=== PATIENT | male | born 1940 | race American Indian/Alaskan Native ===

== ENCOUNTER 2020-01-17 16:38 | Inpatient (IN) | payer OTHER ==
[2020-01-17] MEDS ORDERED: ACETAMINOPHEN 650 MG RECT SUPP PR ONE (17:15)
[2020-01-17] MEDS ORDERED: SODIUM CHLORIDE 0.9% 1000 ML 1,000 ML IV ONE (17:15)
[2020-01-17] MEDS ORDERED: PIPERACILLIN/TAZOBACTAM 3.375 3.375 GM/50 ML BAG IV ONE (17:20)
--- NOTE | 2020-01-17 17:20 | Emergency Department Report ---
ED General Adult HPI - General Chief complaint: Altered Mental Status Stated complaint: SEPSIS Time Seen by Provider: 01/17/20 17:08 Source: EMS Mode of arrival: Stretcher Limitations: Altered Mental Status, Physical Limitation - History of Present Illness Initial comments: Patient is 79 years old male, care home patient. [facility] for evaluation of altered mental status. [facility] staff reported that patient has not been acting well since last night and today patient is not communicating with them. Upon arrival to the ER patient found to be tachycardic with a temperature of 102.2. Sepsis protocol immediately initiated and patient started on normal saline and Zosyn. -: This morning - Related Data Allergies Allergy/AdvReac Type Severity Reaction Status Date / Time No Known Allergies Allergy Unverified 01/17/20 16:44 ED Review of Systems ROS: Stated complaint: SEPSIS Other details as noted in HPI Comment: Unobtainable due to pts medical conditions ED Physical Exam - General Limitations: Altered Mental Status, Physical Limitation General appearance: obtunded - Head Head exam: Present: atraumatic, normocephalic, normal inspection - Eye Eye exam: Present: normal appearance - ENT ENT exam: Present: mucous membranes dry - Neck Neck exam: Present: normal inspection, full ROM. Absent: tenderness, meningismus - Respiratory Respiratory exam: Present: rales - Cardiovascular Cardiovascular Exam: Present: tachycardia - GI/Abdominal GI/Abdominal exam: Present: soft. Absent: distended, tenderness, guarding, rebound, rigid - Extremities Exam Extremities exam: Present: normal inspection, normal capillary refill - Neurological Exam Neurological exam: Present: altered - Skin Skin exam: Present: warm, dry ED Course Vital Signs 01/17/20 01/17/20 01/17/20 16:44 16:59 17:00 Temperature Pulse Rate 106 H 105 H 106 H Respiratory 17 26 H Rate Blood Pressure 145/97 Blood Pressure 140/92 [Left] O2 Sat by Pulse 95 96 Oximetry 01/17/20 01/17/20 01/17/20 17:55 18:01 19:01 Temperature Pulse Rate 90 Respiratory 21 Rate Blood Pressure 150/82 159/89 Blood Pressure [Left] O2 Sat by Pulse 3 L 85 Oximetry 01/17/20 01/17/20 01/17/20 19:02 19:15 19:31 Temperature Pulse Rate 85 87 89 Respiratory 22 24 24 Rate Blood Pressure 159/94 159/94 Blood Pressure 151/86 [Left] O2 Sat by Pulse 95 90 93 Oximetry 01/17/20 01/17/20 01/17/20 19:45 20:07 20:15 Temperature Pulse Rate 89 85 80 Respiratory 25 H 20 17 Rate Blood Pressure 140/111 140/111 140/111 Blood Pressure [Left] O2 Sat by Pulse 93 92 96 Oximetry 01/17/20 01/17/20 01/17/20 20:30 20:45 21:00 Temperature Pulse Rate 80 83 80 Respiratory 20 17 24 Rate Blood Pressure 116/87 116/87 116/95 Blood Pressure [Left] O2 Sat by Pulse 96 93 Oximetry 01/17/20 21:14 Temperature 98.2 F Pulse Rate 81 Respiratory Rate Blood Pressure Blood Pressure [Left] O2 Sat by Pulse Oximetry ED Medical Decision Making - Lab Data Result diagrams: 01/17/20 17:34 01/17/20 17:34 - EKG Data -: EKG Interpreted by Nm EKG shows normal: sinus rhythm Rate: normal - EKG Data Interpretation: no acute changes - Radiology Data Radiology results: report reviewed - Medical Decision Making Patient is 79 years old male, care home patient. Patient brought to the emergency room via EMS for evaluation of altered mental status. [facility] staff reported that patient has not been acting well since last night and today patient is not communicating with them. Upon arrival to the ER patient found to be tachycardic with a temperature of 102.2. Sepsis protocol immediately initiated and patient started on normal saline and Zosyn. Patient found to have a sodium of 166 and a creatinine of 2.2. Patient started on normal saline. Chest x-ray is unremarkable. CT brain is negative for acute finding. UA is unremarkable. I discussed the patient with Dr. Kennedy, he agreed to admit the patient to medical service for further management. Critical Care Time: Yes Critical care time in (mins) excluding proc time.: 30 Critical care attestation.: If time is entered above; I have spent that time in minutes in the direct care of this critically ill patient, excluding procedure time. ED Disposition Clinical Impression: Altered mental status, Sepsis, Acute hypernatremia, Suspected COVID-19 virus infection Disposition: OP ADMIT IP TO THIS HOSP Is pt being admited?: Yes Condition: Stable
[2020-01-17] MEDS: SODIUM CHLORIDE 0.9% 1000 ML 1,000 ML IV ONE ×2 (17:30→17:31)
--- NOTE | 2020-01-17 17:48 | XRay Report ---
CHEST 1 VIEW INDICATION: Altered Mental Status COMPARISON: None FINDINGS: SUPPORT DEVICES: None. HEART / MEDIASTINUM: No significant abnormality. LUNGS / PLEURA: Bronchovascular markings are prominent. No pneumothorax. ADDITIONAL FINDINGS: IMPRESSION: 1. Mild pulmonary edema is a concern Signer Name: Dhiraj Flores MD Signed: 01/17/2020 5:43 PM Workstation Name: [id number]
[2020-01-17 17:57] LABS: Basophils % (Auto) 0.4 % (0.0-1.8); Hematocrit 52.1 % (35.5-45.6); Hemoglobin 16.8 gm/dl (11.8-15.2); Lymphocytes # (Auto) 1.1 K/mm3 (1.2-5.4); Lymphocytes % (Auto) 12.6 % (13.4-35.0); Mean Corpuscular HGB Conc 32 % (32-34); Mean Corpuscular Volume 79 fl (84-94); Monocytes # (Auto) 0.6 K/mm3 (0.0-0.8); Monocytes % (Auto) 6.8 % (0.0-7.3); Platelet Count 189 K/mm3 (140-440); Red Blood Count 6.56 M/mm3 (3.65-5.03); Red Cell Distribution Width 15.2 % (13.2-15.2)
[2020-01-17 18:13] LABS: INR 1.13 (0.87-1.13)
[2020-01-17 18:15] LABS: Alanine Aminotransferase 54 units/L (7-56); Albumin 3.3 g/dL (3.9-5)
[2020-01-17 18:16] LABS: Bilirubin,Direct < 0.2 mg/dL (0-0.2)
[2020-01-17 20:04] LABS: Bacteria,Urine 1+ /HPF (Negative); Bilirubin,Urine NEG (Negative); Blood,Urine SM (Negative); Color,Urine Yellow (Yellow); Mucus,Urine FEW /HPF; Urobilinogen,Urine < 2.0 mg/dL (<2.0)
--- NOTE | 2020-01-17 20:22 | Cat Scan Report ---
CT head/brain wo con INDICATION / CLINICAL INFORMATION: 79 years Male; Altered Mental Status. TECHNIQUE: Routine CT head without contrast. All CT scans at this location are performed using CT dos e reduction for ALARA by means of automated exposure control. COMPARISON: None. FINDINGS: BRAIN / INTRACRANIAL CONTENTS: Small lacunar infarcts are seen in the gangliocapsular regions. Otherwise, no acute hemorrhage, mass effect, midline shift, hydrocephalus, or acute, large territori al infarct. Moderate cerebral and cerebellar atrophy. Moderate degree of hippocampal atrophy suggested bilaterall y. Prominent cavum septum pellucidum et vergae noted. There are extensive, confluent areas of decreased attenuation in the white matter of the cerebral hem ispheres, as well as the gangliocapsular regions. These are nonspecific findings and may be related t o microangiopathy (hypertension, diabetes, atherosclerosis), given the patient's age. It might be dif ficult to evaluate for small areas of ischemia without diffusion imaging by MRI. CRANIOCERVICAL JUNCTION: No significant abnormality. ORBITS: No significant abnormality of visualized orbits. SINUSES / MASTOIDS: Mild to moderate mucosal thickening seen in the ethmoids. Mild mucosal thickening also seen in the mastoids. Mucous tension cyst seen in the right maxillary antrum. ADDITIONAL FINDINGS: Atherosclerotic disease is seen in the anterior circulation. IMPRESSION: 1. No focal mass, hemorrhage, hydrocephalus, or acute, large territorial infarct. Follow-up with diff usion imaging by MRI, as clinically warranted. Signer Name: Charles Edge MD, III Signed: 01/17/2020 8:17 PM Workstation Name: [id number]
[2020-01-17] MEDS ORDERED: MAGNESIUM HYDROXIDE (MOM) ORAL LIQD UDC PO PRN (22:03)
[2020-01-17] MEDS ORDERED: ONDANSETRON 4 MG/2 ML INJ IV PRN (22:03)
--- NOTE | 2020-01-17 22:11 | History and Physical Report ---
History of Present Illness Date of examination: 01/17/20 Date of admission: 01/17/20 21:39 Chief complaint: Altered Mental Status History of present illness: 79-year-old male resident of a [facility]dc brought into the emergency room via EMS today for evaluation of changes in mental status. [facility] staff reported that patient was not communicating well and was having decreased oral intake. He has been no history of nausea vomiting, no diarrhea, no shortness of breath, no fever or chills, no hematuria or dysuria. Patient unable to give any history most of the history was obtained from the emergency room staff. Upon arrival in the emergency room patient was found to be tachycardic and had a fever of 102.2 F. Work-up was significant for hypernatremia, elevated BUN and creatinine. Chest x-ray and CT scan of the head were unremarkable. Patient is being admitted for dehydration, fever and changes in mental status. He is also to be ruled out for COVID-19. Past History Past Medical History: other (Unobtainable) Past Surgical History: Other (Unobtainable) Social history: other (Unobtainable) Family history: other (Unobtainable) Medications and Allergies Allergies Allergy/AdvReac Type Severity Reaction Status Date / Time No Known Allergies Allergy Verified 01/17/20 22:09 Review of Systems ROS unobtainable: due to mental status Exam - Constitutional Vitals: Temp Pulse Resp BP Pulse Ox 98.2 F 81 24 116/95 93 01/17/20 21:14 01/17/20 21:14 01/17/20 21:00 01/17/20 21:00 01/17/20 20:45 General appearance: Present: no acute distress, well-nourished, other (Dry oral mucosa) - EENT Eyes: Present: PERRL, EOM intact. Absent: scleral icterus ENT: hearing intact, clear oral mucosa, dentition normal - Neck Neck: Present: supple, normal ROM - Respiratory Respiratory effort: normal Respiratory: bilateral: CTA - Cardiovascular Rhythm: regular Heart Sounds: Present: S1 & S2. Absent: gallop, systolic murmur, diastolic murmur, rub - Extremities Extremities: no ischemia, pulses intact, pulses symmetrical, No edema, Full ROM Peripheral Pulses: within normal limits - Abdominal General gastrointestinal: Present: soft, non-tender, non-distended, normal bowel sounds. Absent: mass - Integumentary Integumentary: Present: clear, warm, dry. Absent: rash - Musculoskeletal Musculoskeletal: strength equal bilaterally - Psychiatric Psychiatric: appropriate mood/affect, intact judgment & insight, memory intact, cooperative - Neurologic Neurologic: CNII-XII intact, no focal deficits, moves all extremities HEART Score - HEART Score Troponin: Troponin T < 0.010 ng/mL (0.00-0.029) 01/17/20 17:34 Results - Labs CBC & Chem 7: 01/17/20 17:34 01/17/20 21:39 Labs: Abnormal lab results 01/17/20 01/17/20 01/17/20 Range/Units 17:34 17:34 17:34 RBC 6.56 H (3.65-5.03) M/mm3 Hgb 16.8 H (11.8-15.2) gm/dl Hct 52.1 H (35.5-45.6) % MCV 79 L (84-94) fl MCH 26 L (28-32) pg Lymph % (Auto) 12.6 L (13.4-35.0) % Lymph # (Auto) 1.1 L (1.2-5.4) K/mm3 Seg Neutrophils % 80.2 H (40.0-70.0) % Sodium 161 H* (137-145) mmol/L Chloride 123.6 H (98-107) mmol/L BUN 55 H (9-20) mg/dL Creatinine 2.2 H (0.8-1.3) mg/dL Glucose 128 H (75-100) mg/dL AST 63 H (5-40) units/L Albumin 3.3 L (3.9-5) g/dL Assessment and Plan - Patient Problems (1) Altered mental status Current Visit: Yes Status: Acute Plan to address problem: Etiology is unclear but possibly secondary to the hypernatremia with the accompanying dehydration and possible underlying sepsis. Will monitor mental status. (2) Acute hypernatremia Current Visit: Yes Status: Acute Plan to address problem: Patient placed on IV fluid. Will monitor chemistry. (3) Suspected COVID-19 virus infection Current Visit: Yes Status: Acute Plan to address problem: Patient placed on isolation precautions. We await COVID-19 testing. Consult placed to infectious disease for evaluation. (4) DVT prophylaxis Current Visit: Yes Status: Acute Plan to address problem: Patient placed on subcutaneous heparin. (5) Full code status Current Visit: Yes Status: Acute
[2020-01-17 22:15] LABS: C-Reactive Protein 9.4 mg/dL (0.00-1.30)
[2020-01-17] MEDS ORDERED: SODIUM CHLORIDE 0.9% 1000 ML 1,000 ML IV SCH (22:15)
[2020-01-18] MEDS ORDERED: PIPERACILLIN/TAZOBACTAM 3.375 3.375 GM/50 ML BAG IV SCH (06:00)
[2020-01-18 08:46] LABS: Basophils % (Auto) 0.1 % (0.0-1.8); Hematocrit 46.9 % (35.5-45.6); Lymphocytes # (Auto) 1.1 K/mm3 (1.2-5.4); Lymphocytes % (Auto) 12.7 % (13.4-35.0); Mean Corpuscular HGB Conc 32 % (32-34); Mean Corpuscular Volume 79 fl (84-94); Monocytes # (Auto) 0.4 K/mm3 (0.0-0.8); Monocytes % (Auto) 4.6 % (0.0-7.3); Platelet Count 155 K/mm3 (140-440); Red Blood Count 5.91 M/mm3 (3.65-5.03)
[2020-01-18 08:52] LABS: INR 1.16 (0.87-1.13)
[2020-01-18 08:56] LABS: Calcium 7.9 mg/dL (8.4-10.2)
--- NOTE | 2020-01-18 10:22 | Consultation ---
History of Present Illness - Reason for Consult Consult date: 01/18/20 r/o COVID Requesting physician: MARTHA GREEN - History of Present Illness 79 years old male with unknown history of admitted on 01/17/2020 due to 24-hour history of altered mental status, decreased communication. Patient is not the best historian. On arrival, temperature 102 per ED provider report (not recorded), HR 106, BP 140/92, R26, O2 sat drops to 91%, patient currently on room air. WBC normal. Sodium 161. Creatinine 2.2. AST 63. Ferritin 8522. D-dimer 10,000, CRP 9.9. Blood cultures 01/17/2020 pending. Chest x-ray with possible bilateral pulmonary edema. Review of Systems: reviewed ED and H&P notes. Limited due to PPE conservation strategy Past History Past Medical History: other (Unobtainable) Past Surgical History: Other (Unobtainable) Social history: other (Unobtainable) Family history: other (Unobtainable) Medications and Allergies Allergies Allergy/AdvReac Type Severity Reaction Status Date / Time No Known Allergies Allergy Verified 01/17/20 22:09 Active Meds: Active Medications Acetaminophen (Tylenol) 650 mg PO Q4H PRN PRN Reason: Pain MILD(1-3)/Fever >100.5/FORD Piperacillin Sod/Tazobactam Sod (Zosyn/Ns 3.375gm/50ml) 3.375 gm in 50 mls @ 100 mls/hr IV Q8HR LIBORIO; Protocol Last Admin: 01/18/20 05:58 Dose: 100 mls/hr Documented by: Dextrose (D5w) 1,000 mls @ 75 mls/hr IV DIRECT LIBORIO Magnesium Hydroxide (Milk Of Magnesia) 30 ml PO Q4H PRN PRN Reason: Constipation Ondansetron HCl (Zofran) 4 mg IV Q8H PRN PRN Reason: Nausea And Vomiting Sodium Chloride (Sodium Chloride Flush Syringe 10 Ml) 10 ml IV BID LIBORIO Sodium Chloride (Sodium Chloride Flush Syringe 10 Ml) 10 ml IV PRN PRN PRN Reason: LINE FLUSH Physical Examination - Physical Exam Narrative exam: Physical Exam: reviewed provider and hospitalist notes, limited due to co nservation of PPE and decrease risk of transmission. General appearance: limited due to conservation of PPE Eyes: limited due to conservation of PPE HENT: Atraumatic; limited due to conservation of PPE Lungs: limited due to conservation of PPE CV: limited due to conservation of PPE Abdomen: limited due to conservation of PPE Extremities: limited due to conservation of PPE Skin: limited due to conservation of PPE Psych: limited due to conservation of PPE Neuro: limited due to conservation of PPE - Constitutional Vitals: Vital Signs Temp Pulse Resp BP Pulse Ox 98.4 F 82 20 139/96 93 01/18/20 04:40 01/18/20 04:40 01/18/20 04:40 01/18/20 04:40 01/18/20 04:40 Temperature -Last 24 Hours Temperature 98.4 F Temperature 98.5 F Temperature 98.2 F Results - Labs CBC & Chem 7: 01/18/20 07:45 01/18/20 07:45 Labs: Abnormal lab results 01/17/20 01/17/20 01/17/20 Range/Units 17:34 17:34 17:34 RBC 6.56 H (3.65-5.03) M/mm3 Hgb 16.8 H (11.8-15.2) gm/dl Hct 52.1 H (35.5-45.6) % MCV 79 L (84-94) fl MCH 26 L (28-32) pg Lymph % (Auto) 12.6 L (13.4-35.0) % Lymph # (Auto) 1.1 L (1.2-5.4) K/mm3 Seg Neutrophils % 80.2 H (40.0-70.0) % PT (12.2-14.9) Sec. INR (0.87-1.13) D-Dimer (0-234) ng/mlDDU Sodium 161 H* (137-145) mmol/L Chloride 123.6 H (98-107) mmol/L BUN 55 H (9-20) mg/dL Creatinine 2.2 H (0.8-1.3) mg/dL Glucose 128 H (75-100) mg/dL Calcium (8.4-10.2) mg/dL Ferritin (30.0-300.0) ng/mL AST 63 H (5-40) units/L Lactate Dehydrogenase (91-180) units/L C-Reactive Protein (0.00-1.30) mg/dL Albumin 3.3 L (3.9-5) g/dL 01/17/20 01/17/20 01/17/20 Range/Units 21:39 21:39 21:39 RBC (3.65-5.03) M/mm3 Hgb (11.8-15.2) gm/dl Hct (35.5-45.6) % MCV (84-94) fl MCH (28-32) pg Lymph % (Auto) (13.4-35.0) % Lymph # (Auto) (1.2-5.4) K/mm3 Seg Neutrophils % (40.0-70.0) % PT (12.2-14.9) Sec. INR (0.87-1.13) D-Dimer > 07183 H (0-234) ng/mlDDU Sodium (137-145) mmol/L Chloride (98-107) mmol/L BUN (9-20) mg/dL Creatinine (0.8-1.3) mg/dL Glucose 108 H (75-100) mg/dL Calcium (8.4-10.2) mg/dL Ferritin 3522.0 H (30.0-300.0) ng/mL AST (5-40) units/L Lactate Dehydrogenase 407 H (91-180) units/L C-Reactive Protein 9.40 H (0.00-1.30) mg/dL Albumin (3.9-5) g/dL 01/18/20 01/18/20 01/18/20 Range/Units 07:45 07:45 07:45 RBC 5.91 H (3.65-5.03) M/mm3 Hgb (11.8-15.2) gm/dl Hct 46.9 H (35.5-45.6) % MCV 79 L (84-94) fl MCH 25 L (28-32) pg Lymph % (Auto) 12.7 L (13.4-35.0) % Lymph # (Auto) 1.1 L (1.2-5.4) K/mm3 Seg Neutrophils % 82.6 H (40.0-70.0) % PT 15.0 H (12.2-14.9) Sec. INR 1.16 H (0.87-1.13) D-Dimer (0-234) ng/mlDDU Sodium 164 H* (137-145) mmol/L Chloride 131.1 H (98-107) mmol/L BUN 39 H (9-20) mg/dL Creatinine 1.4 H (0.8-1.3) mg/dL Glucose 119 H (75-100) mg/dL Calcium 7.9 L (8.4-10.2) mg/dL Ferritin (30.0-300.0) ng/mL AST (5-40) units/L Lactate Dehydrogenase (91-180) units/L C-Reactive Protein (0.00-1.30) mg/dL Albumin (3.9-5) g/dL Assessment and Plan Physical Exam: reviewed provider and hospitalist notes, limited due to conservation of PPE and decrease risk of transmission. General appearance: limited due to conservation of PPE Eyes: limited due to conservation of PPE HENT: Atraumatic; limited due to conservation of PPE Lungs: limited due to conservation of PPE CV: limited due to conservation of PPE Abdomen: limited due to conservation of PPE Extremities: limited due to conservation of PPE Skin: limited due to conservation of PPE Psych: limited due to conservation of PPE Neuro: limited due to conservation of PPE Cultures: Blood culture 01/17/2020 no growth today SARS CoV2 PCR pending Assessment: 79 years old male with unknown medical history of admitted on 01/17/2020 due to 24-hour history of altered mental status, decreased communication, resident of a snf: #SIRS / Severe sepsis present on admission with high fever, tachycardia, YIMI, hypoxia and altered mental status; etiology unclear ? Bilateral pneumonia? suspicion for COVID-19 infection. Urinalysis not consistent with UTI. Procalcitonin normal. #Bilateral pneumonia versus pulmonary edema: ? Suspect COVID-19 infection. D- dimer markedly elevated. Ferritin markedly elevated. #Acute hypoxia: ? Secondary to pulmonary edema versus pneumonia versus COVID-19 infection versus PE #Elevated LFTs: from sepsis #YIMI: from sepsis #Acute encephalopathy: Likely multifactorial with hypernatremia, uremia, sepsis #Hypernatremia: Per primary team Recommendations: -Follow-up SARS-CoV-2 PCR -Evaluation for PE and DVT -Continue anticoagulation per System Protocol -Stop Zosyn -Start cefepime IV renally dose -Check MRSA PCR -Obtain transthoracic echo All laboratory, cultures and imaging were reviewed. Will follow Pinky Loving MD Infectious Diseases Building Manager [facility] ([facility] M [phone] O [phone]
--- NOTE | 2020-01-18 10:52 | Nuclear Medicine Report ---
NUCLEAR MEDICINE PERFUSION LUNG SCAN INDICATION / CLINICAL INFORMATION: eval for pulmonary embolism. TECHNIQUE: 5.5 mCi of Tc-99m MAA were given by IV. COMPARISON: Chest radiograph dated 01/17/2020. FINDINGS: PERFUSION: No significant perfusion defects. ADDITIONAL FINDINGS: None. IMPRESSION: 1. Low probability for pulmonary embolism. Signer Name: Dhiraj Flores MD Signed: 01/18/2020 10:48 AM Workstation Name: [id number]
--- NOTE | 2020-01-18 12:22 | Vascular Lab Report ---
DUPLEX DOPPLER LOWER EXTREMITY VEINS, BILATERAL INDICATION / CLINICAL INFORMATION: Bilateral lower extremity pain/swelling, possible DVT. TECHNIQUE: Duplex doppler imaging was performed through the veins of both lower extremities using venous julián ami and other maneuvers. COMPARISON: None available. FINDINGS: RIGHT COMMON FEMORAL VEIN: Negative. RIGHT FEMORAL VEIN: Negative. RIGHT POPLITEAL VEIN: Negative. RIGHT CALF VEINS: Negative. LEFT COMMON FEMORAL VEIN: Negative. LEFT FEMORAL VEIN: Negative. LEFT POPLITEAL VEIN: Negative. LEFT CALF VEINS: Negative. ADDITIONAL FINDINGS: None. IMPRESSION: 1. No sonographic evidence for DVT in either lower extremity. Signer Name: Dada Sherman MD Signed: 01/18/2020 12:17 PM Workstation Name: [id number]
--- NOTE | 2020-01-18 12:22 | Vascular Lab Report ---
DUPLEX DOPPLER UPPER EXTREMITY VENOUS, BILATERAL INDICATION / CLINICAL INFORMATION: Altered mental status. TECHNIQUE: Duplex doppler imaging was performed through the veins of the right and left upper extremity using ve nous compression and other maneuvers. COMPARISON: None available. FINDINGS: RIGHT INTERNAL JUGULAR VEIN: Negative. RIGHT SUBCLAVIAN VEIN: Negative. RIGHT AXILLARY VEIN: Negative. RIGHT BRACHIAL VEIN: Negative. RIGHT FOREARM VEINS: Negative. RIGHT BASILIC VEIN (SUPERFICIAL): Negative. LEFT INTERNAL JUGULAR VEIN: Negative. LEFT SUBCLAVIAN VEIN: Negative. LEFT AXILLARY VEIN: Negative. LEFT BRACHIAL VEIN: Negative. LEFT FOREARM VEINS: Negative. LEFT BASILIC VEIN (SUPERFICIAL): Negative. ADDITIONAL FINDINGS: None. IMPRESSION: 1. No sonographic evidence for DVT in the right or left upper extremity. Signer Name: Ramesh Silva MD Signed: 01/18/2020 12:17 PM Workstation Name: [id number]
[2020-01-18] MEDS: CEFEPIME/NS 2 GM/100 ML 2 GM/100 ML BAG IV SCH ×2 (12:30→23:09)
[2020-01-18] MEDS: DEXTROSE 5% IN WATER 1,000 ML IV SCH (12:30)
[2020-01-18] MEDS ORDERED: HEPARIN 5,000 UNIT/1 ML VIAL SUB-Q SCH (14:00)
--- NOTE | 2020-01-18 15:07 | Progress Note ---
<ALEXIADAVIS AbbyDung - Last Filed: 01/18/20 15:48> Assessment and Plan - Patient Problems (1) Sepsis Current Visit: Yes Status: Acute Plan to address problem: Presented with tachycardia, hypoxia, altered mental status, YIMI, CXR shows possible pulmonary edema and COVID-19 PUI Source unknown Infectious disease consulted IV antibiotics 01/16 blood culture x2 no growth to date 01/16 COVID-19 PCR pending 01/16 UA negative for nitrates and leukocyte esterase 01/17 TTE ordered 01/17 MRSA PCR pending (2) Suspected COVID-19 virus infection Current Visit: Yes Status: Acute Plan to address problem: 01/16 COVID-19 PCR pending Contact/droplet isolation Infectious disease consulted Supplemental oxygen as needed OOB 3 times daily Prone to sleep as needed Patient was on Zosyn and infectious disease changed his antibiotic to cefepime on 01/17 Pulmonary hygiene Trend inflammatory markers Anticoagulation per COVID-19 protocol (3) Acute hypernatremia Current Visit: Yes Status: Acute Plan to address problem: Presented with a sodium of 161 01/17 sodium 164, 165 01/17 IVF changed to D5W Trend BMP, BMP every 12 Avoid rapid correction due to risk of pontine demyelination Consider nephrology consult if continues to trend up (4) Hypochloremia Current Visit: Yes Status: Acute (5) Acute kidney injury Current Visit: Yes Status: Acute Plan to address problem: Presented with a BUN/creatinine of 2.2/55 MIVF 01/17 BUN/creatinine 39/1.4 Secondary to vasomotor nephropathy Consider nephrology consult and further renal studies if creatinine does not improve (6) Elevated d-dimer Current Visit: Yes Status: Acute Plan to address problem: 01/16 D-dimer greater than 10,000 01/17 VQ scan shows low probability of pulmonary medicine 01/17 bilateral upper and lower extremity venous Dopplers shows no acute DVT Anticoagulation per COVID-19 protocol (7) Acute respiratory failure Current Visit: Yes Status: Acute Plan to address problem: Patient was hypoxic on room air Supplemental oxygen as needed Continuous pulse ox pulmonary hygiene (8) Transaminitis Current Visit: Yes Status: Acute Plan to address problem: Presented with AST of 63 Secondary to COVID-19 infection Trend LFTs (9) Diabetes mellitus Current Visit: Yes Status: Chronic Plan to address problem: 01/17 hemoglobin A1c pending SSI Accu-Cheks every 6 hours while n.p.o. (10) Hypertension Current Visit: Yes Status: Chronic Plan to address problem: Patient has a history of hypertension Patient is normotensive at this time We will continue to monitor Restart home antihypertensive regimen when applicable and available Blood pressure monitor per protocol (11) DVT prophylaxis Current Visit: Yes Status: Acute Plan to address problem: Anticoagulation per COVID-19 protocol, Lovenox 40 twice daily SCDs to bilateral Bed History Interval history: 79-year-old male with HTN and DM who is a resident of a detention presented to the ED on 01/17 via EMS for evaluation of a change mental status. Per detention staff patient was not communicating well and having decreased oral intake. Upon arrival to the emergency department patient was found to be tachyc ardic, febrile to 102.2 and hypoxic with SPO2 of 91 on room air. Work-up was significant for hypernatremia, acute kidney injury (CR/BUN 2.2/55), hypochloremia, transaminitis and a chest x-ray showed mild bilateral pulmonary edema and CTh was unremarkable. Patient was admitted to hospitalist service as a Covid PUI, Sepsis, YIMI and infectious disease was consulted. This morning patient had elevated D-dimer therefore bilateral upper and lower extremity ultrasounds Dopplers were obtained to rule out DVT and a VQ scan was performed to rule out PE both of which were negative. Patient remained severely hypernatremic and his IV fluids were changed to D5 water. We will trend his BMP. He also has elevated Covid markers ferritin and CRP. Hospitalist Physical - Constitutional Vitals: Temp Pulse Resp BP Pulse Ox 98.4 F 82 20 139/96 93 01/18/20 04:40 01/18/20 04:40 01/18/20 04:40 01/18/20 04:40 01/18/20 04:40 General appearance: Present: no acute distress, well-nourished, other (Dry oral mucosa) - EENT Eyes: Present: PERRL, EOM intact ENT: hearing decreased, poor dentition - Neck Neck: Present: supple - Respiratory Respiratory effort: normal Respiratory: bilateral: diminished - Cardiovascular Rhythm: regular Heart Sounds: Present: S1 & S2. Absent: systolic murmur, diastolic murmur - Extremities Extremities: no ischemia, pulses intact, pulses symmetrical, No edema, normal temperature, normal color Peripheral Pulses: within normal limits - Abdominal General gastrointestinal: soft, non-tender, non-distended, normal bowel sounds - Integumentary Integumentary: Present: warm, dry - Psychiatric Psychiatric: cooperative - Neurologic Neurologic: focal deficits, no moves all extremities HEART Score - HEART Score Troponin: Troponin T < 0.010 ng/mL (0.00-0.029) 01/17/20 17:34 Results - Labs CBC & Chem 7: 01/18/20 07:45 01/18/20 13:48 Labs: Laboratory Last Values WBC 8.6 K/mm3 (4.5-11.0) 01/18/20 07:45 RBC 5.91 M/mm3 (3.65-5.03) H 01/18/20 07:45 Hgb 15.0 gm/dl (11.8-15.2) 01/18/20 07:45 Hct 46.9 % (35.5-45.6) H 01/18/20 07:45 MCV 79 fl (84-94) L 01/18/20 07:45 MCH 25 pg (28-32) L 01/18/20 07:45 MCHC 32 % (32-34) 01/18/20 07:45 RDW 15.0 % (13.2-15.2) 01/18/20 07:45 Plt Count 155 K/mm3 (140-440) 01/18/20 07:45 Lymph % (Auto) 12.7 % (13.4-35.0) L 01/18/20 07:45 Nicholas % (Auto) 4.6 % (0.0-7.3) 01/18/20 07:45 Eos % (Auto) 0.0 % (0.0-4.3) 01/18/20 07:45 Baso % (Auto) 0.1 % (0.0-1.8) 01/18/20 07:45 Lymph # (Auto) 1.1 K/mm3 (1.2-5.4) L 01/18/20 07:45 Nicholas # (Auto) 0.4 K/mm3 (0.0-0.8) 01/18/20 07:45 Eos # (Auto) 0.0 K/mm3 (0.0-0.4) 01/18/20 07:45 Baso # (Auto) 0.0 K/mm3 (0.0-0.1) 01/18/20 07:45 Seg Neutrophils % 82.6 % (40.0-70.0) H 01/18/20 07:45 Seg Neutrophils # 7.1 K/mm3 (1.8-7.7) 01/18/20 07:45 PT 15.0 Sec. (12.2-14.9) H 01/18/20 07:45 INR 1.16 (0.87-1.13) H 01/18/20 07:45 APTT 31.0 Sec. (24.2-36.6) 01/17/20 17:34 D-Dimer > 02731 ng/mlDDU (0-234) H 01/17/20 21:39 Sodium 165 mmol/L (137-145) H* 01/18/20 13:48 Potassium 4.0 mmol/L (3.6-5.0) 01/18/20 07:45 Chloride 131.1 mmol/L (98-107) H 01/18/20 07:45 Carbon Dioxide 23 mmol/L (22-30) 01/18/20 07:45 Anion Gap 14 mmol/L 01/18/20 07:45 BUN 39 mg/dL (9-20) H 01/18/20 07:45 Creatinine 1.4 mg/dL (0.8-1.3) H 01/18/20 07:45 Estimated GFR 59 ml/min 01/18/20 07:45 BUN/Creatinine Ratio 28 % 01/18/20 07:45 Glucose 119 mg/dL (75-100) H 01/18/20 07:45 Lactic Acid 1.80 mmol/L (0.7-2.0) 01/17/20 19:40 Calcium 7.9 mg/dL (8.4-10.2) L 01/18/20 07:45 Ferritin 3522.0 ng/mL (30.0-300.0) H 01/17/20 21:39 Total Bilirubin 0.30 mg/dL (0.1-1.2) 01/17/20 17:34 Direct Bilirubin < 0.2 mg/dL (0-0.2) 01/17/20 17:34 Indirect Bilirubin 0.1 mg/dL 01/17/20 17:34 AST 63 units/L (5-40) H 01/17/20 17:34 ALT 54 units/L (7-56) 01/17/20 17:34 Alkaline Phosphatase 66 units/L (35-129) 01/17/20 17:34 Ammonia 38.0 umol/L (25-60) 01/17/20 17:34 Lactate Dehydrogenase 407 units/L (91-180) H 01/17/20 21:39 Total Creatine Kinase 164 units/L (55-170) 01/17/20 17:34 Troponin T < 0.010 ng/mL (0.00-0.029) 01/17/20 17:34 C-Reactive Protein 7.40 mg/dL (0.00-1.30) H 01/18/20 07:45 Total Protein 7.2 g/dL (6.3-8.2) 01/17/20 17:34 Albumin 3.3 g/dL (3.9-5) L 01/17/20 17:34 Albumin/Globulin Ratio 0.8 % 01/17/20 17:34 Procalcitonin 0.15 ng/mL (<0.15) 01/17/20 21:39 Urine Color Yellow (Yellow) 01/17/20 19:30 Urine Turbidity Clear (Clear) 01/17/20 19:30 Urine pH 5.0 (5.0-7.0) 01/17/20 19:30 Ur Specific Mathias 1.016 (1.003-1.030) 01/17/20 19:30 Urine Protein 100 mg/dl mg/dL (Negative) 01/17/20 19:30 Urine Glucose (UA) Neg mg/dL (Negative) 01/17/20 19:30 Urine Ketones Neg mg/dL (Negative) 01/17/20 19:30 Urine Blood Sm (Negative) 01/17/20 19:30 Urine Nitrite Neg (Negative) 01/17/20 19:30 Urine Bilirubin Neg (Negative) 01/17/20 19:30 Urine Urobilinogen < 2.0 mg/dL (<2.0) 01/17/20 19:30 Ur Leukocyte Esterase Neg (Negative) 01/17/20 19:30 Urine WBC (Auto) 2.0 /HPF (0.0-6.0) 01/17/20 19:30 Urine RBC (Auto) 6.0 /HPF (0.0-6.0) 01/17/20 19:30 U Epithel Cells (Auto) < 1.0 /HPF (0-13.0) 01/17/20 19:30 Urine Bacteria (Auto) 1+ /HPF (Negative) 01/17/20 19:30 Urine Mucus Few /HPF 01/17/20 19:30 Microbiology: Microbiology 01/17/20 17:37 Peripheral/Venous Blood Culture - Preliminary Culture in Progress 01/17/20 17:34 Peripheral/Venous Blood Culture - Preliminary Culture in Progress Moses/IV: Voiding Method Incontinent IV Catheter Type [Left Forearm INT / Saline Lock ] IV Catheter Type [Right INT / Saline Lock Antecubital] Active Medications - Current Medications Current Medications: Generic Name Dose Route Start Last Admin Trade Name Freq PRN Reason Stop Dose Admin Acetaminophen 650 mg 01/17/20 22:03 Tylenol PO Q4H PRN Pain MILD(1-3)/Fever >100.5/FORD Enoxaparin Sodium 40 mg 01/18/20 22:00 Enoxaparin SUB-Q BID LIBORIO Protocol Dextrose 1,000 mls @ 75 mls/hr 01/18/20 10:00 01/18/20 12:30 D5w IV 75 mls/hr DIRECT LIBORIO Administration Cefepime HCl 2 gm in 100 mls @ 200 mls/hr 01/18/20 12:00 01/18/20 12:30 Cefepime/Ns 2 Gm/100 Ml IV 200 mls/hr Q12HR LIBORIO Administration Protocol Magnesium Hydroxide 30 ml 01/17/20 22:03 Milk Of Magnesia PO Q4H PRN Constipation Ondansetron HCl 4 mg 01/17/20 22:03 Zofran IV Q8H PRN Nausea And Vomiting Sodium Chloride 10 ml 01/18/20 10:00 01/18/20 12:30 Sodium Chloride Flush Syringe 10 Ml IV 10 ml BID LIBORIO Administration Sodium Chloride 10 ml 01/17/20 22:03 Sodium Chloride Flush Syringe 10 Ml IV PRN PRN LINE FLUSH <VIC LYNCH - Last Filed: 01/18/20 16:28> Assessment and Plan Assessment and plan: I saw and evaluated the patient. I agree with the findings and the plan of care as documented in the Nurse Practitioner's~note, with the following corrections and additions. Hospitalist Physical - Constitutional Vitals: Temp Pulse Resp BP Pulse Ox 98.4 F 82 20 139/96 93 01/18/20 04:40 01/18/20 04:40 01/18/20 04:40 01/18/20 04:40 01/18/20 04:40 HEART Score - HEART Score Troponin: Troponin T < 0.010 ng/mL (0.00-0.029) 01/17/20 17:34 Results - Labs CBC & Chem 7: 01/18/20 07:45 01/18/20 13:48 Labs: Laboratory Last Values WBC 8.6 K/mm3 (4.5-11.0) 01/18/20 07:45 RBC 5.91 M/mm3 (3.65-5.03) H 01/18/20 07:45 Hgb 15.0 gm/dl (11.8-15.2) 01/18/20 07:45 Hct 46.9 % (35.5-45.6) H 01/18/20 07:45 MCV 79 fl (84-94) L 01/18/20 07:45 MCH 25 pg (28-32) L 01/18/20 07:45 MCHC 32 % (32-34) 01/18/20 07:45 RDW 15.0 % (13.2-15.2) 01/18/20 07:45 Plt Count 155 K/mm3 (140-440) 01/18/20 07:45 Lymph % (Auto) 12.7 % (13.4-35.0) L 01/18/20 07:45 Nicholas % (Auto) 4.6 % (0.0-7.3) 01/18/20 07:45 Eos % (Auto) 0.0 % (0.0-4.3) 01/18/20 07:45 Baso % (Auto) 0.1 % (0.0-1.8) 01/18/20 07:45 Lymph # (Auto) 1.1 K/mm3 (1.2-5.4) L 01/18/20 07:45 Nicholas # (Auto) 0.4 K/mm3 (0.0-0.8) 01/18/20 07:45 Eos # (Auto) 0.0 K/mm3 (0.0-0.4) 01/18/20 07:45 Baso # (Auto) 0.0 K/mm3 (0.0-0.1) 01/18/20 07:45 Seg Neutrophils % 82.6 % (40.0-70.0) H 01/18/20 07:45 Seg Neutrophils # 7.1 K/mm3 (1.8-7.7) 01/18/20 07:45 PT 15.0 Sec. (12.2-14.9) H 01/18/20 07:45 INR 1.16 (0.87-1.13) H 01/18/20 07:45 APTT 31.0 Sec. (24.2-36.6) 01/17/20 17:34 D-Dimer > 02357 ng/mlDDU (0-234) H 01/17/20 21:39 Sodium 165 mmol/L (137-145) H* 01/18/20 13:48 Potassium 4.0 mmol/L (3.6-5.0) 01/18/20 07:45 Chloride 131.1 mmol/L (98-107) H 01/18/20 07:45 Carbon Dioxide 23 mmol/L (22-30) 01/18/20 07:45 Anion Gap 14 mmol/L 01/18/20 07:45 BUN 39 mg/dL (9-20) H 01/18/20 07:45 Creatinine 1.4 mg/dL (0.8-1.3) H 01/18/20 07:45 Estimated GFR 59 ml/min 01/18/20 07:45 BUN/Creatinine Ratio 28 % 01/18/20 07:45 Glucose 119 mg/dL (75-100) H 01/18/20 07:45 Lactic Acid 1.80 mmol/L (0.7-2.0) 01/17/20 19:40 Calcium 7.9 mg/dL (8.4-10.2) L 01/18/20 07:45 Ferritin 3522.0 ng/mL (30.0-300.0) H 01/17/20 21:39 Total Bilirubin 0.30 mg/dL (0.1-1.2) 01/17/20 17:34 Direct Bilirubin < 0.2 mg/dL (0-0.2) 01/17/20 17:34 Indirect Bilirubin 0.1 mg/dL 01/17/20 17:34 AST 63 units/L (5-40) H 01/17/20 17:34 ALT 54 units/L (7-56) 01/17/20 17:34 Alkaline Phosphatase 66 units/L (35-129) 01/17/20 17:34 Ammonia 38.0 umol/L (25-60) 01/17/20 17:34 Lactate Dehydrogenase 407 units/L (91-180) H 01/17/20 21:39 Total Creatine Kinase 164 units/L (55-170) 01/17/20 17:34 Troponin T < 0.010 ng/mL (0.00-0.029) 01/17/20 17:34 C-Reactive Protein 7.40 mg/dL (0.00-1.30) H 01/18/20 07:45 Total Protein 7.2 g/dL (6.3-8.2) 01/17/20 17:34 Albumin 3.3 g/dL (3.9-5) L 01/17/20 17:34 Albumin/Globulin Ratio 0.8 % 01/17/20 17:34 Procalcitonin 0.15 ng/mL (<0.15) 01/17/20 21:39 Urine Color Yellow (Yellow) 01/17/20 19:30 Urine Turbidity Clear (Clear) 01/17/20 19:30 Urine pH 5.0 (5.0-7.0) 01/17/20 19:30 Ur Specific Mathias 1.016 (1.003-1.030) 01/17/20 19:30 Urine Protein 100 mg/dl mg/dL (Negative) 01/17/20 19:30 Urine Glucose (UA) Neg mg/dL (Negative) 01/17/20 19:30 Urine Ketones Neg mg/dL (Negative) 01/17/20 19:30 Urine Blood Sm (Negative) 01/17/20 19:30 Urine Nitrite Neg (Negative) 01/17/20 19:30 Urine Bilirubin Neg (Negative) 01/17/20 19:30 Urine Urobilinogen < 2.0 mg/dL (<2.0) 01/17/20 19:30 Ur Leukocyte Esterase Neg (Negative) 01/17/20 19:30 Urine WBC (Auto) 2.0 /HPF (0.0-6.0) 01/17/20 19:30 Urine RBC (Auto) 6.0 /HPF (0.0-6.0) 01/17/20 19:30 U Epithel Cells (Auto) < 1.0 /HPF (0-13.0) 01/17/20 19:30 Urine Bacteria (Auto) 1+ /HPF (Negative) 01/17/20 19:30 Urine Mucus Few /HPF 01/17/20 19:30 Microbiology: Microbiology 01/17/20 17:37 Peripheral/Venous Blood Culture - Preliminary Culture in Progress 01/17/20 17:34 Peripheral/Venous Blood Culture - Preliminary Culture in Progress Moses/IV: Voiding Method Incontinent IV Catheter Type [Left Forearm INT / Saline Lock ] IV Catheter Type [Right INT / Saline Lock Antecubital] Active Medications - Current Medications Current Medications: Generic Name Dose Route Start Last Admin Trade Name Freq PRN Reason Stop Dose Admin Acetaminophen 650 mg 01/17/20 22:03 Tylenol PO Q4H PRN Pain MILD(1-3)/Fever >100.5/FORD Dextrose 50 ml 01/18/20 16:00 D50w (25gm) Syringe IV Q30MIN PRN Hypoglycemia Protocol Enoxaparin Sodium 40 mg 01/18/20 22:00 Enoxaparin SUB-Q BID LIBORIO Protocol Dextrose 1,000 mls @ 75 mls/hr 01/18/20 10:00 01/18/20 12:30 D5w IV 75 mls/hr DIRECT LIBORIO Administration Cefepime HCl 2 gm in 100 mls @ 200 mls/hr 01/18/20 12:00 01/18/20 12:30 Cefepime/Ns 2 Gm/100 Ml IV 200 mls/hr Q12HR LIBORIO Administration Protocol Insulin Human Regular 0 unit 01/18/20 16:00 Humulin R SUB-Q Q6HR LIBORIO Protocol Magnesium Hydroxide 30 ml 01/17/20 22:03 Milk Of Magnesia PO Q4H PRN Constipation Ondansetron HCl 4 mg 01/17/20 22:03 Zofran IV Q8H PRN Nausea And Vomiting Sodium Chloride 10 ml 01/18/20 10:00 01/18/20 12:30 Sodium Chloride Flush Syringe 10 Ml IV 10 ml BID LIBORIO Administration Sodium Chloride 10 ml 01/17/20 22:03 Sodium Chloride Flush Syringe 10 Ml IV PRN PRN LINE FLUSH
[2020-01-18] MEDS ORDERED: DEXTROSE 50% IN WATER (25GM) 50 ML SYRINGE IV PRN (16:00)
[2020-01-18 16:50] LABS: Chol/HDL Ratio 4.86 %
[2020-01-18] MEDS: INSULIN REGULAR, HUMAN 100 UNIT/ML 3ML VIAL SUB-Q SCH ×2 (19:27→20:26)
[2020-01-18 20:09] LABS: BUN/Creatinine Ratio 27; Blood Urea Nitrogen 32 mg/dL (9-20); Calcium 8.4 mg/dL (8.4-10.2); Hemolysis Index 20
[2020-01-18] MEDS: ENOXAPARIN 40 MG/0.4 ML INJ SUB-Q SCH (23:10)
[2020-01-19] MEDS: INSULIN REGULAR, HUMAN 100 UNIT/ML 3ML VIAL SUB-Q SCH ×4 (00:50→18:49)
[2020-01-19] MEDS: DEXTROSE 5% IN WATER 1,000 ML IV SCH (04:42)
[2020-01-19 06:02] LABS: Hematocrit 46.1 % (35.5-45.6); Hemoglobin 15.3 gm/dl (11.8-15.2); Mean Corpuscular HGB Conc 33 % (32-34); Mean Corpuscular Volume 79 fl (84-94); Platelet Count 156 K/mm3 (140-440); Red Blood Count 5.84 M/mm3 (3.65-5.03)
[2020-01-19 06:23] LABS: BUN/Creatinine Ratio 22; Blood Urea Nitrogen 26 mg/dL (9-20); Calcium 8.6 mg/dL (8.4-10.2); Hemolysis Index 34
[2020-01-19] MEDS ORDERED: amLODIPine 5 MG TAB PO NR (07:30)
[2020-01-19] MEDS: amLODIPine 5 MG TAB PO SCH ×3 (08:00→16:40)
--- NOTE | 2020-01-19 08:27 | Consultation ---
History of Present Illness - Reason for Consult hypernatremia - History of Present Illness 79-year-old frail elderly male coming from a residential facility secondary to worsening altered mental status with unknown past medical history in the setting of what seems to be worsening possible pneumonia and sepsis. Initial laboratory studies were concerning for significant hypernatremia for which nephrology was consulted at this time for further evaluation and management. Patient has been placed on D5 water at 100 cc an hour. Inflammatory parameters for suspected Covid however elevated including D-dimer levels. Chest x-ray reviewed. Patient is pending echocardiogram at this time. Patient has been seen by infectious disease. Remains on isolation protocol pending COVID-19 testing. Past History Past Medical History: other (Unobtainable) Past Surgical History: Other (Unobtainable) Social history: other (Unobtainable) Family history: other (Unobtainable) Medications and Allergies Allergies Allergy/AdvReac Type Severity Reaction Status Date / Time No Known Allergies Allergy Verified 01/17/20 22:09 Active Meds: Active Medications Acetaminophen (Tylenol) 650 mg PO Q4H PRN PRN Reason: Pain MILD(1-3)/Fever >100.5/FORD Amlodipine Besylate (Amlodipine) 2.5 mg PO QDAY LIBORIO Stop: 01/19/20 11:00 Dextrose (D50w (25gm) Syringe) 50 ml IV Q30MIN PRN; Protocol PRN Reason: Hypoglycemia Enoxaparin Sodium (Enoxaparin) 40 mg SUB-Q BID LIBORIO; Protocol Last Admin: 01/18/20 23:10 Dose: 40 mg Documented by: Dextrose (D5w) 1,000 mls @ 100 mls/hr IV DIRECT LIBORIO Last Admin: 01/19/20 04:42 Dose: 75 mls/hr Documented by: Cefepime HCl (Cefepime/Ns 2 Gm/100 Ml) 2 gm in 100 mls @ 200 mls/hr IV Q12HR LIBORIO; Protocol Last Admin: 01/18/20 23:09 Dose: 200 mls/hr Documented by: Insulin Human Regular (Humulin R) 0 unit SUB-Q Q6HR LIBORIO; Protocol Last Admin: 01/19/20 05:54 Dose: Not Given Documented by: Magnesium Hydroxide (Milk Of Magnesia) 30 ml PO Q4H PRN PRN Reason: Constipation Ondansetron HCl (Zofran) 4 mg IV Q8H PRN PRN Reason: Nausea And Vomiting Sodium Chloride (Sodium Chloride Flush Syringe 10 Ml) 10 ml IV BID LIBORIO Last Admin: 01/18/20 23:11 Dose: 10 ml Documented by: Sodium Chloride (Sodium Chloride Flush Syringe 10 Ml) 10 ml IV PRN PRN PRN Reason: LINE FLUSH Review of Systems ROS unobtainable: due to mental status Exam - Vital Signs Vital signs: Vital Signs Pulse BP 106 H 140/92 01/17/20 16:44 01/17/20 16:44 - Physical Exam Narrative exam: Deferred physical examination in order to preserve PPE. Results - Lab Results 01/19/20 05:13 01/19/20 05:13 Most recent lab results Calcium 8.6 mg/dL (8.4-10.2) 01/19/20 05:13 Assessment and Plan - Patient Problems (1) Acute hypernatremia Current Visit: Yes Status: Acute Plan to address problem: Continue with current free water repletion. D5 water is running at 100 cc an hour. We will continue to monitor and titrate as appropriate. (2) Altered mental status Current Visit: Yes Status: Acute Plan to address problem: Possibly in the setting of hypernatremia and underlying pneumonia. We will continue to closely monitor. (3) Suspected COVID-19 virus infection Current Visit: Yes Status: Acute Plan to address problem: Pending COVID-19 PCR testing at this time (4) Diabetes mellitus Current Visit: Yes Status: Chronic Plan to address problem: Diabetes management per primary attending (5) Hypertension Current Visit: Yes Status: Chronic Plan to address problem: Monitor blood pressures under current antihypertensive regimen.
[2020-01-19] MEDS: CEFEPIME/NS 2 GM/100 ML 2 GM/100 ML BAG IV SCH (09:32)
[2020-01-19] MEDS: ENOXAPARIN 40 MG/0.4 ML INJ SUB-Q SCH ×2 (09:32→22:19)
[2020-01-19] MEDS ORDERED: LIPASE 10,500/PROTEASE 25,000/AMYLASE 43,750 (UNITS) DR CAP FEEDTUBE PRN (10:31)
[2020-01-19] MEDS ORDERED: SODIUM BICARBONATE 325 MG TAB FEEDTUBE PRN (10:31)
[2020-01-19] MEDS ORDERED: SIMPLE SYRUP 15 ML FEEDTUBE PRN ×2 (10:31)
--- NOTE | 2020-01-19 12:31 | Event Note ---
Date: 01/19/20 Patient being followed by [facility] Spoke to daughter at [phone] she is highly dissatisfied about care and communication. She states she has not seen her father for about a week because of (inaudible) I have advised her that her father was admitted on the 01/17/20 in the afternoon. I took overcare 01/18/20 and normally my practice is to give family update within 24 hrs of seeing patient so we have updates. She then was upset about the COVID 19 not being done and us having a stop time for COVID testing, she is also upset about visitation policy and will like to transfer her father out to [place], I have explained the process and our willingness to help while explaining that we capable of providing care needed but patient hung up the phone before I could complete speaking
--- NOTE | 2020-01-19 12:54 | XRay Report ---
ABDOMEN 1 VIEW(S) INDICATION: For NG Tube feeding COMPARISON: None available. FINDINGS: Dobbhoff feeding tube is in the fundus of stomach Bowel gas pattern: Within normal limits. No dilated loops of large or small bowel. Free air: None. Calcified gallstones: None seen. Calcified urinary tract calculi: None seen. Additional Findings: None. Skeletal structures: No acute abnormality. IMPRESSION: 1. No acute findings. Signer Name: Dhiraj Flores MD Signed: 01/19/2020 12:50 PM Workstation Name: [id number]
[2020-01-19] MEDS: DEXAMETHASONE 4 MG TAB PO SCH (13:00)
--- NOTE | 2020-01-19 14:44 | Progress Note ---
<DAVIS HALE - Last Filed: 01/19/20 15:43> Assessment and Plan - Patient Problems (1) Sepsis Current Visit: Yes Status: Acute Plan to address problem: Presented with tachycardia, hypoxia, altered mental status, YIMI, CXR shows possible pulmonary edema and COVID-19 PCR positive COVID-19 PCR positive Infectious disease consulted S/p Zosyn IV cefepime 01/16 blood culture x2 no growth to date 01/16 COVID-19 PCR positive 01/16 UA negative for nitrates and leukocyte esterase 01/17 TTE ordered 01/17 MRSA PCR pending (2) CVA (cerebral vascular accident) Current Visit: Yes Status: Acute Plan to address problem: Presented with altered mental status, baseline at group home is alert and oriented x2 01/16 CT head shows small lacunar infarcts in the ganglial capsular region 01/18 MRI brain pending 01/18 MRA head pending 01/18 EEG pending 01/18 lipid panel pending 01/[address]/OT/PT consulted Neurology consult Aspirin and statin therapy Fall, aspiration, seizure precautions Permissive hypertension for 24 hours, patient is already outside the window now target normotension Target euthymia and euglycemia (3) COVID-19 virus infection Current Visit: Yes Status: Acute Plan to address problem: 01/16 COVID-19 PCR positive Contact/droplet isolation Infectious disease consulted Supplemental oxygen as needed OOB 3 times daily Prone to sleep as needed Patient was on Zosyn and infectious disease changed his antibiotic to cefepime on 01/17 Pulmonary hygiene Trend inflammatory markers Anticoagulation per COVID-19 protocol 01/18 remdesivir initiated through 01/23 01/18 dexamethasone 6 mg p.o. daily for 10 days till 01/28 (4) Acute hypernatremia Current Visit: Yes Status: Acute Plan to address problem: Presented with a sodium of 161 01/17 sodium 164, 165 01/17 IVF changed to D5W at 75 mL/h which was increased on 01/18 100 mL/hr 01/18 sodium 167, 168 Trend BMP, BMP every 12 Avoid rapid correction due to risk of pontine demyelination 01/18 nephrology consulted Patient initiated on tube feedings with free water flushes on 01/18 S/p 20 normal saline bolus in the ED for sepsis (5) Acute kidney injury Current Visit: Yes Status: Resolved Plan to address problem: Presented with a BUN/creatinine of 2.2/55 S/p 2 L normal saline bolus in the ED 01/17 BUN/creatinine 39/1.2 Secondary to vasomotor nephropathy Consider nephrology consult and further renal studies if creatinine does not improve (6) Elevated d-dimer Current Visit: Yes Status: Acute Plan to address problem: 01/16 D-dimer greater than 10,000 01/17 VQ scan shows low probability of pulmonary medicine 01/17 bilateral upper and lower extremity venous Dopplers shows no acute DVT Anticoagulation per COVID-19 protocol (7) Acute respiratory failure Current Visit: Yes Status: Acute Plan to address problem: Patient was hypoxic on room air Supplemental oxygen as needed Continuous pulse ox pulmonary hygiene Dexamethasone 6 mg p.o. daily 01/18 through 01/28 (8) Transaminitis Current Visit: Yes Status: Acute Plan to address problem: Presented with AST of 63 Secondary to COVID-19 infection Trend LFTs (9) Hyperchloremia Current Visit: Yes Status: Acute Plan to address problem: Presented with chloride of 123.6 01/17: 131, 133 01/18 chloride 133, 134 Patient is on D5W Trend BMP S/p 2 L normal saline bolus in the ED (10) Diabetes mellitus Current Visit: Yes Status: Chronic Plan to address problem: 01/17 hemoglobin A1c 6.7 SSI Accu-Cheks every 6 hours while n.p.o. 01/18 patient initiated on tube feedings (11) Hypertension Current Visit: Yes Status: Chronic Plan to address problem: Patient has a history of hypertension Patient is normotensive at this time We will continue to monitor Restart home antihypertensive regimen when applicable and available Blood pressure monitor per protocol 01/18 patient initiated on amlodipine (12) DVT prophylaxis Current Visit: Yes Status: Acute Plan to address problem: Anticoagulation per COVID-19 protocol, Lovenox 40 twice daily SCDs to bilateral Bed History Interval history: 79-year-old male with HTN and DM who is a resident of a group home presented to the ED on 01/17 via EMS for evaluation of a change mental status. Per group home staff patient was not communicating well and having decreased oral intake. Upon arrival to the emergency department patient was found to be tachycardic, febrile to 102.2 and hypoxic with SPO2 of 91 on room air. Work-up was significant for hypernatremia, acute kidney injury (CR/BUN 2.2/55), hypochloremia, transaminitis and a chest x-ray showed mild bilateral pulmonary edema and CTh was unremarkable. Patient was admitted to hospitalist service as a Covid PUI, Sepsis, YIMI and infectious disease was consulted. Today his COVID- 19 PCR resulted as positive. Patient remains hyponatremic therefore nephrology was consulted and he was started on blood pressures and his D5W was increased. 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 Dr. Petersen updated his daughter this morning (Ms. Burleson) and this afternoon after his COVID-19 PCR resulted I updated her. The phone got disconnected after 2 minutes of conversation and informing her of COVID-19 status and I tried calling back twice. Both times it was sent to [employer] and her mailbox is full therefore was not able to leave a message. 01/07 11: This morning patient had elevated D-dimer therefore bilateral upper and lower extremity ultrasounds Dopplers were obtained to rule out DVT and a VQ scan was performed to rule out PE both of which were negative. Patient remained severely hypernatremic and his IV fluids were changed to D5 water. We will trend his BMP. He also has elevated Covid markers ferritin and CRP. Hospitalist Physical - Constitutional Vitals: Temp Pulse Resp BP Pulse Ox 98.1 F 91 H 24 140/86 94 01/19/20 11:56 01/19/20 11:56 01/19/20 11:56 01/19/20 11:56 01/19/20 11:56 General appearance: Present: no acute distress, well-nourished - EENT Eyes: Present: PERRL, EOM intact ENT: poor dentition - Neck Neck: Present: normal ROM - Respiratory Respiratory effort: normal Respiratory: bilateral: diminished - Cardiovascular Rhythm: regular Heart Sounds: Present: S1 & S2. Absent: systolic murmur, diastolic murmur - Extremities Extremities: no ischemia, pulses intact, pulses symmetrical, No edema, normal temperature, normal color Peripheral Pulses: within normal limits - Abdominal General gastrointestinal: soft, non-tender, normal bowel sounds - Integumentary Integumentary: Present: warm, dry - Psychiatric Psychiatric: other (Patient is noninteractive, nonverbal, withdraws to pain in in 4 extremities) - Neurologic Neurologic: moves all extremities HEART Score - HEART Score Troponin: Troponin T < 0.010 ng/mL (0.00-0.029) 01/17/20 17:34 Results - Labs CBC & Chem 7: 01/19/20 05:13 01/19/20 13:39 Labs: Laboratory Last Values WBC 10.0 K/mm3 (4.5-11.0) 01/19/20 05:13 RBC 5.84 M/mm3 (3.65-5.03) H 01/19/20 05:13 Hgb 15.3 gm/dl (11.8-15.2) H 01/19/20 05:13 Hct 46.1 % (35.5-45.6) H 01/19/20 05:13 MCV 79 fl (84-94) L 01/19/20 05:13 MCH 26 pg (28-32) L 01/19/20 05:13 MCHC 33 % (32-34) 01/19/20 05:13 RDW 15.0 % (13.2-15.2) 01/19/20 05:13 Plt Count 156 K/mm3 (140-440) 01/19/20 05:13 Lymph % (Auto) 12.7 % (13.4-35.0) L 01/18/20 07:45 [place] % (Auto) 4.6 % (0.0-7.3) 01/18/20 07:45 Eos % (Auto) 0.0 % (0.0-4.3) 01/18/20 07:45 Baso % (Auto) 0.1 % (0.0-1.8) 01/18/20 07:45 Lymph # (Auto) 1.1 K/mm3 (1.2-5.4) L 01/18/20 07:45 [place] # (Auto) 0.4 K/mm3 (0.0-0.8) 01/18/20 07:45 Eos # (Auto) 0.0 K/mm3 (0.0-0.4) 01/18/20 07:45 Baso # (Auto) 0.0 K/mm3 (0.0-0.1) 01/18/20 07:45 Seg Neutrophils % 82.6 % (40.0-70.0) H 01/18/20 07:45 Seg Neutrophils # 7.1 K/mm3 (1.8-7.7) 01/18/20 07:45 PT 15.0 Sec. (12.2-14.9) H 01/18/20 07:45 INR 1.16 (0.87-1.13) H 01/18/20 07:45 APTT 31.0 Sec. (24.2-36.6) 01/17/20 17:34 D-Dimer > 41346 ng/mlDDU (0-234) H 01/17/20 21:39 Sodium 167 mmol/L (137-145) H* 01/19/20 05:13 Potassium 3.9 mmol/L (3.6-5.0) 01/19/20 05:13 Chloride 133.8 mmol/L (98-107) H 01/19/20 05:13 Carbon Dioxide 24 mmol/L (22-30) 01/19/20 05:13 Anion Gap 13 mmol/L 01/19/20 05:13 BUN 26 mg/dL (9-20) H 01/19/20 05:13 Creatinine 1.2 mg/dL (0.8-1.3) 01/19/20 05:13 Estimated GFR > 60 ml/min 01/19/20 05:13 BUN/Creatinine Ratio 22 % 01/19/20 05:13 Glucose 130 mg/dL (75-100) H 01/19/20 05:13 POC Glucose 141 mg/dL (70-105) H 01/19/20 12:51 Hemoglobin A1c 6.7 % (4-6) H 01/18/20 16:04 Lactic Acid 1.80 mmol/L (0.7-2.0) 01/17/20 19:40 Calcium 8.6 mg/dL (8.4-10.2) 01/19/20 05:13 Ferritin 3522.0 ng/mL (30.0-300.0) H 01/17/20 21:39 Total Bilirubin 0.30 mg/dL (0.1-1.2) 01/17/20 17:34 Direct Bilirubin < 0.2 mg/dL (0-0.2) 01/17/20 17:34 Indirect Bilirubin 0.1 mg/dL 01/17/20 17:34 AST 63 units/L (5-40) H 01/17/20 17:34 ALT 54 units/L (7-56) 01/17/20 17:34 Alkaline Phosphatase 66 units/L (35-129) 01/17/20 17:34 Ammonia 38.0 umol/L (25-60) 01/17/20 17:34 Lactate Dehydrogenase 407 units/L (91-180) H 01/17/20 21:39 Total Creatine Kinase 164 units/L (55-170) 01/17/20 17:34 Troponin T < 0.010 ng/mL (0.00-0.029) 01/17/20 17:34 C-Reactive Protein 7.40 mg/dL (0.00-1.30) H 01/18/20 07:45 Total Protein 7.2 g/dL (6.3-8.2) 01/17/20 17:34 Albumin 3.3 g/dL (3.9-5) L 01/17/20 17:34 Albumin/Globulin Ratio 0.8 % 01/17/20 17:34 Triglycerides 219 mg/dL (2-149) H 01/18/20 16:04 Cholesterol 180 mg/dL (50-199) 01/18/20 16:04 LDL Cholesterol Direct 91 mg/dL (50-130) 01/18/20 16:04 HDL Cholesterol 37 mg/dL (40-59) L 01/18/20 16:04 Cholesterol/HDL Ratio 4.86 % 01/18/20 16:04 Procalcitonin 0.15 ng/mL (<0.15) 01/17/20 21:39 Urine Color Yellow (Yellow) 01/17/20 19:30 Urine Turbidity Clear (Clear) 01/17/20 19:30 Urine pH 5.0 (5.0-7.0) 01/17/20 19:30 Ur Specific [place] 1.016 (1.003-1.030) 01/17/20 19:30 Urine Protein 100 mg/dl mg/dL (Negative) 01/17/20 19:30 Urine Glucose (UA) Neg mg/dL (Negative) 01/17/20 19:30 Urine Ketones Neg mg/dL (Negative) 01/17/20 19:30 Urine Blood Sm (Negative) 01/17/20 19:30 Urine Nitrite Neg (Negative) 01/17/20 19:30 Urine Bilirubin Neg (Negative) 01/17/20 19:30 Urine Urobilinogen < 2.0 mg/dL (<2.0) 01/17/20 19:30 Ur Leukocyte Esterase Neg (Negative) 01/17/20 19:30 Urine WBC (Auto) 2.0 /HPF (0.0-6.0) 01/17/20 19:30 Urine RBC (Auto) 6.0 /HPF (0.0-6.0) 01/17/20 19:30 U Epithel Cells (Auto) < 1.0 /HPF (0-13.0) 01/17/20 19:30 Urine Bacteria (Auto) 1+ /HPF (Negative) 01/17/20 19:30 Urine Mucus Few /HPF 01/17/20 19:30 Coronavirus (PCR) Positive (Negative) A 01/19/20 Unknown Microbiology: Microbiology 01/17/20 17:34 Peripheral/Venous Blood Culture - Preliminary NO GROWTH AFTER 24 HOURS 01/17/20 17:37 Peripheral/Venous Blood Culture - Preliminary NO GROWTH AFTER 24 HOURS Moses/IV: Voiding Method Indwelling Catheter IV Catheter Type [Left Forearm INT / Saline Lock ] IV Catheter Type [Right INT / Saline Lock Antecubital] Active Medications - Current Medications Current Medications: Generic Name Dose Route Start Last Admin Trade Name Freq PRN Reason Stop Dose Admin Acetaminophen 650 mg 01/17/20 22:03 Tylenol PO Q4H PRN Pain MILD(1-3)/Fever >100.5/FORD Amlodipine Besylate 2.5 mg 01/19/20 08:00 01/19/20 09:34 Amlodipine PO Not Given QDAY [facility] Lipase/Protease/Amylase 1 each 01/19/20 10:[address] 10,500 Unit FEEDTUBE PRN PRN For Clogged Feeding Tube Dexamethasone 6 mg 01/19/20 13:00 01/19/20 13:00 Decadron PO 6 mg DAILY [facility] Administration Dextrose 50 ml 01/18/20 16:00 D50w (25gm) Syringe IV Q30MIN PRN Hypoglycemia Protocol Enoxaparin Sodium 40 mg 01/18/20 22:00 01/19/20 09:32 Enoxaparin SUB-Q 40 mg BID [facility] Administration Protocol Dextrose 1,000 mls @ 100 mls/hr 01/18/20 10:00 01/19/20 04:42 D5w IV 75 mls/hr DIRECT [facility] Administration Cefepime HCl 2 gm in 100 mls @ 200 mls/hr 01/18/20 12:00 01/19/20 09:32 Cefepime/Ns 2 Gm/100 Ml IV 200 mls/hr Q12HR [facility] Administration Protocol Insulin Human Regular 0 unit 01/18/20 16:00 01/19/20 12:00 Humulin R SUB-Q Not Given Q6HR [facility] Protocol Magnesium Hydroxide 30 ml 01/17/20 22:03 Milk Of Magnesia PO Q4H PRN Constipation Ondansetron HCl 4 mg 01/17/20 22:03 Zofran IV Q8H PRN Nausea And Vomiting Simple Syrup 15 ml 01/19/20 10:31 Simple Syrup FEEDTUBE PRN PRN Hypoglycemia Simple Syrup 30 ml 01/19/20 10:31 Simple Syrup FEEDTUBE PRN PRN Hypoglycemia Sodium Bicarbonate 325 mg 01/19/20 10:31 Sodium Bicarbonate FEEDTUBE PRN PRN For Clogged Feeding Tube Sodium Chloride 10 ml 01/18/20 10:00 01/19/20 09:33 Sodium Chloride Flush Syringe 10 Ml IV 10 ml BID [facility] Administration Sodium Chloride 10 ml 01/17/20 22:03 Sodium Chloride Flush Syringe 10 Ml IV PRN PRN LINE FLUSH Nutrition/Malnutrition Assess - Dietary Evaluation Nutrition/Malnutrition Findings: Nutrition Notes Start: 01/19/20 10:13 Freq: Status: Active Protocol: Document 01/19/20 10:13 EN (Rec: 01/19/20 10:31 EN [email or web address]) Co-Sign 01/19/20 10:13 LM Nutrition Notes Need for Assessment generated from: MD Order Initial or Follow up Assessment Current Diagnosis Acute Kidney Injury,Diabetes, Sepsis,Hypertension, Respiratory Failure Other Pertinent Diagnosis Suspected COVID-19, hypochloremia, acute hypernatremia Current Diet NPO Labs/Tests Na 167, BUN 26, Glu 130, POC Glu 117 Pertinent Medications D5w at 75ml/hr Height 5 ft 11 in Weight 88 kg [place] Body Weight (kg) 78.18 BMI 27.0 Weight Status Overweight Subjective/Other Information RD consulted for TF d/t swallowing difficulty. Dobhoff ordered. Lokesh score 14, no wounds noted Burn Absent Trauma Absent GI Symptoms None Difficulty In Swallowing Food Allergy No Current % PO Negligible Minimum of two criteria No physical signs of malnutrition #1 Nutrition Diagnosis Inadequate oral intake Etiology difficulty swallowing As Evidenced by Signs and Symptoms Dobhoff placement and need for TF Is patient on ventilator? No Is Patient Ambulatory and/or Out of Bed No REE-([facility]-confined to bed) 1957.892 Calculation Used for Recommendations [facility] Additional Notes Protein: 0.8-1.2 g/kg (70-105) Fluid: 1 ml/kcal Nutrition Intervention Change Diet Order: TF Nutrition Support: Glucerna 1.2 at 65 ml/hr Flush 200 ml q4h for hypernatremia Flush 100 ml q4h once hypernatremia is resolved Kcal 1,872 Protein (gm) 94 Fluid (mL) 1,256 Goal #1 Meet 75% of energy and protein needs with TF Goal #2 TF tolerance Anticipated Discharge Needs: Unable to determine at this time Follow-Up By: 01/23/20 Additional Comments F/u for TF start and tolerance , f/u for Na lab values <VIC PETERSEN - Last Filed: 01/19/20 17:14> Assessment and Plan Assessment and plan: I saw and evaluated the patient. I agree with the findings and the plan of care as documented in the Nurse Practitioner's~note, with the following corrections and additions. Hospitalist Physical - Constitutional Vitals: Temp Pulse Resp BP Pulse Ox 98.7 F 81 22 148/87 92 01/19/20 16:58 01/19/20 16:58 01/19/20 16:58 01/19/20 16:58 01/19/20 16:58 HEART Score - HEART Score Troponin: Troponin T < 0.010 ng/mL (0.00-0.029) 01/17/20 17:34 Results - Labs CBC & Chem 7: 01/19/20 05:13 01/19/20 13:39 Labs: Laboratory Last Values WBC 10.0 K/mm3 (4.5-11.0) 01/19/20 05:13 RBC 5.84 M/mm3 (3.65-5.03) H 01/19/20 05:13 Hgb 15.3 gm/dl (11.8-15.2) H 01/19/20 05:13 Hct 46.1 % (35.5-45.6) H 01/19/20 05:13 MCV 79 fl (84-94) L 01/19/20 05:13 MCH 26 pg (28-32) L 01/19/20 05:13 MCHC 33 % (32-34) 01/19/20 05:13 RDW 15.0 % (13.2-15.2) 01/19/20 05:13 Plt Count 156 K/mm3 (140-440) 01/19/20 05:13 Lymph % (Auto) 12.7 % (13.4-35.0) L 01/18/20 07:45 [place] % (Auto) 4.6 % (0.0-7.3) 01/18/20 07:45 Eos % (Auto) 0.0 % (0.0-4.3) 01/18/20 07:45 Baso % (Auto) 0.1 % (0.0-1.8) 01/18/20 07:45 Lymph # (Auto) 1.1 K/mm3 (1.2-5.4) L 01/18/20 07:45 [place] # (Auto) 0.4 K/mm3 (0.0-0.8) 01/18/20 07:45 Eos # (Auto) 0.0 K/mm3 (0.0-0.4) 01/18/20 07:45 Baso # (Auto) 0.0 K/mm3 (0.0-0.1) 01/18/20 07:45 Seg Neutrophils % 82.6 % (40.0-70.0) H 01/18/20 07:45 Seg Neutrophils # 7.1 K/mm3 (1.8-7.7) 01/18/20 07:45 PT 15.0 Sec. (12.2-14.9) H 01/18/20 07:45 INR 1.16 (0.87-1.13) H 01/18/20 07:45 APTT 31.0 Sec. (24.2-36.6) 01/17/20 17:34 D-Dimer > 26354 ng/mlDDU (0-234) H 01/17/20 21:39 Sodium 168 mmol/L (137-145) H* 01/19/20 13:39 Potassium 3.8 mmol/L (3.6-5.0) 01/19/20 13:39 Chloride 134.2 mmol/L (98-107) H 01/19/20 13:39 Carbon Dioxide 25 mmol/L (22-30) 01/19/20 13:39 Anion Gap 13 mmol/L 01/19/20 13:39 BUN 24 mg/dL (9-20) H 01/19/20 13:39 Creatinine 1.2 mg/dL (0.8-1.3) 01/19/20 13:39 Estimated GFR > 60 ml/min 01/19/20 13:39 BUN/Creatinine Ratio 20 % 01/19/20 13:39 Glucose 148 mg/dL (75-100) H 01/19/20 13:39 POC Glucose 141 mg/dL (70-105) H 01/19/20 12:51 Hemoglobin A1c 6.7 % (4-6) H 01/18/20 16:04 Lactic Acid 1.80 mmol/L (0.7-2.0) 01/17/20 19:40 Calcium 8.5 mg/dL (8.4-10.2) 01/19/20 13:39 Ferritin 3522.0 ng/mL (30.0-300.0) H 01/17/20 21:39 Total Bilirubin 0.30 mg/dL (0.1-1.2) 01/17/20 17:34 Direct Bilirubin < 0.2 mg/dL (0-0.2) 01/17/20 17:34 Indirect Bilirubin 0.1 mg/dL 01/17/20 17:34 AST 63 units/L (5-40) H 01/17/20 17:34 ALT 54 units/L (7-56) 01/17/20 17:34 Alkaline Phosphatase 66 units/L (35-129) 01/17/20 17:34 Ammonia 38.0 umol/L (25-60) 01/17/20 17:34 Lactate Dehydrogenase 407 units/L (91-180) H 01/17/20 21:39 Total Creatine Kinase 164 units/L (55-170) 01/17/20 17:34 Troponin T < 0.010 ng/mL (0.00-0.029) 01/17/20 17:34 C-Reactive Protein 7.40 mg/dL (0.00-1.30) H 01/18/20 07:45 Total Protein 7.2 g/dL (6.3-8.2) 01/17/20 17:34 Albumin 3.3 g/dL (3.9-5) L 01/17/20 17:34 Albumin/Globulin Ratio 0.8 % 01/17/20 17:34 Triglycerides 219 mg/dL (2-149) H 01/18/20 16:04 Cholesterol 180 mg/dL (50-199) 01/18/20 16:04 LDL Cholesterol Direct 91 mg/dL (50-130) 01/18/20 16:04 HDL Cholesterol 37 mg/dL (40-59) L 01/18/20 16:04 Cholesterol/HDL Ratio 4.86 % 01/18/20 16:04 Procalcitonin 0.15 ng/mL (<0.15) 01/17/20 21:39 Urine Color Yellow (Yellow) 01/17/20 19:30 Urine Turbidity Clear (Clear) 01/17/20 19:30 Urine pH 5.0 (5.0-7.0) 01/17/20 19:30 Ur Specific [place] 1.016 (1.003-1.030) 01/17/20 19:30 Urine Protein 100 mg/dl mg/dL (Negative) 01/17/20 19:30 Urine Glucose (UA) Neg mg/dL (Negative) 01/17/20 19:30 Urine Ketones Neg mg/dL (Negative) 01/17/20 19:30 Urine Blood Sm (Negative) 01/17/20 19:30 Urine Nitrite Neg (Negative) 01/17/20 19:30 Urine Bilirubin Neg (Negative) 01/17/20 19:30 Urine Urobilinogen < 2.0 mg/dL (<2.0) 01/17/20 19:30 Ur Leukocyte Esterase Neg (Negative) 01/17/20 19:30 Urine WBC (Auto) 2.0 /HPF (0.0-6.0) 01/17/20 19:30 Urine RBC (Auto) 6.0 /HPF (0.0-6.0) 01/17/20 19:30 U Epithel Cells (Auto) < 1.0 /HPF (0-13.0) 01/17/20 19:30 Urine Bacteria (Auto) 1+ /HPF (Negative) 01/17/20 19:30 Urine Mucus Few /HPF 01/17/20 19:30 Coronavirus (PCR) Positive (Negative) A 01/19/20 Unknown Microbiology: Microbiology 01/17/20 17:34 Peripheral/Venous Blood Culture - Preliminary NO GROWTH AFTER 24 HOURS 01/17/20 17:37 Peripheral/Venous Blood Culture - Preliminary NO GROWTH AFTER 24 HOURS Moses/IV: Voiding Method Indwelling Catheter IV Catheter Type [Left Forearm INT / Saline Lock ] IV Catheter Type [Right INT / Saline Lock Antecubital] Active Medications - Current Medications Current Medications: Generic Name Dose Route Start Last Admin Trade Name Freq PRN Reason Stop Dose Admin Acetaminophen 650 mg 01/17/20 22:03 Tylenol PO Q4H PRN Pain MILD(1-3)/Fever >100.5/FORD Amlodipine Besylate 2.5 mg 01/19/20 16:40 Amlodipine PO QDAY [facility] Lipase/Protease/Amylase 1 each 01/19/20 10:[address] 10,500 Unit FEEDTUBE PRN PRN For Clogged Feeding Tube Aspirin 81 mg 01/19/20 18:00 Baby Aspirin PO QDAY [facility] Atorvastatin Calcium 40 mg 01/19/20 22:00 Lipitor PO QHS [facility] Dexamethasone 6 mg 01/19/20 13:00 01/19/20 13:00 Decadron PO 6 mg DAILY [facility] Administration Dextrose 50 ml 01/18/20 16:00 D50w (25gm) Syringe IV Q30MIN PRN Hypoglycemia Protocol Enoxaparin Sodium 40 mg 01/18/20 22:00 01/19/20 09:32 Enoxaparin SUB-Q 40 mg BID [facility] Administration Protocol Dextrose 1,000 mls @ 100 mls/hr 01/18/20 10:00 01/19/20 04:42 D5w IV 75 mls/hr DIRECT [facility] Administration REMDESIVIR 200 mg/ Sodium 250 mls @ 500 mls/hr 01/19/20 18:00 Chloride IV 01/19/20 18:29 ONCE ONE REMDESIVIR 100 mg/ Sodium 250 mls @ 500 mls/hr 01/20/20 21:00 Chloride IV 01/23/20 21:29 Q24HR@2100 [facility] Insulin Human Regular 0 unit 01/18/20 16:00 01/19/20 12:00 Humulin R SUB-Q Not Given Q6HR [facility] Protocol Magnesium Hydroxide 30 ml 01/17/20 22:03 Milk Of Magnesia PO Q4H PRN Constipation Ondansetron HCl 4 mg 01/17/20 22:03 Zofran IV Q8H PRN Nausea And Vomiting Simple Syrup 15 ml 01/19/20 10:31 Simple Syrup FEEDTUBE PRN PRN Hypoglycemia Simple Syrup 30 ml 01/19/20 10:31 Simple Syrup FEEDTUBE PRN PRN Hypoglycemia Sodium Bicarbonate 325 mg 01/19/20 10:31 Sodium Bicarbonate FEEDTUBE PRN PRN For Clogged Feeding Tube Sodium Chloride 10 ml 01/18/20 10:00 01/19/20 09:33 Sodium Chloride Flush Syringe 10 Ml IV 10 ml BID [facility] Administration Sodium Chloride 10 ml 01/17/20 22:03 Sodium Chloride Flush Syringe 10 Ml IV PRN PRN LINE FLUSH Sodium Chloride 50 ml 01/19/20 18:30 Nacl 0.9% IV 01/23/20 21:31 2130 [facility] Nutrition/Malnutrition Assess - Dietary Evaluation Nutrition/Malnutrition Findings: Nutrition Notes Start: 01/19/20 10:13 Freq: Status: Active Protocol: Document 01/19/20 10:13 EN (Rec: 01/19/20 10:31 EN [email or web address]) Co-Sign 01/19/20 10:13 LM Nutrition Notes Need for Assessment generated from: MD Order Initial or Follow up Assessment Current Diagnosis Acute Kidney Injury,Diabetes, Sepsis,Hypertension, Respiratory Failure Other Pertinent Diagnosis Suspected COVID-19, hypochloremia, acute hypernatremia Current Diet NPO Labs/Tests Na 167, BUN 26, Glu 130, POC Glu 117 Pertinent Medications D5w at 75ml/hr Height 5 ft 11 in Weight 88 kg [place] Body Weight (kg) 78.18 BMI 27.0 Weight Status Overweight Subjective/Other Information RD consulted for TF d/t swallowing difficulty. Dobhoff ordered. Lokesh score 14, no wounds noted Burn Absent Trauma Absent GI Symptoms None Difficulty In Swallowing Food Allergy No Current % PO Negligible Minimum of two criteria No physical signs of malnutrition #1 Nutrition Diagnosis Inadequate oral intake Etiology difficulty swallowing As Evidenced by Signs and Symptoms Dobhoff placement and need for TF Is patient on ventilator? No Is Patient Ambulatory and/or Out of Bed No REE-([facility]-confined to bed) 1957.89 Calculation Used for Recommendations [facility] Additional Notes Protein: 0.8-1.2 g/kg (70-105) Fluid: 1 ml/kcal Nutrition Intervention Change Diet Order: TF Nutrition Support: Glucerna 1.2 at 65 ml/hr Flush 200 ml q4h for hypernatremia Flush 100 ml q4h once hypernatremia is resolved Kcal 1,872 Protein (gm) 94 Fluid (mL) 1,256 Goal #1 Meet 75% of energy and protein needs with TF Goal #2 TF tolerance Anticipated Discharge Needs: Unable to determine at this time Follow-Up By: 01/23/20 Additional Comments F/u for TF start and tolerance , f/u for Na lab values
[2020-01-19 15:13] LABS: BUN/Creatinine Ratio 20; Blood Urea Nitrogen 24 mg/dL (9-20); Calcium 8.5 mg/dL (8.4-10.2); Hemolysis Index 2
[2020-01-19] MEDS ORDERED: AZITHROMYCIN 250 MG/6.25 ML ORAL LIQD PO SCH (16:00)
--- NOTE | 2020-01-19 16:23 | Progress Note ---
Assessment and Plan Cultures: Blood culture 01/17/2020 no growth today SARS CoV2 PCR positive Assessment: 79 years old male with unknown medical history of admitted on 01/17/2020 due to 24-hour history of altered mental status, decreased communication, resident of a skilled nursing: #Severe sepsis present on admission with high fever, tachycardia, YIMI, hypoxia and altered mental status; etiology COVID-19 infection pneumonia. Urinalysis not consistent with UTI. Procalcitonin normal. #COVID-19 pneumonia: ? Suspect COVID-19 infection. D-dimer markedly elevated. Ferritin markedly elevated. VQ scan low probability for PE, venous ultrasound no DVT. #Acute hypoxia: ? Secondary to pulmonary edema versus pneumonia versus COVID-19 infection versus PE remains on 2 L #Elevated LFTs: from sepsis #YIMI: from sepsis #Acute encephalopathy: Likely multifactorial with hypernatremia, uremia, sepsis #Hypernatremia: Per primary team Recommendations: -Continue dexamethasone total 10 days -Continue remdesivir total 5 days -Obtain SARS-CoV-2 IgG -Continue anticoagulation per System Protocol -Stop cefepime, procalcitonin normal -Follow-up MRSA PCR All laboratory, cultures and imaging were reviewed. Will follow Pinky Loving MD Infectious Diseases [employer] [facility] M [phone] O [phone] Subjective Date of service: 01/19/20 Principal diagnosis: COVID-19 pneumonia Interval history: Remains on 2 L nasal cannula, no fever Objective - Constitutional Vitals: Vital Signs Temp Pulse Resp BP Pulse Ox 98.1 F 91 H 24 140/86 94 01/19/20 11:56 01/19/20 11:56 01/19/20 11:56 01/19/20 11:56 01/19/20 11:56 Temperature -Last 24 Hours Temperature 98.1 F Temperature 99.4 F Temperature 99.4 F Temperature 97.7 F Temperature 97.9 F - Labs CBC & Chem 7: 01/19/20 05:13 01/19/20 13:39 Labs: Abnormal lab results 01/18/20 01/18/20 01/18/20 Range/Units 16:04 16:04 18:15 RBC (3.65-5.03) M/mm3 Hgb (11.8-15.2) gm/dl Hct (35.5-45.6) % MCV (84-94) fl MCH (28-32) pg Sodium (137-145) mmol/L Chloride (98-107) mmol/L Carbon Dioxide (22-30) mmol/L BUN (9-20) mg/dL Glucose (75-100) mg/dL POC Glucose 120 H (70-105) mg/dL Hemoglobin A1c 6.7 H (4-6) % Triglycerides 219 H (2-149) mg/dL HDL Cholesterol 37 L (40-59) mg/dL Coronavirus (PCR) (Negative) 01/18/20 01/18/20 01/19/20 Range/Units 19:41 20:11 05:13 RBC 5.84 H (3.65-5.03) M/mm3 Hgb 15.3 H (11.8-15.2) gm/dl Hct 46.1 H (35.5-45.6) % MCV 79 L (84-94) fl MCH 26 L (28-32) pg Sodium 162 H* (137-145) mmol/L Chloride 133.1 H (98-107) mmol/L Carbon Dioxide 18 L (22-30) mmol/L BUN 32 H (9-20) mg/dL Glucose 139 H (75-100) mg/dL POC Glucose 197 H (70-105) mg/dL Hemoglobin A1c (4-6) % Triglycerides (2-149) mg/dL HDL Cholesterol (40-59) mg/dL Coronavirus (PCR) (Negative) 01/19/20 01/19/20 01/19/20 Range/Units 05:13 05:55 12:51 RBC (3.65-5.03) M/mm3 Hgb (11.8-15.2) gm/dl Hct (35.5-45.6) % MCV (84-94) fl MCH (28-32) pg Sodium 167 H* (137-145) mmol/L Chloride 133.8 H (98-107) mmol/L Carbon Dioxide (22-30) mmol/L BUN 26 H (9-20) mg/dL Glucose 130 H (75-100) mg/dL POC Glucose 117 H 141 H (70-105) mg/dL Hemoglobin A1c (4-6) % Triglycerides (2-149) mg/dL HDL Cholesterol (40-59) mg/dL Coronavirus (PCR) (Negative) 01/19/20 01/19/20 Range/Units 13:39 Unknown RBC (3.65-5.03) M/mm3 Hgb (11.8-15.2) gm/dl Hct (35.5-45.6) % MCV (84-94) fl MCH (28-32) pg Sodium 168 H* (137-145) mmol/L Chloride 134.2 H (98-107) mmol/L Carbon Dioxide (22-30) mmol/L BUN 24 H (9-20) mg/dL Glucose 148 H (75-100) mg/dL POC Glucose (70-105) mg/dL Hemoglobin A1c (4-6) % Triglycerides (2-149) mg/dL HDL Cholesterol (40-59) mg/dL Coronavirus (PCR) Positive A (Negative)
--- NOTE | 2020-01-19 17:42 | Consultation ---
History of Present Illness Consult date: 01/19/20 Reason for Consult: change in mental status History of present illness: This is a comprehensive neurological evaluation on Mr. Gerard Burleson who is a very pleasant 79-year-old gentleman brought in by the EMS with the symptoms of change in mental status. Patient does not talk and therefore this information has been obtained from his current chart. He does not even follow simple commands. It was reported that he had fever and tachycardia when he was evaluated by emergency physician. His CT scan of the brain was unremarkable. His serum sodi um was 167, now 162. He is also positive for covid19 test at this time. Past History Past Medical History: other (Unobtainable) Past Surgical History: Other (Unobtainable) Social history: other (Unobtainable) Family history: other (Unobtainable) Medications and Allergies Allergies Allergy/AdvReac Type Severity Reaction Status Date / Time No Known Allergies Allergy Verified 01/17/20 22:09 Active Meds: Active Medications Acetaminophen (Tylenol) 650 mg PO Q4H PRN PRN Reason: Pain MILD(1-3)/Fever >100.5/FORD Amlodipine Besylate (Amlodipine) 2.5 mg PO QDAY [facility]OR[facility] Lipase/Protease/Amylase (Pancreaze Dr 10,500 Unit) 1 each FEEDTUBE PRN PRN PRN Reason: For Clogged Feeding Tube Aspirin (Baby Aspirin) 81 mg PO QDAY [facility] Atorvastatin Calcium (Lipitor) 40 mg PO QHS [facility] Dexamethasone (Decadron) 6 mg PO DAILY [facility] Last Admin: 01/19/20 13:00 Dose: 6 mg Documented by: Dextrose (D50w (25gm) Syringe) 50 ml IV Q30MIN PRN; Protocol PRN Reason: Hypoglycemia Enoxaparin Sodium (Enoxaparin) 40 mg SUB-Q BID LIBORIO; Protocol Last Admin: 01/19/20 09:32 Dose: 40 mg Documented by: Dextrose (D5w) 1,000 mls @ 100 mls/hr IV DIRECT [facility] Last Admin: 01/19/20 04:42 Dose: 75 mls/hr Documented by: REMDESIVIR 200 mg/ Sodium (Chloride) 250 mls @ 500 mls/hr IV ONCE ONE Stop: 01/19/20 18:29 REMDESIVIR 100 mg/ Sodium (Chloride) 250 mls @ 500 mls/hr IV Q24HR@2100 [facility] Stop: 01/23/20 21:29 Insulin Human Regular (Humulin R) 0 unit SUB-Q Q6HR [facility]; Protocol Last Admin: 01/19/20 12:00 Dose: Not Given Documented by: Magnesium Hydroxide (Milk Of Magnesia) 30 ml PO Q4H PRN PRN Reason: Constipation Ondansetron HCl (Zofran) 4 mg IV Q8H PRN PRN Reason: Nausea And Vomiting Simple Syrup (Simple Syrup) 15 ml FEEDTUBE PRN PRN PRN Reason: Hypoglycemia Simple Syrup (Simple Syrup) 30 ml FEEDTUBE PRN PRN PRN Reason: Hypoglycemia Sodium Bicarbonate (Sodium Bicarbonate) 325 mg FEEDTUBE PRN PRN PRN Reason: For Clogged Feeding Tube Sodium Chloride (Sodium Chloride Flush Syringe 10 Ml) 10 ml IV BID [facility] Last Admin: 01/19/20 09:33 Dose: 10 ml Documented by: Sodium Chloride (Sodium Chloride Flush Syringe 10 Ml) 10 ml IV PRN PRN PRN Reason: LINE FLUSH Sodium Chloride (Nacl 0.9%) 50 ml IV 2130 [facility] Stop: 01/23/20 21:31 Review of Systems ROS unobtainable: due to mental status (patient does not talk or follow any simple command but awake) Physical Examination - Vital Signs Vital Signs: Vital Signs Pulse BP 106 H 140/92 01/17/20 16:44 01/17/20 16:44 - Physical Exam Narrative exam: Limited examination: Patient is awake, does not follow any simple commands, does not speak Cranial nerve examinations: Pupils are reacting EOMI Face looks symmetrical Other cranial nerves are difficult to examine Motor: Does not follow simple commands so it is difficult to examine The rest of the neuro exam is very difficult to examine at this time. Results - Laboratory Findings CBC and BMP: 01/19/20 05:13 01/19/20 13:39 Abnormal Lab Findings: Abnormal Labs 01/17/20 01/17/20 01/17/20 17:34 17:34 17:34 RBC 6.56 H Hgb 16.8 H Hct 52.1 H MCV 79 L MCH 26 L Lymph % (Auto) 12.6 L Lymph # (Auto) 1.1 L Seg Neutrophils % 80.2 H PT INR D-Dimer Sodium 161 H* Chloride 123.6 H Carbon Dioxide BUN 55 H Creatinine 2.2 H Glucose 128 H POC Glucose Hemoglobin A1c Calcium Ferritin AST 63 H Lactate Dehydrogenase C-Reactive Protein Albumin 3.3 L Triglycerides HDL Cholesterol Coronavirus (PCR) 01/17/20 01/17/20 01/17/20 21:39 21:39 21:39 RBC Hgb Hct MCV MCH Lymph % (Auto) Lymph # (Auto) Seg Neutrophils % PT INR D-Dimer > 08902 H Sodium Chloride Carbon Dioxide BUN Creatinine Glucose 108 H POC Glucose Hemoglobin A1c Calcium Ferritin 3522.0 H AST Lactate Dehydrogenase 407 H C-Reactive Protein 9.40 H Albumin Triglycerides HDL Cholesterol Coronavirus (PCR) 01/18/20 01/18/20 01/18/20 07:45 07:45 07:45 RBC 5.91 H Hgb Hct 46.9 H MCV 79 L MCH 25 L Lymph % (Auto) 12.7 L Lymph # (Auto) 1.1 L Seg Neutrophils % 82.6 H PT 15.0 H INR 1.16 H D-Dimer Sodium 164 H* Chloride 131.1 H Carbon Dioxide BUN 39 H Creatinine 1.4 H Glucose 119 H POC Glucose Hemoglobin A1c Calcium 7.9 L Ferritin AST Lactate Dehydrogenase C-Reactive Protein Albumin Triglycerides HDL Cholesterol Coronavirus (PCR) 01/18/20 01/18/20 01/18/20 07:45 13:48 16:04 RBC Hgb Hct MCV MCH Lymph % (Auto) Lymph # (Auto) Seg Neutrophils % PT INR D-Dimer Sodium 165 H* Chloride Carbon Dioxide BUN Creatinine Glucose POC Glucose Hemoglobin A1c 6.7 H Calcium Ferritin AST Lactate Dehydrogenase C-Reactive Protein 7.40 H Albumin Triglycerides HDL Cholesterol Coronavirus (PCR) 01/18/20 01/18/20 01/18/20 16:04 18:15 19:41 RBC Hgb Hct MCV MCH Lymph % (Auto) Lymph # (Auto) Seg Neutrophils % PT INR D-Dimer Sodium 162 H* Chloride 133.1 H Carbon Dioxide 18 L BUN 32 H Creatinine Glucose 139 H POC Glucose 120 H Hemoglobin A1c Calcium Ferritin AST Lactate Dehydrogenase C-Reactive Protein Albumin Triglycerides 219 H HDL Cholesterol 37 L Coronavirus (PCR) 01/18/20 01/19/20 01/19/20 20:11 05:13 05:13 RBC 5.84 H Hgb 15.3 H Hct 46.1 H MCV 79 L MCH 26 L Lymph % (Auto) Lymph # (Auto) Seg Neutrophils % PT INR D-Dimer Sodium 167 H* Chloride 133.8 H Carbon Dioxide BUN 26 H Creatinine Glucose 130 H POC Glucose 197 H Hemoglobin A1c Calcium Ferritin AST Lactate Dehydrogenase C-Reactive Protein Albumin Triglycerides HDL Cholesterol Coronavirus (PCR) 01/19/20 01/19/20 01/19/20 05:55 12:51 13:39 RBC Hgb Hct MCV MCH Lymph % (Auto) Lymph # (Auto) Seg Neutrophils % PT INR D-Dimer Sodium 168 H* Chloride 134.2 H Carbon Dioxide BUN 24 H Creatinine Glucose 148 H POC Glucose 117 H 141 H Hemoglobin A1c Calcium Ferritin AST Lactate Dehydrogenase C-Reactive Protein Albumin Triglycerides HDL Cholesterol Coronavirus (PCR) 01/19/20 Unknown RBC Hgb Hct MCV MCH Lymph % (Auto) Lymph # (Auto) Seg Neutrophils % PT INR D-Dimer Sodium Chloride Carbon Dioxide BUN Creatinine Glucose POC Glucose Hemoglobin A1c Calcium Ferritin AST Lactate Dehydrogenase C-Reactive Protein Albumin Triglycerides HDL Cholesterol Coronavirus (PCR) Positive A covid19 positive by PCR - Diagnostic Findings Additional findings: a CT scan of the brain was unremarkable. Assessment and Plan - Patient Problems (1) Acute hypernatremia Current Visit: Yes Status: Acute Plan to address problem: Plan: 1) treatment as per primary team (2) Altered mental status Current Visit: Yes Status: Acute Plan to address problem: Plan: 1) Possible multifactorial, due to pneumonia, sepsis, covid19 infection 2) Treatment as per primary team 3) May consider an MRI of brain and an EEG when patient becomes noncontagious (3) Suspected COVID-19 virus infection Current Visit: Yes Status: Acute Plan to address problem: Plan: 1)Treatment as per primary team I discussed at length with the patient's nurse at the bedside. Thank you very much for allowing us in the care of your patient. Please call us if you have any questions. Beau Miller MD Tele-neurologist [phone]
[2020-01-19] MEDS ORDERED: REMDESIVIR 100 MG VIAL IV ONE (18:00)
[2020-01-19] MEDS ORDERED: REMDESIVIR 200 MG in SODIUM CHLORIDE 0.9% 250ML 250 ML IV ONE (18:00)
[2020-01-19] MEDS: ASPIRIN 81 MG TAB CHEW PO SCH (18:05)
[2020-01-19] MEDS: SODIUM CHLORIDE 0.9% 50 ML IVPB IV SCH (18:50)
[2020-01-19] MEDS ORDERED: D5W/0.45% NACL 1,000 ML IV SCH (19:00)
[2020-01-19 19:29] LABS: BUN/Creatinine Ratio 19; Blood Urea Nitrogen 23 mg/dL (9-20); Calcium 8.9 mg/dL (8.4-10.2); Hemolysis Index 4
[2020-01-19 23:40] LABS: BUN/Creatinine Ratio 22; Blood Urea Nitrogen 26 mg/dL (9-20); Calcium 8.6 mg/dL (8.4-10.2); Hemolysis Index 3
[2020-01-20] MEDS: INSULIN REGULAR, HUMAN 100 UNIT/ML 3ML VIAL SUB-Q SCH ×4 (00:10→18:29)
[2020-01-20 06:42] LABS: Alanine Aminotransferase 44 units/L (7-56); Albumin 2.8 g/dL (3.9-5)
[2020-01-20 06:47] LABS: Bilirubin,Direct < 0.2 mg/dL (0-0.2)
[2020-01-20] MEDS ORDERED: amLODIPine 5 MG TAB PO SCH (08:00)
[2020-01-20 09:02] LABS: BUN/Creatinine Ratio 22; Blood Urea Nitrogen 28 mg/dL (9-20); Calcium 8.8 mg/dL (8.4-10.2); Hemolysis Index 6
[2020-01-20] MEDS: DOCUSATE SODIUM 100 MG/10 ML ORAL LIQD PO SCH ×2 (09:25→22:27)
[2020-01-20] MEDS: ASPIRIN 81 MG TAB CHEW PO SCH (09:25)
[2020-01-20] MEDS: amLODIPine 5 MG TAB PO SCH (09:26)
[2020-01-20] MEDS: DEXAMETHASONE 4 MG TAB PO SCH (09:27)
[2020-01-20] MEDS: ENOXAPARIN 40 MG/0.4 ML INJ SUB-Q SCH ×2 (09:28→22:27)
--- NOTE | 2020-01-20 11:05 | Progress Note ---
Assessment and Plan Cultures: Blood culture 01/17/2020 no growth today SARS CoV2 PCR positive Assessment: 79 years old male with unknown medical history of admitted on 01/17/2020 due to 24-hour history of altered mental status, decreased communication, resident of a correction: #Severe sepsis present on admission with high fever, tachycardia, YIMI, hypoxia and altered mental status; etiology COVID-19 infection pneumonia. Urinalysis not consistent with UTI. Procalcitonin normal. #COVID-19 pneumonia: D-dimer markedly elevated. Ferritin markedly elevated, worsening. VQ scan low probability for PE, venous ultrasound no DVT. #Acute hypoxia: ? Secondary to pulmonary edema versus pneumonia versus COVID-19 infection versus PE remains on 2 L #Elevated LFTs: from sepsis #YIMI: from sepsis #Acute encephalopathy: Likely multifactorial with hypernatremia, uremia, sepsis -not better, neurology on board #Hypernatremia: Per primary team Recommendations: -Continue dexamethasone total 10 days -Continue remdesivir total 5 days -SARS-CoV-2 IgG positive patient is not a candidate for Covid convalescent plasma -Continue anticoagulation per System Protocol -Agree with brain MRI and EEG -Monitor mentation Overall poor prognosis, consider family discussion for goals of care All laboratory, cultures and imaging were reviewed. Will follow Pinky Loving MD Infectious Diseases [employer] [facility] M [phone] O [phone] Subjective Date of service: 01/20/20 Principal diagnosis: COVID-19 pneumonia Interval history: Remains on 2 L nasal cannula, no fever, no unresponsive Objective - Exam Narrative Exam: Physical Exam: reviewed provider and hospitalist notes, limited due to con servation of PPE and decrease risk of transmission. General appearance: limited due to conservation of PPE Eyes: limited due to conservation of PPE HENT: Atraumatic; limited due to conservation of PPE Lungs: limited due to conservation of PPE CV: limited due to conservation of PPE Abdomen: limited due to conservation of PPE Extremities: limited due to conservation of PPE Skin: limited due to conservation of PPE Psych: limited due to conservation of PPE Neuro: limited due to conservation of PPE - Constitutional Vitals: Vital Signs Temp Pulse Resp BP Pulse Ox 97.9 F 90 18 128/89 93 01/20/20 10:35 01/20/20 10:35 01/20/20 10:35 01/20/20 10:35 01/20/20 10:35 Temperature -Last 24 Hours Temperature 97.9 F Temperature 98.6 F Temperature 97.5 F Temperature 98.7 F Temperature 98.1 F - Labs CBC & Chem 7: 01/19/20 05:13 01/20/20 07:37 Labs: Abnormal lab results 01/19/20 01/19/20 01/19/20 Range/Units 12:51 13:39 17:52 D-Dimer (0-234) ng/mlDDU Sodium 168 H* 164 H* (137-145) mmol/L Chloride 134.2 H 134.0 H (98-107) mmol/L Carbon Dioxide 21 L (22-30) mmol/L BUN 24 H 23 H (9-20) mg/dL Glucose 148 H 153 H (75-100) mg/dL POC Glucose 141 H (70-105) mg/dL Ferritin (30.0-300.0) ng/mL AST (5-40) units/L Lactate Dehydrogenase (91-180) units/L C-Reactive Protein (0.00-1.30) mg/dL Albumin (3.9-5) g/dL Coronavirus (PCR) (Negative) SARS-CoV-2 IgG Ab (NonReactive) 01/19/20 01/19/20 01/19/20 Range/Units 17:52 18:17 22:48 D-Dimer (0-234) ng/mlDDU Sodium 165 H* (137-145) mmol/L Chloride 131.6 H (98-107) mmol/L Carbon Dioxide 19 L (22-30) mmol/L BUN 26 H (9-20) mg/dL Glucose 198 H (75-100) mg/dL POC Glucose 132 H (70-105) mg/dL Ferritin (30.0-300.0) ng/mL AST (5-40) units/L Lactate Dehydrogenase (91-180) units/L C-Reactive Protein (0.00-1.30) mg/dL Albumin (3.9-5) g/dL Coronavirus (PCR) (Negative) SARS-CoV-2 IgG Ab Reactive A (NonReactive) 01/19/20 01/20/20 01/20/20 Range/Units Unknown 05:38 05:39 D-Dimer 5936.59 H (0-234) ng/mlDDU Sodium (137-145) mmol/L Chloride (98-107) mmol/L Carbon Dioxide (22-30) mmol/L BUN (9-20) mg/dL Glucose (75-100) mg/dL POC Glucose 150 H (70-105) mg/dL Ferritin (30.0-300.0) ng/mL AST (5-40) units/L Lactate Dehydrogenase (91-180) units/L C-Reactive Protein (0.00-1.30) mg/dL Albumin (3.9-5) g/dL Coronavirus (PCR) Positive A (Negative) SARS-CoV-2 IgG Ab (NonReactive) 01/20/20 01/20/20 01/20/20 Range/Units 05:39 05:39 07:37 D-Dimer (0-234) ng/mlDDU Sodium 165 H* (137-145) mmol/L Chloride 133.6 H (98-107) mmol/L Carbon Dioxide (22-30) mmol/L BUN 28 H (9-20) mg/dL Glucose 170 H (75-100) mg/dL POC Glucose (70-105) mg/dL Ferritin 4416.0 H (30.0-300.0) ng/mL AST 60 H (5-40) units/L Lactate Dehydrogenase 427 H (91-180) units/L C-Reactive Protein 10.20 H (0.00-1.30) mg/dL Albumin 2.8 L (3.9-5) g/dL Coronavirus (PCR) (Negative) SARS-CoV-2 IgG Ab (NonReactive)
--- NOTE | 2020-01-20 12:07 | Progress Note ---
<DAVIS HALE - Last Filed: 01/20/20 12:13> Assessment and Plan - Patient Problems (1) Sepsis Current Visit: Yes Status: Acute Plan to address problem: Presented with tachycardia, hypoxia, altered mental status, YIMI, CXR shows possible pulmonary edema and COVID-19 PCR positive COVID-19 PCR positive Infectious disease consulted S/p Zosyn IV cefepime 01/16 blood culture x2 no growth to date 01/16 COVID-19 PCR positive 01/16 UA negative for nitrates and leukocyte esterase 01/17 TTE pending 01/17 MRSA PCR pending (2) CVA (cerebral vascular accident) Current Visit: Yes Status: Acute Plan to address problem: Rule out CVA Presented with altered mental status, baseline at senior care is alert and oriented x2 01/16 CT head shows small lacunar infarcts in the ganglial capsular region 01/18 MRI brain pending 01/18 MRA head pending 01/18 EEG pending 01/18 lipid panel: Triglyceride 219, cholesterol 180, LDL 91, HDL 31 01/[address]/OT/PT consulted Neurology consult Aspirin and statin therapy Fall, aspiration, seizure precautions Permissive hypertension for 24 hours, patient is already outside the window now target normotension Target euthymia and euglycemia (3) COVID-19 virus infection Current Visit: Yes Status: Acute Plan to address problem: 01/16 COVID-19 PCR positive Contact/droplet isolation Infectious disease consulted Supplemental oxygen as needed OOB 3 times daily Prone to sleep as needed Patient was on Zosyn and infectious disease changed his antibiotic to cefepime on 01/17 Pulmonary hygiene Trend inflammatory markers Anticoagulation per COVID-19 protocol 01/18 remdesivir initiated through 01/23 01/18 dexamethasone 6 mg p.o. daily for 10 days till 01/28 Patient COVID-19 IgG positive therefore he is not a candidate for convalescent plasma. (4) Acute hypernatremia Current Visit: Yes Status: Acute Plan to address problem: Presented with a sodium of 161 01/17 sodium 164, 165 01/17 IVF changed to D5W at 75 mL/h which was increased on 01/18 100 mL/hr 01/18 sodium 164, 165 Trend BMP, BMP every 12 Avoid rapid correction due to risk of pontine demyelination 01/18 nephrology consulted Patient initiated on tube feedings with free water flushes on 01/18 S/p 2L normal saline bolus in the ED for sepsis 01/19 sodium 165 (5) Acute kidney injury Current Visit: Yes Status: Resolved (6) Elevated d-dimer Current Visit: Yes Status: Acute Plan to address problem: 01/16 D-dimer greater than 10,000 01/17 VQ scan shows low probability of pulmonary medicine 01/17 bilateral upper and lower extremity venous Dopplers shows no acute DVT Anticoagulation per COVID-19 protocol (7) Acute respiratory failure Current Visit: Yes Status: Acute Plan to address problem: Patient was hypoxic on room air Supplemental oxygen as needed Continuous pulse ox pulmonary hygiene Dexamethasone 6 mg p.o. daily 01/18 through 01/28 (8) Transaminitis Current Visit: Yes Status: Acute Plan to address problem: Presented with AST of 63 Secondary to COVID-19 infection Trend LFTs (9) Hyperchloremia Current Visit: Yes Status: Acute Plan to address problem: Presented with chloride of 123.6 01/17: 131, 133 01/18 chloride 133, 134, 131 01/19 chloride 133 Patient is on D5W Trend BMP S/p 2 L normal saline bolus in the ED (10) Diabetes mellitus Current Visit: Yes Status: Chronic Plan to address problem: 01/17 hemoglobin A1c 6.7 SSI Accu-Cheks every 6 hours while n.p.o. 01/18 patient initiated on tube feedings (11) Hypertension Current Visit: Yes Status: Chronic Plan to address problem: Patient has a history of hypertension Patient is normotensive at this time We will continue to monitor Restart home antihypertensive regimen when applicable and available Blood pressure monitor per protocol 01/18 patient initiated on amlodipine (12) DVT prophylaxis Current Visit: Yes Status: Acute Plan to address problem: Anticoagulation per COVID-19 protocol, Lovenox 40 twice daily SCDs to bilateral Bed History Interval history: 79-year-old male with HTN and DM who is a resident of a senior care presented to the ED on 01/17 via EMS for evaluation of a change mental status. Per senior care staff patient was not communicating well and having decreased oral intake. Upon arrival to the emergency department patient was found to be tachycardic, febrile to 102.2 and hypoxic with SPO2 of 91 on room air. Work-up was significant for hypernatremia, acute kidney injury (CR/BUN 2.2/55), hypochloremia, transaminitis and a chest x-ray showed mild bilateral pulmonary edema and CTh was unremarkable. Patient was admitted to hospitalist service as a Covid PUI, Sepsis, YIMI and infectious disease was consulted. MRI brain and MRA head still pending. Patient continues on remdesivir therapy. Patient remains hypernatremic despite his free water flush being increased from 250 mL to 300 mL every 4 hours and his D5 water increase from 75 mL to 100 mL/h. Nephrology and neurology have been consulted. Patient still remains supplemental oxygenation at this time. No acute events reported overnight 01/17: elevated D-dimer therefore bilateral upper and lower extremity u ltrasounds Dopplers were obtained to rule out DVT and a VQ scan was performed to rule out PE both of which were negative. Patient remained severely hypernatremic and his IV fluids were changed to D5 water. We will trend his BMP. He also has elevated Covid markers ferritin and CRP. 01/18: COVID-19 PCR resulted as positive. Patient remains hyponatremic therefore nephrology was consulted and he was started on FWF and his D5W was increased. 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 Dr. ePtersen updated his daughter this morning (Ms. Burleson) and this afternoon after his COVID-19 PCR resulted I updated her. The phone got disconnected after 2 minutes of conversation and informing her of COVID-19 status and I tried calling back twice. Both times it was sent to [facility] and her mailbox is full therefore was not able to leave a message. Patient was also initiated on remdesivir therapy Hospitalist Physical - Physical exam Narrative exam: PE not conducted in an attempt to conserve PPE and decrease exposure to COVID-19 - Constitutional Vitals: Temp Pulse Resp BP Pulse Ox 97.9 F 90 18 128/89 93 01/20/20 10:35 01/20/20 10:35 01/20/20 10:35 01/20/20 10:35 01/20/20 10:35 General appearance: Present: no acute distress, well-nourished HEART Score - HEART Score Troponin: Troponin T < 0.010 ng/mL (0.00-0.029) 01/17/20 17:34 Results - Labs CBC & Chem 7: 01/19/20 05:13 01/20/20 07:37 Labs: Laboratory Last Values WBC 10.0 K/mm3 (4.5-11.0) 01/19/20 05:13 RBC 5.84 M/mm3 (3.65-5.03) H 01/19/20 05:13 Hgb 15.3 gm/dl (11.8-15.2) H 01/19/20 05:13 Hct 46.1 % (35.5-45.6) H 01/19/20 05:13 MCV 79 fl (84-94) L 01/19/20 05:13 MCH 26 pg (28-32) L 01/19/20 05:13 MCHC 33 % (32-34) 01/19/20 05:13 RDW 15.0 % (13.2-15.2) 01/19/20 05:13 Plt Count 156 K/mm3 (140-440) 01/19/20 05:13 Lymph % (Auto) 12.7 % (13.4-35.0) L 01/18/20 07:45 Butts % (Auto) 4.6 % (0.0-7.3) 01/18/20 07:45 Eos % (Auto) 0.0 % (0.0-4.3) 01/18/20 07:45 Baso % (Auto) 0.1 % (0.0-1.8) 01/18/20 07:45 Lymph # (Auto) 1.1 K/mm3 (1.2-5.4) L 01/18/20 07:45 Butts # (Auto) 0.4 K/mm3 (0.0-0.8) 01/18/20 07:45 Eos # (Auto) 0.0 K/mm3 (0.0-0.4) 01/18/20 07:45 Baso # (Auto) 0.0 K/mm3 (0.0-0.1) 01/18/20 07:45 Seg Neutrophils % 82.6 % (40.0-70.0) H 01/18/20 07:45 Seg Neutrophils # 7.1 K/mm3 (1.8-7.7) 01/18/20 07:45 PT 15.0 Sec. (12.2-14.9) H 01/18/20 07:45 INR 1.16 (0.87-1.13) H 01/18/20 07:45 APTT 31.0 Sec. (24.2-36.6) 01/17/20 17:34 D-Dimer 5936.59 ng/mlDDU (0-234) H 01/20/20 05:39 Sodium 165 mmol/L (137-145) H* 01/20/20 07:37 Potassium 3.6 mmol/L (3.6-5.0) 01/20/20 07:37 Chloride 133.6 mmol/L (98-107) H 01/20/20 07:37 Carbon Dioxide 22 mmol/L (22-30) 01/20/20 07:37 Anion Gap 13 mmol/L 01/20/20 07:37 BUN 28 mg/dL (9-20) H 01/20/20 07:37 Creatinine 1.3 mg/dL (0.8-1.3) 01/20/20 07:37 Estimated GFR > 60 ml/min 01/20/20 07:37 BUN/Creatinine Ratio 22 % 01/20/20 07:37 Glucose 170 mg/dL (75-100) H 01/20/20 07:37 POC Glucose 150 mg/dL (70-105) H 01/20/20 05:38 Hemoglobin A1c 6.7 % (4-6) H 01/18/20 16:04 Lactic Acid 1.80 mmol/L (0.7-2.0) 01/17/20 19:40 Calcium 8.8 mg/dL (8.4-10.2) 01/20/20 07:37 Ferritin 4416.0 ng/mL (30.0-300.0) H 01/20/20 05:39 Total Bilirubin 0.40 mg/dL (0.1-1.2) 01/20/20 05:39 Direct Bilirubin < 0.2 mg/dL (0-0.2) 01/20/20 05:39 Indirect Bilirubin 0.2 mg/dL 01/20/20 05:39 AST 60 units/L (5-40) H 01/20/20 05:39 ALT 44 units/L (7-56) 01/20/20 05:39 Alkaline Phosphatase 64 units/L (35-129) 01/20/20 05:39 Ammonia 38.0 umol/L (25-60) 01/17/20 17:34 Lactate Dehydrogenase 427 units/L (91-180) H 01/20/20 05:39 Total Creatine Kinase 164 units/L (55-170) 01/17/20 17:34 Troponin T < 0.010 ng/mL (0.00-0.029) 01/17/20 17:34 C-Reactive Protein 10.20 mg/dL (0.00-1.30) H 01/20/20 05:39 Total Protein 7.0 g/dL (6.3-8.2) 01/20/20 05:39 Albumin 2.8 g/dL (3.9-5) L 01/20/20 05:39 Albumin/Globulin Ratio 0.7 % 01/20/20 05:39 Triglycerides 219 mg/dL (2-149) H 01/18/20 16:04 Cholesterol 180 mg/dL (50-199) 01/18/20 16:04 LDL Cholesterol Direct 91 mg/dL (50-130) 01/18/20 16:04 HDL Cholesterol 37 mg/dL (40-59) L 01/18/20 16:04 Cholesterol/HDL Ratio 4.86 % 01/18/20 16:04 Procalcitonin 0.15 ng/mL (<0.15) 01/17/20 21:39 Urine Color Yellow (Yellow) 01/17/20 19:30 Urine Turbidity Clear (Clear) 01/17/20 19:30 Urine pH 5.0 (5.0-7.0) 01/17/20 19:30 Ur Specific [place] 1.016 (1.003-1.030) 01/17/20 19:30 Urine Protein 100 mg/dl mg/dL (Negative) 01/17/20 19:30 Urine Glucose (UA) Neg mg/dL (Negative) 01/17/20 19:30 Urine Ketones Neg mg/dL (Negative) 01/17/20 19:30 Urine Blood Sm (Negative) 01/17/20 19:30 Urine Nitrite Neg (Negative) 01/17/20 19:30 Urine Bilirubin Neg (Negative) 01/17/20 19:30 Urine Urobilinogen < 2.0 mg/dL (<2.0) 01/17/20 19:30 Ur Leukocyte Esterase Neg (Negative) 01/17/20 19:30 Urine WBC (Auto) 2.0 /HPF (0.0-6.0) 01/17/20 19:30 Urine RBC (Auto) 6.0 /HPF (0.0-6.0) 01/17/20 19:30 U Epithel Cells (Auto) < 1.0 /HPF (0-13.0) 01/17/20 19:30 Urine Bacteria (Auto) 1+ /HPF (Negative) 01/17/20 19:30 Urine Mucus Few /HPF 01/17/20 19:30 Coronavirus (PCR) Positive (Negative) A 01/19/20 Unknown SARS-CoV-2 IgG Ab Reactive (NonReactive) A 01/19/20 17:52 Microbiology: Microbiology 01/17/20 17:34 Peripheral/Venous Blood Culture - Preliminary NO GROWTH AFTER 48 HOURS 01/17/20 17:37 Peripheral/Venous Blood Culture - Preliminary NO GROWTH AFTER 48 HOURS Moses/IV: Voiding Method Condom Catheter IV Catheter Type [Left Forearm INT / Saline Lock ] IV Catheter Type [Right INT / Saline Lock Antecubital] Active Medications - Current Medications Current Medications: Generic Name Dose Route Start Last Admin Trade Name Freq PRN Reason Stop Dose Admin Acetaminophen 650 mg 01/17/20 22:03 Tylenol PO Q4H PRN Pain MILD(1-3)/Fever >100.5/FORD Amlodipine Besylate 2.5 mg 01/19/20 16:40 01/20/20 09:26 Amlodipine PO 2.5 mg QDAY [facility] Administration Lipase/Protease/Amylase 1 each 01/19/20 10:[address] 10,500 Unit FEEDTUBE PRN PRN For Clogged Feeding Tube Aspirin 81 mg 01/19/20 18:00 01/20/20 09:25 Baby Aspirin PO 81 mg QDAY [facility] Administration Atorvastatin Calcium 40 mg 01/19/20 22:00 01/19/20 22:19 Lipitor PO 40 mg QHS [facility]OR[facility] Administration Dexamethasone 6 mg 01/19/20 13:00 01/20/20 09:27 Decadron PO 6 mg DAILY [facility] Administration Dextrose 50 ml 01/18/20 16:00 D50w (25gm) Syringe IV Q30MIN PRN Hypoglycemia Protocol Docusate Sodium 100 mg 01/20/20 10:00 01/20/20 09:25 Colace PO 100 mg BID [facility] Administration Enoxaparin Sodium 40 mg 01/18/20 22:00 01/20/20 09:28 Enoxaparin SUB-Q 40 mg BID [facility] Administration Protocol REMDESIVIR 100 mg/ Sodium 250 mls @ 500 mls/hr 01/20/20 21:00 Chloride IV 01/23/20 21:29 Q24HR@2100 [facility] Dextrose 1,000 mls @ 125 mls/hr 01/20/20 09:00 D5w IV DIRECT [facility] Insulin Human Regular 0 unit 01/18/20 16:00 01/20/20 05:47 Humulin R SUB-Q Not Given Q6HR [facility] Protocol Magnesium Hydroxide 30 ml 01/17/20 22:03 Milk Of Magnesia PO Q4H PRN Constipation Ondansetron HCl 4 mg 01/17/20 22:03 Zofran IV Q8H PRN Nausea And Vomiting Simple Syrup 15 ml 01/19/20 10:31 Simple Syrup FEEDTUBE PRN PRN Hypoglycemia Simple Syrup 30 ml 01/19/20 10:31 Simple Syrup FEEDTUBE PRN PRN Hypoglycemia Sodium Bicarbonate 325 mg 01/19/20 10:31 Sodium Bicarbonate FEEDTUBE PRN PRN For Clogged Feeding Tube Sodium Chloride 10 ml 01/18/20 10:00 01/20/20 09:25 Sodium Chloride Flush Syringe 10 Ml IV 10 ml BID [facility] Administration Sodium Chloride 10 ml 01/17/20 22:03 Sodium Chloride Flush Syringe 10 Ml IV PRN PRN LINE FLUSH Sodium Chloride 50 ml 01/19/20 18:30 01/19/20 18:50 Nacl 0.9% IV 01/23/20 21:31 50 ml 2130 [facility] Administration Nutrition/Malnutrition Assess - Dietary Evaluation Nutrition/Malnutrition Findings: Nutrition Notes Start: 01/19/20 10:13 Freq: Status: Active Protocol: Document 01/19/20 10:13 EN (Rec: 01/19/20 10:31 EN [email or web address]) Co-Sign 01/19/20 10:13 LM Nutrition Notes Need for Assessment generated from: MD Order Initial or Follow up Assessment Current Diagnosis Acute Kidney Injury,Diabetes, Sepsis,Hypertension, Respiratory Failure Other Pertinent Diagnosis Suspected COVID-19, hypochloremia, acute hypernatremia Current Diet NPO Labs/Tests Na 167, BUN 26, Glu 130, POC Glu 117 Pertinent Medications D5w at 75ml/hr Height 5 ft 11 in Weight 88 kg [place] Body Weight (kg) 78.18 BMI 27.0 Weight Status Overweight Subjective/Other Information RD consulted for TF d/t swallowing difficulty. Dobhoff ordered. Lokesh score 14, no wounds noted Burn Absent Trauma Absent GI Symptoms None Difficulty In Swallowing Food Allergy No Current % PO Negligible Minimum of two criteria No physical signs of malnutrition #1 Nutrition Diagnosis Inadequate oral intake Etiology difficulty swallowing As Evidenced by Signs and Symptoms Dobhoff placement and need for TF Is patient on ventilator? No Is Patient Ambulatory and/or Out of Bed No REE-([facility]-confined to bed) 1957.89 Calculation Used for Recommendations [facility] Additional Notes Protein: 0.8-1.2 g/kg (70-105) Fluid: 1 ml/kcal Nutrition Intervention Change Diet Order: TF Nutrition Support: Glucerna 1.2 at 65 ml/hr Flush 200 ml q4h for hypernatremia Flush 100 ml q4h once hypernatremia is resolved Kcal 1,872 Protein (gm) 94 Fluid (mL) 1,256 Goal #1 Meet 75% of energy and protein needs with TF Goal #2 TF tolerance Anticipated Discharge Needs: Unable to determine at this time Follow-Up By: 01/23/20 Additional Comments F/u for TF start and tolerance , f/u for Na lab values <VIC PETERSEN - Last Filed: 01/20/20 18:38> Assessment and Plan Assessment and plan: I saw and evaluated the patient. I agree with the findings and the plan of care as documented in the Nurse Practitioner's~note, with the following corrections and additions. Patient remains very lethargic, and none responsive. Continues current management, Tolerating Tube feeds. ASPIRATION PRECUATIONS. CALLED AND UPDATED FAMILY. PROGNOSIS IS GUARDED. Hospitalist Physical - Constitutional Vitals: Temp Pulse Resp BP Pulse Ox 97.9 F 90 18 128/89 93 01/20/20 10:35 01/20/20 10:35 01/20/20 10:35 01/20/20 10:35 01/20/20 10:35 HEART Score - HEART Score Troponin: Troponin T < 0.010 ng/mL (0.00-0.029) 01/17/20 17:34 Results - Labs CBC & Chem 7: 01/19/20 05:13 01/20/20 13:33 Labs: Laboratory Last Values WBC 10.0 K/mm3 (4.5-11.0) 01/19/20 05:13 RBC 5.84 M/mm3 (3.65-5.03) H 01/19/20 05:13 Hgb 15.3 gm/dl (11.8-15.2) H 01/19/20 05:13 Hct 46.1 % (35.5-45.6) H 01/19/20 05:13 MCV 79 fl (84-94) L 01/19/20 05:13 MCH 26 pg (28-32) L 01/19/20 05:13 MCHC 33 % (32-34) 01/19/20 05:13 RDW 15.0 % (13.2-15.2) 01/19/20 05:13 Plt Count 156 K/mm3 (140-440) 01/19/20 05:13 Lymph % (Auto) 12.7 % (13.4-35.0) L 01/18/20 07:45 Butts % (Auto) 4.6 % (0.0-7.3) 01/18/20 07:45 Eos % (Auto) 0.0 % (0.0-4.3) 01/18/20 07:45 Baso % (Auto) 0.1 % (0.0-1.8) 01/18/20 07:45 Lymph # (Auto) 1.1 K/mm3 (1.2-5.4) L 01/18/20 07:45 Butts # (Auto) 0.4 K/mm3 (0.0-0.8) 01/18/20 07:45 Eos # (Auto) 0.0 K/mm3 (0.0-0.4) 01/18/20 07:45 Baso # (Auto) 0.0 K/mm3 (0.0-0.1) 01/18/20 07:45 Seg Neutrophils % 82.6 % (40.0-70.0) H 01/18/20 07:45 Seg Neutrophils # 7.1 K/mm3 (1.8-7.7) 01/18/20 07:45 PT 15.0 Sec. (12.2-14.9) H 01/18/20 07:45 INR 1.16 (0.87-1.13) H 01/18/20 07:45 APTT 31.0 Sec. (24.2-36.6) 01/17/20 17:34 D-Dimer 5936.59 ng/mlDDU (0-234) H 01/20/20 05:39 Sodium 166 mmol/L (137-145) H* 01/20/20 13:33 Potassium 4.0 mmol/L (3.6-5.0) 01/20/20 13:33 Chloride 135.3 mmol/L (98-107) H 01/20/20 13:33 Carbon Dioxide 22 mmol/L (22-30) 01/20/20 13:33 Anion Gap 13 mmol/L 01/20/20 13:33 BUN 28 mg/dL (9-20) H 01/20/20 13:33 Creatinine 1.3 mg/dL (0.8-1.3) 01/20/20 13:33 Estimated GFR > 60 ml/min 01/20/20 13:33 BUN/Creatinine Ratio 22 % 01/20/20 13:33 Glucose 181 mg/dL (75-100) H 01/20/20 13:33 POC Glucose 150 mg/dL (70-105) H 01/20/20 13:06 Hemoglobin A1c 6.7 % (4-6) H 01/18/20 16:04 Lactic Acid 1.80 mmol/L (0.7-2.0) 01/17/20 19:40 Calcium 8.9 mg/dL (8.4-10.2) 01/20/20 13:33 Ferritin 4416.0 ng/mL (30.0-300.0) H 01/20/20 05:39 Total Bilirubin 0.40 mg/dL (0.1-1.2) 01/20/20 05:39 Direct Bilirubin < 0.2 mg/dL (0-0.2) 01/20/20 05:39 Indirect Bilirubin 0.2 mg/dL 01/20/20 05:39 AST 60 units/L (5-40) H 01/20/20 05:39 ALT 44 units/L (7-56) 01/20/20 05:39 Alkaline Phosphatase 64 units/L (35-129) 01/20/20 05:39 Ammonia 38.0 umol/L (25-60) 01/17/20 17:34 Lactate Dehydrogenase 427 units/L (91-180) H 01/20/20 05:39 Total Creatine Kinase 164 units/L (55-170) 01/17/20 17:34 Troponin T < 0.010 ng/mL (0.00-0.029) 01/17/20 17:34 C-Reactive Protein 10.20 mg/dL (0.00-1.30) H 01/20/20 05:39 Total Protein 7.0 g/dL (6.3-8.2) 01/20/20 05:39 Albumin 2.8 g/dL (3.9-5) L 01/20/20 05:39 Albumin/Globulin Ratio 0.7 % 01/20/20 05:39 Triglycerides 219 mg/dL (2-149) H 01/18/20 16:04 Cholesterol 180 mg/dL (50-199) 01/18/20 16:04 LDL Cholesterol Direct 91 mg/dL (50-130) 01/18/20 16:04 HDL Cholesterol 37 mg/dL (40-59) L 01/18/20 16:04 Cholesterol/HDL Ratio 4.86 % 01/18/20 16:04 Procalcitonin 0.15 ng/mL (<0.15) 01/17/20 21:39 Urine Color Yellow (Yellow) 01/17/20 19:30 Urine Turbidity Clear (Clear) 01/17/20 19:30 Urine pH 5.0 (5.0-7.0) 01/17/20 19:30 Ur Specific [place] 1.016 (1.003-1.030) 01/17/20 19:30 Urine Protein 100 mg/dl mg/dL (Negative) 01/17/20 19:30 Urine Glucose (UA) Neg mg/dL (Negative) 01/17/20 19:30 Urine Ketones Neg mg/dL (Negative) 01/17/20 19:30 Urine Blood Sm (Negative) 01/17/20 19:30 Urine Nitrite Neg (Negative) 01/17/20 19: Urine Bilirubin Neg (Negative) 01/17/20 19:30 Urine Urobilinogen < 2.0 mg/dL (<2.0) 01/17/20 19:30 Ur Leukocyte Esterase Neg (Negative) 01/17/20 19:30 Urine WBC (Auto) 2.0 /HPF (0.0-6.0) 01/17/20 19:30 Urine RBC (Auto) 6.0 /HPF (0.0-6.0) 01/17/20 19:30 U Epithel Cells (Auto) < 1.0 /HPF (0-13.0) 01/17/20 19:30 Urine Bacteria (Auto) 1+ /HPF (Negative) 01/17/20 19:30 Urine Mucus Few /HPF 01/17/20 19:30 Coronavirus (PCR) Positive (Negative) A 01/19/20 Unknown SARS-CoV-2 IgG Ab Reactive (NonReactive) A 01/19/20 17:52 Microbiology: Microbiology 01/17/20 17:34 Peripheral/Venous Blood Culture - Preliminary NO GROWTH AFTER 72 HOURS 01/17/20 17:37 Peripheral/Venous Blood Culture - Preliminary NO GROWTH AFTER 72 HOURS Moses/IV: Voiding Method Condom Catheter IV Catheter Type [Left Forearm INT / Saline Lock ] IV Catheter Type [Right INT / Saline Lock Antecubital] Active Medications - Current Medications Current Medications: Generic Name Dose Route Start Last Admin Trade Name Freq PRN Reason Stop Dose Admin Acetaminophen 650 mg 01/17/20 22:03 Tylenol PO Q4H PRN Pain MILD(1-3)/Fever >100.5/FORD Amlodipine Besylate 2.5 mg 01/19/20 16:40 01/20/20 09:26 Amlodipine PO 2.5 mg QDAY [facility]ORIO Administration Lipase/Protease/Amylase 1 each 01/19/20 10:[address] 10,500 Unit FEEDTUBE PRN PRN For Clogged Feeding Tube Aspirin 81 mg 01/19/20 18:00 01/20/20 09:25 Baby Aspirin PO 81 mg QDAY [facility] Administration Atorvastatin Calcium 40 mg 01/19/20 22:00 01/19/20 22:19 Lipitor PO 40 mg QHS [facility] Administration Dexamethasone 6 mg 01/19/20 13:00 01/20/20 09:27 Decadron PO 01/28/20 10:01 6 mg DAILY [facility] Administration Dextrose 50 ml 01/18/20 16:00 D50w (25gm) Syringe IV Q30MIN PRN Hypoglycemia Protocol Docusate Sodium 100 mg 01/20/20 10:00 01/20/20 09:25 Colace PO 100 mg BID [facility] Administration Enoxaparin Sodium 40 mg 01/18/20 22:00 01/20/20 09:28 Enoxaparin SUB-Q 40 mg BID [facility] Administration Protocol REMDESIVIR 100 mg/ Sodium 250 mls @ 500 mls/hr 01/20/20 21:00 Chloride IV 01/23/20 21:29 Q24HR@2100 [facility] Dextrose 1,000 mls @ 125 mls/hr 01/20/20 09:00 D5w IV DIRECT [facility] Insulin Human Regular 0 unit 01/18/20 16:00 01/20/20 18:29 Humulin R SUB-Q Not Given Q6HR [facility] Protocol Magnesium Hydroxide 30 ml 01/17/20 22:03 Milk Of Magnesia PO Q4H PRN Constipation Ondansetron HCl 4 mg 01/17/20 22:03 Zofran IV Q8H PRN Nausea And Vomiting Simple Syrup 15 ml 01/19/20 10:31 Simple Syrup FEEDTUBE PRN PRN Hypoglycemia Simple Syrup 30 ml 01/19/20 10:31 Simple Syrup FEEDTUBE PRN PRN Hypoglycemia Sodium Bicarbonate 325 mg 01/19/20 10:31 Sodium Bicarbonate FEEDTUBE PRN PRN For Clogged Feeding Tube Sodium Chloride 10 ml 01/18/20 10:00 01/20/20 09:25 Sodium Chloride Flush Syringe 10 Ml IV 10 ml BID [facility] Administration Sodium Chloride 10 ml 01/17/20 22:03 Sodium Chloride Flush Syringe 10 Ml IV PRN PRN LINE FLUSH Sodium Chloride 50 ml 01/19/20 18:30 01/19/20 18:50 Nacl 0.9% IV 01/23/20 21:31 50 ml 2130 [facility] Administration Nutrition/Malnutrition Assess - Dietary Evaluation Nutrition/Malnutrition Findings: Nutrition Notes Start: 01/19/20 10:13 Freq: Status: Active Protocol: Document 01/19/20 10:13 EN (Rec: 01/19/20 10:31 EN [email or web address]) Co-Sign 01/19/20 10:13 LM Nutrition Notes Need for Assessment generated from: MD Order Initial or Follow up Assessment Current Diagnosis Acute Kidney Injury,Diabetes, Sepsis,Hypertension, Respiratory Failure Other Pertinent Diagnosis Suspected COVID-19, hypochloremia, acute hypernatremia Current Diet NPO Labs/Tests Na 167, BUN 26, Glu 130, POC Glu 117 Pertinent Medications D5w at 75ml/hr Height 5 ft 11 in Weight 88 kg [place] Body Weight (kg) 78.18 BMI 27.0 Weight Status Overweight Subjective/Other Information RD consulted for TF d/t swallowing difficulty. Dobhoff ordered. Lokesh score 14, no wounds noted Burn Absent Trauma Absent GI Symptoms None Difficulty In Swallowing Food Allergy No Current % PO Negligible Minimum of two criteria No physical signs of malnutrition #1 Nutrition Diagnosis Inadequate oral intake Etiology difficulty swallowing As Evidenced by Signs and Symptoms Dobhoff placement and need for TF Is patient on ventilator? No Is Patient Ambulatory and/or Out of Bed No REE-([facility]-confined to bed) 1957.892 Calculation Used for Recommendations [facility] Additional Notes Protein: 0.8-1.2 g/kg (70-105) Fluid: 1 ml/kcal Nutrition Intervention Change Diet Order: TF Nutrition Support: Glucerna 1.2 at 65 ml/hr Flush 200 ml q4h for hypernatremia Flush 100 ml q4h once hypernatremia is resolved Kcal 1,872 Protein (gm) 94 Fluid (mL) 1,256 Goal #1 Meet 75% of energy and protein needs with TF Goal #2 TF tolerance Anticipated Discharge Needs: Unable to determine at this time Follow-Up By: 01/23/20 Additional Comments F/u for TF start and tolerance , f/u for Na lab values
--- NOTE | 2020-01-20 12:34 | Progress Note ---
Assessment and Plan - Patient Problems (1) Acute hypernatremia Current Visit: Yes Status: Acute Plan to address problem: Continue with current free water repletion. Receiving FWF at 250 q 4hrs.Have also changed his IVF to D5W at 125 cc/hr. Will closely monitor. . (2) Altered mental status Current Visit: Yes Status: Acute Plan to address problem: Possibly in the setting of hypernatremia and underlying pneumonia. We will continue to closely monitor. (3) Suspected COVID-19 virus infection Current Visit: Yes Status: Acute Plan to address problem: COVID-19 (+). Management per ID recommendations. Currently on remdesivir and dexamathasone (4) Diabetes mellitus Current Visit: Yes Status: Chronic Plan to address problem: Diabetes management per primary attending (5) Hypertension Current Visit: Yes Status: Chronic Plan to address problem: Monitor blood pressures under current antihypertensive regimen. Subjective Date of service: 01/20/20 Principal diagnosis: COVID-19 pneumonia Interval history: No acute issues or changes. Notes reviewed. Objective - Exam Narrative Exam: Deferred physical examination in order to preserve PPE. - Vital Signs Vital signs: Vital Signs - 12hr 01/20/20 01/20/20 04:48 10:35 Temperature 98.6 F 97.9 F Pulse Rate 91 H 90 Respiratory 20 18 Rate Blood Pressure 141/88 128/89 O2 Sat by Pulse 90 93 Oximetry - Lab 01/19/20 05:13 01/20/20 07:37 Most recent lab results Calcium 8.8 mg/dL (8.4-10.2) 01/20/20 07:37 Medications & Allergies - Medications Allergies/Adverse Reactions: Allergies No Known Allergies Allergy (Verified 01/17/20 22:09) Home Medications: Home Medications Medication Instructions Recorded Confirmed Last Taken Type No Known Home Medications [No 01/20/20 01/20/20 Unknown History Reported Home Medications] Active Medications: Generic Name Dose Route Start Last Admin Trade Name Freq PRN Reason Stop Dose Admin Acetaminophen 650 mg 01/17/20 22:03 Tylenol PO Q4H PRN Pain MILD(1-3)/Fever >100.5/FORD Amlodipine Besylate 2.5 mg 01/19/20 16:40 01/20/20 09:26 Amlodipine PO 2.5 mg QDAY [facility] Administration Lipase/Protease/Amylase 1 each 01/19/20 10:[address] 10,500 Unit FEEDTUBE PRN PRN For Clogged Feeding Tube Aspirin 81 mg 01/19/20 18:00 01/20/20 09:25 Baby Aspirin PO 81 mg QDAY [facility] Administration Atorvastatin Calcium 40 mg 01/19/20 22:00 01/19/20 22:19 Lipitor PO 40 mg QHS [facility] Administration Dexamethasone 6 mg 01/19/20 13:00 01/20/20 09:27 Decadron PO 01/28/20 10:01 6 mg DAILY [facility] Administration Dextrose 50 ml 01/18/20 16:00 D50w (25gm) Syringe IV Q30MIN PRN Hypoglycemia Protocol Docusate Sodium 100 mg 01/20/20 10:00 01/20/20 09:25 Colace PO 100 mg BID [facility] Administration Enoxaparin Sodium 40 mg 01/18/20 22:00 01/20/20 09:28 Enoxaparin SUB-Q 40 mg BID [facility] Administration Protocol REMDESIVIR 100 mg/ Sodium 250 mls @ 500 mls/hr 01/20/20 21:00 Chloride IV 01/23/20 21:29 Q24HR@2100 [facility] Dextrose 1,000 mls @ 125 mls/hr 01/20/20 09:00 D5w IV DIRECT [facility] Insulin Human Regular 0 unit 01/18/20 16:00 01/20/20 05:47 Humulin R SUB-Q Not Given Q6HR [facility] Protocol Magnesium Hydroxide 30 ml 01/17/20 22:03 Milk Of Magnesia PO Q4H PRN Constipation Ondansetron HCl 4 mg 01/17/20 22:03 Zofran IV Q8H PRN Nausea And Vomiting Simple Syrup 15 ml 01/19/20 10:31 Simple Syrup FEEDTUBE PRN PRN Hypoglycemia Simple Syrup 30 ml 01/19/20 10:31 Simple Syrup FEEDTUBE PRN PRN Hypoglycemia Sodium Bicarbonate 325 mg 01/19/20 10:31 Sodium Bicarbonate FEEDTUBE PRN PRN For Clogged Feeding Tube Sodium Chloride 10 ml 01/18/20 10:00 01/20/20 09:25 Sodium Chloride Flush Syringe 10 Ml IV 10 ml BID [facility] Administration Sodium Chloride 10 ml 01/17/20 22:03 Sodium Chloride Flush Syringe 10 Ml IV PRN PRN LINE FLUSH Sodium Chloride 50 ml 01/19/20 18:30 01/19/20 18:50 Nacl 0.9% IV 01/23/20 21:31 50 ml 2130 [facility] Administration
--- NOTE | 2020-01-20 14:00 | Event Note ---
I spoke to the bone density technician today Jenny and she stated that the patient will get his MRI brain and MRA/MRV head today.
[2020-01-20 14:30] LABS: BUN/Creatinine Ratio 22; Blood Urea Nitrogen 28 mg/dL (9-20); Calcium 8.9 mg/dL (8.4-10.2); Hemolysis Index 16
--- NOTE | 2020-01-20 18:41 | Magnetic Resonance Report ---
MRA HEAD WITHOUT CONTRAST HISTORY: Right-sided weakness COMPARISON: None. TECHNIQUE: Routine MRA of the head is performed. 3-D/MIP reformats postprocessed. CONTRAST: None. FINDINGS: Limited MRI scan; motion related artifacts; best possible images were obtained; Covid19 pos itive Intracranial vertebral arteries: No significant abnormality. Basilar artery: No significant abnormality. Posterior cerebral arteries: P1 and P2 segments of the posterior cerebral arteries are normal; unable to comment on P3 and P4 segments Intracranial internal carotid arteries: No significant abnormality. Anterior cerebral arteries: No significant abnormality. Middle cerebral arteries: M1 segments appear normal; branches in the sylvian fissure are not seen wel l Artifact Variants and anomalies:None Additional findings: None. IMPRESSION: Limited MRI scan Basilar artery, internal carotid arteries normal Anterior and middle cerebral arteries are not well seen; both A1 and M1 segments appear normal Signer Name: Cyndi Tinsley MD Signed: 01/20/2020 6:36 PM Workstation Name: [id number]
--- NOTE | 2020-01-20 19:11 | Magnetic Resonance Report ---
MR brain wo con INDICATION / CLINICAL INFORMATION: 79 years Male; MAIN. Possible stroke TECHNIQUE: Multiplanar, multisequence MR images of the brain were obtained. Motion artifact COMPARISON: CT-01/17/2020 FINDINGS: BRAIN / INTRACRANIAL CONTENTS: Small focus of ischemia seen in the periventricular/deep white matter along the posterior body of the left lateral ventricle. This finding is subcentimeter in size and is positive on the ADC map, suggesting it is acute in age. No other ischemic foci appreciated. Mild to moderate cerebral atrophy. Moderate to marked degree of hippocampal atrophy suggested bilater ally. There are marked, confluent areas of increased signal intensity on FLAIR imaging in the white matter of the cerebral hemispheres, as well as the gangliocapsular regions. These are nonspecific findings a nd may be related to microangiopathy (hypertension, diabetes, atherosclerosis), given the patient's a ge. A few scattered, small foci of decreased gradient echo T2 signal abnormality appreciated. Small riky nous malformations or perhaps early amyloid angiopathy might be considered. Otherwise, no acute ischemia, acute hemorrhage, or hydrocephalus. CRANIOCERVICAL JUNCTION: No significant abnormality. VASCULAR FLOW-VOIDS: No significant abnormality. ORBITS: No significant abnormality of visualized orbits. SINUSES / MASTOIDS: Small mucous retention cyst/polyp is seen in the right maxillary antrum. Mild to moderate mucosal thickening seen in the ethmoids. ADDITIONAL FINDINGS: None. IMPRESSION: 1. Punctate focus of ischemia in the white matter of the left cerebral hemisphere as described above. 2. Otherwise, no focal mass, hemorrhage, hydrocephalus, or acute, large infarct seen. Signer Name: Charles Edge MD, III Signed: 01/20/2020 7:07 PM Workstation Name: [id number]
[2020-01-20 20:36] LABS: BUN/Creatinine Ratio 26; Blood Urea Nitrogen 31 mg/dL (9-20); Calcium 8.9 mg/dL (8.4-10.2); Hemolysis Index 5
[2020-01-20] MEDS: REMDESIVIR 100 MG in SODIUM CHLORIDE 0.9% 250ML 250 ML IV SCH (22:26)
[2020-01-20] MEDS: SODIUM CHLORIDE 0.9% 50 ML IVPB IV SCH (22:26)
[2020-01-21] MEDS: INSULIN REGULAR, HUMAN 100 UNIT/ML 3ML VIAL SUB-Q SCH ×4 (00:27→17:35)
[2020-01-21 03:11] LABS: BUN/Creatinine Ratio 25; Blood Urea Nitrogen 30 mg/dL (9-20); Calcium 8.9 mg/dL (8.4-10.2); Hemolysis Index 2
[2020-01-21] MEDS ORDERED: SIMPLE SYRUP 15 ML FEEDTUBE PRN ×4 (08:00→11:34)
[2020-01-21] MEDS ORDERED: SODIUM BICARBONATE 325 MG TAB FEEDTUBE PRN ×2 (08:00→11:34)
[2020-01-21] MEDS ORDERED: LIPASE 10,500/PROTEASE 25,000/AMYLASE 43,750 (UNITS) DR CAP FEEDTUBE PRN ×2 (08:00→11:34)
--- NOTE | 2020-01-21 09:28 | Progress Note ---
<ROBERT GRAVES - Last Filed: 01/21/20 14:27> Assessment and Plan - Patient Problems (1) COVID-19 virus infection Current Visit: Yes Status: Acute Plan to address problem: Continue airborne and contact isolation Monitor inflammatory makers Continue systemic steroids ID consult-f/u with recommendation Ascorbic acid and zinc sulphate supplement Continue remdesivir-started 01/20/20-will complete on 01/23/20 (2) Altered mental status ? cause- likely 2/2 sepsis/covid infection/hypernatremia Current Visit: Yes Status: Acute Plan to address problem: Continue abx therapy and IV hydration Blood culture-no growth ID following -f/u with recommendation Will monitor mental status. CVA Dysphagia Continue Tube feeding with Glucerna Continue free water flushes HOB>30 degrees at all time Aspiration precaution (3) Acute hypernatremia persistent Current Visit: Yes Status: Acute Plan to address problem: Monitor sodium level Continue hypotonic solution Increase free water flushes vis NG tube (4) DVT prophylaxis Current Visit: Yes Status: Acute Plan to address problem: Patient placed on subcutaneous heparin. (5) Full code status Current Visit: Yes Status: Acute Subjective Date of service: 01/21/20 Principal diagnosis: COVID-19 pneumonia Interval history: Patient seen at bedside- on tubed feeding-oxygen supplement and has glez - draing yellow urine Patient appears lethargic-easy to arouse. Persistent hypernatremia-on hypotonic solution and free water flushes increased Device Sales Consultant followin-Cr normal-will continue to monitor sodium level Reviewed lab, mar, and v/s Objective - Constitutional Vitals: Vital Signs - 12hr 01/20/20 01/21/20 22:44 04:21 Temperature 98.6 F 98.7 F Pulse Rate 92 H 95 H Respiratory 22 20 Rate Blood Pressure 149/94 136/88 O2 Sat by Pulse 92 90 Oximetry - Labs CBC & Chem 7: 01/19/20 05:13 01/21/20 08:59 Labs: Abnormal lab results 01/20/20 01/20/20 01/20/20 Range/Units 13:06 13:33 18:44 Sodium 166 H* (137-145) mmol/L Chloride 135.3 H (98-107) mmol/L Carbon Dioxide (22-30) mmol/L BUN 28 H (9-20) mg/dL Glucose 181 H (75-100) mg/dL POC Glucose 150 H 171 H (70-105) mg/dL 01/20/20 01/21/20 01/21/20 Range/Units 20:08 00:35 01:36 Sodium 165 H* 168 H* (137-145) mmol/L Chloride 133.8 H 135.1 H (98-107) mmol/L Carbon Dioxide 20 L (22-30) mmol/L BUN 31 H 30 H (9-20) mg/dL Glucose 195 H 202 H (75-100) mg/dL POC Glucose 185 H (70-105) mg/dL 01/21/20 Range/Units 05:40 Sodium (137-145) mmol/L Chloride (98-107) mmol/L Carbon Dioxide (22-30) mmol/L BUN (9-20) mg/dL Glucose (75-100) mg/dL POC Glucose 149 H (70-105) mg/dL HEART Score - HEART Score Troponin: Troponin T < 0.010 ng/mL (0.00-0.029) 01/17/20 17:34 <VIC LYNCH - Last Filed: 01/21/20 14:55> Assessment and Plan I saw and evaluated the patient. I agree with the findings and the plan of care as documented in the Nurse Practitioner's~note, with the following corrections and additions. Objective - Constitutional Vitals: Vital Signs - 12hr 01/21/20 01/21/20 01/21/20 04:21 09:52 10:00 Temperature 98.7 F Pulse Rate 95 H 91 H Pulse Rate [ 87 Left Dorsalis Pedis] Respiratory 20 19 Rate Blood Pressure 136/88 134/88 O2 Sat by Pulse 90 Oximetry 01/21/20 11:49 Temperature 99.2 F Pulse Rate 91 H Pulse Rate [ Left Dorsalis Pedis] Respiratory 17 Rate Blood Pressure 152/92 O2 Sat by Pulse 94 Oximetry - Labs CBC & Chem 7: 01/19/20 05:13 01/21/20 13:47 Labs: Abnormal lab results 01/20/20 01/20/20 01/21/20 Range/Units 18:44 20:08 00:35 Sodium 165 H* (137-145) mmol/L Chloride 133.8 H (98-107) mmol/L Carbon Dioxide (22-30) mmol/L BUN 31 H (9-20) mg/dL Glucose 195 H (75-100) mg/dL POC Glucose 171 H 185 H (70-105) mg/dL 01/21/20 01/21/20 01/21/20 Range/Units 01:36 05:40 08:59 Sodium 168 H* 165 H* (137-145) mmol/L Chloride 135.1 H 132.8 H (98-107) mmol/L Carbon Dioxide 20 L (22-30) mmol/L BUN 30 H 30 H (9-20) mg/dL Glucose 202 H 141 H (75-100) mg/dL POC Glucose 149 H (70-105) mg/dL 01/21/20 01/21/20 Range/Units 12:04 13:47 Sodium 162 H* (137-145) mmol/L Chloride 134.3 H (98-107) mmol/L Carbon Dioxide 17 L D (22-30) mmol/L BUN 30 H (9-20) mg/dL Glucose 186 H (75-100) mg/dL POC Glucose 141 H (70-105) mg/dL HEART Score - HEART Score Troponin: Troponin T < 0.010 ng/mL (0.00-0.029) 01/17/20 17:34
[2020-01-21] MEDS: amLODIPine 5 MG TAB PO SCH (09:52)
[2020-01-21] MEDS: DEXAMETHASONE 4 MG TAB PO SCH (09:53)
[2020-01-21] MEDS: ASPIRIN 81 MG TAB CHEW PO SCH (09:53)
[2020-01-21] MEDS: DOCUSATE SODIUM 100 MG/10 ML ORAL LIQD PO SCH ×2 (09:53→21:40)
[2020-01-21] MEDS: ENOXAPARIN 40 MG/0.4 ML INJ SUB-Q SCH ×2 (09:54→21:40)
[2020-01-21 09:58] LABS: BUN/Creatinine Ratio 25; Blood Urea Nitrogen 30 mg/dL (9-20); Calcium 9.1 mg/dL (8.4-10.2); Hemolysis Index 16
--- NOTE | 2020-01-21 11:24 | Progress Note ---
Assessment and Plan - Patient Problems (1) Encephalopathy Current Visit: Yes Status: Acute Plan to address problem: Monitor mental status (2) Pneumonia due to COVID-19 virus Current Visit: Yes Status: Acute Plan to address problem: Continue IV steroids, remdesivir and monitor inflammatory markers (3) Acute hypernatremia Current Visit: Yes Status: Acute Plan to address problem: Increase free water intake and follow-up level (4) Diabetes mellitus Current Visit: Yes Status: Chronic (5) Hypertension Current Visit: Yes Status: Chronic (6) Acute kidney injury Current Visit: Yes Status: Resolved Subjective Date of service: 01/21/20 Principal diagnosis: COVID-19 pneumonia Interval history: Patient was not examined due to the COVID-19 pandemic and the need for PPE conservation Chart reviewed Objective - Exam Narrative Exam: Patient was not examined today due to the COVID-19 pandemic and need to conserve PPE - Vital Signs Vital signs: Vital Signs - 12hr 01/21/20 01/21/20 04:21 09:52 Temperature 98.7 F Pulse Rate 95 H 91 H Respiratory 20 Rate Blood Pressure 136/88 134/88 O2 Sat by Pulse 90 Oximetry - Lab 01/19/20 05:13 01/21/20 08:59 Most recent lab results Calcium 9.1 mg/dL (8.4-10.2) 01/21/20 08:59 Medications & Allergies - Medications Allergies/Adverse Reactions: Allergies No Known Allergies Allergy (Verified 01/17/20 22:09) Home Medications: Home Medications Medication Instructions Recorded Confirmed Last Taken Type No Known Home Medications [No 01/20/20 01/20/20 Unknown History Reported Home Medications] Active Medications: Generic Name Dose Route Start Last Admin Trade Name Freq PRN Reason Stop Dose Admin Acetaminophen 650 mg 01/17/20 22:03 Tylenol PO Q4H PRN Pain MILD(1-3)/Fever >100.5/[facility] Amlodipine Besylate 2.5 mg 01/19/20 16:40 01/21/20 09:52 Amlodipine PO 2.5 mg QDAY [facility] Administration Lipase/Protease/Amylase 1 each 01/21/20 08:00 Pancrenick Urrutia 10,500 Unit FEEDTUBE PRN PRN For Clogged Feeding Tube Ascorbic Acid 500 mg 01/21/20 10:00 Vitamin C PO QDAY [facility] Aspirin 81 mg 01/19/20 18:00 01/21/20 09:53 Baby Aspirin PO 81 mg QDAY [facility] Administration Atorvastatin Calcium 40 mg 01/19/20 22:00 01/20/20 22:28 Lipitor PO 40 mg QHS [facility] Administration Dexamethasone 6 mg 01/19/20 13:00 01/21/20 09:53 Decadron PO 01/28/20 10:01 6 mg DAILY [facility] Administration Dextrose 50 ml 01/18/20 16:00 D50w (25gm) Syringe IV Q30MIN PRN Hypoglycemia Protocol Docusate Sodium 100 mg 01/20/20 10:00 01/21/20 09:53 Colace PO 100 mg BID [facility] Administration Enoxaparin Sodium 40 mg 01/18/20 22:00 01/21/20 09:54 Enoxaparin SUB-Q 40 mg BID [facility] Administration Protocol REMDESIVIR 100 mg/ Sodium 250 mls @ 500 mls/hr 01/20/20 21:00 01/20/20 22:26 Chloride IV 01/23/20 21:29 500 mls/hr Q24HR@2100 [facility] Administration Dextrose 1,000 mls @ 125 mls/hr 01/20/20 09:00 D5w IV DIRECT [facility] Insulin Human Regular 0 unit 01/18/20 16:00 01/21/20 06:41 Humulin R SUB-Q Not Given Q6HR [facility] Protocol Magnesium Hydroxide 30 ml 01/17/20 22:03 Milk Of Magnesia PO Q4H PRN Constipation Ondansetron HCl 4 mg 01/17/20 22:03 Zofran IV Q8H PRN Nausea And Vomiting Simple Syrup 15 ml 01/21/20 08:00 Simple Syrup FEEDTUBE PRN PRN Hypoglycemia Simple Syrup 30 ml 01/21/20 08:00 Simple Syrup FEEDTUBE PRN PRN Hypoglycemia Sodium Bicarbonate 325 mg 01/21/20 08:00 Sodium Bicarbonate FEEDTUBE PRN PRN For Clogged Feeding Tube Sodium Chloride 10 ml 01/18/20 10:00 01/21/20 09:55 Sodium Chloride Flush Syringe 10 Ml IV 10 ml BID [facility] Administration Sodium Chloride 10 ml 01/17/20 22:03 Sodium Chloride Flush Syringe 10 Ml IV PRN PRN LINE FLUSH Sodium Chloride 50 ml 01/19/20 18:30 01/20/20 22:26 Nacl 0.9% IV 01/23/20 21:31 50 ml 2130 [facility] Administration Zinc Sulfate 220 mg 01/21/20 10:00 Zinc Sulfate PO QDAY [facility]
[2020-01-21] MEDS: ZINC SULFATE 220 MG CAP PO SCH (12:00)
[2020-01-21] MEDS: ASCORBIC ACID 500 MG TAB PO SCH (12:00)
[2020-01-21] MEDS: DEXTROSE 5% IN WATER 1,000 ML IV SCH (12:03)
[2020-01-21 14:49] LABS: BUN/Creatinine Ratio 25; Blood Urea Nitrogen 30 mg/dL (9-20); Calcium 9.1 mg/dL (8.4-10.2); Hemolysis Index 23
[2020-01-21 21:32] LABS: BUN/Creatinine Ratio 29; Blood Urea Nitrogen 29 mg/dL (9-20); Hemolysis Index 82
[2020-01-21] MEDS: REMDESIVIR 100 MG in SODIUM CHLORIDE 0.9% 250ML 250 ML IV SCH (21:40)
[2020-01-21] MEDS: SODIUM CHLORIDE 0.9% 50 ML IVPB IV SCH (21:40)
[2020-01-22] MEDS: INSULIN REGULAR, HUMAN 100 UNIT/ML 3ML VIAL SUB-Q SCH ×3 (00:45→18:15)
[2020-01-22] MEDS: DEXTROSE 5% IN WATER 1,000 ML IV SCH ×2 (03:00→19:35)
[2020-01-22 08:27] LABS: BUN/Creatinine Ratio 30; Blood Urea Nitrogen 27 mg/dL (9-20); Calcium 9.4 mg/dL (8.4-10.2); Hemolysis Index 16
[2020-01-22 08:28] LABS: C-Reactive Protein 2.9 mg/dL (0.00-1.30)
--- NOTE | 2020-01-22 09:19 | Progress Note ---
<ROBERT GRAVES - Last Filed: 01/22/20 14:38> Assessment and Plan - Patient Problems (1) COVID-19 virus infection Current Visit: Yes Status: Acute Plan to address problem: Continue airborne and contact isolation Monitor inflammatory makers Continue systemic steroids ID consult-f/u with recommendation Ascorbic acid and zinc sulphate supplement Continue remdesivir-started 01/20/20-will complete on 01/23/20 (2) Altered mental status ? cause- likely 2/2 sepsis/covid infection/hypernatremia Current Visit: Yes Status: Acute Plan to address problem: Continue abx therapy and IV hydration Blood culture-no growth ID following -f/u with recommendation Will monitor mental status. CVA Dysphagia Continue Tube feeding with Glucerna Continue free water flushes HOB>30 degrees at all time Aspiration precaution PT/XT-vjlmkzalj-z/u with reces Safety and fall precaution Pt not following or responding to commands-opens eyes Continue with Mitt restraints and condom cath (3) hypernatremia persistent Current Visit: Yes Status: Acute Plan to address problem: Monitor sodium level Continue hypotonic solution Increase free water flushes vis NG tube (4) DVT prophylaxis Current Visit: Yes Status: Acute Plan to address problem: Patient placed on subcutaneous heparin. (5) Full code status Current Visit: Yes Status: Acute Subjective Date of service: 01/22/20 Principal diagnosis: COVID-19 pneumonia Interval history: Patient seen at bedside- awake -more verbal today. Answers question appropriately Tube feeding-oxygen supplement and has condom cath draing yellow urine Patient appears lethargic-easy to arouse. Persistent hypernatremia-on hypotonic solution and free water flushes increased Notch Grinder followin-Cr normal-will continue to monitor sodium level Reviewed lab, mar, and v/s-patient has chronic hypernatremia-continue D5w and monitor sodium level Objective - Constitutional Vitals: Vital Signs - 12hr 01/21/20 01/22/20 01/22/20 22:00 00:09 05:37 Temperature 98.0 F 97.4 F L Pulse Rate 77 75 Respiratory 18 15 14 Rate Blood Pressure 117/77 123/92 O2 Sat by Pulse 96 93 94 Oximetry General appearance: Present: obese - EENT Eyes: PERRL, EOM intact ENT: hearing intact, clear oral mucosa Ears: bilateral: normal - Neck Neck: supple, normal ROM - Respiratory Respiratory effort: other (oxygen per N/C 2 liters) Respiratory: bilateral: CTA - Breasts Breasts: normal - Cardiovascular Heart rate: 75 Rhythm: regular Heart Sounds: Present: S1 & S2. Absent: gallop, rub Extremities: pulses intact, No edema, normal color, Full ROM - Gastrointestinal General gastrointestinal: Present: other (continue tube feeding) - Genitourinary Male genitourinary: normal (condom cath-yellow urine) - Integumentary Integumentary: clear, warm, dry - Musculoskeletal Musculoskeletal: generalized weakness - Neurologic Neurologic: moves all extremities - Psychiatric Psychiatric: cooperative - Allied health notes Allied health notes reviewed: nursing - Labs CBC & Chem 7: 01/19/20 05:13 01/22/20 07:46 Labs: Abnormal lab results 01/21/20 01/21/20 01/21/20 Range/Units 08:59 12:04 13:47 D-Dimer (0-234) ng/mlDDU Sodium 165 H* 162 H* (137-145) mmol/L Chloride 132.8 H 134.3 H (98-107) mmol/L Carbon Dioxide 17 L D (22-30) mmol/L BUN 30 H 30 H (9-20) mg/dL Glucose 141 H 186 H (75-100) mg/dL POC Glucose 141 H (70-105) mg/dL Lactate Dehydrogenase (91-180) units/L C-Reactive Protein (0.00-1.30) mg/dL 01/21/20 01/21/20 01/22/20 Range/Units 16:08 20:12 00:22 D-Dimer (0-234) ng/mlDDU Sodium 157 H (137-145) mmol/L Chloride 128.2 H (98-107) mmol/L Carbon Dioxide 18 L (22-30) mmol/L BUN 29 H (9-20) mg/dL Glucose 194 H (75-100) mg/dL POC Glucose 189 H 165 H (70-105) mg/dL Lactate Dehydrogenase (91-180) units/L C-Reactive Protein (0.00-1.30) mg/dL 01/22/20 01/22/20 01/22/20 Range/Units 05:58 07:46 07:46 D-Dimer 3001.60 H (0-234) ng/mlDDU Sodium (137-145) mmol/L Chloride (98-107) mmol/L Carbon Dioxide (22-30) mmol/L BUN (9-20) mg/dL Glucose (75-100) mg/dL POC Glucose 146 H (70-105) mg/dL Lactate Dehydrogenase 368 H (91-180) units/L C-Reactive Protein 2.90 H (0.00-1.30) mg/dL 01/22/20 Range/Units 07:46 D-Dimer (0-234) ng/mlDDU Sodium 163 H* (137-145) mmol/L Chloride 131.3 H (98-107) mmol/L Carbon Dioxide (22-30) mmol/L BUN 27 H (9-20) mg/dL Glucose 150 H (75-100) mg/dL POC Glucose (70-105) mg/dL Lactate Dehydrogenase (91-180) units/L C-Reactive Protein (0.00-1.30) mg/dL HEART Score - HEART Score Troponin: Troponin T < 0.010 ng/mL (0.00-0.029) 01/17/20 17:34 <VIC LYNCH - Last Filed: 01/23/20 09:23> Assessment and Plan I saw and evaluated the patient. I agree with the findings and the plan of care as documented in the Nurse Practitioner's~note, with the following corrections and additions. Objective - Constitutional Vitals: Vital Signs - 12hr 01/23/20 01/23/20 00:05 05:54 Temperature 97.7 F 98.7 F Pulse Rate 80 89 Respiratory 18 19 Rate Blood Pressure 132/76 131/88 O2 Sat by Pulse 92 93 Oximetry - Labs CBC & Chem 7: 01/23/20 08:07 01/23/20 08:07 Labs: Abnormal lab results 01/22/20 01/22/20 01/22/20 Range/Units 07:46 08:24 16:08 WBC (4.5-11.0) K/mm3 RBC (3.65-5.03) M/mm3 MCV (84-94) fl MCH (28-32) pg Sodium (137-145) mmol/L Potassium (3.6-5.0) mmol/L Chloride (98-107) mmol/L BUN (9-20) mg/dL Glucose (75-100) mg/dL POC Glucose 137 H 183 H (70-105) mg/dL Ferritin 3748.0 H (30.0-300.0) ng/mL 01/23/20 01/23/20 01/23/20 Range/Units 00:19 06:09 08:07 WBC 16.0 H (4.5-11.0) K/mm3 RBC 5.63 H (3.65-5.03) M/mm3 MCV 79 L (84-94) fl MCH 25 L (28-32) pg Sodium (137-145) mmol/L Potassium (3.6-5.0) mmol/L Chloride (98-107) mmol/L BUN (9-20) mg/dL Glucose (75-100) mg/dL POC Glucose 187 H 178 H (70-105) mg/dL Ferritin (30.0-300.0) ng/mL 01/23/20 Range/Units 08:07 WBC (4.5-11.0) K/mm3 RBC (3.65-5.03) M/mm3 MCV (84-94) fl MCH (28-32) pg Sodium 154 H D (137-145) mmol/L Potassium 3.3 L (3.6-5.0) mmol/L Chloride 118.5 H (98-107) mmol/L BUN 21 H (9-20) mg/dL Glucose 200 H (75-100) mg/dL POC Glucose (70-105) mg/dL Ferritin (30.0-300.0) ng/mL HEART Score - HEART Score Troponin: Troponin T < 0.010 ng/mL (0.00-0.029) 01/17/20 17:34
[2020-01-22] MEDS: ENOXAPARIN 40 MG/0.4 ML INJ SUB-Q SCH ×2 (13:09→22:21)
[2020-01-22] MEDS: DEXAMETHASONE 4 MG TAB PO SCH (13:10)
[2020-01-22] MEDS: DOCUSATE SODIUM 100 MG/10 ML ORAL LIQD PO SCH ×2 (13:10→22:21)
[2020-01-22] MEDS: ASPIRIN 81 MG TAB CHEW PO SCH (13:10)
[2020-01-22] MEDS: ZINC SULFATE 220 MG CAP PO SCH (13:11)
[2020-01-22] MEDS: ASCORBIC ACID 500 MG TAB PO SCH (13:11)
[2020-01-22] MEDS: amLODIPine 5 MG TAB PO SCH (13:13)
--- NOTE | 2020-01-22 15:12 | Progress Note ---
Assessment and Plan - Patient Problems (1) Acute hypernatremia Current Visit: Yes Status: Acute Plan to address problem: Sodium is a bit worse. Concern patient not getting intravenous fluids regularly. Will discuss with RN. Increase free water intake and follow-up level (2) Encephalopathy Current Visit: Yes Status: Acute Plan to address problem: Monitor mental status (3) Pneumonia due to COVID-19 virus Current Visit: Yes Status: Acute Plan to address problem: Continue IV steroids, remdesivir and monitor inflammatory markers (4) Diabetes mellitus Current Visit: Yes Status: Chronic (5) Hypertension Current Visit: Yes Status: Chronic Plan to address problem: Follow-up blood pressure on current medications (6) Acute kidney injury Current Visit: Yes Status: Resolved Plan to address problem: Kidney function has improved to normal. Follow-up kidney function Subjective Date of service: 01/22/20 Principal diagnosis: COVID-19 pneumonia Interval history: Patient was not examined due to the COVID-19 pandemic and the need for PPE conservation Chart reviewed Objective - Exam Narrative Exam: Patient was not examined today due to the COVID-19 pandemic and need to conserve PPE - Vital Signs Vital signs: Vital Signs - 12hr 01/22/20 01/22/20 01/22/20 05:37 13:13 13:22 Temperature 97.4 F L 97.7 F Pulse Rate 75 91 H 91 H Respiratory 14 16 Rate Blood Pressure 123/92 135/66 Blood Pressure 135/66 [Left] O2 Sat by Pulse 94 96 Oximetry - Lab 01/19/20 05:13 01/22/20 07:46 Most recent lab results Calcium 9.4 mg/dL (8.4-10.2) 01/22/20 07:46 Medications & Allergies - Medications Allergies/Adverse Reactions: Allergies No Known Allergies Allergy (Verified 01/17/20 22:09) Home Medications: Home Medications Medication Instructions Recorded Confirmed Last Taken Type No Known Home Medications [No 01/20/20 01/20/20 Unknown History Reported Home Medications] Active Medications: Generic Name Dose Route Start Last Admin Trade Name Freq PRN Reason Stop Dose Admin Acetaminophen 650 mg 01/17/20 22:03 Tylenol PO Q4H PRN Pain MILD(1-3)/Fever >100.5/FORD Amlodipine Besylate 2.5 mg 01/19/20 16:40 01/22/20 13:13 Amlodipine PO 2.5 mg QDAY LIBORIO Administration Lipase/Protease/Amylase 1 each 01/21/20 11:34 Pancreaze 10,500 Unit FEEDTUBE PRN PRN For Clogged Feeding Tube Ascorbic Acid 500 mg 01/21/20 10:00 01/22/20 13:11 Vitamin C PO 500 mg QDAY LIBORIO Administration Aspirin 81 mg 01/19/20 18:00 01/22/20 13:10 Baby Aspirin PO 81 mg QDAY LIBORIO Administration Atorvastatin Calcium 40 mg 01/19/20 22:00 01/21/20 21:41 Lipitor PO 40 mg QHS LIBORIO Administration Dexamethasone 6 mg 01/19/20 13:00 01/22/20 13:10 Decadron PO 01/28/20 10:01 6 mg DAILY LIBORIO Administration Dextrose 50 ml 01/18/20 16:00 D50w (25gm) Syringe IV Q30MIN PRN Hypoglycemia Protocol Docusate Sodium 100 mg 01/20/20 10:00 01/22/20 13:10 Colace PO 100 mg BID LIBORIO Administration Enoxaparin Sodium 40 mg 01/18/20 22:00 01/22/20 13:09 Enoxaparin SUB-Q 40 mg BID LIBORIO Administration Protocol REMDESIVIR 100 mg/ Sodium 250 mls @ 500 mls/hr 01/20/20 21:00 01/21/20 21:40 Chloride IV 01/23/20 21:29 500 mls/hr Q24HR@2100 LIBORIO Administration Dextrose 1,000 mls @ 125 mls/hr 01/20/20 09:00 01/22/20 03:00 D5w IV 125 mls/hr DIRECT LIBORIO Administration Insulin Human Regular 0 unit 01/18/20 16:00 01/22/20 06:39 Humulin R SUB-Q Not Given Q6HR LIBORIO Protocol Magnesium Hydroxide 30 ml 01/17/20 22:03 Milk Of Magnesia PO Q4H PRN Constipation Ondansetron HCl 4 mg 01/17/20 22:03 Zofran IV Q8H PRN Nausea And Vomiting Simple Syrup 15 ml 01/21/20 11:34 Simple Syrup FEEDTUBE PRN PRN Hypoglycemia Simple Syrup 30 ml 01/21/20 11:34 Simple Syrup FEEDTUBE PRN PRN Hypoglycemia Sodium Bicarbonate 325 mg 01/21/20 11:34 Sodium Bicarbonate FEEDTUBE PRN PRN For Clogged Feeding Tube Sodium Chloride 10 ml 01/18/20 10:00 01/22/20 13:11 Sodium Chloride Flush Syringe 10 Ml IV 10 ml BID LIBORIO Administration Sodium Chloride 10 ml 01/17/20 22:03 Sodium Chloride Flush Syringe 10 Ml IV PRN PRN LINE FLUSH Sodium Chloride 50 ml 01/19/20 18:30 01/21/20 21:40 Nacl 0.9% IV 01/23/20 21:31 50 ml 2130 LIBORIO Administration Zinc Sulfate 220 mg 01/21/20 10:00 01/22/20 13:11 Zinc Sulfate PO 220 mg QDAY LIBORIO Administration
[2020-01-22] MEDS: SODIUM CHLORIDE 0.9% 50 ML IVPB IV SCH (22:21)
[2020-01-22] MEDS: REMDESIVIR 100 MG in SODIUM CHLORIDE 0.9% 250ML 250 ML IV SCH (22:21)
[2020-01-23] MEDS: INSULIN REGULAR, HUMAN 100 UNIT/ML 3ML VIAL SUB-Q SCH ×4 (00:49→19:00)
[2020-01-23] MEDS: DEXTROSE 5% IN WATER 1,000 ML IV SCH ×2 (04:00→20:21)
[2020-01-23 08:27] LABS: Hematocrit 44.3 % (35.5-45.6); Hemoglobin 14.3 gm/dl (11.8-15.2); Mean Corpuscular HGB Conc 32 % (32-34); Mean Corpuscular Volume 79 fl (84-94); Platelet Count 162 K/mm3 (140-440); Red Blood Count 5.63 M/mm3 (3.65-5.03)
[2020-01-23 08:47] LABS: BUN/Creatinine Ratio 26; Blood Urea Nitrogen 21 mg/dL (9-20); Calcium 9.1 mg/dL (8.4-10.2); Hemolysis Index 8
[2020-01-23] MEDS: ASPIRIN 81 MG TAB CHEW PO SCH (09:39)
[2020-01-23] MEDS: ASCORBIC ACID 500 MG TAB PO SCH (09:39)
[2020-01-23] MEDS: ZINC SULFATE 220 MG CAP PO SCH (09:40)
[2020-01-23] MEDS: DEXAMETHASONE 4 MG TAB PO SCH (09:40)
[2020-01-23] MEDS: ENOXAPARIN 40 MG/0.4 ML INJ SUB-Q SCH ×2 (09:40→22:35)
[2020-01-23] MEDS: DOCUSATE SODIUM 100 MG/10 ML ORAL LIQD PO SCH ×2 (09:40→22:36)
[2020-01-23] MEDS: amLODIPine 5 MG TAB PO SCH (09:47)
--- NOTE | 2020-01-23 10:57 | Progress Note ---
Assessment and Plan - Patient Problems (1) Acute hypernatremia Current Visit: Yes Status: Acute Plan to address problem: Sodium was a bit worse. Concerned patient not getting intravenous fluids regularly. Sodium is now improving. Continue free water replacement and follow-up level (2) Encephalopathy Current Visit: Yes Status: Acute Plan to address problem: Monitor mental status (3) Pneumonia due to COVID-19 virus Current Visit: Yes Status: Acute Plan to address problem: Continue IV steroids, remdesivir and monitor inflammatory markers (4) Diabetes mellitus Current Visit: Yes Status: Chronic Plan to address problem: Blood sugar management by primary attending (5) Hypertension Current Visit: Yes Status: Chronic Plan to address problem: Follow-up blood pressure on current medications (6) Acute kidney injury Current Visit: Yes Status: Resolved Plan to address problem: Kidney function has improved to normal. Follow-up kidney function Subjective Date of service: 01/23/20 Principal diagnosis: COVID-19 pneumonia Interval history: Patient was not examined due to the COVID-19 pandemic and the need for PPE conservation Chart reviewed Objective - Exam Narrative Exam: Patient was not examined today due to the COVID-19 pandemic and need to conserve PPE - Vital Signs Vital signs: Vital Signs - 12hr 01/23/20 01/23/20 01/23/20 00:05 05:54 09:47 Temperature 97.7 F 98.7 F Pulse Rate 80 89 102 H Respiratory 18 19 Rate Blood Pressure 132/76 131/88 148/97 O2 Sat by Pulse 92 93 Oximetry - Lab 01/23/20 08:07 01/23/20 08:07 Most recent lab results Calcium 9.1 mg/dL (8.4-10.2) 01/23/20 08:07 Medications & Allergies - Medications Allergies/Adverse Reactions: Allergies No Known Allergies Allergy (Verified 01/17/20 22:09) Home Medications: Home Medications Medication Instructions Recorded Confirmed Last Taken Type No Known Home Medications [No 01/20/20 01/20/20 Unknown History Reported Home Medications] Active Medications: Generic Name Dose Route Start Last Admin Trade Name Freq PRN Reason Stop Dose Admin Acetaminophen 650 mg 01/17/20 22:03 Tylenol PO Q4H PRN Pain MILD(1-3)/Fever >100.5/FORD Amlodipine Besylate 2.5 mg 01/19/20 16:40 01/23/20 09:47 Amlodipine PO 2.5 mg QDAY LIBORIO Administration Lipase/Protease/Amylase 1 each 01/21/20 11:34 Pancrenick Urrutia 10,500 Unit FEEDTUBE PRN PRN For Clogged Feeding Tube Ascorbic Acid 500 mg 01/21/20 10:00 01/23/20 09:39 Vitamin C PO 500 mg QDAY LIBORIO Administration Aspirin 81 mg 01/19/20 18:00 01/23/20 09:39 Baby Aspirin PO 81 mg QDAY LIBORIO Administration Atorvastatin Calcium 40 mg 01/19/20 22:00 01/22/20 22:21 Lipitor PO 40 mg QHS LIBORIO Administration Dexamethasone 6 mg 01/19/20 13:00 01/23/20 09:40 Decadron PO 01/28/20 10:01 6 mg DAILY LIBORIO Administration Dextrose 50 ml 01/18/20 16:00 D50w (25gm) Syringe IV Q30MIN PRN Hypoglycemia Protocol Docusate Sodium 100 mg 01/20/20 10:00 01/23/20 09:40 Colace PO 100 mg BID LIBORIO Administration Enoxaparin Sodium 40 mg 01/18/20 22:00 01/23/20 09:40 Enoxaparin SUB-Q 40 mg BID LIBORIO Administration Protocol REMDESIVIR 100 mg/ Sodium 250 mls @ 500 mls/hr 01/20/20 21:00 01/22/20 22:21 Chloride IV 01/23/20 21:29 500 mls/hr Q24HR@2100 LIBORIO Administration Dextrose 1,000 mls @ 125 mls/hr 01/20/20 09:00 01/23/20 04:00 D5w IV 125 mls/hr DIRECT LIBORIO Administration Insulin Human Regular 0 unit 01/18/20 16:00 01/23/20 09:41 Humulin R SUB-Q 1 unit Q6HR LIBORIO Administration Protocol Magnesium Hydroxide 30 ml 01/17/20 22:03 Milk Of Magnesia PO Q4H PRN Constipation Ondansetron HCl 4 mg 01/17/20 22:03 Zofran IV Q8H PRN Nausea And Vomiting Simple Syrup 15 ml 01/21/20 11:34 Simple Syrup FEEDTUBE PRN PRN Hypoglycemia Simple Syrup 30 ml 01/21/20 11:34 Simple Syrup FEEDTUBE PRN PRN Hypoglycemia Sodium Bicarbonate 325 mg 01/21/20 11:34 Sodium Bicarbonate FEEDTUBE PRN PRN For Clogged Feeding Tube Sodium Chloride 10 ml 01/18/20 10:00 01/23/20 09:41 Sodium Chloride Flush Syringe 10 Ml IV 10 ml BID LIBORIO Administration Sodium Chloride 10 ml 01/17/20 22:03 Sodium Chloride Flush Syringe 10 Ml IV PRN PRN LINE FLUSH Sodium Chloride 50 ml 01/19/20 18:30 01/22/20 22:21 Nacl 0.9% IV 01/23/20 21:31 50 ml 2130 LIBORIO Administration Zinc Sulfate 220 mg 01/21/20 10:00 01/23/20 09:40 Zinc Sulfate PO 220 mg QDAY LIBORIO Administration
[2020-01-23] MEDS: POTASSIUM CHLORIDE 20 MEQ PACKET FEEDTUBE SCH ×2 (13:35→22:36)
--- NOTE | 2020-01-23 14:45 | Progress Note ---
Assessment and Plan Cultures: Blood culture 01/17/2020 no growth today SARS CoV2 PCR positive Assessment: 79 years old male with unknown medical history of admitted on 01/17/2020 due to 24-hour history of altered mental status, decreased communication, resident of a custodial: #Severe sepsis present on admission with high fever, tachycardia, YIMI, hypoxia and altered mental status; etiology COVID-19 infection pneumonia. Urinalysis not consistent with UTI. Procalcitonin normal. #COVID-19 pneumonia: D-dimer markedly elevated. Ferritin markedly elevated, worsening. VQ scan low probability for PE, venous ultrasound no DVT. SARS-CoV-2 IgG positive patient is not a candidate for Covid convalescent plasma #Acute hypoxia: ? Secondary to pulmonary edema versus pneumonia versus COVID-19 infection #Elevated LFTs: from sepsis #YIMI: from sepsis #Acute encephalopathy: Likely multifactorial with hypernatremia, uremia, sepsis -not better, neurology on board. MRI with ?punctate ischemia. #Hypernatremia: Per primary team Recommendations: -Continue dexamethasone total 10 days, D5 -Continue remdesivir total 5 days, D4 -Continue anticoagulation per System Protocol Jen Parsons MD, FACP [facility] O: [phone] F: [phone] Subjective Date of service: 01/23/20 Principal diagnosis: COVID-19 pneumonia Interval history: No fever. On oxygen by nasal cannula at 2 L/min. Objective - Exam Narrative Exam: Physical Exam (reviewed in chart due to PPE conservation and minimize risk of transmission) Constitutional: limited due to PPE conservation strategy Head, Ears, Nose: limited due to PPE conservation strategy Eyes: limited due to PPE conservation strategy Neck: limited due to PPE conservation strategy Oral: limited due to PPE conservation strategy Cardiovascular: limited due to PPE conservation strategy Respiratory: limited due to PPE conservation strategy GI: limited due to PPE conservation strategy Musculoskeletal: limited due to PPE conservation strategy Skin: limited due to PPE conservation strategy Hem/Lymphatic: limited due to PPE conservation strategy Psych: limited due to PPE conservation strategy Neurological: limited due to PPE conservation strategy - Constitutional Vitals: Vital Signs Temp Pulse Resp BP Pulse Ox 98.2 F 104 H 20 134/78 100 01/23/20 11:57 01/23/20 11:57 01/23/20 11:57 01/23/20 11:57 01/23/20 11:57 Temperature -Last 24 Hours Temperature 98.2 F Temperature 98.7 F Temperature 97.7 F - Labs CBC & Chem 7: 01/23/20 08:07 01/23/20 08:07 Labs: Abnormal lab results 01/22/20 01/23/20 01/23/20 Range/Units 16:08 00:19 06:09 WBC (4.5-11.0) K/mm3 RBC (3.65-5.03) M/mm3 MCV (84-94) fl MCH (28-32) pg Sodium (137-145) mmol/L Potassium (3.6-5.0) mmol/L Chloride (98-107) mmol/L BUN (9-20) mg/dL Glucose (75-100) mg/dL POC Glucose 183 H 187 H 178 H (70-105) mg/dL 01/23/20 01/23/20 01/23/20 Range/Units 08:07 08:07 12:10 WBC 16.0 H (4.5-11.0) K/mm3 RBC 5.63 H (3.65-5.03) M/mm3 MCV 79 L (84-94) fl MCH 25 L (28-32) pg Sodium 154 H D (137-145) mmol/L Potassium 3.3 L (3.6-5.0) mmol/L Chloride 118.5 H (98-107) mmol/L BUN 21 H (9-20) mg/dL Glucose 200 H (75-100) mg/dL POC Glucose 146 H (70-105) mg/dL
--- NOTE | 2020-01-23 15:36 | Progress Note ---
Assessment and Plan - Patient Problems (1) Sepsis Current Visit: Yes Status: Acute Plan to address problem: Presented with tachycardia, hypoxia, altered mental status, YIMI, CXR shows possible pulmonary edema and COVID-19 PCR positive COVID-19 PCR positive Infectious disease consulted S/p Zosyn s/p cefepime 01/16 blood culture x2 no growth to date 01/16 COVID-19 PCR positive 01/16 UA negative for nitrates and leukocyte esterase 01/17 TTE pending 01/17 MRSA PCR pending (2) Metabolic encephalopathy Current Visit: Yes Status: Acute Plan to address problem: May be multifactorial: Hypernatremia, COVID-19 infection, Sepsis Blood culture x2 no growth to date Infectious disease consulted for COVID-19 infection Nephrology consulted for electrolyte imbalance Neurochecks Fall/aspiration precautions (3) COVID-19 virus infection Current Visit: Yes Status: Acute Plan to address problem: 01/16 COVID-19 PCR positive Contact/droplet isolation Infectious disease consulted Supplemental oxygen as needed OOB 3 times daily Prone to sleep as needed Patient was on Zosyn and infectious disease changed his antibiotic to cefepime on 01/17 Pulmonary hygiene Trend inflammatory markers Anticoagulation per COVID-19 protocol 01/18 remdesivir initiated through 01/23 01/18 dexamethasone 6 mg p.o. daily for 10 days till 01/28 Patient COVID-19 IgG positive therefore he is not a candidate for convalescent plasma. (4) Acute hypernatremia Current Visit: Yes Status: Acute Plan to address problem: Presented with a sodium of 161 01/17 sodium 164, 165 01/17 IVF changed to D5W at 75 mL/h which was increased on 01/18 100 mL/hr 01/18 sodium 164, 165 Trend BMP, BMP every 12 Avoid rapid correction due to risk of pontine demyelination 01/18 nephrology consulted Patient initiated on tube feedings with free water flushes on 01/18 S/p 2L normal saline bolus in the ED for sepsis 01/19 sodium 165 01/22 sodium 156 (5) Hypokalemia Current Visit: Yes Status: Acute Plan to address problem: 01/22 potassium 3.3 Repleted Trend BMP Replete as needed (6) Elevated d-dimer Current Visit: Yes Status: Acute Plan to address problem: 01/16 D-dimer greater than 10,000 01/17 VQ scan shows low probability of pulmonary medicine 01/17 bilateral upper and lower extremity venous Dopplers shows no acute DVT Anticoagulation per COVID-19 protocol (7) Acute respiratory failure Current Visit: Yes Status: Acute Plan to address problem: Patient was hypoxic on room air Supplemental oxygen as needed Continuous pulse ox pulmonary hygiene Dexamethasone 6 mg p.o. daily 01/18 through 01/28 (8) Transaminitis Current Visit: Yes Status: Acute Plan to address problem: Presented with AST of 63 Secondary to COVID-19 infection Trend LFTs (9) Hyperchloremia Current Visit: Yes Status: Acute Plan to address problem: Presented with chloride of 123.6 01/17: 131, 133 01/18 chloride 133, 134, 131 01/19 chloride 133 Patient is on D5W Trend BMP S/p 2 L normal saline bolus in the ED 01/22 chloride 118.8 (10) CVA (cerebral vascular accident) Current Visit: Yes Status: Ruled-out Plan to address problem: Rule out CVA Presented with altered mental status, baseline at residential is alert and oriented x2 01/16 CT head shows small lacunar infarcts in the ganglial capsular region 01/19 MRI brain shows punctuate focus of ischemia which may be related to microangiopathy in the white matter of the left cerebral hemisphere otherwise no focal mass, hemorrhage, hydrocephalus or acute large infarct seen 01/19 MRA head shows normal basilar artery and internal carotid arteries with normal A1 and M1 segments of the anterior middle cerebral artery. 01/18 EEG pending 01/18 lipid panel: Triglyceride 219, cholesterol 180, LDL 91, HDL 31 01/[address]/OT/PT consulted Neurology consult Aspirin and statin therapy Fall, aspiration, seizure precautions Permissive hypertension for 24 hours, patient is already outside the window now target normotension Target euthymia and euglycemia (11) Diabetes mellitus Current Visit: Yes Status: Chronic Plan to address problem: 01/17 hemoglobin A1c 6.7 SSI Accu-Cheks every 6 hours while n.p.o. 01/18 patient initiated on tube feedings (12) Hypertension Current Visit: Yes Status: Chronic Plan to address problem: Patient has a history of hypertension Patient is normotensive at this time We will continue to monitor Restart home antihypertensive regimen when applicable and available Blood pressure monitor per protocol 01/18 patient initiated on amlodipine (13) DVT prophylaxis Current Visit: Yes Status: Acute Plan to address problem: Anticoagulation per COVID-19 protocol, Lovenox 40 twice daily SCDs to bilateral Bed History Interval history: 79-year-old male with HTN and DM who is a resident of a residential presented to the ED on 01/17 via EMS for evaluation of a change mental status. Per residential staff patient was not communicating well and having decreased oral intake. Upon arrival to the emergency department patient was found to be tachycardic, febrile to 102.2 and hypoxic with SPO2 of 91 on room air. Work-up was significant for hypernatremia, acute kidney injury (CR/BUN 2.2/55), hypochloremia, transaminitis and a chest x-ray showed mild bilateral pulmonary edema and CTh was unremarkable. Patient was admitted to hospitalist service as a Covid PUI, Sepsis, YIMI and infectious disease and nephrology were consulted. Patient remains hypernatremic though it is improving. Patient still remains with altered mental status and he has bilateral wrist restraints in place. Dr. Petersen updated patient's daughter over the phone today. No acute events reported overnight 01/17: elevated D-dimer therefore bilateral upper and lower extremity ultr asounds Dopplers were obtained to rule out DVT and a VQ scan was performed to rule out PE both of which were negative. Patient remained severely hypernatremic and his IV fluids were changed to D5 water. We will trend his BMP. He also has elevated Covid markers ferritin and CRP. 01/18: COVID-19 PCR resulted as positive. Patient remains hyponatremic therefore nephrology was consulted and he was started on FWF and his D5W was increased. Patient is apparently alert and oriented x2 at residential and his CT head showed small lacunar infarcts in the gangliocapsular regions therefore an MRI brain, MRA head and neurology has been consulted. Dr. Petersen updated his daughter this morning (Ms. Burleson) and this afternoon after his COVID-19 PCR resulted I updated her. The phone got disconnected after 2 minutes of conversation and informing her of COVID-19 status and I tried calling back twice. Both times it was sent to [employer] and her mailbox is full therefore was not able to leave a message. Patient was also initiated on remdesivir therapy 01/19: MRI head and MRI brain still pending, continue remdesivir therapy, increased free water flush 300 mL every 4 hours and increase the D5W TO 100 mL/h 01/20: Zinc and vitamin C initiated, patient still remains hypernatremic 01/21: Patient remains hypernatremic, no acute events reported overnight Hospitalist Physical - Constitutional Vitals: Temp Pulse Resp BP Pulse Ox 98.2 F 104 H 20 134/78 100 01/23/20 11:57 01/23/20 11:57 01/23/20 11:57 01/23/20 11:57 01/23/20 11:57 General appearance: Present: no acute distress, obese - EENT Eyes: Present: PERRL, EOM intact ENT: poor dentition - Neck Neck: Present: normal ROM - Respiratory Respiratory effort: normal Respiratory: bilateral: diminished - Cardiovascular Rhythm: regular Heart Sounds: Present: S1 & S2. Absent: systolic murmur, diastolic murmur - Extremities Extremities: no ischemia, pulses intact, pulses symmetrical, No edema, normal temperature, normal color, Full ROM Peripheral Pulses: within normal limits - Abdominal General gastrointestinal: soft, non-tender, non-distended, normal bowel sounds - Integumentary Integumentary: Present: warm, dry - Psychiatric Psychiatric: other (Speech is incomprehensible) - Neurologic Neurologic: CNII-XII intact, no focal deficits, moves all extremities (Withdraws all extremities x4 to pain and moves them spontaneously) - Allied Health Allied health notes reviewed: nursing HEART Score - HEART Score Troponin: Troponin T < 0.010 ng/mL (0.00-0.029) 01/17/20 17:34 Results - Labs CBC & Chem 7: 01/23/20 08:07 01/23/20 08:07 Labs: Laboratory Last Values WBC 16.0 K/mm3 (4.5-11.0) H 01/23/20 08:07 RBC 5.63 M/mm3 (3.65-5.03) H 01/23/20 08:07 Hgb 14.3 gm/dl (11.8-15.2) 01/23/20 08:07 Hct 44.3 % (35.5-45.6) 01/23/20 08:07 MCV 79 fl (84-94) L 01/23/20 08:07 MCH 25 pg (28-32) L 01/23/20 08:07 MCHC 32 % (32-34) 01/23/20 08:07 RDW 15.0 % (13.2-15.2) 01/23/20 08:07 Plt Count 162 K/mm3 (140-440) 01/23/20 08:07 Lymph % (Auto) 12.7 % (13.4-35.0) L 01/18/20 07:45 [place] % (Auto) 4.6 % (0.0-7.3) 01/18/20 07:45 Eos % (Auto) 0.0 % (0.0-4.3) 01/18/20 07:45 Baso % (Auto) 0.1 % (0.0-1.8) 01/18/20 07:45 Lymph # (Auto) 1.1 K/mm3 (1.2-5.4) L 01/18/20 07:45 [place] # (Auto) 0.4 K/mm3 (0.0-0.8) 01/18/20 07:45 Eos # (Auto) 0.0 K/mm3 (0.0-0.4) 01/18/20 07:45 Baso # (Auto) 0.0 K/mm3 (0.0-0.1) 01/18/20 07:45 Seg Neutrophils % 82.6 % (40.0-70.0) H 01/18/20 07:45 Seg Neutrophils # 7.1 K/mm3 (1.8-7.7) 01/18/20 07:45 PT 15.0 Sec. (12.2-14.9) H 01/18/20 07:45 INR 1.16 (0.87-1.13) H 01/18/20 07:45 APTT 31.0 Sec. (24.2-36.6) 01/17/20 17:34 D-Dimer 3001.60 ng/mlDDU (0-234) H 01/22/20 07:46 Sodium 154 mmol/L (137-145) H D 01/23/20 08:07 Potassium 3.3 mmol/L (3.6-5.0) L 01/23/20 08:07 Chloride 118.5 mmol/L (98-107) H 01/23/20 08:07 Carbon Dioxide 25 mmol/L (22-30) 01/23/20 08:07 Anion Gap 14 mmol/L 01/23/20 08:07 BUN 21 mg/dL (9-20) H 01/23/20 08:07 Creatinine 0.8 mg/dL (0.8-1.3) 01/23/20 08:07 Estimated GFR > 60 ml/min 01/23/20 08:07 BUN/Creatinine Ratio 26 % 01/23/20 08:07 Glucose 200 mg/dL (75-100) H 01/23/20 08:07 POC Glucose 146 mg/dL (70-105) H 01/23/20 12:10 Hemoglobin A1c 6.7 % (4-6) H 01/18/20 16:04 Lactic Acid 1.80 mmol/L (0.7-2.0) 01/17/20 19:40 Calcium 9.1 mg/dL (8.4-10.2) 01/23/20 08:07 Ferritin 3748.0 ng/mL (30.0-300.0) H 01/22/20 07:46 Total Bilirubin 0.40 mg/dL (0.1-1.2) 01/20/20 05:39 Direct Bilirubin < 0.2 mg/dL (0-0.2) 01/20/20 05:39 Indirect Bilirubin 0.2 mg/dL 01/20/20 05:39 AST 60 units/L (5-40) H 01/20/20 05:39 ALT 44 units/L (7-56) 01/20/20 05:39 Alkaline Phosphatase 64 units/L (35-129) 01/20/20 05:39 Ammonia 38.0 umol/L (25-60) 01/17/20 17:34 Lactate Dehydrogenase 368 units/L (91-180) H 01/22/20 07:46 Total Creatine Kinase 164 units/L (55-170) 01/17/20 17:34 Troponin T < 0.010 ng/mL (0.00-0.029) 01/17/20 17:34 C-Reactive Protein 2.90 mg/dL (0.00-1.30) H 01/22/20 07:46 Total Protein 7.0 g/dL (6.3-8.2) 01/20/20 05:39 Albumin 2.8 g/dL (3.9-5) L 01/20/20 05:39 Albumin/Globulin Ratio 0.7 % 01/20/20 05:39 Triglycerides 219 mg/dL (2-149) H 01/18/20 16:04 Cholesterol 180 mg/dL (50-199) 01/18/20 16:04 LDL Cholesterol Direct 91 mg/dL (50-130) 01/18/20 16:04 HDL Cholesterol 37 mg/dL (40-59) L 01/18/20 16:04 Cholesterol/HDL Ratio 4.86 % 01/18/20 16:04 Procalcitonin 0.15 ng/mL (<0.15) 01/17/20 21:39 Urine Color Yellow (Yellow) 01/17/20 19:30 Urine Turbidity Clear (Clear) 01/17/20 19:30 Urine pH 5.0 (5.0-7.0) 01/17/20 19:30 Ur Specific [place] 1.016 (1.003-1.030) 01/17/20 19:30 Urine Protein 100 mg/dl mg/dL (Negative) 01/17/20 19:30 Urine Glucose (UA) Neg mg/dL (Negative) 01/17/20 19:30 Urine Ketones Neg mg/dL (Negative) 01/17/20 19:30 Urine Blood Sm (Negative) 01/17/20 19:30 Urine Nitrite Neg (Negative) 01/17/20 19:30 Urine Bilirubin Neg (Negative) 01/17/20 19:30 Urine Urobilinogen < 2.0 mg/dL (<2.0) 01/17/20 19:30 Ur Leukocyte Esterase Neg (Negative) 01/17/20 19:30 Urine WBC (Auto) 2.0 /HPF (0.0-6.0) 01/17/20 19:30 Urine RBC (Auto) 6.0 /HPF (0.0-6.0) 01/17/20 19:30 U Epithel Cells (Auto) < 1.0 /HPF (0-13.0) 01/17/20 19:30 Urine Bacteria (Auto) 1+ /HPF (Negative) 01/17/20 19:30 Urine Mucus Few /HPF 01/17/20 19:30 Coronavirus (PCR) Positive (Negative) A 01/19/20 Unknown SARS-CoV-2 IgG Ab Reactive (NonReactive) A 01/19/20 17:52 Microbiology: Microbiology 01/17/20 17:34 Peripheral/Venous Blood Culture - Final NO GROWTH AFTER 5 DAYS 01/17/20 17:37 Peripheral/Venous Blood Culture - Final NO GROWTH AFTER 5 DAYS Moses/IV: Voiding Method Condom Catheter IV Catheter Type [Left Forearm INT / Saline Lock ] IV Catheter Type [Right INT / Saline Lock Antecubital] Active Medications - Current Medications Current Medications: Generic Name Dose Route Start Last Admin Trade Name Freq PRN Reason Stop Dose Admin Acetaminophen 650 mg 01/17/20 22:03 Tylenol PO Q4H PRN Pain MILD(1-3)/Fever >100.5/FORD Amlodipine Besylate 2.5 mg 01/19/20 16:40 01/23/20 09:47 Amlodipine PO 2.5 mg QDAY LIBORIO Administration Lipase/Protease/Amylase 1 each 01/21/20 11:[address] 10,500 Unit FEEDTUBE PRN PRN For Clogged Feeding Tube Ascorbic Acid 500 mg 01/21/20 10:00 01/23/20 09:39 Vitamin C PO 500 mg QDAY LIBORIO Administration Aspirin 81 mg 01/19/20 18:00 01/23/20 09:39 Baby Aspirin PO 81 mg QDAY LIBORIO Administration Atorvastatin Calcium 40 mg 01/19/20 22:00 01/22/20 22:21 Lipitor PO 40 mg QHS LIBORIO Administration Dexamethasone 6 mg 01/19/20 13:00 01/23/20 09:40 Decadron PO 01/28/20 10:01 6 mg DAILY LIBORIO Administration Dextrose 50 ml 01/18/20 16:00 D50w (25gm) Syringe IV Q30MIN PRN Hypoglycemia Protocol Docusate Sodium 100 mg 01/20/20 10:00 01/23/20 09:40 Colace PO 100 mg BID LIBORIO Administration Enoxaparin Sodium 40 mg 01/18/20 22:00 01/23/20 09:40 Enoxaparin SUB-Q 40 mg BID LIBORIO Administration Protocol REMDESIVIR 100 mg/ Sodium 250 mls @ 500 mls/hr 01/20/20 21:00 01/22/20 22:21 Chloride IV 01/23/20 21:29 500 mls/hr Q24HR@2100 LIBORIO Administration Dextrose 1,000 mls @ 125 mls/hr 01/20/20 09:00 01/23/20 04:00 D5w IV 125 mls/hr DIRECT LIBORIO Administration Insulin Human Regular 0 unit 01/18/20 16:00 01/23/20 13:16 Humulin R SUB-Q Not Given Q6HR LIBORIO Protocol Magnesium Hydroxide 30 ml 01/17/20 22:03 Milk Of Magnesia PO Q4H PRN Constipation Ondansetron HCl 4 mg 01/17/20 22:03 Zofran IV Q8H PRN Nausea And Vomiting Potassium Chloride 40 meq 01/23/20 12:00 01/23/20 13:35 Potassium Chloride FEEDTUBE 01/23/20 22:01 40 meq BID LIBORIO Administration Simple Syrup 15 ml 01/21/20 11:34 Simple Syrup FEEDTUBE PRN PRN Hypoglycemia Simple Syrup 30 ml 01/21/20 11:34 Simple Syrup FEEDTUBE PRN PRN Hypoglycemia Sodium Bicarbonate 325 mg 01/21/20 11:34 Sodium Bicarbonate FEEDTUBE PRN PRN For Clogged Feeding Tube Sodium Chloride 10 ml 01/18/20 10:00 01/23/20 09:41 Sodium Chloride Flush Syringe 10 Ml IV 10 ml BID LIBORIO Administration Sodium Chloride 10 ml 01/17/20 22:03 Sodium Chloride Flush Syringe 10 Ml IV PRN PRN LINE FLUSH Sodium Chloride 50 ml 01/19/20 18:30 01/22/20 22:21 Nacl 0.9% IV 01/23/20 21:31 50 ml 2130 LIBORIO Administration Zinc Sulfate 220 mg 01/21/20 10:00 01/23/20 09:40 Zinc Sulfate PO 220 mg QDAY LIBORIO Administration Nutrition/Malnutrition Assess - Dietary Evaluation Nutrition/Malnutrition Findings: Nutrition Notes Start: 01/19/20 10:13 Freq: Status: Active Protocol: Document 01/23/20 11:31 EVANGELISTA (Rec: 01/23/20 11:37 [facility] [id number]) Nutrition Notes Initial or Follow up Reassessment Current Diagnosis Diabetes,Hypertension,Stroke Other Pertinent Diagnosis COVID-19 (+), AMS, CVA, Dysphagia Current Diet TF - Glucerna 1.2 at 65ml/hr Labs/Tests Na 154 K 3.3 BUN 21 BG 200 Pertinent Medications reviewed Height 5 ft 11 in Weight 88.4 kg [place] Body Weight (kg) 78.18 BMI 27.1 Subjective/Other Information Pt tolerating TF at goal rate. Na lab improved since yesterday. Pt continues to receive 300ml water flush q4h. Percent of energy/protein needs met: 95% energy 100% pro Burn Absent Trauma Absent #1 Nutrition Diagnosis Inadequate oral intake Diagnosis Progress(for reassessment Continues documentation) Is patient on ventilator? No Is Patient Ambulatory and/or Out of Bed No REE-([facility]-confined to bed) 1963.680 Calculation Used for Recommendations [facility] Additional Notes Pro needs 1-1.2g/k-106g/ day Fluid needs per MD Nutrition Intervention Nutrition Support: Continue Glucerna 1.2 at 65 ml /hr with 300ml water flush q4h . Kcal 1,872 Protein (gm) 94 Fluid (mL) 1,256 Goal #1 TF tolerance Goal #2 TF to meet at least 75% energy and pro needs Follow-Up By: 01/27/20 Additional Comments F/U: Na lab/water flushes
[2020-01-23] MEDS: REMDESIVIR 100 MG in SODIUM CHLORIDE 0.9% 250ML 250 ML IV SCH (22:36)
[2020-01-23] MEDS: SODIUM CHLORIDE 0.9% 50 ML IVPB IV SCH (22:37)
[2020-01-24] MEDS: DEXTROSE 5% IN WATER 1,000 ML IV SCH (05:47)
[2020-01-24] MEDS: INSULIN REGULAR, HUMAN 100 UNIT/ML 3ML VIAL SUB-Q SCH ×5 (05:48→17:42)
[2020-01-24 06:45] LABS: Hematocrit 42.8 % (35.5-45.6); Hemoglobin 13.8 gm/dl (11.8-15.2); Mean Corpuscular HGB Conc 32 % (32-34); Mean Corpuscular Volume 79 fl (84-94); Platelet Count 158 K/mm3 (140-440); Red Blood Count 5.46 M/mm3 (3.65-5.03); Red Cell Distribution Width 14.9 % (13.2-15.2)
[2020-01-24 06:47] LABS: BUN/Creatinine Ratio 26; Blood Urea Nitrogen 21 mg/dL (9-20); Calcium 9.4 mg/dL (8.4-10.2); Hemolysis Index 6
[2020-01-24] MEDS: DOCUSATE SODIUM 100 MG/10 ML ORAL LIQD PO SCH ×2 (09:46→22:00)
[2020-01-24] MEDS: ACETAMINOPHEN 325 MG TAB PO PRN ×2 (09:46→22:16)
[2020-01-24] MEDS: ENOXAPARIN 40 MG/0.4 ML INJ SUB-Q SCH ×2 (09:47→22:15)
[2020-01-24] MEDS: ZINC SULFATE 220 MG CAP PO SCH (09:47)
[2020-01-24] MEDS: ASPIRIN 81 MG TAB CHEW PO SCH (09:47)
[2020-01-24] MEDS: ASCORBIC ACID 500 MG TAB PO SCH (09:47)
[2020-01-24] MEDS: amLODIPine 5 MG TAB PO SCH (09:47)
[2020-01-24] MEDS: DEXAMETHASONE 4 MG TAB PO SCH (09:47)
--- NOTE | 2020-01-24 11:29 | Progress Note ---
Assessment and Plan - Patient Problems (1) Acute hypernatremia Current Visit: Yes Status: Acute Plan to address problem: Sodium improved yesterday but is unchanged today. Continue free water replacement and follow-up level (2) Encephalopathy Current Visit: Yes Status: Acute Plan to address problem: Monitor mental status (3) Pneumonia due to COVID-19 virus Current Visit: Yes Status: Acute Plan to address problem: Continue IV steroids, remdesivir and monitor inflammatory markers (4) Diabetes mellitus Current Visit: Yes Status: Chronic Plan to address problem: Blood sugar management by primary attending (5) Hypertension Current Visit: Yes Status: Chronic Plan to address problem: Follow-up blood pressure on current medications (6) Acute kidney injury Current Visit: Yes Status: Resolved Plan to address problem: Kidney function has improved to normal. Follow-up kidney function Subjective Date of service: 01/24/20 Principal diagnosis: COVID-19 pneumonia Interval history: Patient was not examined due to the COVID-19 pandemic and the need for PPE conservation Chart reviewed Objective - Exam Narrative Exam: Patient was not examined today due to the COVID-19 pandemic and need to conserve PPE - Vital Signs Vital signs: Vital Signs - 12hr 01/24/20 04:30 Temperature 98.3 F Pulse Rate 53 L Respiratory 20 Rate Blood Pressure 141/66 O2 Sat by Pulse 94 Oximetry - Lab 01/24/20 05:29 01/24/20 05:29 Most recent lab results Calcium 9.4 mg/dL (8.4-10.2) 01/24/20 05:29 Medications & Allergies - Medications Allergies/Adverse Reactions: Allergies No Known Allergies Allergy (Verified 01/17/20 22:09) Home Medications: Home Medications Medication Instructions Recorded Confirmed Last Taken Type No Known Home Medications [No 01/20/20 01/20/20 Unknown History Reported Home Medications] Active Medications: Generic Name Dose Route Start Last Admin Trade Name Freq PRN Reason Stop Dose Admin Acetaminophen 650 mg 01/17/20 22:03 01/24/20 09:46 Tylenol PO 650 mg Q4H PRN Administration Pain MILD(1-3)/Fever >100.5/FORD Amlodipine Besylate 5 mg 01/24/20 10:00 01/24/20 09:47 Amlodipine PO 5 mg QDAY LIBORIO Administration Lipase/Protease/Amylase 1 each 01/21/20 11:34 Pancrenick Urrutia 10,500 Unit FEEDTUBE PRN PRN For Clogged Feeding Tube Ascorbic Acid 500 mg 01/21/20 10:00 01/24/20 09:47 Vitamin C PO 500 mg QDAY LIBORIO Administration Aspirin 81 mg 01/19/20 18:00 01/24/20 09:47 Baby Aspirin PO 81 mg QDAY LIBORIO Administration Atorvastatin Calcium 40 mg 01/19/20 22:00 01/23/20 22:36 Lipitor PO 40 mg QHS LIBORIO Administration Dexamethasone 6 mg 01/19/20 13:00 01/24/20 09:47 Decadron PO 01/28/20 10:01 6 mg DAILY LIBORIO Administration Dextrose 50 ml 01/18/20 16:00 D50w (25gm) Syringe IV Q30MIN PRN Hypoglycemia Protocol Docusate Sodium 100 mg 01/20/20 10:00 01/24/20 09:46 Colace PO 100 mg BID LIBORIO Administration Enoxaparin Sodium 40 mg 01/18/20 22:00 01/24/20 09:47 Enoxaparin SUB-Q 40 mg BID LIBORIO Administration Protocol Dextrose 1,000 mls @ 125 mls/hr 01/20/20 09:00 01/24/20 05:47 D5w IV 125 mls/hr DIRECT LIBORIO Administration Insulin Human Regular 0 unit 01/18/20 16:00 01/24/20 05:50 Humulin R SUB-Q 1 unit Q6HR LIBORIO Administration Protocol Magnesium Hydroxide 30 ml 01/17/20 22:03 Milk Of Magnesia PO Q4H PRN Constipation Ondansetron HCl 4 mg 01/17/20 22:03 Zofran IV Q8H PRN Nausea And Vomiting Simple Syrup 15 ml 01/21/20 11:34 Simple Syrup FEEDTUBE PRN PRN Hypoglycemia Simple Syrup 30 ml 01/21/20 11:34 Simple Syrup FEEDTUBE PRN PRN Hypoglycemia Sodium Bicarbonate 325 mg 01/21/20 11:34 Sodium Bicarbonate FEEDTUBE PRN PRN For Clogged Feeding Tube Sodium Chloride 10 ml 01/18/20 10:00 01/24/20 09:48 Sodium Chloride Flush Syringe 10 Ml IV 10 ml BID LIBORIO Administration Sodium Chloride 10 ml 01/17/20 22:03 Sodium Chloride Flush Syringe 10 Ml IV PRN PRN LINE FLUSH Zinc Sulfate 220 mg 01/21/20 10:00 11/17/20 09:47 Zinc Sulfate PO 220 mg QDAY LIBORIO Administration
--- NOTE | 2020-01-24 15:05 | Progress Note ---
Assessment and Plan Cultures: Blood culture 01/17/2020 no growth today SARS CoV2 PCR positive Assessment: 79 years old male with unknown medical history of admitted on 01/17/2020 due to 24-hour history of altered mental status, decreased communication, resident of a long term: #Severe sepsis present on admission with high fever, tachycardia, YIMI, hypoxia and altered mental status; etiology COVID-19 infection pneumonia. Urinalysis not consistent with UTI. Procalcitonin normal. #COVID-19 pneumonia: D-dimer markedly elevated. Ferritin markedly elevated, worsening. VQ scan low probability for PE, venous ultrasound no DVT. SARS-CoV-2 IgG positive patient is not a candidate for Covid convalescent plasma #Acute hypoxia: ? Secondary to pulmonary edema versus pneumonia versus COVID-19 infection #Elevated LFTs: improved. #YIMI: resolved. #Acute encephalopathy: neurology on board. MRI with ?punctate ischemia. #Hypernatremia: Per primary team Recommendations: -Continue dexamethasone total 10 days, D6 -Completed Remdesivir -Continue anticoagulation per System Protocol -hopefully can discharge soon Jen Parsons MD, FACP [facility] O: [phone] F: [phone] Subjective Date of service: 01/24/20 Principal diagnosis: COVID-19 pneumonia Interval history: No fever. Remains on oxygen by nasal cannula at 2 L/min. Objective - Exam Narrative Exam: Physical Exam (reviewed in chart due to PPE conservation and minimize risk of t ransmission) Constitutional: limited due to PPE conservation strategy Head, Ears, Nose: limited due to PPE conservation strategy Eyes: limited due to PPE conservation strategy Neck: limited due to PPE conservation strategy Oral: limited due to PPE conservation strategy Cardiovascular: limited due to PPE conservation strategy Respiratory: limited due to PPE conservation strategy GI: limited due to PPE conservation strategy Musculoskeletal: limited due to PPE conservation strategy Skin: limited due to PPE conservation strategy Hem/Lymphatic: limited due to PPE conservation strategy Psych: limited due to PPE conservation strategy Neurological: limited due to PPE conservation strategy - Constitutional Vitals: Vital Signs Temp Pulse Resp BP Pulse Ox 98.3 F 53 L 20 141/66 94 01/24/20 04:30 01/24/20 04:30 01/24/20 04:30 01/24/20 04:30 11/17/20 04:30 Temperature -Last 24 Hours Temperature 98.3 F Temperature 97.4 F Temperature 98.3 F - Labs CBC & Chem 7: 01/24/20 05:29 01/24/20 05:29 Labs: Abnormal lab results 01/23/20 01/24/20 01/24/20 Range/Units 17:42 04:50 05:29 WBC 16.3 H (4.5-11.0) K/mm3 RBC 5.46 H (3.65-5.03) M/mm3 MCV 79 L (84-94) fl MCH 25 L (28-32) pg Sodium (137-145) mmol/L Chloride (98-107) mmol/L BUN (9-20) mg/dL Glucose (75-100) mg/dL POC Glucose 225 H 170 H (70-105) mg/dL 01/24/20 01/24/20 Range/Units 05:29 13:01 WBC (4.5-11.0) K/mm3 RBC (3.65-5.03) M/mm3 MCV (84-94) fl MCH (28-32) pg Sodium 155 H (137-145) mmol/L Chloride 119.5 H (98-107) mmol/L BUN 21 H (9-20) mg/dL Glucose 178 H (75-100) mg/dL POC Glucose 173 H (70-105) mg/dL
--- NOTE | 2020-01-24 15:28 | Progress Note ---
Assessment and Plan - Patient Problems (1) Sepsis Current Visit: Yes Status: Acute Plan to address problem: Presented with tachycardia, hypoxia, altered mental status, YIMI, CXR shows possible pulmonary edema and COVID-19 PCR positive COVID-19 PCR positive Infectious disease consulted S/p Zosyn s/p cefepime 01/16 blood culture x2 no growth to date 01/16 COVID-19 PCR positive 01/16 UA negative for nitrates and leukocyte esterase 01/17 TTE pending 01/17 MRSA PCR pending (2) Metabolic encephalopathy Current Visit: Yes Status: Acute Plan to address problem: May be multifactorial: Hypernatremia, COVID-19 infection, Sepsis Blood culture x2 no growth to date Infectious disease consulted for COVID-19 infection Nephrology consulted for electrolyte imbalance Neurochecks Fall/aspiration precautions 01/23 patient is following commands and is more verbal today however he remains bilateral mittens (3) COVID-19 virus infection Current Visit: Yes Status: Acute Plan to address problem: 01/16 COVID-19 PCR positive Contact/droplet isolation Infectious disease consulted Supplemental oxygen as needed OOB 3 times daily Prone to sleep as needed Patient was on Zosyn and infectious disease changed his antibiotic to cefepime on 01/17 Pulmonary hygiene Trend inflammatory markers Anticoagulation per COVID-19 protocol 01/18 remdesivir initiated through 01/23 01/18 dexamethasone 6 mg p.o. daily for 10 days till 01/28 Patient COVID-19 IgG positive therefore he is not a candidate for convalescent plasma. (4) Acute hypernatremia Current Visit: Yes Status: Acute Plan to address problem: Presented with a sodium of 161 01/17 sodium 164, 165 01/17 IVF changed to D5W at 75 mL/h which was increased on 01/18 100 mL/hr 01/18 sodium 164, 165 Trend BMP, BMP every 12 Avoid rapid correction due to risk of pontine demyelination 01/18 nephrology consulted Patient initiated on tube feedings with free water flushes on 01/18 S/p 2L normal saline bolus in the ED for sepsis 01/19 sodium 163 01/22 sodium 154, 01/23 155 (5) Hypokalemia Current Visit: Yes Status: Resolved Plan to address problem: 01/22 potassium 3.3, 01/23 3.6 Repleted Trend BMP Replete as needed (6) Elevated d-dimer Current Visit: Yes Status: Acute Plan to address problem: 01/16 D-dimer greater than 10,000 01/17 VQ scan shows low probability of pulmonary medicine 01/17 bilateral upper and lower extremity venous Dopplers shows no acute DVT Anticoagulation per COVID-19 protocol (7) Acute respiratory failure Current Visit: Yes Status: Acute Plan to address problem: Patient was hypoxic on room air Supplemental oxygen as needed Continuous pulse ox pulmonary hygiene Dexamethasone 6 mg p.o. daily 01/18 through 01/28 (8) Transaminitis Current Visit: Yes Status: Acute Plan to address problem: Presented with AST of 63 Secondary to COVID-19 infection Trend LFTs (9) Hyperchloremia Current Visit: Yes Status: Acute Plan to address problem: Presented with chloride of 123.6 01/17: 131, 133 01/18 chloride 133, 134, 131 01/19 chloride 133 Patient is on D5W Trend BMP S/p 2 L normal saline bolus in the ED 01/22 chloride 118.5, 01/23 119.5 (10) CVA (cerebral vascular accident) Current Visit: Yes Status: Ruled-out Plan to address problem: Rule out CVA Presented with altered mental status, baseline at [facility] is alert and oriented x2 01/16 CT head shows small lacunar infarcts in the ganglial capsular region 01/19 MRI brain shows punctuate focus of ischemia which may be related to microangiopathy in the white matter of the left cerebral hemisphere otherwise no focal mass, hemorrhage, hydrocephalus or acute large infarct seen 01/19 MRA head shows normal basilar artery and internal carotid arteries with normal A1 and M1 segments of the anterior middle cerebral artery. 01/18 EEG pending 01/18 lipid panel: Triglyceride 219, cholesterol 180, LDL 91, HDL 31 01/[address]/OT/PT consulted Neurology consult Aspirin and statin therapy Fall, aspiration, seizure precautions Permissive hypertension for 24 hours, patient is already outside the window now target normotension Target euthymia and euglycemia (11) Diabetes mellitus Current Visit: Yes Status: Chronic Plan to address problem: 01/17 hemoglobin A1c 6.7 SSI Accu-Cheks every 6 hours while n.p.o. 01/18 patient initiated on tube feedings (12) Hypertension Current Visit: Yes Status: Chronic Plan to address problem: Patient has a history of hypertension Patient is normotensive at this time We will continue to monitor Restart home antihypertensive regimen when applicable and available Blood pressure monitor per protocol 01/18 patient initiated on amlodipine (13) DVT prophylaxis Current Visit: Yes Status: Acute Plan to address problem: Anticoagulation per COVID-19 protocol, Lovenox 40 twice daily SCDs to bilateral Bed History Interval history: 79-year-old male with HTN and DM who is a resident of a [facility] presented to the ED on 01/17 via EMS for evaluation of a change mental status. Per [facility] staff patient was not communicating well and having decreased oral intake. Upon arrival to the emergency department patient was found to be tachycardic, febrile to 102.2 and hypoxic with SPO2 of 91 on room air. Work-up was significant for hypernatremia, acute kidney injury (CR/BUN 2.2/55), hypochloremia, transaminitis and a chest x-ray showed mild bilateral pulmonary edema and CTh was unremarkable. Patient was admitted to hospitalist service as a Covid PUI, Sepsis, YIMI and infectious disease and nephrology were consulted. Patient's hypernatremia and hyperchloremia slightly worse today than it was yesterday. His hyperkalemia has resolved. No acute events reported overnight. Updated family over the phone. Patient intermittently follows commands and is more verbal. Today he has bilateral mittens in place. 01/17: elevated D-dimer therefore bilateral upper and lower extremity ultrasounds Dopplers were obtained to rule out DVT and a VQ scan was performed to rule out PE both of which were negative. Patient remained severely hypernatremic and his IV fluids were changed to D5 water. We will trend his BMP. He also has elevated Covid markers ferritin and CRP. 01/18: COVID-19 PCR resulted as positive. Patient remains hyponatremic therefore nephrology was consulted and he was started on FWF and his D5W was increased. 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 Dr. Petersen updated his daughter this morning (Ms. Burleson) and this afternoon after his COVID-19 PCR resulted I updated her. The phone got disconnected after 2 minutes of conversation and informing her of COVID-19 status and I tried calling back twice. Both times it was sent to [employer] and her mailbox is full therefore was not able to leave a message. Patient was also initiated on remdesivir therapy 01/19: MRI head and MRI brain still pending, continue remdesivir therapy, increased free water flush 300 mL every 4 hours and increase the D5W TO 100 mL/h 01/20: Zinc and vitamin C initiated, patient still remains hypernatremic 01/21: Patient remains hypernatremic, no acute events reported overnight 01/22: Patient remains hypernatremic, hyperchloremic though it is improving. Patient still remains with altered mental status and he has bilateral wrist restraints in place. Dr. Petersen updated patient's daughter over the phone today. No acute events reported overnight. Patient was hypokalemic which was repleted. Hospitalist Physical - Constitutional Vitals: Temp Pulse Resp BP Pulse Ox 98.3 F 53 L 20 141/66 94 01/24/20 04:30 01/24/20 04:30 01/24/20 04:30 01/24/20 04:30 01/24/20 04:30 General appearance: Present: no acute distress, obese - EENT Eyes: Present: PERRL, EOM intact ENT: poor dentition - Neck Neck: Present: supple - Respiratory Respiratory effort: normal Respiratory: bilateral: diminished - Cardiovascular Rhythm: regular Heart Sounds: Present: S1 & S2. Absent: systolic murmur, diastolic murmur - Extremities Extremities: no ischemia, pulses intact, pulses symmetrical, No edema, normal temperature, normal color, Full ROM Peripheral Pulses: within normal limits - Abdominal General gastrointestinal: soft, non-tender, non-distended, normal bowel sounds - Integumentary Integumentary: Present: clear, warm, dry - Psychiatric Psychiatric: cooperative - Neurologic Neurologic: CNII-XII intact, no focal deficits, moves all extremities HEART Score - HEART Score Troponin: Troponin T < 0.010 ng/mL (0.00-0.029) 01/17/20 17:34 Results - Labs CBC & Chem 7: 01/24/20 05:29 01/24/20 05:29 Labs: Laboratory Last Values WBC 16.3 K/mm3 (4.5-11.0) H 01/24/20 05:29 RBC 5.46 M/mm3 (3.65-5.03) H 01/24/20 05:29 Hgb 13.8 gm/dl (11.8-15.2) 01/24/20 05:29 Hct 42.8 % (35.5-45.6) 01/24/20 05:29 MCV 79 fl (84-94) L 01/24/20 05:29 MCH 25 pg (28-32) L 01/24/20 05:29 MCHC 32 % (32-34) 01/24/20 05:29 RDW 14.9 % (13.2-15.2) 01/24/20 05:29 Plt Count 158 K/mm3 (140-440) 01/24/20 05:29 Lymph % (Auto) 12.7 % (13.4-35.0) L 01/18/20 07:45 [place] % (Auto) 4.6 % (0.0-7.3) 01/18/20 07:45 Eos % (Auto) 0.0 % (0.0-4.3) 01/18/20 07:45 Baso % (Auto) 0.1 % (0.0-1.8) 01/18/20 07:45 Lymph # (Auto) 1.1 K/mm3 (1.2-5.4) L 01/18/20 07:45 [place]key # (Auto) 0.4 K/mm3 (0.0-0.8) 01/18/20 07:45 Eos # (Auto) 0.0 K/mm3 (0.0-0.4) 01/18/20 07:45 Baso # (Auto) 0.0 K/mm3 (0.0-0.1) 01/18/20 07:45 Seg Neutrophils % 82.6 % (40.0-70.0) H 01/18/20 07:45 Seg Neutrophils # 7.1 K/mm3 (1.8-7.7) 01/18/20 07:45 PT 15.0 Sec. (12.2-14.9) H 01/18/20 07:45 INR 1.16 (0.87-1.13) H 01/18/20 07:45 APTT 31.0 Sec. (24.2-36.6) 01/17/20 17:34 D-Dimer 3001.60 ng/mlDDU (0-234) H 01/22/20 07:46 Sodium 155 mmol/L (137-145) H 01/24/20 05:29 Potassium 3.6 mmol/L (3.6-5.0) 01/24/20 05:29 Chloride 119.5 mmol/L (98-107) H 01/24/20 05:29 Carbon Dioxide 23 mmol/L (22-30) 01/24/20 05:29 Anion Gap 16 mmol/L 01/24/20 05:29 BUN 21 mg/dL (9-20) H 01/24/20 05:29 Creatinine 0.8 mg/dL (0.8-1.3) 01/24/20 05:29 Estimated GFR > 60 ml/min 01/24/20 05:29 BUN/Creatinine Ratio 26 % 01/24/20 05:29 Glucose 178 mg/dL (75-100) H 01/24/20 05:29 POC Glucose 173 mg/dL (70-105) H 01/24/20 13:01 Hemoglobin A1c 6.7 % (4-6) H 01/18/20 16:04 Lactic Acid 1.80 mmol/L (0.7-2.0) 01/17/20 19:40 Calcium 9.4 mg/dL (8.4-10.2) 01/24/20 05:29 Ferritin 3748.0 ng/mL (30.0-300.0) H 01/22/20 07:46 Total Bilirubin 0.40 mg/dL (0.1-1.2) 01/20/20 05:39 Direct Bilirubin < 0.2 mg/dL (0-0.2) 01/20/20 05:39 Indirect Bilirubin 0.2 mg/dL 01/20/20 05:39 AST 60 units/L (5-40) H 01/20/20 05:39 ALT 44 units/L (7-56) 01/20/20 05:39 Alkaline Phosphatase 64 units/L (35-129) 01/20/20 05:39 Ammonia 38.0 umol/L (25-60) 01/17/20 17:34 Lactate Dehydrogenase 368 units/L (91-180) H 01/22/20 07:46 Total Creatine Kinase 164 units/L (55-170) 01/17/20 17:34 Troponin T < 0.010 ng/mL (0.00-0.029) 01/17/20 17:34 C-Reactive Protein 2.90 mg/dL (0.00-1.30) H 01/22/20 07:46 Total Protein 7.0 g/dL (6.3-8.2) 01/20/20 05:39 Albumin 2.8 g/dL (3.9-5) L 01/20/20 05:39 Albumin/Globulin Ratio 0.7 % 01/20/20 05:39 Triglycerides 219 mg/dL (2-149) H 01/18/20 16:04 Cholesterol 180 mg/dL (50-199) 01/18/20 16:04 LDL Cholesterol Direct 91 mg/dL (50-130) 01/18/20 16:04 HDL Cholesterol 37 mg/dL (40-59) L 01/18/20 16:04 Cholesterol/HDL Ratio 4.86 % 01/18/20 16:04 Procalcitonin 0.15 ng/mL (<0.15) 01/17/20 21:39 Urine Color Yellow (Yellow) 01/17/20 19:30 Urine Turbidity Clear (Clear) 01/17/20 19:30 Urine pH 5.0 (5.0-7.0) 01/17/20 19:30 Ur Specific [place] 1.016 (1.003-1.030) 01/17/20 19:30 Urine Protein 100 mg/dl mg/dL (Negative) 01/17/20 19:30 Urine Glucose (UA) Neg mg/dL (Negative) 01/17/20 19:30 Urine Ketones Neg mg/dL (Negative) 01/17/20 19:30 Urine Blood Sm (Negative) 01/17/20 19:30 Urine Nitrite Neg (Negative) 01/17/20 19:30 Urine Bilirubin Neg (Negative) 01/17/20 19:30 Urine Urobilinogen < 2.0 mg/dL (<2.0) 01/17/20 19:30 Ur Leukocyte Esterase Neg (Negative) 01/17/20 19:30 Urine WBC (Auto) 2.0 /HPF (0.0-6.0) 01/17/20 19:30 Urine RBC (Auto) 6.0 /HPF (0.0-6.0) 01/17/20 19:30 U Epithel Cells (Auto) < 1.0 /HPF (0-13.0) 01/17/20 19:30 Urine Bacteria (Auto) 1+ /HPF (Negative) 01/17/20 19:30 Urine Mucus Few /HPF 01/17/20 19:30 Coronavirus (PCR) Positive (Negative) A 01/19/20 Unknown SARS-CoV-2 IgG Ab Reactive (NonReactive) A 01/19/20 17:52 Moses/IV: Voiding Method Condom Catheter IV Catheter Type [Left Forearm INT / Saline Lock ] IV Catheter Type [Right INT / Saline Lock Antecubital] Active Medications - Current Medications Current Medications: Generic Name Dose Route Start Last Admin Trade Name Freq PRN Reason Stop Dose Admin Acetaminophen 650 mg 01/17/20 22:03 01/24/20 09:46 Tylenol PO 650 mg Q4H PRN Administration Pain MILD(1-3)/Fever >100.5/FORD Amlodipine Besylate 5 mg 01/24/20 10:00 01/24/20 09:47 Amlodipine PO 5 mg QDAY LIBORIO Administration Lipase/Protease/Amylase 1 each 01/21/20 11:[address] 10,500 Unit FEEDTUBE PRN PRN For Clogged Feeding Tube Ascorbic Acid 500 mg 01/21/20 10:00 01/24/20 09:47 Vitamin C PO 500 mg QDAY LIBORIO Administration Aspirin 81 mg 01/19/20 18:00 01/24/20 09:47 Baby Aspirin PO 81 mg QDAY LIBORIO Administration Atorvastatin Calcium 40 mg 01/19/20 22:00 01/23/20 22:36 Lipitor PO 40 mg QHS LIBORIO Administration Dexamethasone 6 mg 01/19/20 13:00 01/24/20 09:47 Decadron PO 01/28/20 10:01 6 mg DAILY LIBORIO Administration Dextrose 50 ml 01/18/20 16:00 D50w (25gm) Syringe IV Q30MIN PRN Hypoglycemia Protocol Docusate Sodium 100 mg 01/20/20 10:00 01/24/20 09:46 Colace PO 100 mg BID LIBORIO Administration Enoxaparin Sodium 40 mg 01/18/20 22:00 01/24/20 09:47 Enoxaparin SUB-Q 40 mg BID LIBORIO Administration Protocol Dextrose 1,000 mls @ 125 mls/hr 01/20/20 09:00 01/24/20 05:47 D5w IV 125 mls/hr DIRECT LIBORIO Administration Insulin Human Regular 0 unit 01/18/20 16:00 01/24/20 13:10 Humulin R SUB-Q 1 unit Q6HR LIBORIO Administration Protocol Magnesium Hydroxide 30 ml 01/17/20 22:03 Milk Of Magnesia PO Q4H PRN Constipation Ondansetron HCl 4 mg 01/17/20 22:03 Zofran IV Q8H PRN Nausea And Vomiting Simple Syrup 15 ml 01/21/20 11:34 Simple Syrup FEEDTUBE PRN PRN Hypoglycemia Simple Syrup 30 ml 01/21/20 11:34 Simple Syrup FEEDTUBE PRN PRN Hypoglycemia Sodium Bicarbonate 325 mg 01/21/20 11:34 Sodium Bicarbonate FEEDTUBE PRN PRN For Clogged Feeding Tube Sodium Chloride 10 ml 01/18/20 10:00 01/24/20 09:48 Sodium Chloride Flush Syringe 10 Ml IV 10 ml BID LIBORIO Administration Sodium Chloride 10 ml 01/17/20 22:03 Sodium Chloride Flush Syringe 10 Ml IV PRN PRN LINE FLUSH Zinc Sulfate 220 mg 01/21/20 10:00 01/24/20 09:47 Zinc Sulfate PO 220 mg QDAY LIBORIO Administration Nutrition/Malnutrition Assess - Dietary Evaluation Nutrition/Malnutrition Findings: Nutrition Notes Start: 01/19/20 10:13 Freq: Status: Active Protocol: Document 01/23/20 11:31 EVANGELISTA (Rec: 01/23/20 11:37 EVANGELISTA [id number]) Nutrition Notes Initial or Follow up Reassessment Current Diagnosis Diabetes,Hypertension,Stroke Other Pertinent Diagnosis COVID-19 (+), AMS, CVA, Dysphagia Current Diet TF - Glucerna 1.2 at 65ml/hr Labs/Tests Na 154 K 3.3 BUN 21 BG 200 Pertinent Medications reviewed Height 5 ft 11 in Weight 88.4 kg [place] Body Weight (kg) 78.18 BMI 27.1 Subjective/Other Information Pt tolerating TF at goal rate. Na lab improved since yesterday. Pt continues to receive 300ml water flush q4h. Percent of energy/protein needs met: 95% energy 100% pro Burn Absent Trauma Absent #1 Nutrition Diagnosis Inadequate oral intake Diagnosis Progress(for reassessment Continues documentation) Is patient on ventilator? No Is Patient Ambulatory and/or Out of Bed No REE-([place] Jeor-confined to bed) 1963.680 Calculation Used for Recommendations [facility] Additional Notes Pro needs 1-1.2g/k-106g/ day Fluid needs per MD Nutrition Intervention Nutrition Support: Continue Glucerna 1.2 at 65 ml /hr with 300ml water flush q4h . Kcal 1,872 Protein (gm) 94 Fluid (mL) 1,256 Goal #1 TF tolerance Goal #2 TF to meet at least 75% energy and pro needs Follow-Up By: 01/27/20 Additional Comments F/U: Na lab/water flushes
[2020-01-24] MEDS: INSULIN NPH/REGULAR 70/30 INJ SUB-Q SCH (17:42)
[2020-01-25] MEDS: INSULIN REGULAR, HUMAN 100 UNIT/ML 3ML VIAL SUB-Q SCH ×4 (06:02→19:15)
[2020-01-25 06:06] LABS: Basophils # (Auto) 0.1 K/mm3 (0.0-0.1); Basophils % (Auto) 0.4 % (0.0-1.8); Eosinophils # (Auto) 0.3 K/mm3 (0.0-0.4); Eosinophils % (Auto) 1.5 % (0.0-4.3); Hematocrit 42.9 % (35.5-45.6); Hemoglobin 13.8 gm/dl (11.8-15.2); Lymphocytes # (Auto) 1.5 K/mm3 (1.2-5.4); Lymphocytes % (Auto) 8.8 % (13.4-35.0); Mean Corpuscular HGB Conc 32 % (32-34); Mean Corpuscular Volume 78 fl (84-94); Monocytes # (Auto) 0.5 K/mm3 (0.0-0.8); Platelet Count 175 K/mm3 (140-440); Red Cell Distribution Width 14.5 % (13.2-15.2)
[2020-01-25] MEDS: DEXTROSE 5% IN WATER 1,000 ML IV SCH (06:09)
[2020-01-25 06:35] LABS: BUN/Creatinine Ratio 24; Blood Urea Nitrogen 22 mg/dL (9-20); Calcium 9.3 mg/dL (8.4-10.2); Hemolysis Index 6
[2020-01-25] MEDS ORDERED: POTASSIUM CHLORIDE 20 MEQ PACKET FEEDTUBE NR (08:00)
[2020-01-25] MEDS: ENOXAPARIN 40 MG/0.4 ML INJ SUB-Q SCH ×2 (10:52→22:49)
[2020-01-25] MEDS: INSULIN NPH/REGULAR 70/30 INJ SUB-Q SCH (10:52)
[2020-01-25] MEDS: DEXAMETHASONE 4 MG TAB PO SCH (10:53)
[2020-01-25] MEDS: DOCUSATE SODIUM 100 MG/10 ML ORAL LIQD PO SCH ×2 (10:53→22:49)
[2020-01-25] MEDS: ASPIRIN 81 MG TAB CHEW PO SCH (10:53)
[2020-01-25] MEDS: ACETAMINOPHEN 325 MG TAB PO PRN (10:53)
[2020-01-25] MEDS: ZINC SULFATE 220 MG CAP PO SCH (10:53)
[2020-01-25] MEDS: ASCORBIC ACID 500 MG TAB PO SCH (10:53)
[2020-01-25] MEDS: amLODIPine 5 MG TAB PO SCH (10:54)
--- NOTE | 2020-01-25 11:48 | Progress Note ---
Assessment and Plan - Patient Problems (1) Acute hypernatremia Current Visit: Yes Status: Acute Plan to address problem: Sodium improving. Continue free water replacement and follow-up level (2) Encephalopathy Current Visit: Yes Status: Acute Plan to address problem: Monitor mental status (3) Pneumonia due to COVID-19 virus Current Visit: Yes Status: Acute Plan to address problem: Continue IV steroids, remdesivir and monitor inflammatory markers (4) Diabetes mellitus Current Visit: Yes Status: Chronic Plan to address problem: Blood sugar management by primary attending (5) Hypertension Current Visit: Yes Status: Chronic Plan to address problem: Follow-up blood pressure on current medications (6) Acute kidney injury Current Visit: Yes Status: Resolved Plan to address problem: Kidney function has improved to normal. Follow-up kidney function (7) Hypokalemia Current Visit: Yes Status: Resolved Plan to address problem: Supplement potassium and follow-up level Subjective Date of service: 01/25/20 Principal diagnosis: COVID-19 pneumonia Interval history: Patient was not examined due to the COVID-19 pandemic and the need for PPE conservation Chart reviewed Objective - Exam Narrative Exam: Patient was not examined today due to the COVID-19 pandemic and need to conserve PPE - Vital Signs Vital signs: Vital Signs - 12hr 01/25/20 04:38 Temperature 98.1 F Pulse Rate 101 H Respiratory 16 Rate Blood Pressure 134/74 O2 Sat by Pulse 91 Oximetry - Lab 01/25/20 05:48 01/25/20 05:48 Most recent lab results Calcium 9.3 mg/dL (8.4-10.2) 01/25/20 05:48 Medications & Allergies - Medications Allergies/Adverse Reactions: Allergies No Known Allergies Allergy (Verified 01/17/20 22:09) Home Medications: Home Medications Medication Instructions Recorded Confirmed Last Taken Type No Known Home Medications [No 01/20/20 01/20/20 Unknown History Reported Home Medications] Active Medications: Generic Name Dose Route Start Last Admin Trade Name Freq PRN Reason Stop Dose Admin Acetaminophen 650 mg 01/17/20 22:03 01/25/20 10:53 Tylenol PO 650 mg Q4H PRN Administration Pain MILD(1-3)/Fever >100.5/FORD Amlodipine Besylate 5 mg 01/24/20 10:00 01/25/20 10:54 Amlodipine PO 5 mg QDAY LIBORIO Administration Lipase/Protease/Amylase 1 each 01/21/20 11:34 Pancreaze 10,500 Unit FEEDTUBE PRN PRN For Clogged Feeding Tube Ascorbic Acid 500 mg 01/21/20 10:00 01/25/20 10:53 Vitamin C PO 500 mg QDAY LIBORIO Administration Aspirin 81 mg 01/19/20 18:00 01/25/20 10:53 Baby Aspirin PO 81 mg QDAY LIBORIO Administration Atorvastatin Calcium 40 mg 01/19/20 22:00 01/24/20 22:16 Lipitor PO 40 mg QHS LIBORIO Administration Dexamethasone 6 mg 01/19/20 13:00 01/25/20 10:53 Decadron PO 01/28/20 10:01 6 mg DAILY LIBORIO Administration Dextrose 50 ml 01/18/20 16:00 D50w (25gm) Syringe IV Q30MIN PRN Hypoglycemia Protocol Docusate Sodium 100 mg 01/20/20 10:00 01/25/20 10:53 Colace PO 100 mg BID LIBORIO Administration Enoxaparin Sodium 40 mg 01/18/20 22:00 01/25/20 10:52 Enoxaparin SUB-Q 40 mg BID LIBORIO Administration Protocol Dextrose 1,000 mls @ 125 mls/hr 01/20/20 09:00 01/25/20 06:09 D5w IV 125 mls/hr DIRECT LIBORIO Administration Insulin Human Isoph/Insulin Regular 4 unit 01/24/20 16:00 01/25/20 10:52 Humulin 70/30 SUB-Q 4 unit QDDIAB LIBORIO Administration Insulin Human Regular 0 unit 01/18/20 16:00 01/25/20 06:02 Humulin R SUB-Q 300 unit Q6HR LIBORIO Administration Protocol Magnesium Hydroxide 30 ml 01/17/20 22:03 Milk Of Magnesia PO Q4H PRN Constipation Ondansetron HCl 4 mg 01/17/20 22:03 Zofran IV Q8H PRN Nausea And Vomiting Potassium Chloride 40 meq 01/25/20 08:00 01/25/20 10:52 Potassium Chloride FEEDTUBE 01/25/20 12:00 40 meq ONCE@0800 NR Administration Simple Syrup 15 ml 01/21/20 11:34 Simple Syrup FEEDTUBE PRN PRN Hypoglycemia Simple Syrup 30 ml 01/21/20 11:34 Simple Syrup FEEDTUBE PRN PRN Hypoglycemia Sodium Bicarbonate 325 mg 01/21/20 11:34 Sodium Bicarbonate FEEDTUBE PRN PRN For Clogged Feeding Tube Sodium Chloride 10 ml 01/18/20 10:00 01/25/20 10:53 Sodium Chloride Flush Syringe 10 Ml IV 10 ml BID LIBORIO Administration Sodium Chloride 10 ml 01/17/20 22:03 Sodium Chloride Flush Syringe 10 Ml IV PRN PRN LINE FLUSH Zinc Sulfate 220 mg 01/21/20 10:00 01/25/20 10:53 Zinc Sulfate PO 220 mg QDAY LIBORIO Administration
--- NOTE | 2020-01-25 13:27 | Progress Note ---
Assessment and Plan Cultures: Blood culture 01/17/2020 no growth SARS CoV2 PCR positive Assessment: 79 years old male with unknown medical history of admitted on 01/17/2020 due to 24-hour history of altered mental status, decreased communication, resident of a group home: #Severe sepsis present on admission with high fever, tachycardia, YIMI, hypoxia and altered mental status; etiology COVID-19 infection pneumonia. Urinalysis not consistent with UTI. Procalcitonin normal. #COVID-19 pneumonia: D-dimer markedly elevated. Ferritin markedly elevated, worsening. VQ scan low probability for PE, venous ultrasound no DVT. SARS-CoV-2 IgG positive patient is not a candidate for Covid convalescent plasma #Acute hypoxia: ? Secondary to pulmonary edema versus pneumonia versus COVID-19 infection #Elevated LFTs: improved. #YIMI: resolved. #Acute encephalopathy: neurology on board. MRI with ?punctate ischemia. #Hypernatremia: Per primary team Recommendations: -Continue dexamethasone total 10 days, D7 -Completed Remdesivir -Continue anticoagulation per System Protocol ID will sign off. Please call with questions. Jen Parsons MD, FACP [facility], [place], [facility] O: [phone] F: [phone] Subjective Date of service: 01/25/20 Principal diagnosis: COVID-19 pneumonia Interval history: No fever. Remains on oxygen. Objective - Exam Narrative Exam: Physical Exam (reviewed in chart due to PPE conservation and minimize risk of transmission) Constitutional: limited due to PPE conservation strategy Head, Ears, Nose: limited due to PPE conservation strategy Eyes: limited due to PPE conservation strategy Neck: limited due to PPE conservation strategy Oral: limited due to PPE conservation strategy Cardiovascular: limited due to PPE conservation strategy Respiratory: limited due to PPE conservation strategy GI: limited due to PPE conservation strategy Musculoskeletal: limited due to PPE conservation strategy Skin: limited due to PPE conservation strategy Hem/Lymphatic: limited due to PPE conservation strategy Psych: limited due to PPE conservation strategy Neurological: limited due to PPE conservation strategy - Constitutional Vitals: Vital Signs Temp Pulse Resp BP Pulse Ox 98.1 F 101 H 16 134/74 91 01/25/20 04:38 01/25/20 04:38 01/25/20 04:38 01/25/20 04:38 01/25/20 04:38 Temperature -Last 24 Hours Temperature 98.1 F Temperature 98.8 F - Labs CBC & Chem 7: 01/25/20 05:48 01/25/20 05:48 Labs: Abnormal lab results 01/24/20 01/25/20 01/25/20 Range/Units 17:32 00:18 05:39 WBC (4.5-11.0) K/mm3 RBC (3.65-5.03) M/mm3 MCV (84-94) fl MCH (28-32) pg Lymph % (Auto) (13.4-35.0) % Seg Neutrophils % (40.0-70.0) % Seg Neutrophils # (1.8-7.7) K/mm3 Sodium (137-145) mmol/L Potassium (3.6-5.0) mmol/L Chloride (98-107) mmol/L BUN (9-20) mg/dL Glucose (75-100) mg/dL POC Glucose 164 H 172 H 179 H (70-105) mg/dL 01/25/20 01/25/20 01/25/20 Range/Units 05:48 05:48 13:06 WBC 17.6 H (4.5-11.0) K/mm3 RBC 5.50 H (3.65-5.03) M/mm3 MCV 78 L (84-94) fl MCH 25 L (28-32) pg Lymph % (Auto) 8.8 L (13.4-35.0) % Seg Neutrophils % 86.3 H (40.0-70.0) % Seg Neutrophils # 15.2 H (1.8-7.7) K/mm3 Sodium 151 H (137-145) mmol/L Potassium 3.5 L (3.6-5.0) mmol/L Chloride 114.2 H (98-107) mmol/L BUN 22 H (9-20) mg/dL Glucose 170 H (75-100) mg/dL POC Glucose 178 H (70-105) mg/dL
--- NOTE | 2020-01-25 14:55 | Progress Note ---
Assessment and Plan - Patient Problems (1) Sepsis Current Visit: Yes Status: Acute Plan to address problem: Presented with tachycardia, hypoxia, altered mental status, YIMI, CXR shows possible pulmonary edema and COVID-19 PCR positive COVID-19 PCR positive Infectious disease consulted S/p Zosyn s/p cefepime 01/16 blood culture x2 no growth to date 01/16 COVID-19 PCR positive 01/16 UA negative for nitrates and leukocyte esterase 01/17 TTE pending 01/17 MRSA PCR pending (2) Metabolic encephalopathy Current Visit: Yes Status: Acute Plan to address problem: May be multifactorial: Hypernatremia, COVID-19 infection, Sepsis Blood culture x2 no growth to date Infectious disease consulted for COVID-19 infection Nephrology consulted for electrolyte imbalance Neurochecks Fall/aspiration precautions 01/23 patient is following commands intermittently and is more verbal today however he remains bilateral mittens 01/24 patient is oriented to self and follows commands. (3) COVID-19 virus infection Current Visit: Yes Status: Acute Plan to address problem: 01/16 COVID-19 PCR positive Contact/droplet isolation Infectious disease consulted Supplemental oxygen as needed OOB 3 times daily Prone to sleep as needed Patient was on Zosyn and infectious disease changed his antibiotic to cefepime on 01/17 Pulmonary hygiene Trend inflammatory markers Anticoagulation per COVID-19 protocol 01/18 remdesivir initiated through 01/23 01/18 dexamethasone 6 mg p.o. daily for 10 days till 01/28 Patient COVID-19 IgG positive therefore he is not a candidate for convalescent plasma. (4) Acute hypernatremia Current Visit: Yes Status: Acute Plan to address problem: Presented with a sodium of 161 01/17 sodium 164, 165 01/17 IVF changed to D5W at 75 mL/h which was increased on 01/18 100 mL/hr 01/18 sodium 164, 165 Trend BMP, BMP every 12 Avoid rapid correction due to risk of pontine demyelination 01/18 nephrology consulted Patient initiated on tube feedings with free water flushes on 01/18 S/p 2L normal saline bolus in the ED for sepsis 01/19 sodium 163 01/22 sodium 154, 01/23 155, 01/24 sodium 151 (5) Hypokalemia Current Visit: Yes Status: Resolved Plan to address problem: 01/22 potassium 3.3, 01/23 3.6, 01/24 3.5 Repleted Trend BMP Replete as needed (6) Elevated d-dimer Current Visit: Yes Status: Acute Plan to address problem: 01/16 D-dimer greater than 10,000 01/17 VQ scan shows low probability of pulmonary medicine 01/17 bilateral upper and lower extremity venous Dopplers shows no acute DVT Anticoagulation per COVID-19 protocol (7) Acute respiratory failure Current Visit: Yes Status: Acute Plan to address problem: Patient was hypoxic on room air Supplemental oxygen as needed Continuous pulse ox pulmonary hygiene Dexamethasone 6 mg p.o. daily 01/18 through 01/28 (8) Transaminitis Current Visit: Yes Status: Resolved Plan to address problem: Presented with AST of 63 Secondary to COVID-19 infection Trend LFTs 01/19: AST 60, ALT 44, alk phos 64 (9) Hyperchloremia Current Visit: Yes Status: Acute Plan to address problem: Presented with chloride of 123.6 01/17: 131, 133 01/18 chloride 133, 134, 131 01/19 chloride 133 Patient is on D5W Trend BMP S/p 2 L normal saline bolus in the ED 01/22 chloride 118.5, 01/23 119.5, 01/24 114.2 (10) CVA (cerebral vascular accident) Current Visit: Yes Status: Ruled-out Plan to address problem: Rule out CVA Presented with altered mental status, baseline at shelter is alert and oriented x2 01/16 CT head shows small lacunar infarcts in the ganglial capsular region 01/19 MRI brain shows punctuate focus of ischemia which may be related to microangiopathy in the white matter of the left cerebral hemisphere otherwise no focal mass, hemorrhage, hydrocephalus or acute large infarct seen 01/19 MRA head shows normal basilar artery and internal carotid arteries with normal A1 and M1 segments of the anterior middle cerebral artery. 01/18 EEG pending 01/18 lipid panel: Triglyceride 219, cholesterol 180, LDL 91, HDL 31 01/[address]/OT/PT consulted Neurology consult Aspirin and statin therapy Fall, aspiration, seizure precautions Permissive hypertension for 24 hours, patient is already outside the window now target normotension Target euthymia and euglycemia (11) Diabetes mellitus Current Visit: Yes Status: Chronic Plan to address problem: 01/17 hemoglobin A1c 6.7 SSI Accu-Cheks every 6 hours while n.p.o. 01/18 patient initiated on tube feedings 01/23 Novolin 70/30 4 units twice daily, increased 01/24 to 6 units twice daily (12) Hypertension Current Visit: Yes Status: Chronic Plan to address problem: Patient has a history of hypertension Patient is normotensive at this time We will continue to monitor Restart home antihypertensive regimen when applicable and available Blood pressure monitor per protocol 01/18 patient initiated on amlodipine (13) DVT prophylaxis Current Visit: Yes Status: Acute Plan to address problem: Anticoagulation per COVID-19 protocol, Lovenox 40 twice daily SCDs to bilateral Bed History Interval history: 79-year-old male with HTN and DM who is a resident of a shelter presented to the ED on 01/17 via EMS for evaluation of a change mental status. Per shelter staff patient was not communicating well and having decreased oral intake. Upon arrival to the emergency department patient was found to be tachycardic, febrile to 102.2 and hypoxic with SPO2 of 91 on room air. Work-up was significant for hypernatremia, acute kidney injury (CR/BUN 2.2/55), hypochloremia, transaminitis and a chest x-ray showed mild bilateral pulmonary edema and CTh was unremarkable. Patient was admitted to hospitalist service as a Covid PUI, Sepsis, YIMI and infectious disease and nephrology were consulted. Patient's hypernatremia and hyperchloremia slightly worse today than it was yesterday. Patient has marked improvement in mentation today he is oriented to self and follows commands. Patient is hypokalemic today at 3.5 which was repleted and his hypernatremia and hyperchloremia are improving. Patient failed his swallow eval by speech therapy this morning. 01/17: elevated D-dimer therefore bilateral upper and lower extremity ultrasounds Dopplers were obtained to rule out DVT and a VQ scan was performed to rule out PE both of which were negative. Patient remained severely hypernatremic and his IV fluids were changed to D5 water. We will trend his BMP. He also has elevated Covid markers ferritin and CRP. 01/18: COVID-19 PCR resulted as positive. Patient remains hyponatremic therefore nephrology was consulted and he was started on FWF and his D5W was increased. Patient is apparently alert and oriented x2 at shelter and his CT head showed small lacunar infarcts in the gangliocapsular regions therefore an MRI brain, MRA head and neurology has been consulted. Dr. Petersen updated his daughter this morning (Ms. Burleson) and this afternoon after his COVID-19 PCR resulted I updated her. The phone got disconnected after 2 minutes of conversation and informing her of COVID-19 status and I tried calling back twice. Both times it was sent to [facility] and her mailbox is full therefore was not able to leave a message. Patient was also initiated on remdesivir therapy 01/19: MRI head and MRI brain still pending, continue remdesivir therapy, increased free water flush 300 mL every 4 hours and increase the D5W TO 100 mL/h 01/20: Zinc and vitamin C initiated, patient still remains hypernatremic 01/21: Patient remains hypernatremic, no acute events reported overnight 01/22: Patient remains hypernatremic, hyperchloremic though it is improving. Patient still remains with altered mental status and he has bilateral wrist restraints in place. Dr. Peteresn updated patient's daughter over the phone today. No acute events reported overnight. Patient was hypokalemic which was repleted. 01/23: His hyperkalemia has resolved. No acute events reported overnight. Patient intermittently follows commands and is more verbal. Today he has bilateral mittens in place. Hospitalist Physical - Constitutional Vitals: Temp Pulse Resp BP Pulse Ox 98.1 F 101 H 16 134/74 91 01/25/20 04:38 01/25/20 04:38 01/25/20 04:38 01/25/20 04:38 01/25/20 04:38 General appearance: Present: no acute distress, obese - EENT Eyes: Present: PERRL, EOM intact ENT: poor dentition - Neck Neck: Present: normal ROM - Respiratory Respiratory effort: normal Respiratory: bilateral: diminished - Cardiovascular Rhythm: regular Heart Sounds: Present: S1 & S2. Absent: systolic murmur, diastolic murmur - Extremities Extremities: no ischemia, pulses intact, pulses symmetrical, normal temperature, normal color Extremity abnormal: edema Peripheral Pulses: within normal limits - Abdominal General gastrointestinal: soft, non-tender, non-distended, normal bowel sounds - Integumentary Integumentary: Present: clear, warm, dry - Psychiatric Psychiatric: cooperative - Neurologic Neurologic: CNII-XII intact, no focal deficits, moves all extremities - Allied Health Allied health notes reviewed: nursing HEART Score - HEART Score Troponin: Troponin T < 0.010 ng/mL (0.00-0.029) 01/17/20 17:34 Results - Labs CBC & Chem 7: 01/25/20 05:48 01/25/20 05:48 Labs: Laboratory Last Values WBC 17.6 K/mm3 (4.5-11.0) H 01/25/20 05:48 RBC 5.50 M/mm3 (3.65-5.03) H 01/25/20 05:48 Hgb 13.8 gm/dl (11.8-15.2) 01/25/20 05:48 Hct 42.9 % (35.5-45.6) 01/25/20 05:48 MCV 78 fl (84-94) L 01/25/20 05:48 MCH 25 pg (28-32) L 01/25/20 05:48 MCHC 32 % (32-34) 01/25/20 05:48 RDW 14.5 % (13.2-15.2) 01/25/20 05:48 Plt Count 175 K/mm3 (140-440) 01/25/20 05:48 Lymph % (Auto) 8.8 % (13.4-35.0) L 01/25/20 05:48 [place] % (Auto) 3.0 % (0.0-7.3) 01/25/20 05:48 Eos % (Auto) 1.5 % (0.0-4.3) 01/25/20 05:48 Baso % (Auto) 0.4 % (0.0-1.8) 01/25/20 05:48 Lymph # (Auto) 1.5 K/mm3 (1.2-5.4) 01/25/20 05:48 [place] # (Auto) 0.5 K/mm3 (0.0-0.8) 01/25/20 05:48 Eos # (Auto) 0.3 K/mm3 (0.0-0.4) 01/25/20 05:48 Baso # (Auto) 0.1 K/mm3 (0.0-0.1) 01/25/20 05:48 Seg Neutrophils % 86.3 % (40.0-70.0) H 01/25/20 05:48 Seg Neutrophils # 15.2 K/mm3 (1.8-7.7) H 01/25/20 05:48 PT 15.0 Sec. (12.2-14.9) H 01/18/20 07:45 INR 1.16 (0.87-1.13) H 01/18/20 07:45 APTT 31.0 Sec. (24.2-36.6) 01/17/20 17:34 D-Dimer 3001.60 ng/mlDDU (0-234) H 01/22/20 07:46 Sodium 151 mmol/L (137-145) H 01/25/20 05:48 Potassium 3.5 mmol/L (3.6-5.0) L 01/25/20 05:48 Chloride 114.2 mmol/L (98-107) H 01/25/20 05:48 Carbon Dioxide 27 mmol/L (22-30) 01/25/20 05:48 Anion Gap 13 mmol/L 01/25/20 05:48 BUN 22 mg/dL (9-20) H 01/25/20 05:48 Creatinine 0.9 mg/dL (0.8-1.3) 01/25/20 05:48 Estimated GFR > 60 ml/min 01/25/20 05:48 BUN/Creatinine Ratio 24 % 01/25/20 05:48 Glucose 170 mg/dL (75-100) H 01/25/20 05:48 POC Glucose 178 mg/dL (70-105) H 01/25/20 13:06 Hemoglobin A1c 6.7 % (4-6) H 01/18/20 16:04 Lactic Acid 1.80 mmol/L (0.7-2.0) 01/17/20 19:40 Calcium 9.3 mg/dL (8.4-10.2) 01/25/20 05:48 Ferritin 3748.0 ng/mL (30.0-300.0) H 01/22/20 07:46 Total Bilirubin 0.40 mg/dL (0.1-1.2) 01/20/20 05:39 Direct Bilirubin < 0.2 mg/dL (0-0.2) 01/20/20 05:39 Indirect Bilirubin 0.2 mg/dL 01/20/20 05:39 AST 60 units/L (5-40) H 01/20/20 05:39 ALT 44 units/L (7-56) 01/20/20 05:39 Alkaline Phosphatase 64 units/L (35-129) 01/20/20 05:39 Ammonia 38.0 umol/L (25-60) 01/17/20 17:34 Lactate Dehydrogenase 368 units/L (91-180) H 01/22/20 07:46 Total Creatine Kinase 164 units/L (55-170) 01/17/20 17:34 Troponin T < 0.010 ng/mL (0.00-0.029) 01/17/20 17:34 C-Reactive Protein 2.90 mg/dL (0.00-1.30) H 01/22/20 07:46 Total Protein 7.0 g/dL (6.3-8.2) 01/20/20 05:39 Albumin 2.8 g/dL (3.9-5) L 01/20/20 05:39 Albumin/Globulin Ratio 0.7 % 01/20/20 05:39 Triglycerides 219 mg/dL (2-149) H 01/18/20 16:04 Cholesterol 180 mg/dL (50-199) 01/18/20 16:04 LDL Cholesterol Direct 91 mg/dL (50-130) 01/18/20 16:04 HDL Cholesterol 37 mg/dL (40-59) L 01/18/20 16:04 Cholesterol/HDL Ratio 4.86 % 01/18/20 16:04 Procalcitonin 0.15 ng/mL (<0.15) 01/17/20 21:39 Urine Color Yellow (Yellow) 01/17/20 19:30 Urine Turbidity Clear (Clear) 01/17/20 19:30 Urine pH 5.0 (5.0-7.0) 01/17/20 19:30 Ur Specific [place] 1.016 (1.003-1.030) 01/17/20 19:30 Urine Protein 100 mg/dl mg/dL (Negative) 01/17/20 19:30 Urine Glucose (UA) Neg mg/dL (Negative) 01/17/20 19:30 Urine Ketones Neg mg/dL (Negative) 01/17/20 19:30 Urine Blood Sm (Negative) 01/17/20 19:30 Urine Nitrite Neg (Negative) 01/17/20 19:30 Urine Bilirubin Neg (Negative) 01/17/20 19:30 Urine Urobilinogen < 2.0 mg/dL (<2.0) 01/17/20 19:30 Ur Leukocyte Esterase Neg (Negative) 01/17/20 19:30 Urine WBC (Auto) 2.0 /HPF (0.0-6.0) 01/17/20 19:30 Urine RBC (Auto) 6.0 /HPF (0.0-6.0) 01/17/20 19:30 U Epithel Cells (Auto) < 1.0 /HPF (0-13.0) 01/17/20 19:30 Urine Bacteria (Auto) 1+ /HPF (Negative) 01/17/20 19: Urine Mucus Few /HPF 01/17/20 19:30 Coronavirus (PCR) Positive (Negative) A 01/19/20 Unknown SARS-CoV-2 IgG Ab Reactive (NonReactive) A 01/19/20 17:52 Moses/IV: Voiding Method Condom Catheter IV Catheter Type [Left Forearm INT / Saline Lock ] IV Catheter Type [Right INT / Saline Lock Antecubital] Active Medications - Current Medications Current Medications: Generic Name Dose Route Start Last Admin Trade Name Freq PRN Reason Stop Dose Admin Acetaminophen 650 mg 01/17/20 22:03 01/25/20 10:53 Tylenol PO 650 mg Q4H PRN Administration Pain MILD(1-3)/Fever >100.5/FORD Amlodipine Besylate 5 mg 01/24/20 10:00 01/25/20 10:54 Amlodipine PO 5 mg QDAY LIBORIO Administration Lipase/Protease/Amylase 1 each 01/21/20 11:[address] 10,500 Unit FEEDTUBE PRN PRN For Clogged Feeding Tube Ascorbic Acid 500 mg 01/21/20 10:00 01/25/20 10:53 Vitamin C PO 500 mg QDAY LIBORIO Administration Aspirin 81 mg 01/19/20 18:00 01/25/20 10:53 Baby Aspirin PO 81 mg QDAY LIBORIO Administration Atorvastatin Calcium 40 mg 01/19/20 22:00 01/24/20 22:16 Lipitor PO 40 mg QHS LIBORIO Administration Dexamethasone 6 mg 01/19/20 13:00 01/25/20 10:53 Decadron PO 01/28/20 10:01 6 mg DAILY LIBORIO Administration Dextrose 50 ml 01/18/20 16:00 D50w (25gm) Syringe IV Q30MIN PRN Hypoglycemia Protocol Docusate Sodium 100 mg 01/20/20 10:00 01/25/20 10:53 Colace PO 100 mg BID LIBORIO Administration Enoxaparin Sodium 40 mg 01/18/20 22:00 01/25/20 10:52 Enoxaparin SUB-Q 40 mg BID LIBORIO Administration Protocol Dextrose 1,000 mls @ 125 mls/hr 01/20/20 09:00 01/25/20 06:09 D5w IV 125 mls/hr DIRECT LIBORIO Administration Insulin Human Isoph/Insulin Regular 4 unit 01/24/20 16:00 01/25/20 10:52 Humulin 70/30 SUB-Q 4 unit QDDIAB LIBORIO Administration Insulin Human Regular 0 unit 01/18/20 16:00 01/25/20 13:12 Humulin R SUB-Q 3 unit Q6HR LIBORIO Administration Protocol Magnesium Hydroxide 30 ml 01/17/20 22:03 Milk Of Magnesia PO Q4H PRN Constipation Ondansetron HCl 4 mg 01/17/20 22:03 Zofran IV Q8H PRN Nausea And Vomiting Simple Syrup 15 ml 01/21/20 11:34 Simple Syrup FEEDTUBE PRN PRN Hypoglycemia Simple Syrup 30 ml 01/21/20 11:34 Simple Syrup FEEDTUBE PRN PRN Hypoglycemia Sodium Bicarbonate 325 mg 01/21/20 11:34 Sodium Bicarbonate FEEDTUBE PRN PRN For Clogged Feeding Tube Sodium Chloride 10 ml 01/18/20 10:00 01/25/20 10:53 Sodium Chloride Flush Syringe 10 Ml IV 10 ml BID LIBORIO Administration Sodium Chloride 10 ml 01/17/20 22:03 Sodium Chloride Flush Syringe 10 Ml IV PRN PRN LINE FLUSH Zinc Sulfate 220 mg 01/21/20 10:00 01/25/20 10:53 Zinc Sulfate PO 220 mg QDAY LIBORIO Administration Nutrition/Malnutrition Assess - Dietary Evaluation Nutrition/Malnutrition Findings: Nutrition Notes Start: 01/19/20 10:13 Freq: Status: Active Protocol: Document 01/23/20 11:31 EVANGELISTA (Rec: 01/23/20 11:37 EVANGELISTA [id number]) Nutrition Notes Initial or Follow up Reassessment Current Diagnosis Diabetes,Hypertension,Stroke Other Pertinent Diagnosis COVID-19 (+), AMS, CVA, Dysphagia Current Diet TF - Glucerna 1.2 at 65ml/hr Labs/Tests Na 154 K 3.3 BUN 21 BG 200 Pertinent Medications reviewed Height 5 ft 11 in Weight 88.4 kg Moss Body Weight (kg) 78.18 BMI 27.1 Subjective/Other Information Pt tolerating TF at goal rate. Na lab improved since yesterday. Pt continues to receive 300ml water flush q4h. Percent of energy/protein needs met: 95% energy 100% pro Burn Absent Trauma Absent #1 Nutrition Diagnosis Inadequate oral intake Diagnosis Progress(for reassessment Continues documentation) Is patient on ventilator? No Is Patient Ambulatory and/or Out of Bed No REE-([facility]-confined to bed) 1963.680 Calculation Used for Recommendations [facility] Additional Notes Pro needs 1-1.2g/k-106g/ day Fluid needs per MD Nutrition Intervention Nutrition Support: Continue Glucerna 1.2 at 65 ml /hr with 300ml water flush q4h . Kcal 1,872 Protein (gm) 94 Fluid (mL) 1,256 Goal #1 TF tolerance Goal #2 TF to meet at least 75% energy and pro needs Follow-Up By: 01/27/20 Additional Comments F/U: Na lab/water flushes
[2020-01-26] MEDS: DEXTROSE 5% IN WATER 1,000 ML IV SCH ×2 (06:10→16:14)
[2020-01-26] MEDS: INSULIN REGULAR, HUMAN 100 UNIT/ML 3ML VIAL SUB-Q SCH ×4 (06:11→17:10)
[2020-01-26] MEDS: amLODIPine 5 MG TAB PO SCH ×2 (06:44→12:33)
[2020-01-26 07:09] LABS: Blood Urea Nitrogen 21 mg/dL (9-20); Calcium 9.4 mg/dL (8.4-10.2); Hemolysis Index 6
[2020-01-26 07:22] LABS: BUN/Creatinine Ratio 30
--- NOTE | 2020-01-26 08:52 | Progress Note ---
Assessment and Plan - Patient Problems (1) Acute hypernatremia Current Visit: Yes Status: Acute (2) Encephalopathy Current Visit: Yes Status: Acute (3) Pneumonia due to COVID-19 virus Current Visit: Yes Status: Acute (4) Diabetes mellitus Current Visit: Yes Status: Chronic (5) Hypertension Current Visit: Yes Status: Chronic (6) Acute kidney injury Current Visit: Yes Status: Resolved (7) Hypokalemia Current Visit: Yes Status: Resolved Subjective Principal diagnosis: COVID-19 pneumonia Objective - Vital Signs Vital signs: Vital Signs - 12hr 01/25/20 01/26/20 01/26/20 21:33 04:59 06:44 Temperature 98.0 F 98.2 F Pulse Rate 89 91 H 72 Respiratory 20 20 Rate Blood Pressure 137/82 151/103 151/103 O2 Sat by Pulse 90 94 Oximetry - Lab 01/25/20 05:48 01/26/20 05:14 Most recent lab results Calcium 9.4 mg/dL (8.4-10.2) 01/26/20 05:14 Magnesium 2.00 mg/dL (1.7-2.3) 01/26/20 05:14 Medications & Allergies - Medications Allergies/Adverse Reactions: Allergies No Known Allergies Allergy (Verified 01/17/20 22:09) Home Medications: Home Medications Medication Instructions Recorded Confirmed Last Taken Type No Known Home Medications [No 01/20/20 01/20/20 Unknown History Reported Home Medications] Active Medications: Generic Name Dose Route Start Last Admin Trade Name Freq PRN Reason Stop Dose Admin Acetaminophen 650 mg 01/17/20 22:03 01/25/20 10:53 Tylenol PO 650 mg Q4H PRN Administration Pain MILD(1-3)/Fever >100.5/FORD Amlodipine Besylate 5 mg 01/24/20 10:00 01/26/20 06:44 Amlodipine PO 5 mg QDAY LIBORIO Administration Lipase/Protease/Amylase 1 each 01/21/20 11:[address] 10,500 Unit FEEDTUBE PRN PRN For Clogged Feeding Tube Ascorbic Acid 500 mg 01/21/20 10:00 01/25/20 10:53 Vitamin C PO 500 mg QDAY LIBORIO Administration Aspirin 81 mg 01/19/20 18:00 01/25/20 10:53 Baby Aspirin PO 81 mg QDAY LIBORIO Administration Atorvastatin Calcium 40 mg 01/19/20 22:00 01/25/20 22:50 Lipitor PO 40 mg QHS LIBORIO Administration Dexamethasone 6 mg 01/19/20 13:00 01/25/20 10:53 Decadron PO 01/28/20 10:01 6 mg DAILY LIBORIO Administration Dextrose 50 ml 01/18/20 16:00 D50w (25gm) Syringe IV Q30MIN PRN Hypoglycemia Protocol Docusate Sodium 100 mg 01/20/20 10:00 01/25/20 22:49 Colace PO 100 mg BID LIBORIO Administration Enoxaparin Sodium 40 mg 01/18/20 22:00 01/25/20 22:49 Enoxaparin SUB-Q 40 mg BID LIBORIO Administration Protocol Hydralazine HCl 25 mg 01/26/20 08:00 Apresoline PO Q8HR [facility] Dextrose 1,000 mls @ 125 mls/hr 01/20/20 09:00 01/26/20 06:10 D5w IV 125 mls/hr DIRECT LIBORIO Administration Insulin Human Isoph/Insulin Regular 6 unit 01/26/20 08:00 Humulin 70/30 SUB-Q QDDIAB LIBORIO Insulin Human Regular 0 unit 01/18/20 16:00 01/26/20 06:11 Humulin R SUB-Q 3 unit Q6HR LIBORIO Administration Protocol Magnesium Hydroxide 30 ml 01/17/20 22:03 Milk Of Magnesia PO Q4H PRN Constipation Ondansetron HCl 4 mg 01/17/20 22:03 Zofran IV Q8H PRN Nausea And Vomiting Simple Syrup 15 ml 01/21/20 11:34 Simple Syrup FEEDTUBE PRN PRN Hypoglycemia Simple Syrup 30 ml 01/21/20 11:34 Simple Syrup FEEDTUBE PRN PRN Hypoglycemia Sodium Bicarbonate 325 mg 01/21/20 11:34 Sodium Bicarbonate FEEDTUBE PRN PRN For Clogged Feeding Tube Sodium Chloride 10 ml 01/18/20 10:00 01/25/20 22:51 Sodium Chloride Flush Syringe 10 Ml IV 10 ml BID LIBORIO Administration Sodium Chloride 10 ml 01/17/20 22:03 Sodium Chloride Flush Syringe 10 Ml IV PRN PRN LINE FLUSH Zinc Sulfate 220 mg 01/21/20 10:00 01/25/20 10:53 Zinc Sulfate PO 220 mg QDAY LIBORIO Administration
[2020-01-26] MEDS ORDERED: amLODIPine 5 MG TAB PO SCH (10:00)
[2020-01-26] MEDS: hydrALAZINE 25 MG TAB PO SCH ×3 (12:32→23:40)
[2020-01-26] MEDS: INSULIN NPH/REGULAR 70/30 INJ SUB-Q SCH (12:33)
[2020-01-26] MEDS: DOCUSATE SODIUM 100 MG/10 ML ORAL LIQD PO SCH ×2 (12:34→23:26)
[2020-01-26] MEDS: DEXAMETHASONE 4 MG TAB PO SCH (12:34)
[2020-01-26] MEDS: ENOXAPARIN 40 MG/0.4 ML INJ SUB-Q SCH ×2 (12:34→23:25)
[2020-01-26] MEDS: ASPIRIN 81 MG TAB CHEW PO SCH (12:34)
[2020-01-26] MEDS: ASCORBIC ACID 500 MG TAB PO SCH (12:36)
[2020-01-26] MEDS: ZINC SULFATE 220 MG CAP PO SCH (12:37)
--- NOTE | 2020-01-26 15:09 | Progress Note ---
Assessment and Plan - Patient Problems (1) Sepsis Current Visit: Yes Status: Acute Plan to address problem: Presented with tachycardia, hypoxia, altered mental status, YIMI, CXR shows possible pulmonary edema and COVID-19 PCR positive COVID-19 PCR positive Infectious disease consulted S/p Zosyn s/p cefepime 01/16 blood culture x2 no growth to date 01/16 COVID-19 PCR positive 01/16 UA negative for nitrates and leukocyte esterase 01/17 TTE pending 01/17 MRSA PCR pending (2) Metabolic encephalopathy Current Visit: Yes Status: Acute Plan to address problem: May be multifactorial: Hypernatremia, COVID-19 infection, Sepsis Blood culture x2 no growth to date Infectious disease consulted for COVID-19 infection Nephrology consulted for electrolyte imbalance Neurochecks Fall/aspiration precautions 01/23 patient is following commands intermittently and is more verbal today however he remains bilateral mittens 01/24 patient is oriented to self and follows commands. 01/25 patient is oriented to self and alert, Exchanging pleasantries with RN (3) COVID-19 virus infection Current Visit: Yes Status: Acute Plan to address problem: 01/16 COVID-19 PCR positive Contact/droplet isolation Infectious disease consulted Supplemental oxygen as needed OOB 3 times daily Prone to sleep as needed Patient was on Zosyn and infectious disease changed his antibiotic to cefepime on 01/17 Pulmonary hygiene Trend inflammatory markers Anticoagulation per COVID-19 protocol 01/18 remdesivir initiated through 01/23 01/18 dexamethasone 6 mg p.o. daily for 10 days till 01/28 Patient COVID-19 IgG positive therefore he is not a candidate for convalescent plasma. (4) Acute hypernatremia Current Visit: Yes Status: Acute Plan to address problem: Presented with a sodium of 161 01/17 sodium 164, 165 01/17 IVF changed to D5W at 75 mL/h which was increased on 01/18 100 mL/hr 01/18 sodium 164, 165 Trend BMP, BMP every 12 Avoid rapid correction due to risk of pontine demyelination 01/18 nephrology consulted Patient initiated on tube feedings with free water flushes on 01/18 S/p 2L normal saline bolus in the ED for sepsis 01/19 sodium 163 01/22 sodium 154, 01/23 155, 01/24 sodium 151, 01/25 sodium 148 (5) Hypokalemia Current Visit: Yes Status: Resolved Plan to address problem: 01/22 potassium 3.3, 01/23 3.6, 01/24 3.5, 01/25 potassium 3.6 Repleted Trend BMP Replete as needed (6) Elevated d-dimer Current Visit: Yes Status: Acute Plan to address problem: 01/16 D-dimer greater than 10,000 01/17 VQ scan shows low probability of pulmonary medicine 01/17 bilateral upper and lower extremity venous Dopplers shows no acute DVT Anticoagulation per COVID-19 protocol (7) Acute respiratory failure Current Visit: Yes Status: Acute Plan to address problem: Patient was hypoxic on room air Supplemental oxygen as needed Continuous pulse ox pulmonary hygiene Dexamethasone 6 mg p.o. daily 01/18 through 01/28 (8) Hyperchloremia Current Visit: Yes Status: Acute Plan to address problem: Presented with chloride of 123.6 01/17: 131, 133 01/18 chloride 133, 134, 131 01/19 chloride 133 Patient is on D5W Trend BMP S/p 2 L normal saline bolus in the ED 01/22 chloride 118.5, 01/23 119.5, 01/24 114.2 (9) CVA (cerebral vascular accident) Current Visit: Yes Status: Ruled-out Plan to address problem: Rule out CVA Presented with altered mental status, baseline at custodial is alert and oriented x2 01/16 CT head shows small lacunar infarcts in the ganglial capsular region 01/19 MRI brain shows punctuate focus of ischemia which may be related to microangiopathy in the white matter of the left cerebral hemisphere otherwise no focal mass, hemorrhage, hydrocephalus or acute large infarct seen 01/19 MRA head shows normal basilar artery and internal carotid arteries with normal A1 and M1 segments of the anterior middle cerebral artery. 01/18 EEG pending 01/18 lipid panel: Triglyceride 219, cholesterol 180, LDL 91, HDL 31 01/[address]/OT/PT consulted Neurology consult Aspirin and statin therapy Fall, aspiration, seizure precautions Permissive hypertension for 24 hours, patient is already outside the window now target normotension Target euthermia and euglycemia (10) Diabetes mellitus Current Visit: Yes Status: Chronic Plan to address problem: 01/17 hemoglobin A1c 6.7 SSI Accu-Cheks every 6 hours while n.p.o. 01/18 patient initiated on tube feedings 01/23 Novolin 70/30 4 units twice daily, increased 01/24 to 6 units twice daily (11) Hypertension Current Visit: Yes Status: Chronic Plan to address problem: Patient has a history of hypertension Patient is normotensive at this time We will continue to monitor Restart home antihypertensive regimen when applicable and available Blood pressure monitor per protocol 01/18 patient initiated on amlodipine (12) DVT prophylaxis Current Visit: Yes Status: Acute Plan to address problem: Anticoagulation per COVID-19 protocol, Lovenox 40 twice daily SCDs to bilateral Bed History Interval history: 79-year-old male with HTN and DM who is a resident of a custodial presented to the ED on 01/17 via EMS for evaluation of a change mental status. Per custodial staff patient was not communicating well and having decreased oral intake. Upon arrival to the emergency department patient was found to be tachycardic, febrile to 102.2 and hypoxic with SPO2 of 91 on room air. Work-up was significant for hypernatremia, acute kidney injury (CR/BUN 2.2/55), hypochloremia, transaminitis and a chest x-ray showed mild bilateral pulmonary edema and CTh was unremarkable. Patient was admitted to hospitalist service as a Covid PUI, Sepsis, YIMI and infectious disease and nephrology were consulted. This morning patient is more alert with RN. Repeated speech evaluation was conducted and he failed. I updated the patient's daughter who would like to hold off a decision about PEG till Thursday and would like to see patient improves with speech therapy. This morning patient's urinary treatment and hyperchloremia has improved and his sodium is 148, chloride 111.4. 01/17: elevated D-dimer therefore bilateral upper and lower extremity ultrasounds Dopplers were obtained to rule out DVT and a VQ scan was performed to rule out PE both of which were negative. Patient remained severely hypernatremic and his IV fluids were changed to D5 water. We will trend his BMP. He also has elevated Covid markers ferritin and CRP. 01/18: COVID-19 PCR resulted as positive. Patient remains hyponatremic therefore nephrology was consulted and he was started on FWF and his D5W was increased. 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 Dr. Petersen updated his daughter this morning (Ms. Burleson) and this afternoon after his COVID-19 PCR resulted I updated her. The phone got disconnected after 2 minutes of conversation and informing her of COVID-19 status and I tried calling back twice. Both times it was sent to [employer] and her mailbox is full therefore was not able to leave a message. Patient was also initiated on remdesivir therapy 01/19: MRI head and MRI brain still pending, continue remdesivir therapy, increased free water flush 300 mL every 4 hours and increase the D5W TO 100 mL/h 01/20: Zinc and vitamin C initiated, patient still remains hypernatremic 01/21: Patient remains hypernatremic, no acute events reported overnight 01/22: Patient remains hypernatremic, hyperchloremic though it is improving. Patient still remains with altered mental status and he has bilateral wrist restraints in place. Dr. Petersen updated patient's daughter over the phone today. No acute events reported overnight. Patient was hypokalemic which was repleted. 01/23: His hyperkalemia has resolved. No acute events reported overnight. Patient intermittently follows commands and is more verbal. Today he has bilateral mittens in place. 01/24: Patient has marked improvement in mentation today he is oriented to self and follows commands. Patient is hypokalemic today at 3.5 which was repleted and his hypernatremia and hyperchloremia are improving. Patient failed his swallow eval by speech therapy this morning. I updated daughter over the phone, Olya Pritchard, regarding ST evaluation and labs. I spoke to her about the possibility of a PEG being recommended by ST to which she agreed to as a last resort. Hospitalist Physical - Physical exam Narrative exam: PE not conducted in an attempt to conserve PPE and decrease exposure to COVID-19 - Constitutional Vitals: Temp Pulse Resp BP Pulse Ox 96.9 F L 96 H 17 131/89 91 01/26/20 13:17 01/26/20 13:17 01/26/20 13:17 01/26/20 13:17 01/26/20 13:17 General appearance: Present: no acute distress, obese HEART Score - HEART Score Troponin: Troponin T < 0.010 ng/mL (0.00-0.029) 01/17/20 17:34 Results - Labs CBC & Chem 7: 01/25/20 05:48 01/26/20 05:14 Labs: Laboratory Last Values WBC 17.6 K/mm3 (4.5-11.0) H 01/25/20 05:48 RBC 5.50 M/mm3 (3.65-5.03) H 01/25/20 05:48 Hgb 13.8 gm/dl (11.8-15.2) 01/25/20 05:48 Hct 42.9 % (35.5-45.6) 01/25/20 05:48 MCV 78 fl (84-94) L 01/25/20 05:48 MCH 25 pg (28-32) L 01/25/20 05:48 MCHC 32 % (32-34) 01/25/20 05:48 RDW 14.5 % (13.2-15.2) 01/25/20 05:48 Plt Count 175 K/mm3 (140-440) 01/25/20 05:48 Lymph % (Auto) 8.8 % (13.4-35.0) L 01/25/20 05:48 [place] % (Auto) 3.0 % (0.0-7.3) 01/25/20 05:48 Eos % (Auto) 1.5 % (0.0-4.3) 01/25/20 05:48 Baso % (Auto) 0.4 % (0.0-1.8) 01/25/20 05:48 Lymph # (Auto) 1.5 K/mm3 (1.2-5.4) 01/25/20 05:48 [place] # (Auto) 0.5 K/mm3 (0.0-0.8) 01/25/20 05:48 Eos # (Auto) 0.3 K/mm3 (0.0-0.4) 01/25/20 05:48 Baso # (Auto) 0.1 K/mm3 (0.0-0.1) 01/25/20 05:48 Seg Neutrophils % 86.3 % (40.0-70.0) H 01/25/20 05:48 Seg Neutrophils # 15.2 K/mm3 (1.8-7.7) H 01/25/20 05:48 PT 15.0 Sec. (12.2-14.9) H 01/18/20 07:45 INR 1.16 (0.87-1.13) H 01/18/20 07:45 APTT 31.0 Sec. (24.2-36.6) 01/17/20 17:34 D-Dimer 3001.60 ng/mlDDU (0-234) H 01/22/20 07:46 Sodium 148 mmol/L (137-145) H 01/26/20 05:14 Potassium 3.6 mmol/L (3.6-5.0) 01/26/20 05:14 Chloride 111.4 mmol/L (98-107) H 01/26/20 05:14 Carbon Dioxide 29 mmol/L (22-30) 01/26/20 05:14 Anion Gap 11 mmol/L 01/26/20 05:14 BUN 21 mg/dL (9-20) H 01/26/20 05:14 Creatinine 0.7 mg/dL (0.8-1.3) L 01/26/20 05:14 Estimated GFR > 60 ml/min 01/26/20 05:14 BUN/Creatinine Ratio 30 % 01/26/20 05:14 Glucose 153 mg/dL (75-100) H 01/26/20 05:14 POC Glucose 160 mg/dL (70-105) H 01/26/20 12:54 Hemoglobin A1c 6.7 % (4-6) H 01/18/20 16:04 Lactic Acid 1.80 mmol/L (0.7-2.0) 01/17/20 19:40 Calcium 9.4 mg/dL (8.4-10.2) 01/26/20 05:14 Magnesium 2.00 mg/dL (1.7-2.3) 01/26/20 05:14 Ferritin 3748.0 ng/mL (30.0-300.0) H 01/22/20 07:46 Total Bilirubin 0.40 mg/dL (0.1-1.2) 01/20/20 05:39 Direct Bilirubin < 0.2 mg/dL (0-0.2) 01/20/20 05:39 Indirect Bilirubin 0.2 mg/dL 01/20/20 05:39 AST 60 units/L (5-40) H 01/20/20 05:39 ALT 44 units/L (7-56) 01/20/20 05:39 Alkaline Phosphatase 64 units/L (35-129) 01/20/20 05:39 Ammonia 38.0 umol/L (25-60) 01/17/20 17:34 Lactate Dehydrogenase 368 units/L (91-180) H 01/22/20 07:46 Total Creatine Kinase 164 units/L (55-170) 01/17/20 17:34 Troponin T < 0.010 ng/mL (0.00-0.029) 01/17/20 17:34 C-Reactive Protein 2.90 mg/dL (0.00-1.30) H 01/22/20 07:46 Total Protein 7.0 g/dL (6.3-8.2) 01/20/20 05:39 Albumin 2.8 g/dL (3.9-5) L 01/20/20 05:39 Albumin/Globulin Ratio 0.7 % 01/20/20 05:39 Triglycerides 219 mg/dL (2-149) H 01/18/20 16:04 Cholesterol 180 mg/dL (50-199) 01/18/20 16:04 LDL Cholesterol Direct 91 mg/dL (50-130) 01/18/20 16:04 HDL Cholesterol 37 mg/dL (40-59) L 01/18/20 16:04 Cholesterol/HDL Ratio 4.86 % 01/18/20 16:04 Procalcitonin 0.15 ng/mL (<0.15) 01/17/20 21:39 Urine Color Yellow (Yellow) 01/17/20 19:30 Urine Turbidity Clear (Clear) 01/17/20 19:30 Urine pH 5.0 (5.0-7.0) 01/17/20 19:30 Ur Specific [place] 1.016 (1.003-1.030) 01/17/20 19:30 Urine Protein 100 mg/dl mg/dL (Negative) 01/17/20 19:30 Urine Glucose (UA) Neg mg/dL (Negative) 01/17/20 19:30 Urine Ketones Neg mg/dL (Negative) 01/17/20 19:30 Urine Blood Sm (Negative) 01/17/20 19:30 Urine Nitrite Neg (Negative) 01/17/20 19:30 Urine Bilirubin Neg (Negative) 01/17/20 19:30 Urine Urobilinogen < 2.0 mg/dL (<2.0) 01/17/20 19:30 Ur Leukocyte Esterase Neg (Negative) 01/17/20 19:30 Urine WBC (Auto) 2.0 /HPF (0.0-6.0) 01/17/20 19:30 Urine RBC (Auto) 6.0 /HPF (0.0-6.0) 01/17/20 19:30 U Epithel Cells (Auto) < 1.0 /HPF (0-13.0) 01/17/20 19:30 Urine Bacteria (Auto) 1+ /HPF (Negative) 01/17/20 19:30 Urine Mucus Few /HPF 01/17/20 19:30 Coronavirus (PCR) Positive (Negative) A 01/19/20 Unknown SARS-CoV-2 IgG Ab Reactive (NonReactive) A 01/19/20 17:52 Moses/IV: Voiding Method Condom Catheter IV Catheter Type [Left Forearm INT / Saline Lock ] IV Catheter Type [Right INT / Saline Lock Antecubital] Active Medications - Current Medications Current Medications: Generic Name Dose Route Start Last Admin Trade Name Freq PRN Reason Stop Dose Admin Acetaminophen 650 mg 01/17/20 22:03 01/25/20 10:53 Tylenol PO 650 mg Q4H PRN Administration Pain MILD(1-3)/Fever >100.5/FORD Amlodipine Besylate 5 mg 01/24/20 10:00 01/26/20 12:33 Amlodipine PO 5 mg QDAY LIBORIO Administration Lipase/Protease/Amylase 1 each 01/21/20 11:[address] 10,500 Unit FEEDTUBE PRN PRN For Clogged Feeding Tube Ascorbic Acid 500 mg 01/21/20 10:00 01/26/20 12:36 Vitamin C PO 500 mg QDAY LIBORIO Administration Aspirin 81 mg 01/19/20 18:00 01/26/20 12:34 Baby Aspirin PO 81 mg QDAY LIBORIO Administration Atorvastatin Calcium 40 mg 01/19/20 22:00 01/25/20 22:50 Lipitor PO 40 mg QHS LIBORIO Administration Dexamethasone 6 mg 01/19/20 13:00 01/26/20 12:34 Decadron PO 01/28/20 10:01 6 mg DAILY LIBORIO Administration Dextrose 50 ml 01/18/20 16:00 D50w (25gm) Syringe IV Q30MIN PRN Hypoglycemia Protocol Docusate Sodium 100 mg 01/20/20 10:00 01/26/20 12:34 Colace PO Not Given BID LIBORIO Enoxaparin Sodium 40 mg 01/18/20 22:00 01/26/20 12:34 Enoxaparin SUB-Q 40 mg BID LIBORIO Administration Protocol Hydralazine HCl 25 mg 01/26/20 08:00 01/26/20 12:32 Apresoline PO 25 mg Q8HR LIBORIO Administration Dextrose 1,000 mls @ 125 mls/hr 01/20/20 09:00 01/26/20 06:10 D5w IV 125 mls/hr DIRECT LIBORIO Administration Insulin Human Isoph/Insulin Regular 6 unit 01/26/20 08:00 01/26/20 12:33 Humulin 70/30 SUB-Q 6 unit QDDIAB LIBORIO Administration Insulin Human Regular 0 unit 01/18/20 16:00 01/26/20 13:42 Humulin R SUB-Q 3 unit Q6HR LIBORIO Administration Protocol Magnesium Hydroxide 30 ml 01/17/20 22:03 Milk Of Magnesia PO Q4H PRN Constipation Ondansetron HCl 4 mg 01/17/20 22:03 Zofran IV Q8H PRN Nausea And Vomiting Simple Syrup 15 ml 01/21/20 11:34 Simple Syrup FEEDTUBE PRN PRN Hypoglycemia Simple Syrup 30 ml 01/21/20 11:34 Simple Syrup FEEDTUBE PRN PRN Hypoglycemia Sodium Bicarbonate 325 mg 01/21/20 11:34 Sodium Bicarbonate FEEDTUBE PRN PRN For Clogged Feeding Tube Sodium Chloride 10 ml 01/18/20 10:00 01/26/20 12:35 Sodium Chloride Flush Syringe 10 Ml IV 10 ml BID LIBORIO Administration Sodium Chloride 10 ml 01/17/20 22:03 Sodium Chloride Flush Syringe 10 Ml IV PRN PRN LINE FLUSH Zinc Sulfate 220 mg 01/21/20 10:00 01/26/20 12:37 Zinc Sulfate PO 220 mg QDAY LIBORIO Administration Nutrition/Malnutrition Assess - Dietary Evaluation Nutrition/Malnutrition Findings: Nutrition Notes Start: 01/19/20 10:13 Freq: Status: Active Protocol: Document 01/23/20 11:31 EVANGELISTA (Rec: 01/23/20 11:37 EVANGELISTA [id number]) Nutrition Notes Initial or Follow up Reassessment Current Diagnosis Diabetes,Hypertension,Stroke Other Pertinent Diagnosis COVID-19 (+), AMS, CVA, Dysphagia Current Diet TF - Glucerna 1.2 at 65ml/hr Labs/Tests Na 154 K 3.3 BUN 21 BG 200 Pertinent Medications reviewed Height 5 ft 11 in Weight 88.4 kg Hana Body Weight (kg) 78.18 BMI 27.1 Subjective/Other Information Pt tolerating TF at goal rate. Na lab improved since yesterday. Pt continues to receive 300ml water flush q4h. Percent of energy/protein needs met: 95% energy 100% pro Burn Absent Trauma Absent #1 Nutrition Diagnosis Inadequate oral intake Diagnosis Progress(for reassessment Continues documentation) Is patient on ventilator? No Is Patient Ambulatory and/or Out of Bed No REE-([place]-confined to bed) 1963.680 Calculation Used for Recommendations [place] Additional Notes Pro needs 1-1.2g/k-106g/ day Fluid needs per MD Nutrition Intervention Nutrition Support: Continue Glucerna 1.2 at 65 ml /hr with 300ml water flush q4h . Kcal 1,872 Protein (gm) 94 Fluid (mL) 1,256 Goal #1 TF tolerance Goal #2 TF to meet at least 75% energy and pro needs Follow-Up By: 01/27/20 Additional Comments F/U: Na lab/water flushes
--- NOTE | 2020-01-26 20:59 | Progress Note ---
Assessment and Plan - Patient Problems (1) Acute hypernatremia Current Visit: Yes Status: Acute Plan to address problem: Sodium improving. Continue free water replacement and follow-up level (2) Encephalopathy Current Visit: Yes Status: Acute Plan to address problem: Monitor mental status (3) Pneumonia due to COVID-19 virus Current Visit: Yes Status: Acute Plan to address problem: Continue IV steroids, remdesivir and monitor inflammatory markers (4) Diabetes mellitus Current Visit: Yes Status: Chronic Plan to address problem: Blood sugar management by primary attending (5) Hypertension Current Visit: Yes Status: Chronic Plan to address problem: Follow-up blood pressure on current medications (6) Acute kidney injury Current Visit: Yes Status: Resolved Plan to address problem: Kidney function has improved to normal. Follow-up kidney function (7) Hypokalemia Current Visit: Yes Status: Resolved Plan to address problem: potassium is now low normal. follow-up level Subjective Date of service: 01/26/20 Principal diagnosis: COVID-19 pneumonia Interval history: Patient was not examined due to the COVID-19 pandemic and the need for PPE conservation Chart reviewed Objective - Exam Narrative Exam: Patient was not examined today due to the COVID-19 pandemic and need to conserve PPE - Vital Signs Vital signs: Vital Signs - 12hr 01/26/20 01/26/20 13:17 16:32 Temperature 96.9 F L 98.1 F Pulse Rate 96 H 100 H Respiratory 17 17 Rate Blood Pressure 131/89 144/90 O2 Sat by Pulse 91 92 Oximetry - Lab 01/25/20 05:48 01/26/20 05:14 Most recent lab results Calcium 9.4 mg/dL (8.4-10.2) 01/26/20 05:14 Magnesium 2.00 mg/dL (1.7-2.3) 01/26/20 05:14 Medications & Allergies - Medications Allergies/Adverse Reactions: Allergies No Known Allergies Allergy (Verified 01/17/20 22:09) Home Medications: Home Medications Medication Instructions Recorded Confirmed Last Taken Type No Known Home Medications [No 01/20/20 01/20/20 Unknown History Reported Home Medications] Active Medications: Generic Name Dose Route Start Last Admin Trade Name Freq PRN Reason Stop Dose Admin Acetaminophen 650 mg 01/17/20 22:03 01/25/20 10:53 Tylenol PO 650 mg Q4H PRN Administration Pain MILD(1-3)/Fever >100.5/FORD Amlodipine Besylate 5 mg 01/24/20 10:00 01/26/20 12:33 Amlodipine PO 5 mg QDAY LIBORIO Administration Lipase/Protease/Amylase 1 each 01/21/20 11:34 Pancrenick Urrutia 10,500 Unit FEEDTUBE PRN PRN For Clogged Feeding Tube Ascorbic Acid 500 mg 01/21/20 10:00 01/26/20 12:36 Vitamin C PO 500 mg QDAY LIBORIO Administration Aspirin 81 mg 01/19/20 18:00 01/26/20 12:34 Baby Aspirin PO 81 mg QDAY LIBORIO Administration Atorvastatin Calcium 40 mg 01/19/20 22:00 01/25/20 22:50 Lipitor PO 40 mg QHS LIBORIO Administration Dexamethasone 6 mg 01/19/20 13:00 01/26/20 12:34 Decadron PO 01/28/20 10:01 6 mg DAILY LIBORIO Administration Dextrose 50 ml 01/18/20 16:00 D50w (25gm) Syringe IV Q30MIN PRN Hypoglycemia Protocol Docusate Sodium 100 mg 01/20/20 10:00 01/26/20 12:34 Colace PO Not Given BID LIBORIO Enoxaparin Sodium 40 mg 01/18/20 22:00 01/26/20 12:34 Enoxaparin SUB-Q 40 mg BID LIBORIO Administration Protocol Hydralazine HCl 25 mg 01/26/20 08:00 01/26/20 16:14 Apresoline PO Not Given Q8HR LIBORIO Dextrose 1,000 mls @ 125 mls/hr 01/20/20 09:00 01/26/20 16:14 D5w IV 125 mls/hr DIRECT LIBORIO Administration Insulin Human Isoph/Insulin Regular 6 unit 01/26/20 08:00 01/26/20 12:33 Humulin 70/30 SUB-Q 6 unit QDDIAB LIBORIO Administration Insulin Human Regular 0 unit 01/18/20 16:00 01/26/20 17:10 Humulin R SUB-Q 4 unit Q6HR LIBORIO Administration Protocol Magnesium Hydroxide 30 ml 01/17/20 22:03 Milk Of Magnesia PO Q4H PRN Constipation Ondansetron HCl 4 mg 01/17/20 22:03 Zofran IV Q8H PRN Nausea And Vomiting Simple Syrup 15 ml 01/21/20 11:34 Simple Syrup FEEDTUBE PRN PRN Hypoglycemia Simple Syrup 30 ml 01/21/20 11:34 Simple Syrup FEEDTUBE PRN PRN Hypoglycemia Sodium Bicarbonate 325 mg 01/21/20 11:34 Sodium Bicarbonate FEEDTUBE PRN PRN For Clogged Feeding Tube Sodium Chloride 10 ml 01/18/20 10:00 01/26/20 12:35 Sodium Chloride Flush Syringe 10 Ml IV 10 ml BID LIBORIO Administration Sodium Chloride 10 ml 01/17/20 22:03 Sodium Chloride Flush Syringe 10 Ml IV PRN PRN LINE FLUSH Zinc Sulfate 220 mg 01/21/20 10:00 01/26/20 12:37 Zinc Sulfate PO 220 mg QDAY LIBORIO Administration
[2020-01-27] MEDS: hydrALAZINE 25 MG TAB PO SCH ×3 (07:00→21:28)
[2020-01-27] MEDS: INSULIN REGULAR, HUMAN 100 UNIT/ML 3ML VIAL SUB-Q SCH ×4 (07:15→17:42)
[2020-01-27 08:46] LABS: Hematocrit 42.7 % (35.5-45.6); Hemoglobin 13.6 gm/dl (11.8-15.2); Mean Corpuscular HGB Conc 32 % (32-34); Mean Corpuscular Volume 78 fl (84-94); Platelet Count 173 K/mm3 (140-440); Red Blood Count 5.48 M/mm3 (3.65-5.03); Red Cell Distribution Width 14.5 % (13.2-15.2)
[2020-01-27 10:04] LABS: Blood Urea Nitrogen 20 mg/dL (9-20); Hemolysis Index 20
[2020-01-27 10:05] LABS: BUN/Creatinine Ratio 33
--- NOTE | 2020-01-27 11:18 | Progress Note ---
Assessment and Plan - Patient Problems (1) Acute hypernatremia Current Visit: Yes Status: Acute Plan to address problem: Sodium improved. DC intravenous fluids and continue free water replacement enterally (2) Encephalopathy Current Visit: Yes Status: Acute Plan to address problem: Monitor mental status (3) Pneumonia due to COVID-19 virus Current Visit: Yes Status: Acute Plan to address problem: Continue IV steroids, remdesivir and monitor inflammatory markers (4) Diabetes mellitus Current Visit: Yes Status: Chronic Plan to address problem: Blood sugar management by primary attending (5) Hypertension Current Visit: Yes Status: Chronic Plan to address problem: Follow-up blood pressure on current medications (6) Acute kidney injury Current Visit: Yes Status: Resolved Plan to address problem: Kidney function has improved to normal. Follow-up kidney function (7) Hypokalemia Current Visit: Yes Status: Resolved Plan to address problem: potassium has improved to normal. follow-up level Subjective Date of service: 01/27/20 Principal diagnosis: COVID-19 pneumonia Interval history: Patient was not examined due to the COVID-19 pandemic and the need for PPE conservation Chart reviewed Objective - Exam Narrative Exam: Patient was not examined today due to the COVID-19 pandemic and need to conserve PPE - Vital Signs Vital signs: Vital Signs - 12hr 01/26/20 01/26/20 01/27/20 23:40 23:51 06:53 Temperature 97.4 F L 98.0 F Pulse Rate 80 79 57 L Respiratory 20 20 Rate Blood Pressure 145/83 149/88 154/87 O2 Sat by Pulse 95 93 Oximetry 01/27/20 07:00 Temperature Pulse Rate 67 Respiratory Rate Blood Pressure 154/87 O2 Sat by Pulse Oximetry - Lab 01/27/20 08:14 01/27/20 08:14 Most recent lab results Calcium 9.0 mg/dL (8.4-10.2) 01/27/20 08:14 Magnesium 2.00 mg/dL (1.7-2.3) 01/26/20 05:14 Medications & Allergies - Medications Allergies/Adverse Reactions: Allergies No Known Allergies Allergy (Verified 01/17/20 22:09) Home Medications: Home Medications Medication Instructions Recorded Confirmed Last Taken Type No Known Home Medications [No 01/20/20 01/20/20 Unknown History Reported Home Medications] Active Medications: Generic Name Dose Route Start Last Admin Trade Name Freq PRN Reason Stop Dose Admin Acetaminophen 650 mg 01/17/20 22:03 01/25/20 10:53 Tylenol PO 650 mg Q4H PRN Administration Pain MILD(1-3)/Fever >100.5/FORD Amlodipine Besylate 5 mg 01/24/20 10:00 01/26/20 12:33 Amlodipine PO 5 mg QDAY LIBORIO Administration Lipase/Protease/Amylase 1 each 01/21/20 11:34 Pancreaze 10,500 Unit FEEDTUBE PRN PRN For Clogged Feeding Tube Ascorbic Acid 500 mg 01/21/20 10:00 01/26/20 12:36 Vitamin C PO 500 mg QDAY LIBORIO Administration Aspirin 81 mg 01/19/20 18:00 01/26/20 12:34 Baby Aspirin PO 81 mg QDAY LIBORIO Administration Atorvastatin Calcium 40 mg 01/19/20 22:00 01/26/20 23:25 Lipitor PO 40 mg QHS LIBORIO Administration Dexamethasone 6 mg 01/19/20 13:00 01/26/20 12:34 Decadron PO 01/28/20 10:01 6 mg DAILY [facility]ORIO Administration Dextrose 50 ml 01/18/20 16:00 D50w (25gm) Syringe IV Q30MIN PRN Hypoglycemia Protocol Docusate Sodium 100 mg 01/20/20 10:00 01/26/20 23:26 Colace PO 100 mg BID LIBORIO Administration Enoxaparin Sodium 40 mg 01/18/20 22:00 01/26/20 23:25 Enoxaparin SUB-Q 40 mg BID [facility]ORIO Administration Protocol Hydralazine HCl 25 mg 01/26/20 08:00 01/27/20 07:00 Apresoline PO 25 mg Q8HR LIBORIO Administration Insulin Human Isoph/Insulin Regular 8 unit 01/27/20 08:45 Humulin 70/30 SUB-Q QDDIAB LIBORIO Insulin Human Regular 0 unit 01/18/20 16:00 01/27/20 07:15 Humulin R SUB-Q 3 unit Q6HR LIBORIO Administration Protocol Magnesium Hydroxide 30 ml 01/17/20 22:03 Milk Of Magnesia PO Q4H PRN Constipation Ondansetron HCl 4 mg 01/17/20 22:03 Zofran IV Q8H PRN Nausea And Vomiting Simple Syrup 15 ml 01/21/20 11:34 Simple Syrup FEEDTUBE PRN PRN Hypoglycemia Simple Syrup 30 ml 01/21/20 11:34 Simple Syrup FEEDTUBE PRN PRN Hypoglycemia Sodium Bicarbonate 325 mg 01/21/20 11:34 Sodium Bicarbonate FEEDTUBE PRN PRN For Clogged Feeding Tube Sodium Chloride 10 ml 01/18/20 10:00 01/26/20 23:27 Sodium Chloride Flush Syringe 10 Ml IV 10 ml BID [facility]ORIO Administration Sodium Chloride 10 ml 01/17/20 22:03 Sodium Chloride Flush Syringe 10 Ml IV PRN PRN LINE FLUSH Zinc Sulfate 220 mg 01/21/20 10:00 01/26/20 12:37 Zinc Sulfate PO 220 mg QDAY LIBORIO Administration
[2020-01-27] MEDS: ENOXAPARIN 40 MG/0.4 ML INJ SUB-Q SCH ×2 (13:53→21:28)
[2020-01-27] MEDS: amLODIPine 5 MG TAB PO SCH (13:53)
[2020-01-27] MEDS: INSULIN NPH/REGULAR 70/30 INJ SUB-Q SCH ×2 (13:53→13:54)
[2020-01-27] MEDS: DEXAMETHASONE 4 MG TAB PO SCH (13:54)
[2020-01-27] MEDS: ASCORBIC ACID 500 MG TAB PO SCH (13:54)
[2020-01-27] MEDS: ASPIRIN 81 MG TAB CHEW PO SCH (13:54)
[2020-01-27] MEDS: ZINC SULFATE 220 MG CAP PO SCH (14:02)
[2020-01-27] MEDS: DOCUSATE SODIUM 100 MG/10 ML ORAL LIQD PO SCH ×2 (14:03→21:28)
--- NOTE | 2020-01-27 14:26 | Progress Note ---
Assessment and Plan - Patient Problems (1) Sepsis Current Visit: Yes Status: Acute Plan to address problem: Presented with tachycardia, hypoxia, altered mental status, YIMI, CXR shows possible pulmonary edema and COVID-19 PCR positive COVID-19 PCR positive Infectious disease consulted S/p Zosyn s/p cefepime 01/16 blood culture x2 no growth to date 01/16 COVID-19 PCR positive 01/16 UA negative for nitrates and leukocyte esterase 01/17 TTE pending 01/17 MRSA PCR pending (2) Metabolic encephalopathy Current Visit: Yes Status: Acute Plan to address problem: May be multifactorial: Hypernatremia, COVID-19 infection, Sepsis Blood culture x2 no growth to date Infectious disease consulted for COVID-19 infection Nephrology consulted for electrolyte imbalance Neurochecks Fall/aspiration precautions 01/23 patient is following commands intermittently and is more verbal today however he remains bilateral mittens 01/24 patient is oriented to self and follows commands. 01/25 patient is oriented to self and alert, Exchanging pleasantries with RN 01/26 patient is awake and oriented to self and following commands and able to hold conversation (3) COVID-19 virus infection Current Visit: Yes Status: Acute Plan to address problem: 01/16 COVID-19 PCR positive Contact/droplet isolation Infectious disease consulted Supplemental oxygen as needed OOB 3 times daily Prone to sleep as needed Patient was on Zosyn and infectious disease changed his antibiotic to cefepime on 01/17 Pulmonary hygiene Trend inflammatory markers Anticoagulation per COVID-19 protocol 01/18 remdesivir initiated through 01/23 01/18 dexamethasone 6 mg p.o. daily for 10 days till 01/28 Patient COVID-19 IgG positive therefore he is not a candidate for convalescent plasma. (4) Acute hypernatremia Current Visit: Yes Status: Resolved Plan to address problem: Presented with a sodium of 161 01/17 sodium 164, 165 01/17 IVF changed to D5W and titrated up given persistent hypernatremia however it was was discontinued today on 01/26 01/18 sodium 164, 165 Trend BMP, BMP every 12 Avoid rapid correction due to risk of pontine demyelination 01/18 nephrology consulted Patient initiated on tube feedings with free water flushes on 01/18 S/p 2L normal saline bolus in the ED for sepsis 01/19 sodium 163 01/22 sodium 154, 01/23 155, 01/24 sodium 151, 01/25 sodium 148, 02/03 sodium 137 (5) Hypokalemia Current Visit: Yes Status: Resolved Plan to address problem: 01/22 potassium 3.3, 01/23 3.6, 01/24 3.5, 01/25 potassium 3.6, 01/26 potassium 4.2 Repleted Trend BMP Replete as needed (6) Elevated d-dimer Current Visit: Yes Status: Acute Plan to address problem: 01/16 D-dimer greater than 10,000 01/17 VQ scan shows low probability of pulmonary medicine 01/17 bilateral upper and lower extremity venous Dopplers shows no acute DVT Anticoagulation per COVID-19 protocol (7) Acute respiratory failure Current Visit: Yes Status: Acute Qualifiers: Respiratory failure complication: hypoxia Qualified Code(s): J96.01 - Acute respiratory failure with hypoxia Plan to address problem: Patient was hypoxic on room air Supplemental oxygen as needed Continuous pulse ox pulmonary hygiene Dexamethasone 6 mg p.o. daily 01/18 through 01/28 (8) Hyperchloremia Current Visit: Yes Status: Resolved Plan to address problem: Presented with chloride of 123.6 01/17: 131, 133 01/18 chloride 133, 134, 131 01/19 chloride 133 Patient is on D5W Trend BMP S/p 2 L normal saline bolus in the ED 01/22 chloride 118.5, 01/23 119.5, 01/24 114.2, 01/25 111.4, 01/26 chloride 102.7 (9) Diabetes mellitus Current Visit: Yes Status: Chronic Plan to address problem: 01/17 hemoglobin A1c 6.7 SSI Accu-Cheks every 6 hours while n.p.o. 01/18 patient initiated on tube feedings 01/23 Novolin 70/30 4 units twice daily, increased 01/24 to 6 units twice daily 01/26 Novolin 70/30 increased to 6 units twice daily given persistent hyperglycemia however anticipate change in dosage due to stopping D5W today (10) Hypertension Current Visit: Yes Status: Chronic Plan to address problem: Patient has a history of hypertension Patient is normotensive at this time We will continue to monitor Restart home antihypertensive regimen when applicable and available Blood pressure monitor per protocol 01/18 patient initiated on amlodipine (11) DVT prophylaxis Current Visit: Yes Status: Acute Plan to address problem: Anticoagulation per COVID-19 protocol, Lovenox 40 twice daily SCDs to bilateral Bed History Interval history: 79-year-old male with HTN and DM who is a resident of a custodial presented to the ED on 01/17 via EMS for evaluation of a change mental status. Per custodial staff patient was not communicating well and having decreased oral intake. Upon arrival to the emergency department patient was found to be tachycardic, febrile to 102.2 and hypoxic with SPO2 of 91 on room air. Work-up was significant for hypernatremia, acute kidney injury (CR/BUN 2.2/55), hypochloremia, transaminitis and a chest x-ray showed mild bilateral pulmonary edema and CTh was unremarkable. Patient was admitted to hospitalist service as a Covid PUI, Sepsis, YIMI and infectious disease and nephrology were consulted. Today his sodium is 137 and his chloride is 102 therefore IV D5W stopped. Patient still has leukocytosis at 19.1 however he is on steroid therapy. Patient is more alert and awake today. Per ST evaluation yesterday patient was pocketing his food and not swallowing. This morning patient agreed to swallow his food and we were participating in his speech therapy evaluations going forward. Patient states that he does not want a PEG tube to be placed. 01/17: elevated D-dimer therefore bilateral upper and lower extremity ultrasounds Dopplers were obtained to rule out DVT and a VQ scan was performed to rule out PE both of which were negative. Patient remained severely hypernatremic and his IV fluids were changed to D5 water. We will trend his BMP. He also has elevated Covid markers ferritin and CRP. 01/18: COVID-19 PCR resulted as positive. Patient remains hyponatremic therefore nephrology was consulted and he was started on FWF and his D5W was increased. 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 Dr. Petersen updated his daughter this morning (Ms. Burleson) and this afternoon after his COVID-19 PCR resulted I updated her. The phone got disconnected after 2 minutes of conversation and informing her of COVID-19 status and I tried calling back twice. Both times it was sent to [facility] and her mailbox is full therefore was not able to leave a message. Patient was also initiated on remdesivir therapy 01/19: MRI head and MRI brain still pending, continue remdesivir therapy, increased free water flush 300 mL every 4 hours and increase the D5W TO 100 mL/h 01/20: Zinc and vitamin C initiated, patient still remains hypernatremic 01/21: Patient remains hypernatremic, no acute events reported overnight 01/22: Patient remains hypernatremic, hyperchloremic though it is improving. Patient still remains with altered mental status and he has bilateral wrist restraints in place. Dr. Petersen updated patient's daughter over the phone today. No acute events reported overnight. Patient was hypokalemic which was repleted. 01/23: His hyperkalemia has resolved. No acute events reported overnight. Patient intermittently follows commands and is more verbal. Today he has bilateral mittens in place. 01/24: Patient has marked improvement in mentation today he is oriented to self and follows commands. Patient is hypokalemic today at 3.5 which was repleted and his hypernatremia and hyperchloremia are improving. Patient failed his swallow eval by speech therapy this morning. I updated daughter over the phone, Olya Pritchard, regarding ST evaluation and labs. I spoke to her about the possibility of a PEG being recommended by ST to which she agreed to as a last resort. 01/25: This morning patient is more alert with RN. Repeated speech evaluation was conducted and he failed. I updated the patient's daughter who would like to hold off a decision about PEG till Thursday and would like to see patient improves with speech therapy. This morning patient's hypernatremia and hyperchloremia has improved and his sodium is 148, chloride 111.4. Hospitalist Physical - Constitutional Vitals: Temp Pulse Resp BP Pulse Ox 98.0 F 67 20 154/87 93 01/27/20 06:53 01/27/20 07:00 01/27/20 06:53 01/27/20 07:00 01/27/20 06:53 General appearance: Present: no acute distress, obese HEART Score - HEART Score Troponin: Troponin T < 0.010 ng/mL (0.00-0.029) 01/17/20 17:34 Results - Labs CBC & Chem 7: 01/27/20 08:14 01/27/20 08:14 Labs: Laboratory Last Values WBC 19.1 K/mm3 (4.5-11.0) H 01/27/20 08:14 RBC 5.48 M/mm3 (3.65-5.03) H 01/27/20 08:14 Hgb 13.6 gm/dl (11.8-15.2) 01/27/20 08:14 Hct 42.7 % (35.5-45.6) 01/27/20 08:14 MCV 78 fl (84-94) L 01/27/20 08:14 MCH 25 pg (28-32) L 01/27/20 08:14 MCHC 32 % (32-34) 01/27/20 08:14 RDW 14.5 % (13.2-15.2) 01/27/20 08:14 Plt Count 173 K/mm3 (140-440) 01/27/20 08:14 Lymph % (Auto) 8.8 % (13.4-35.0) L 01/25/20 05:48 [place] % (Auto) 3.0 % (0.0-7.3) 01/25/20 05:48 Eos % (Auto) 1.5 % (0.0-4.3) 01/25/20 05:48 Baso % (Auto) 0.4 % (0.0-1.8) 01/25/20 05:48 Lymph # (Auto) 1.5 K/mm3 (1.2-5.4) 01/25/20 05:48 [place] # (Auto) 0.5 K/mm3 (0.0-0.8) 01/25/20 05:48 Eos # (Auto) 0.3 K/mm3 (0.0-0.4) 01/25/20 05:48 Baso # (Auto) 0.1 K/mm3 (0.0-0.1) 01/25/20 05:48 Seg Neutrophils % 86.3 % (40.0-70.0) H 01/25/20 05:48 Seg Neutrophils # 15.2 K/mm3 (1.8-7.7) H 01/25/20 05:48 PT 15.0 Sec. (12.2-14.9) H 01/18/20 07:45 INR 1.16 (0.87-1.13) H 01/18/20 07:45 APTT 31.0 Sec. (24.2-36.6) 01/17/20 17:34 D-Dimer 3001.60 ng/mlDDU (0-234) H 01/22/20 07:46 Sodium 137 mmol/L (137-145) D 01/27/20 08:14 Potassium 4.2 mmol/L (3.6-5.0) 01/27/20 08:14 Chloride 102.7 mmol/L (98-107) 01/27/20 08:14 Carbon Dioxide 24 mmol/L (22-30) 01/27/20 08:14 Anion Gap 15 mmol/L 01/27/20 08:14 BUN 20 mg/dL (9-20) 01/27/20 08:14 Creatinine 0.6 mg/dL (0.8-1.3) L 01/27/20 08:14 Estimated GFR > 60 ml/min 01/27/20 08:14 BUN/Creatinine Ratio 33 % 01/27/20 08:14 Glucose 229 mg/dL (75-100) H 01/27/20 08:14 POC Glucose 187 mg/dL (70-105) H 01/27/20 12:39 Hemoglobin A1c 6.7 % (4-6) H 01/18/20 16:04 Lactic Acid 1.80 mmol/L (0.7-2.0) 01/17/20 19:40 Calcium 9.0 mg/dL (8.4-10.2) 01/27/20 08:14 Magnesium 2.00 mg/dL (1.7-2.3) 01/26/20 05:14 Ferritin 3748.0 ng/mL (30.0-300.0) H 01/22/20 07:46 Total Bilirubin 0.40 mg/dL (0.1-1.2) 01/20/20 05:39 Direct Bilirubin < 0.2 mg/dL (0-0.2) 01/20/20 05:39 Indirect Bilirubin 0.2 mg/dL 01/20/20 05:39 AST 60 units/L (5-40) H 01/20/20 05:39 ALT 44 units/L (7-56) 01/20/20 05:39 Alkaline Phosphatase 64 units/L (35-129) 01/20/20 05:39 Ammonia 38.0 umol/L (25-60) 01/17/20 17:34 Lactate Dehydrogenase 368 units/L (91-180) H 01/22/20 07:46 Total Creatine Kinase 164 units/L (55-170) 01/17/20 17:34 Troponin T < 0.010 ng/mL (0.00-0.029) 01/17/20 17:34 C-Reactive Protein 2.90 mg/dL (0.00-1.30) H 01/22/20 07:46 Total Protein 7.0 g/dL (6.3-8.2) 01/20/20 05:39 Albumin 2.8 g/dL (3.9-5) L 01/20/20 05:39 Albumin/Globulin Ratio 0.7 % 01/20/20 05:39 Triglycerides 219 mg/dL (2-149) H 01/18/20 16:04 Cholesterol 180 mg/dL (50-199) 01/18/20 16:04 LDL Cholesterol Direct 91 mg/dL (50-130) 01/18/20 16:04 HDL Cholesterol 37 mg/dL (40-59) L 01/18/20 16:04 Cholesterol/HDL Ratio 4.86 % 01/18/20 16:04 Procalcitonin 0.15 ng/mL (<0.15) 01/17/20 21:39 Urine Color Yellow (Yellow) 01/17/20 19:30 Urine Turbidity Clear (Clear) 01/17/20 19:30 Urine pH 5.0 (5.0-7.0) 01/17/20 19:30 Ur Specific [place] 1.016 (1.003-1.030) 01/17/20 19:30 Urine Protein 100 mg/dl mg/dL (Negative) 01/17/20 19:30 Urine Glucose (UA) Neg mg/dL (Negative) 01/17/20 19:30 Urine Ketones Neg mg/dL (Negative) 01/17/20 19:30 Urine Blood Sm (Negative) 01/17/20 19:30 Urine Nitrite Neg (Negative) 01/17/20 19:30 Urine Bilirubin Neg (Negative) 01/17/20 19:30 Urine Urobilinogen < 2.0 mg/dL (<2.0) 01/17/20 19:30 Ur Leukocyte Esterase Neg (Negative) 01/17/20 19:30 Urine WBC (Auto) 2.0 /HPF (0.0-6.0) 01/17/20 19:30 Urine RBC (Auto) 6.0 /HPF (0.0-6.0) 01/17/20 19:30 U Epithel Cells (Auto) < 1.0 /HPF (0-13.0) 01/17/20 19:30 Urine Bacteria (Auto) 1+ /HPF (Negative) 01/17/20 19:30 Urine Mucus Few /HPF 01/17/20 19:30 Coronavirus (PCR) Positive (Negative) A 01/19/20 Unknown SARS-CoV-2 IgG Ab Reactive (NonReactive) A 01/19/20 17:52 Moses/IV: Voiding Method Condom Catheter IV Catheter Type [Left Forearm INT / Saline Lock ] IV Catheter Type [Right INT / Saline Lock Antecubital] Active Medications - Current Medications Current Medications: Generic Name Dose Route Start Last Admin Trade Name Freq PRN Reason Stop Dose Admin Acetaminophen 650 mg 01/17/20 22:03 01/25/20 10:53 Tylenol PO 650 mg Q4H PRN Administration Pain MILD(1-3)/Fever >100.5/FORD Amlodipine Besylate 5 mg 01/24/20 10:00 01/27/20 13:53 Amlodipine PO 5 mg QDAY LIBORIO Administration Lipase/Protease/Amylase 1 each 01/21/20 11:[address] 10,500 Unit FEEDTUBE PRN PRN For Clogged Feeding Tube Ascorbic Acid 500 mg 01/21/20 10:00 01/27/20 13:54 Vitamin C PO 500 mg QDAY LIBORIO Administration Aspirin 81 mg 01/19/20 18:00 01/27/20 13:54 Baby Aspirin PO 81 mg QDAY LIBORIO Administration Atorvastatin Calcium 40 mg 01/19/20 22:00 01/26/20 23:25 Lipitor PO 40 mg QHS LIBORIO Administration Dexamethasone 6 mg 01/19/20 13:00 01/27/20 13:54 Decadron PO 01/28/20 10:01 6 mg DAILY [facility]ORIO Administration Dextrose 50 ml 01/18/20 16:00 D50w (25gm) Syringe IV Q30MIN PRN Hypoglycemia Protocol Docusate Sodium 100 mg 01/20/20 10:00 01/27/20 14:03 Colace PO Not Given BID [facility] Enoxaparin Sodium 40 mg 01/18/20 22:00 01/27/20 13:53 Enoxaparin SUB-Q 40 mg BID [facility] Administration Protocol Hydralazine HCl 25 mg 01/26/20 08:00 01/27/20 14:02 Apresoline PO 25 mg Q8HR LIBORIO Administration Insulin Human Isoph/Insulin Regular 8 unit 01/27/20 08:45 01/27/20 13:54 Humulin 70/30 SUB-Q Not Given QDDIAB [facility] Insulin Human Regular 0 unit 01/18/20 16:00 01/27/20 14:02 Humulin R SUB-Q 3 unit Q6HR [facility] Administration Protocol Magnesium Hydroxide 30 ml 01/17/20 22:03 Milk Of Magnesia PO Q4H PRN Constipation Ondansetron HCl 4 mg 01/17/20 22:03 Zofran IV Q8H PRN Nausea And Vomiting Simple Syrup 15 ml 01/21/20 11:34 Simple Syrup FEEDTUBE PRN PRN Hypoglycemia Simple Syrup 30 ml 01/21/20 11:34 Simple Syrup FEEDTUBE PRN PRN Hypoglycemia Sodium Bicarbonate 325 mg 01/21/20 11:34 Sodium Bicarbonate FEEDTUBE PRN PRN For Clogged Feeding Tube Sodium Chloride 10 ml 01/18/20 10:00 01/27/20 14:03 Sodium Chloride Flush Syringe 10 Ml IV 10 ml BID [facility]ORIO Administration Sodium Chloride 10 ml 01/17/20 22:03 Sodium Chloride Flush Syringe 10 Ml IV PRN PRN LINE FLUSH Zinc Sulfate 220 mg 01/21/20 10:00 01/27/20 14:02 Zinc Sulfate PO 220 mg QDAY LIBORIO Administration Nutrition/Malnutrition Assess - Dietary Evaluation Nutrition/Malnutrition Findings: Nutrition Notes Start: 01/19/20 10:13 Freq: Status: Active Protocol: Document 01/27/20 12:55 AL (Rec: 01/27/20 13:04 AL [id number]) Co-Sign 01/27/20 12:55 MK Nutrition Notes Initial or Follow up Reassessment Current Diagnosis Diabetes,Hypertension,Stroke Other Pertinent Diagnosis COVID-19 (+), AMS, Dysphagia Current Diet Glucerna 1.2 at 65 mL/hr (goal rate) Labs/Tests BG 229 Cr 0.6 Pertinent Medications Humulin Decadron Height 5 ft 11 in Weight 88.8 kg [place] Body Weight (kg) 78.18 BMI 27.3 Subjective/Other Information F/U for Na, TF tolerance and water flush. Per RN, patient is tolerating TF well at the goal rate. Na labs are WNL currently. Percent of energy/protein needs met: 95%/100% Burn Absent Trauma Absent GI Symptoms None Current % PO Negligible Minimum of two criteria No physical signs of malnutrition #1 Nutrition Diagnosis Inadequate oral intake Diagnosis Progress(for reassessment Continues documentation) Is patient on ventilator? No Is Patient Ambulatory and/or Out of Bed No REE-([facility]-confined to bed) 1968.480 Calculation Used for Recommendations [facility] Additional Notes Pro needs 1-1.2g/k-106g/ day Fluid needs per MD Nutrition Intervention Change Diet Order: Continue TF Nutrition Support: Glucerna 1.2 at 65 mL/hr. Flush with 300 mL q4h. Kcal 1,872 Protein (gm) 94 Fluid (mL) 1,256 Goal #1 Meet at least 75% of estimated energy and protein needs via TF Follow-Up By: 02/01/20 Additional Comments F/U for TF tolerance
[2020-01-28] MEDS: INSULIN REGULAR, HUMAN 100 UNIT/ML 3ML VIAL SUB-Q SCH ×5 (01:51→23:32)
[2020-01-28] MEDS: hydrALAZINE 25 MG TAB PO SCH ×3 (07:46→22:31)
--- NOTE | 2020-01-28 07:51 | Progress Note ---
Assessment and Plan - Patient Problems (1) Acute respiratory failure Current Visit: Yes Status: Acute Qualifiers: Respiratory failure complication: hypoxia Qualified Code(s): J96.01 - Acute respiratory failure with hypoxia Plan to address problem: Acute respiratory failure secondary to COVID-19 pneumonia. Patient remains ill cachectic but able to breathe. With O2/nebulizers (2) Altered mental status Current Visit: Yes Status: Acute Plan to address problem: Multifactorial secondary to COVID-19 pneumonia as well as hypoxemia and malnutrition. This with underlying dementia. (3) COVID-19 virus infection Current Visit: Yes Status: Acute Plan to address problem: Patient not on dexamethasone or decimeter at this time. No fever. (4) Elevated d-dimer Current Visit: Yes Status: Acute Plan to address problem: Secondary to COVID-19. Will treat with empiric anticoagulants. (5) Pneumonia due to COVID-19 virus Current Visit: Yes Status: Acute (6) Hypertension Current Visit: Yes Status: Chronic Plan to address problem: Patient's blood pressure fairly well controlled with amlodipine. (7) Acute hypernatremia Current Visit: Yes Status: Resolved Plan to address problem: Hypernatremia has resolved current sodium 137. Follow-up in next 1 to 2 days. Patient will require feeding tube. This will improve outcome. Subjective Date of service: 01/28/20 Principal diagnosis: COVID-19 pneumonia Interval history: 79-year-old male with HTN and DM who is a resident of a [facility] presented to the ED on 01/17 via EMS for evaluation of a change mental status. Per [facility] staff patient was not communicating well and having decreased oral intake. Upon arrival to the emergency department patient was found to be tachycardic, febrile to 102.2 and hypoxic with SPO2 of 91 on room air. Work-up was significant for hypernatremia, acute kidney injury (CR/BUN 2.2/55), hypochloremia, transaminitis and a chest x-ray showed mild bilateral pulmonary edema and CTh was unremarkable. Patient was admitted to hospitalist service as a Covid PUI, Sepsis, YIMI and infectious disease and nephrology were consulted. Today his sodium is 137 and his chloride is 102 therefore IV D5W stopped. Patient still has leukocytosis at 19.1 however he is on steroid therapy. Patient is more alert and awake today. Per ST evaluation yesterday patient was pocketing his food and not swallowing. This morning patient agreed to swallow his food and we were participating in his speech therapy evaluations going forward. Patient states that he does not want a PEG tube to be placed. 01/17: elevated D-dimer therefore bilateral upper and lower extremity ultrasounds Dopplers were obtained to rule out DVT and a VQ scan was performed to rule out PE both of which were negative. Patient remained severely hypernatremic and his IV fluids were changed to D5 water. We will trend his BMP. He also has elevated Covid markers ferritin and CRP. 01/18: COVID-19 PCR resulted as positive. Patient remains hyponatremic therefore nephrology was consulted and he was started on FWF and his D5W was increased. 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 Dr. Petersen updated his daughter this morning (Ms. Burleson) and this afternoon after his COVID-19 PCR resulted I updated her. The phone got disconnected after 2 minutes of conversation and informing her of COVID-19 status and I tried calling back twice. Both times it was sent to [facility] and her mailbox is full therefore was not able to leave a message. Patient was also initiated on remdesivir therapy 01/19: MRI head and MRI brain still pending, continue remdesivir therapy, increased free water flush 300 mL every 4 hours and increase the D5W TO 100 mL/h 01/20: Zinc and vitamin C initiated, patient still remains hypernatremic 01/21: Patient remains hypernatremic, no acute events reported overnight 01/22: Patient remains hypernatremic, hyperchloremic though it is improving. Patient still remains with altered mental status and he has bilateral wrist restraints in place. Dr. Petersen updated patient's daughter over the phone today. No acute events reported overnight. Patient was hypokalemic which was repleted. 01/23: His hyperkalemia has resolved. No acute events reported overnight. Patient intermittently follows commands and is more verbal. Today he has bilateral mittens in place. 01/24: Patient has marked improvement in mentation today he is oriented to self and follows commands. Patient is hypokalemic today at 3.5 which was repleted and his hypernatremia and hyperchloremia are improving. Patient failed his swallow eval by speech therapy this morning. I updated daughter over the phone, Olya Pritchard, regarding ST evaluation and labs. I spoke to her about the possibility of a PEG being recommended by ST to which she agreed to as a last resort. 01/25: This morning patient is more alert with RN. Repeated speech evaluation was conducted and he failed. I updated the patient's daughter who would like to hold off a decision about PEG till Thursday and would like to see patient improves with speech therapy. This morning patient's hypernatremia and hyperchloremia has improved and his sodium is 148, chloride 111.4. 01/27-patient failed swallowing the valve again. Patient scheduled to determine about PEG tube feedings on Thursday. Seems will need a PEG. Family leaning toward this. Objective - Constitutional Vitals: Vital Signs - 12hr 01/27/20 01/28/20 23:49 06:30 Temperature 98.0 F 98.0 F Pulse Rate 53 L 78 Respiratory 17 20 Rate Blood Pressure 131/81 164/103 O2 Sat by Pulse 92 94 Oximetry General appearance: Present: no acute distress, well-nourished - EENT Eyes: PERRL, EOM intact ENT: hearing intact, clear oral mucosa Ears: bilateral: normal - Neck Neck: supple, normal ROM - Respiratory Respiratory effort: normal Respiratory: bilateral: CTA - Breasts Breasts: normal - Cardiovascular Rhythm: regular Heart Sounds: Present: S1 & S2. Absent: gallop, rub Extremities: pulses intact, No edema, normal color, Full ROM - Gastrointestinal General gastrointestinal: Present: soft, non-tender, non-distended, normal bowel sounds - Genitourinary Male genitourinary: normal - Integumentary Integumentary: clear, warm, dry - Musculoskeletal Musculoskeletal: 1, strength equal bilaterally - Neurologic Neurologic: moves all extremities - Psychiatric Psychiatric: memory intact, appropriate mood/affect, intact judgment & insight - Labs CBC & Chem 7: 01/27/20 08:14 01/27/20 08:14 Labs: Abnormal lab results 01/27/20 01/27/20 01/27/20 Range/Units 08:13 08:14 08:14 WBC 19.1 H (4.5-11.0) K/mm3 RBC 5.48 H (3.65-5.03) M/mm3 MCV 78 L (84-94) fl MCH 25 L (28-32) pg Creatinine 0.6 L (0.8-1.3) mg/dL Glucose 229 H (75-100) mg/dL POC Glucose 210 H (70-105) mg/dL 01/27/20 01/27/20 01/27/20 Range/Units 12:39 17:25 23:47 WBC (4.5-11.0) K/mm3 RBC (3.65-5.03) M/mm3 MCV (84-94) fl MCH (28-32) pg Creatinine (0.8-1.3) mg/dL Glucose (75-100) mg/dL POC Glucose 187 H 138 H 182 H (70-105) mg/dL 01/28/20 Range/Units 06:19 WBC (4.5-11.0) K/mm3 RBC (3.65-5.03) M/mm3 MCV (84-94) fl MCH (28-32) pg Creatinine (0.8-1.3) mg/dL Glucose (75-100) mg/dL POC Glucose 127 H (70-105) mg/dL HEART Score - HEART Score Troponin: Troponin T < 0.010 ng/mL (0.00-0.029) 01/17/20 17:34
[2020-01-28] MEDS: ASCORBIC ACID 500 MG TAB PO SCH (09:50)
[2020-01-28] MEDS: INSULIN NPH/REGULAR 70/30 INJ SUB-Q SCH (09:50)
[2020-01-28] MEDS: ACETAMINOPHEN 325 MG TAB PO PRN ×2 (09:50→22:31)
[2020-01-28] MEDS: amLODIPine 5 MG TAB PO SCH (09:51)
[2020-01-28] MEDS: ASPIRIN 81 MG TAB CHEW PO SCH (09:51)
[2020-01-28] MEDS: ENOXAPARIN 40 MG/0.4 ML INJ SUB-Q SCH ×2 (09:51→22:30)
[2020-01-28] MEDS: DEXAMETHASONE 4 MG TAB PO SCH (09:51)
[2020-01-28] MEDS: ZINC SULFATE 220 MG CAP PO SCH (09:51)
[2020-01-28] MEDS: DOCUSATE SODIUM 100 MG/10 ML ORAL LIQD PO SCH ×2 (09:52→22:31)
[2020-01-29] MEDS: INSULIN REGULAR, HUMAN 100 UNIT/ML 3ML VIAL SUB-Q SCH ×3 (05:44→17:37)
[2020-01-29] MEDS: hydrALAZINE 25 MG TAB PO SCH ×3 (05:45→22:02)
[2020-01-29] MEDS: INSULIN NPH/REGULAR 70/30 INJ SUB-Q SCH (08:39)
[2020-01-29] MEDS: ENOXAPARIN 40 MG/0.4 ML INJ SUB-Q SCH ×2 (10:30→22:01)
[2020-01-29] MEDS: ASPIRIN 81 MG TAB CHEW PO SCH (10:30)
[2020-01-29] MEDS: ZINC SULFATE 220 MG CAP PO SCH (10:30)
[2020-01-29] MEDS: ASCORBIC ACID 500 MG TAB PO SCH (10:30)
[2020-01-29] MEDS: amLODIPine 5 MG TAB PO SCH (10:30)
[2020-01-29] MEDS: DOCUSATE SODIUM 100 MG/10 ML ORAL LIQD PO SCH ×2 (10:32→22:01)
--- NOTE | 2020-01-29 12:34 | Progress Note ---
Assessment and Plan - Patient Problems (1) Acute hypernatremia Current Visit: Yes Status: Resolved Plan to address problem: Improved with appropriate free water repletion. Overall renal function is stable. Nephrology will sign off at this time. Please feel free to reconsult as needed. (2) Altered mental status Current Visit: Yes Status: Acute Plan to address problem: Possibly in the setting of hypernatremia and underlying pneumonia. Improved since admission (3) Suspected COVID-19 virus infection Current Visit: Yes Status: Acute Plan to address problem: COVID-19 (+). Management per ID recommendations. (4) Diabetes mellitus Current Visit: Yes Status: Chronic Plan to address problem: Diabetes management per primary attending (5) Hypertension Current Visit: Yes Status: Chronic Plan to address problem: Monitor blood pressures under current antihypertensive regimen. Subjective Date of service: 01/29/20 Principal diagnosis: COVID-19 pneumonia Interval history: No acute issues or changes. Notes reviewed. Objective - Exam Narrative Exam: Deferred physical examination in order to preserve PPE. - Vital Signs Vital signs: Vital Signs - 12hr 01/29/20 04:28 Temperature 97.7 F Pulse Rate 79 Respiratory 20 Rate Blood Pressure 145/87 O2 Sat by Pulse 99 Oximetry - Lab 01/27/20 08:14 01/27/20 08:14 Most recent lab results Calcium 9.0 mg/dL (8.4-10.2) 01/27/20 08:14 Magnesium 2.00 mg/dL (1.7-2.3) 01/26/20 05:14 Medications & Allergies - Medications Allergies/Adverse Reactions: Allergies No Known Allergies Allergy (Verified 01/17/20 22:09) Home Medications: Home Medications Medication Instructions Recorded Confirmed Last Taken Type No Known Home Medications [No 01/20/20 01/20/20 Unknown History Reported Home Medications] Active Medications: Generic Name Dose Route Start Last Admin Trade Name Freq PRN Reason Stop Dose Admin Acetaminophen 650 mg 01/17/20 22:03 01/28/20 22:31 Tylenol PO 650 mg Q4H PRN Administration Pain MILD(1-3)/Fever >100.5/FORD Amlodipine Besylate 5 mg 01/24/20 10:00 01/29/20 10:30 Amlodipine PO 5 mg QDAY LIBORIO Administration Lipase/Protease/Amylase 1 each 01/21/20 11:34 Pancrenick Urrutia 10,500 Unit FEEDTUBE PRN PRN For Clogged Feeding Tube Ascorbic Acid 500 mg 01/21/20 10:00 01/29/20 10:30 Vitamin C PO 500 mg QDAY LIBORIO Administration Aspirin 81 mg 01/19/20 18:00 01/29/20 10:30 Baby Aspirin PO 81 mg QDAY LIBORIO Administration Atorvastatin Calcium 40 mg 01/19/20 22:00 01/28/20 22:49 Lipitor PO 40 mg QHS LIBORIO Administration Dextrose 50 ml 01/18/20 16:00 D50w (25gm) Syringe IV Q30MIN PRN Hypoglycemia Protocol Docusate Sodium 100 mg 01/20/20 10:00 01/29/20 10:32 Colace PO Not Given BID LIBORIO Enoxaparin Sodium 40 mg 01/18/20 22:00 01/29/20 10:30 Enoxaparin SUB-Q 40 mg BID LIBORIO Administration Protocol Hydralazine HCl 25 mg 01/26/20 08:00 01/29/20 05:45 Apresoline PO 25 mg Q8HR [facility] Administration Insulin Human Isoph/Insulin Regular 8 unit 01/27/20 08:45 01/29/20 08:39 Humulin 70/30 SUB-Q 8 unit QDDIAB LIBORIO Administration Insulin Human Regular 0 unit 01/18/20 16:00 01/29/20 05:44 Humulin R SUB-Q Not Given Q6HR [facility] Protocol Magnesium Hydroxide 30 ml 01/17/20 22:03 Milk Of Magnesia PO Q4H PRN Constipation Ondansetron HCl 4 mg 01/17/20 22:03 Zofran IV Q8H PRN Nausea And Vomiting Simple Syrup 15 ml 01/21/20 11:34 Simple Syrup FEEDTUBE PRN PRN Hypoglycemia Simple Syrup 30 ml 01/21/20 11:34 Simple Syrup FEEDTUBE PRN PRN Hypoglycemia Sodium Bicarbonate 325 mg 01/21/20 11:34 Sodium Bicarbonate FEEDTUBE PRN PRN For Clogged Feeding Tube Sodium Chloride 10 ml 01/18/20 10:00 01/29/20 10:31 Sodium Chloride Flush Syringe 10 Ml IV 10 ml BID [facility]ORIO Administration Sodium Chloride 10 ml 01/17/20 22:03 Sodium Chloride Flush Syringe 10 Ml IV PRN PRN LINE FLUSH Zinc Sulfate 220 mg 01/21/20 10:00 01/29/20 10:30 Zinc Sulfate PO 220 mg QDAY LIBORIO Administration
--- NOTE | 2020-01-29 15:25 | Progress Note ---
Assessment and Plan - Patient Problems (1) Acute respiratory failure Current Visit: Yes Status: Acute Qualifiers: Respiratory failure complication: hypoxia Qualified Code(s): J96.01 - Acute respiratory failure with hypoxia Plan to address problem: Acute respiratory failure secondary to COVID-19 pneumonia. Patient remains ill cachectic but able to breathe. With O2/nebulizers. Oxygenation has actually improved. Problem is debility and decreased p.o. intake. (2) Altered mental status Current Visit: Yes Status: Acute Plan to address problem: Multifactorial secondary to COVID-19 pneumonia as well as hypoxemia and malnutrition. This with underlying dementia. Awaiting family decision about PEG tube placement. (3) COVID-19 virus infection Current Visit: Yes Status: Acute Plan to address problem: Patient not on dexamethasone or decimeter at this time. No fever. (4) Elevated d-dimer Current Visit: Yes Status: Acute Plan to address problem: Secondary to COVID-19. Will treat with empiric anticoagulants. Patient currently on Lovenox now. Specially since patient's a receive PEG tube. Can stop this more rapidly. (5) Pneumonia due to COVID-19 virus Current Visit: Yes Status: Acute Plan to address problem: Continues to improve. Patient's oxygenation is improving cognition has been following slow behind. (6) Hypertension Current Visit: Yes Status: Chronic Plan to address problem: Patient's blood pressure fairly well controlled with amlodipine. (7) Acute hypernatremia Current Visit: Yes Status: Resolved Plan to address problem: Hypernatremia has resolved current sodium 137. Follow-up in next 1 to 2 days. Patient will require feeding tube. This will improve outcome. Subjective Date of service: 01/29/20 Principal diagnosis: COVID-19 pneumonia Interval history: 79-year-old male with HTN and DM who [facility] presented to the ED on 01/17 via EMS for evaluation of a change mental status. [facility] staff patient was not communicating well and having decreased oral intake. Upon arrival to the emergency department patient was found to be tachycardic, febrile to 102.2 and hypoxic with SPO2 of 91 on room air. Work-up was significant for hypernatremia, acute kidney injury (CR/BUN 2.2/55), hypochloremia, transaminitis and a chest x-ray showed mild bilateral pulmonary edema and CTh was unremarkable. Patient was admitted to hospitalist service as a Covid PUI, Sepsis, YIMI and infectious disease and nephrology were consulted. Today his sodium is 137 and his chloride is 102 therefore IV D5W stopped. Patient still has leukocytosis at 19.1 however he is on steroid therapy. Patient is more alert and awake today. Per ST evaluation yesterday patient was pocketing his food and not swallowing. This morning patient agreed to swallow his food and we were participating in his speech therapy evaluations going forward. Patient states that he does not want a PEG tube to be placed. 01/28/2000. 01/17: elevated D-dimer therefore bilateral upper and lower extremity ul trasounds Dopplers were obtained to rule out DVT and a VQ scan was performed to rule out PE both of which were negative. Patient remained severely hypernatremic and his IV fluids were changed to D5 water. We will trend his BMP. He also has elevated Covid markers ferritin and CRP. 01/18: COVID-19 PCR resulted as positive. Patient remains hyponatremic therefore nephrology was consulted and he was started on FWF and his D5W was increased. Patient is apparently alert and [facility]2 [facility] and his CT head showed small lacunar infarcts in the gangliocapsular regions therefore an MRI brain, MRA head and neurology has been consulted. Dr. Petersen updated his daughter this morning (Ms. Burleson) and this afternoon after his COVID-19 PCR resulted I updated her. The phone got disconnected after 2 minutes of conversation and informing her of COVID-19 status and I tried calling back twice. Both times it was sent to [facility] and her mailbox is full therefore was not able to leave a message. Patient was also initiated on remdesivir therapy 01/19: MRI head and MRI brain still pending, continue remdesivir therapy, increased free water flush 300 mL every 4 hours and increase the D5W TO 100 mL/h 01/20: Zinc and vitamin C initiated, patient still remains hypernatremic 01/21: Patient remains hypernatremic, no acute events reported overnight 01/22: Patient remains hypernatremic, hyperchloremic though it is improving. Patient still remains with altered mental status and he has bilateral wrist restraints in place. Dr. Petersen updated patient's daughter over the phone today. No acute events reported overnight. Patient was hypokalemic which was repleted. 01/23: His hyperkalemia has resolved. No acute events reported overnight. Patient intermittently follows commands and is more verbal. Today he has bilateral mittens in place. 01/24: Patient has marked improvement in mentation today he is oriented to self and follows commands. Patient is hypokalemic today at 3.5 which was repleted and his hypernatremia and hyperchloremia are improving. Patient failed his swallow eval by speech therapy this morning. I updated daughter over the phone, Olya Pritchard, regarding ST evaluation and labs. I spoke to her about the possibility of a PEG being recommended by ST to which she agreed to as a last resort. 01/25: This morning patient is more alert with RN. Repeated speech evaluation was conducted and he failed. I updated the patient's daughter who would like to hold off a decision about PEG till Thursday and would like to see patient improves with speech therapy. This morning patient's hypernatremia and hyperchloremia has improved and his sodium is 148, chloride 111.4. 01/27-patient failed swallowing the valve again. Patient scheduled to determine about PEG tube feedings on Thursday. Seems will need a PEG. Family leaning toward this. 01/29/2000. Patient remains comfortable. Still has some cognitive impairment. Recent introduction to patient mental status appears about the same. Family to decide about PEG tube on Thursday. Objective - Constitutional Vitals: Vital Signs - 12hr 01/29/20 01/29/20 04:28 10:21 Temperature 97.7 F 97.6 F Pulse Rate 79 80 Respiratory 20 18 Rate Blood Pressure 145/87 146/91 O2 Sat by Pulse 99 93 Oximetry General appearance: Present: no acute distress, cachectic, disheveled - EENT Eyes: PERRL, EOM intact ENT: hearing intact, clear oral mucosa Ears: bilateral: normal - Neck Neck: supple, normal ROM - Respiratory Respiratory effort: normal Respiratory: bilateral: CTA - Breasts Breasts: normal - Cardiovascular Rhythm: regular Heart Sounds: Present: S1 & S2. Absent: gallop, rub Extremities: pulses intact, No edema, normal color, Full ROM Extremity abnormal: other (Generalized weakness.) - Gastrointestinal General gastrointestinal: Present: soft, non-tender, non-distended, normal bowel sounds - Genitourinary Male genitourinary: normal - Integumentary Integumentary: clear, warm, dry - Musculoskeletal Musculoskeletal: 1, strength equal bilaterally - Neurologic Neurologic: moves all extremities - Psychiatric Psychiatric: other (Poor cognition) - Labs CBC & Chem 7: 01/27/20 08:14 01/27/20 08:14 Labs: Abnormal lab results 01/28/20 01/28/20 01/29/20 Range/Units 17:43 23:27 05:42 POC Glucose 163 H 139 H 140 H (70-105) mg/dL HEART Score - HEART Score Troponin: Troponin T < 0.010 ng/mL (0.00-0.029) 01/17/20 17:34
[2020-01-29] MEDS: ACETAMINOPHEN 325 MG TAB PO PRN (22:01)
[2020-01-30] MEDS: INSULIN REGULAR, HUMAN 100 UNIT/ML 3ML VIAL SUB-Q SCH ×5 (00:52→23:17)
[2020-01-30] MEDS: hydrALAZINE 25 MG TAB PO SCH ×3 (05:42→22:56)
[2020-01-30 09:11] LABS: Hematocrit 42.8 % (35.5-45.6); Hemoglobin 13.8 gm/dl (11.8-15.2); Mean Corpuscular HGB Conc 32 % (32-34); Mean Corpuscular Volume 77 fl (84-94); Platelet Count 193 K/mm3 (140-440); Red Blood Count 5.55 M/mm3 (3.65-5.03); Red Cell Distribution Width 14.5 % (13.2-15.2)
[2020-01-30 09:44] LABS: Blood Urea Nitrogen 19 mg/dL (9-20); Calcium 8.9 mg/dL (8.4-10.2); Hemolysis Index 21
[2020-01-30 10:21] LABS: BUN/Creatinine Ratio 32
[2020-01-30] MEDS: ENOXAPARIN 40 MG/0.4 ML INJ SUB-Q SCH (10:42)
[2020-01-30] MEDS: ZINC SULFATE 220 MG CAP PO SCH (10:42)
[2020-01-30] MEDS: ASCORBIC ACID 500 MG TAB PO SCH (10:42)
[2020-01-30] MEDS: ASPIRIN 81 MG TAB CHEW PO SCH (10:42)
[2020-01-30] MEDS: DOCUSATE SODIUM 100 MG/10 ML ORAL LIQD PO SCH ×2 (10:42→22:58)
[2020-01-30] MEDS: amLODIPine 5 MG TAB PO SCH (10:43)
[2020-01-30 11:34] LABS: Total Cells Counted 100
[2020-01-30 11:35] LABS: Basophils % (Manual) 0 % (0.0-1.8); Eosinophils % (Manual) 0 % (0.0-4.3); Hypochromasia 1+
[2020-01-30 11:37] LABS: Burr Cells Rare; Platelet Estimate Consistent w Auto; Target Cells Rare
--- NOTE | 2020-01-30 11:37 | Progress Note ---
Assessment and Plan Assessment and plan: --Dysphagia; Current Visit: Yes Status: Acute . Plan to address problem: Failed swallow evaluation Speech therapist recommend PEG placement GI consulted, discussed with daughter Ms. Elina Burleson Agreed for the PEG, n.p.o. from midnight Will hold aspirin and Lovenox. Pending procedure -- Acute respiratory failure Current Visit: Yes Status: Acute . Plan to address problem: Acute respiratory failure secondary to COVID-19 pneumonia. Patient remains ill cachectic but able to breathe. With O2/nebulizers. Oxygenation has actually improved. Problem is debility and decreased p.o. intake. --Acute metabolic encephalopathy ; multifactorial Current Visit: Yes Status: Acute Plan to address problem: Multifactorial secondary to COVID-19 pneumonia as well as hypoxemia and malnutrition. This with underlying dementia. Awaiting family decision about PEG tube placement. -- COVID-19 virus infection Current Visit: Yes Status: Acute Plan to address problem: Patient not on dexamethasone or remdesivir at this time. No fever. --Elevated d-dimer Current Visit: Yes Status: Acute Plan to address problem: Secondary to COVID-19. Will treat with empiric anticoagulants. Patient currently on Lovenox now. Specially since patient's a receive PEG tube. Can stop this more rapidly. --Pneumonia due to COVID-19 virus Current Visit: Yes Status: Acute Plan to address problem: Continues to improve. Patient's oxygenation is improving cognition has been following slow behind. --Hypertension Current Visit: Yes Status: Chronic Plan to address problem: Patient's blood pressure fairly well controlled with amlodipine. --Acute hypernatremia Current Visit: Yes Status: Resolved Plan to address problem: Hypernatremia has resolved current sodium 137. Patient will require feeding tube. This will improve outcome. Subjective Date of service: 01/29/20 Principal diagnosis: COVID-19 pneumonia Interval history: 79-year-old male with HTN and DM who is a resident [facility] a [facility] presented to the ED on 01/17 via EMS for evaluation of a change mental status. Per [facility] staff patient was not communicating well and having decreased oral intake. Upon arrival to the emergency department patient was found to be tachycardic, febrile to 102.2 and hypoxic with SPO2 of 91 on room air. Work-up was significant for hypernatremia, acute kidney injury (CR/BUN 2.2/55), hyp ochloremia, transaminitis and a chest x-ray showed mild bilateral pulmonary edema and CTh was unremarkable. Patient was admitted to hospitalist service as a Covid PUI, Sepsis, YIMI and infectious disease and nephrology were consulted. Today his sodium is 137 and his chloride is 102 therefore IV D5W stopped. Patient still has leukocytosis at 19.1 however he is on steroid therapy. Patient is more alert and awake today. Per ST evaluation yesterday patient was pocketing his food and not swallowing. This morning patient agreed to swallow his food and we were participating in his speech therapy evaluations going forward. Possible PEG placement on 01/31/2020, place the patient n.p.o. from midnight 01/17: elevated D-dimer therefore bilateral upper and lower extremity ultrasounds Dopplers were obtained to rule out DVT and a VQ scan was performed to rule out PE both of which were negative. Patient remained severely hypernatremic and his IV fluids were changed to D5 water. We will trend his BMP. He also has elevated Covid markers ferritin and CRP. 01/18: COVID-19 PCR resulted as positive. Patient remains hyponatremic therefore nephrology was consulted and he was started on FWF and his D5W was increased. Patient is apparently alert and oriented x2 at [facility] and his CT head showed small lacunar infarcts in the gangliocapsular regions therefore an MRI brain, MRA head and neurology has been consulted. Dr. Petersen updated his daughter this morning (Ms. Burleson) and this afternoon after his COVID-19 PCR resulted I updated her. The phone got disconnected after 2 minutes of conversation and informing her of COVID-19 status and I tried calling back twice. Both times it was sent to [facility] and her mailbox is full therefore was not able to leave a message. Patient was also initiated on remdesivir therapy 01/19: MRI head and MRI brain still pending, continue remdesivir therapy, increased free water flush 300 mL every 4 hours and increase the D5W TO 100 mL/h 01/20: Zinc and vitamin C initiated, patient still remains hypernatremic 01/21: Patient remains hypernatremic, no acute events reported overnight 01/22: Patient remains hypernatremic, hyperchloremic though it is improving. Patient still remains with altered mental status and he has bilateral wrist restraints in place. Dr. Petersen updated patient's daughter over the phone today. No acute events reported overnight. Patient was hypokalemic which was repleted. 01/23: His hyperkalemia has resolved. No acute events reported overnight. Patient intermittently follows commands and is more verbal. Today he has bilateral mittens in place. 01/24: Patient has marked improvement in mentation today he is oriented to self and follows commands. Patient is hypokalemic today at 3.5 which was repleted and his hypernatremia and hyperchloremia are improving. Patient failed his s wallow eval by speech therapy this morning. I updated daughter over the phone, Olya Pritchard, regarding ST evaluation and labs. I spoke to her about the possibility of a PEG being recommended by ST to which she agreed to as a last resort. 01/25: This morning patient is more alert with RN. Repeated speech evaluation was conducted and he failed. I updated the patient's daughter who would like to hold off a decision about PEG till Thursday and would like to see patient improves with speech therapy. This morning patient's hypernatremia and hyperchloremia has improved and his sodium is 148, chloride 111.4. 01/27-patient failed swallowing the valve again. Patient scheduled to determine about PEG tube feedings on Thursday. Seems will need a PEG. Family leaning toward this. 01/28;. Patient remains comfortable. Still has some cognitive impairment. Recent introduction to patient mental status appears about the same. Family to decide about PEG tube on Thursday. 01/29; I discussed with patient's daughter Elina Burleson and discussed the details of PEG placement, GI consult, possible procedure tomorrow She verbalized understanding and willing for PEG placement, GI consulted History Interval history: I have seen and examined the patient at the bedside Isolation precautions, PPE protocols fully followed Patient's chart and medications reviewed And is lethargic noncommunicative Receiving tube feeding Hospitalist Physical - Constitutional Vitals: Temp Pulse Resp BP Pulse Ox 97.5 F L 86 20 151/98 92 01/30/20 04:15 01/29/20 15:22 01/30/20 04:15 01/30/20 04:15 01/29/20 15:22 General appearance: Present: no acute distress, cachectic, disheveled - EENT Eyes: Present: PERRL, EOM intact - Neck Neck: Present: supple, normal ROM - Respiratory Respiratory effort: normal Respiratory: bilateral: diminished, rhonchi, negative: rales, wheezing - Cardiovascular Rhythm: regular Heart Sounds: Present: S1 & S2 - Extremities Extremities: no ischemia, No edema - Abdominal General gastrointestinal: soft, non-tender, non-distended, normal bowel sounds - Integumentary Integumentary: Present: clear, warm - Psychiatric Psychiatric: other (Minimally communicative lethargic) - Neurologic Neurologic: moves all extremities HEART Score - HEART Score Troponin: Troponin T < 0.010 ng/mL (0.00-0.029) 01/17/20 17:34 Results - Labs CBC & Chem 7: 01/30/20 08:24 01/30/20 08:24 Labs: Laboratory Last Values WBC 15.5 K/mm3 (4.5-11.0) H 01/30/20 08:24 RBC 5.55 M/mm3 (3.65-5.03) H 01/30/20 08:24 Hgb 13.8 gm/dl (11.8-15.2) 01/30/20 08:24 Hct 42.8 % (35.5-45.6) 01/30/20 08:24 MCV 77 fl (84-94) L 01/30/20 08:24 MCH 25 pg (28-32) L 01/30/20 08:24 MCHC 32 % (32-34) 01/30/20 08:24 RDW 14.5 % (13.2-15.2) 01/30/20 08:24 Plt Count 193 K/mm3 (140-440) 01/30/20 08:24 Lymph % (Auto) 8.8 % (13.4-35.0) L 01/25/20 05:48 Villalba % (Auto) 3.0 % (0.0-7.3) 01/25/20 05:48 Eos % (Auto) 1.5 % (0.0-4.3) 01/25/20 05:48 Baso % (Auto) 0.4 % (0.0-1.8) 01/25/20 05:48 Lymph # (Auto) 1.5 K/mm3 (1.2-5.4) 01/25/20 05:48 Villalba # (Auto) 0.5 K/mm3 (0.0-0.8) 01/25/20 05:48 Eos # (Auto) 0.3 K/mm3 (0.0-0.4) 01/25/20 05:48 Baso # (Auto) 0.1 K/mm3 (0.0-0.1) 01/25/20 05:48 Seg Neutrophils % 86.3 % (40.0-70.0) H 01/25/20 05:48 Seg Neutrophils # 15.2 K/mm3 (1.8-7.7) H 01/25/20 05:48 PT 15.0 Sec. (12.2-14.9) H 01/18/20 07:45 INR 1.16 (0.87-1.13) H 01/18/20 07:45 APTT 31.0 Sec. (24.2-36.6) 01/17/20 17:34 D-Dimer 3001.60 ng/mlDDU (0-234) H 01/22/20 07:46 Sodium 141 mmol/L (137-145) 01/30/20 08:24 Potassium 3.7 mmol/L (3.6-5.0) 01/30/20 08:24 Chloride 105.3 mmol/L (98-107) 01/30/20 08:24 Carbon Dioxide 25 mmol/L (22-30) 01/30/20 08:24 Anion Gap 14 mmol/L 01/30/20 08:24 BUN 19 mg/dL (9-20) 01/30/20 08:24 Creatinine 0.6 mg/dL (0.8-1.3) L 01/30/20 08:24 Estimated GFR > 60 ml/min 01/30/20 08:24 BUN/Creatinine Ratio 32 % 01/30/20 08:24 Glucose 126 mg/dL (75-100) H 01/30/20 08:24 POC Glucose 109 mg/dL (70-105) H 01/30/20 06:55 Hemoglobin A1c 6.7 % (4-6) H 01/18/20 16:04 Lactic Acid 1.80 mmol/L (0.7-2.0) 01/17/20 19:40 Calcium 8.9 mg/dL (8.4-10.2) 01/30/20 08:24 Magnesium 2.00 mg/dL (1.7-2.3) 01/26/20 05:14 Ferritin 3748.0 ng/mL (30.0-300.0) H 01/22/20 07:46 Total Bilirubin 0.40 mg/dL (0.1-1.2) 01/20/20 05:39 Direct Bilirubin < 0.2 mg/dL (0-0.2) 01/20/20 05:39 Indirect Bilirubin 0.2 mg/dL 01/20/20 05:39 AST 60 units/L (5-40) H 01/20/20 05:39 ALT 44 units/L (7-56) 01/20/20 05:39 Alkaline Phosphatase 64 units/L (35-129) 01/20/20 05:39 Ammonia 38.0 umol/L (25-60) 01/17/20 17:34 Lactate Dehydrogenase 368 units/L (91-180) H 01/22/20 07:46 Total Creatine Kinase 164 units/L (55-170) 01/17/20 17:34 Troponin T < 0.010 ng/mL (0.00-0.029) 01/17/20 17:34 C-Reactive Protein 2.90 mg/dL (0.00-1.30) H 01/22/20 07:46 Total Protein 7.0 g/dL (6.3-8.2) 01/20/20 05:39 Albumin 2.8 g/dL (3.9-5) L 01/20/20 05:39 Albumin/Globulin Ratio 0.7 % 01/20/20 05:39 Triglycerides 219 mg/dL (2-149) H 01/18/20 16:04 Cholesterol 180 mg/dL (50-199) 01/18/20 16:04 LDL Cholesterol Direct 91 mg/dL (50-130) 01/18/20 16:04 HDL Cholesterol 37 mg/dL (40-59) L 01/18/20 16:04 Cholesterol/HDL Ratio 4.86 % 01/18/20 16:04 Procalcitonin 0.15 ng/mL (<0.15) 01/17/20 21:39 Urine Color Yellow (Yellow) 01/17/20 19:30 Urine Turbidity Clear (Clear) 01/17/20 19:30 Urine pH 5.0 (5.0-7.0) 01/17/20 19:30 Ur Specific [place] 1.016 (1.003-1.030) 01/17/20 19:30 Urine Protein 100 mg/dl mg/dL (Negative) 01/17/20 19:30 Urine Glucose (UA) Neg mg/dL (Negative) 01/17/20 19:30 Urine Ketones Neg mg/dL (Negative) 01/17/20 19:30 Urine Blood Sm (Negative) 01/17/20 19:30 Urine Nitrite Neg (Negative) 01/17/20 19:30 Urine Bilirubin Neg (Negative) 01/17/20 19:30 Urine Urobilinogen < 2.0 mg/dL (<2.0) 01/17/20 19:30 Ur Leukocyte Esterase Neg (Negative) 01/17/20 19:30 Urine WBC (Auto) 2.0 /HPF (0.0-6.0) 01/17/20 19:30 Urine RBC (Auto) 6.0 /HPF (0.0-6.0) 01/17/20 19:30 U Epithel Cells (Auto) < 1.0 /HPF (0-13.0) 01/17/20 19:30 Urine Bacteria (Auto) 1+ /HPF (Negative) 01/17/20 19: Urine Mucus Few /HPF 01/17/20 19:30 Coronavirus (PCR) Positive (Negative) A 01/19/20 Unknown SARS-CoV-2 IgG Ab Reactive (NonReactive) A 01/19/20 17:52 Moses/IV: Voiding Method Condom Catheter IV Catheter Type [Left Forearm INT / Saline Lock ] IV Catheter Type [Right INT / Saline Lock Antecubital] Active Medications - Current Medications Current Medications: Generic Name Dose Route Start Last Admin Trade Name Freq PRN Reason Stop Dose Admin Acetaminophen 650 mg 01/17/20 22:03 01/29/20 22:01 Tylenol PO 650 mg Q4H PRN Administration Pain MILD(1-3)/Fever >100.5/FORD Amlodipine Besylate 5 mg 01/24/20 10:00 01/30/20 10:43 Amlodipine PO 5 mg QDAY LIBORIO Administration Lipase/Protease/Amylase 1 each 01/21/20 11:[address] 10,500 Unit FEEDTUBE PRN PRN For Clogged Feeding Tube Ascorbic Acid 500 mg 01/21/20 10:00 01/30/20 10:42 Vitamin C PO 500 mg QDAY LIBORIO Administration Aspirin 81 mg 01/19/20 18:00 01/30/20 10:42 Baby Aspirin PO 81 mg QDAY LIBORIO Administration Atorvastatin Calcium 40 mg 01/19/20 22:00 01/29/20 22:02 Lipitor PO 40 mg QHS LIBORIO Administration Dextrose 50 ml 01/18/20 16:00 D50w (25gm) Syringe IV Q30MIN PRN Hypoglycemia Protocol Docusate Sodium 100 mg 01/20/20 10:00 01/30/20 10:42 Colace PO 100 mg BID LIBORIO Administration Enoxaparin Sodium 40 mg 01/18/20 22:00 01/30/20 10:42 Enoxaparin SUB-Q 40 mg BID LIBORIO Administration Protocol Hydralazine HCl 25 mg 01/26/20 08:00 01/30/20 05:42 Apresoline PO 25 mg Q8HR LIBORIO Administration Insulin Human Isoph/Insulin Regular 8 unit 01/27/20 08:45 01/29/20 08:39 Humulin 70/30 SUB-Q 8 unit QDDIAB LIBORIO Administration Insulin Human Regular 0 unit 01/18/20 16:00 01/30/20 05:41 Humulin R SUB-Q Not Given Q6HR [facility] Protocol Magnesium Hydroxide 30 ml 01/17/20 22:03 Milk Of Magnesia PO Q4H PRN Constipation Ondansetron HCl 4 mg 01/17/20 22:03 Zofran IV Q8H PRN Nausea And Vomiting Simple Syrup 15 ml 01/21/20 11:34 Simple Syrup FEEDTUBE PRN PRN Hypoglycemia Simple Syrup 30 ml 01/21/20 11:34 Simple Syrup FEEDTUBE PRN PRN Hypoglycemia Sodium Bicarbonate 325 mg 01/21/20 11:34 Sodium Bicarbonate FEEDTUBE PRN PRN For Clogged Feeding Tube Sodium Chloride 10 ml 01/18/20 10:00 01/30/20 10:43 Sodium Chloride Flush Syringe 10 Ml IV 10 ml BID LIBORIO Administration Sodium Chloride 10 ml 01/17/20 22:03 Sodium Chloride Flush Syringe 10 Ml IV PRN PRN LINE FLUSH Zinc Sulfate 220 mg 01/21/20 10:00 01/30/20 10:42 Zinc Sulfate PO 220 mg QDAY LIBORIO Administration Nutrition/Malnutrition Assess - Dietary Evaluation Nutrition/Malnutrition Findings: Nutrition Notes Start: 01/19/20 10:13 Freq: Status: Active Protocol: Document 01/27/20 12:55 AL (Rec: 01/27/20 13:04 AL [id number]) Co-Sign 01/27/20 12:55 MK Nutrition Notes Initial or Follow up Reassessment Current Diagnosis Diabetes,Hypertension,Stroke Other Pertinent Diagnosis COVID-19 (+), AMS, Dysphagia Current Diet Glucerna 1.2 at 65 mL/hr (goal rate) Labs/Tests BG 229 Cr 0.6 Pertinent Medications Humulin Decadron Height 5 ft 11 in Weight 88.8 kg [place] Body Weight (kg) 78.18 BMI 27.3 Subjective/Other Information F/U for Na, TF tolerance and water flush. Per RN, patient is tolerating TF well at the goal rate. Na labs are WNL currently. Percent of energy/protein needs met: 95%/100% Burn Absent Trauma Absent GI Symptoms None Current % PO Negligible Minimum of two criteria No physical signs of malnutrition #1 Nutrition Diagnosis Inadequate oral intake Diagnosis Progress(for reassessment Continues documentation) Is patient on ventilator? No Is Patient Ambulatory and/or Out of Bed No REE-([facility]-confined to bed) 1968.480 Calculation Used for Recommendations [facility] Additional Notes Pro needs 1-1.2g/k-106g/ day Fluid needs per MD Nutrition Intervention Change Diet Order: Continue TF Nutrition Support: Glucerna 1.2 at 65 mL/hr. Flush with 300 mL q4h. Kcal 1,872 Protein (gm) 94 Fluid (mL) 1,256 Goal #1 Meet at least 75% of estimated energy and protein needs via TF Goal #2 TF tolerance Anticipated Discharge Needs: Unable to determine at this time Follow-Up By: 02/01/20 Additional Comments F/U for TF tolerance
[2020-01-30] MEDS: INSULIN NPH/REGULAR 70/30 INJ SUB-Q SCH (13:12)
--- NOTE | 2020-01-30 19:12 | Event Note ---
Date: 01/30/20 I called patient's daughter Ms. Elina Burleson at [phone] and discussed with her the failed swallow evaluation by speech therapist and the recommendations of PEG placement, and GI consult, and the possible PEG placement in 1 to 2 days, I answered all her questions And also encouraged to talk to GI specialist regarding the PEG and also informed about her consent prior to the procedure. Patient verbalized understanding
[2020-01-30] MEDS: ACETAMINOPHEN 325 MG TAB PO PRN (22:56)
[2020-01-31] MEDS: hydrALAZINE 25 MG TAB PO SCH ×4 (05:13→21:29)
[2020-01-31] MEDS: INSULIN REGULAR, HUMAN 100 UNIT/ML 3ML VIAL SUB-Q SCH ×4 (05:14→23:50)
[2020-01-31 06:28] LABS: INR 1.04 (0.87-1.13)
[2020-01-31] MEDS: INSULIN NPH/REGULAR 70/30 INJ SUB-Q SCH (09:54)
[2020-01-31] MEDS: amLODIPine 5 MG TAB PO SCH ×2 (13:11→17:56)
[2020-01-31] MEDS: ASCORBIC ACID 500 MG TAB PO SCH (13:12)
[2020-01-31] MEDS: DOCUSATE SODIUM 100 MG/10 ML ORAL LIQD PO SCH ×2 (13:12→21:29)
[2020-01-31] MEDS: ZINC SULFATE 220 MG CAP PO SCH (13:12)
--- NOTE | 2020-01-31 14:10 | Gastroenterology Consultation ---
History of Present Illness - Reason for Consult Consult date: 01/31/20 Dysphagia Requesting physician: KANU VICKERS - History of Present Illness History obtained from patient's daughter, Ms. Elina Burleson at [phone] Patient mental status was not doing well prior however since he was admitted with Covid pneumonia his mental status has been very poor and he has been unable to pass a swallow study therefore GI is consulted for PEG tube placement. Obtained/updated/reviewed patient's current medications Past History Past Medical History: stroke, other (concussion) Past Surgical History: No surgical history, Other Social history: no significant social history (mild history etoh use), other Family history: hypertension, other Medications and Allergies Allergies Allergy/AdvReac Type Severity Reaction Status Date / Time No Known Allergies Allergy Verified 01/17/20 22:09 Home Medications Medication Instructions Recorded Confirmed Last Taken Type No Known Home Medications [No 01/20/20 01/20/20 Unknown History Reported Home Medications] Active Meds: Active Medications Acetaminophen (Tylenol) 650 mg PO Q4H PRN PRN Reason: Pain MILD(1-3)/Fever >100.5/FORD Last Admin: 01/30/20 22:56 Dose: 650 mg Documented by: Amlodipine Besylate (Amlodipine) 5 mg PO QDAY [facility] Last Admin: 01/31/20 13:11 Dose: Not Given Documented by: Lipase/Protease/Amylase (Pancreaze Dr 10,500 Unit) 1 each FEEDTUBE PRN PRN PRN Reason: For Clogged Feeding Tube Last Admin: 01/30/20 13:11 Dose: 1 each Documented by: Ascorbic Acid (Vitamin C) 500 mg PO QDAY [facility] Last Admin: 01/31/20 13:12 Dose: Not Given Documented by: Atorvastatin Calcium (Lipitor) 40 mg PO QHS [facility] Last Admin: 01/30/20 22:56 Dose: 40 mg Documented by: Dextrose (D50w (25gm) Syringe) 50 ml IV Q30MIN PRN; Protocol PRN Reason: Hypoglycemia Docusate Sodium (Colace) 100 mg PO BID [facility] Last Admin: 01/31/20 13:12 Dose: Not Given Documented by: Hydralazine HCl (Apresoline) 25 mg PO Q8HR [facility] Last Admin: 01/31/20 05:13 Dose: 25 mg Documented by: Insulin Human Isoph/Insulin Regular (Humulin 70/30) 8 unit SUB-Q QDDIAB [facility] Last Admin: 01/31/20 09:54 Dose: Not Given Documented by: Insulin Human Regular (Humulin R) 0 unit SUB-Q Q6HR [facility]; Protocol Last Admin: 01/31/20 13:13 Dose: Not Given Documented by: Magnesium Hydroxide (Milk Of Magnesia) 30 ml PO Q4H PRN PRN Reason: Constipation Ondansetron HCl (Zofran) 4 mg IV Q8H PRN PRN Reason: Nausea And Vomiting Simple Syrup (Simple Syrup) 15 ml FEEDTUBE PRN PRN PRN Reason: Hypoglycemia Simple Syrup (Simple Syrup) 30 ml FEEDTUBE PRN PRN PRN Reason: Hypoglycemia Sodium Bicarbonate (Sodium Bicarbonate) 325 mg FEEDTUBE PRN PRN PRN Reason: For Clogged Feeding Tube Sodium Chloride (Sodium Chloride Flush Syringe 10 Ml) 10 ml IV BID [facility] Last Admin: 01/30/20 22:58 Dose: 10 ml Documented by: Sodium Chloride (Sodium Chloride Flush Syringe 10 Ml) 10 ml IV PRN PRN PRN Reason: LINE FLUSH Zinc Sulfate (Zinc Sulfate) 220 mg PO QDAY [facility] Last Admin: 01/31/20 13:12 Dose: Not Given Documented by: Review of Systems - Review of Systems ROS unobtainable: due to mental status Exam - Constitutional Vital Signs: Temp Pulse Resp BP Pulse Ox 98.9 F 84 16 143/94 100 01/31/20 11:16 01/31/20 11:16 01/31/20 11:16 01/31/20 11:16 01/31/20 11:16 General appearance: no acute distress - Respiratory Respiratory effort: normal - Gastrointestinal General gastrointestinal: Present: soft - Neurologic Neurological: other (Disoriented) - Labs CBC & Chem 7: 01/30/20 08:24 01/30/20 08:24 Lab Results: Laboratory Results - last 24 hr 01/30/20 01/30/20 01/31/20 18:13 23:05 05:10 PT 13.5 INR 1.04 POC Glucose 106 H 110 H Coronavirus (PCR) 01/31/20 01/31/20 01/31/20 05:13 08:12 12:03 PT INR POC Glucose 101 89 Coronavirus (PCR) Positive A Assessment and Plan Patient requires enteral nutrition, discussed risk benefits and alternatives with the patient's daughter including bleeding, infections, tears, as well as pulmonary compromise. After thorough discussion patient's daughter agrees with placement of feeding tube, will proceed - Patient Problems (1) Dysphagia, oropharyngeal Current Visit: Yes Status: Acute (2) Altered mental status Current Visit: Yes Status: Acute
[2020-01-31] MEDS ORDERED: SODIUM CHLORIDE 0.9% 1000 ML 1,000 ML IV SCH (15:15)
[2020-01-31] MEDS ORDERED: propofoL 200 MG/20 ML VIAL IV ONE ×2 (15:41→15:42)
--- NOTE | 2020-01-31 15:46 | Anesthesia Consultation ---
Anesthesia Consult and Med Hx Date of service: 01/31/20 - Airway Anesthetic Teeth Evaluation: Good - Pulmonary Exam CTA: No (easy work of breathing) - Pre-Operative Health Status ASA Pre-Surgery Classification: ASA3 Proposed Anesthetic Plan: MAC - Pulmonary Hx Respiratory Symptoms: Yes Hx Pneumonia: Yes (COVID + this admission; off O2 since 01/23.) - Cardiovascular System Hx Hypertension: Yes - Central Nervous System CVA: Yes (earlier this year) Hx Psychiatric Problems: Yes (altered mental status, improving per daughter) - Endocrine Hx Renal Disease: No Hx Liver Disease: No Hx Insulin Dependent Diabetes: No Hx Non-Insulin Dependent Diabetes: No Hx Thyroid Disease: No - Other Systems Hx Obesity: No - Additional Comments Anesthesia Medical History Comments: No hx anesthetic complications. Patient initially tested positive for coronavirus on 01/18. Repeat testing done today remains positive however patient's respirtory status has improved. PEG is needed for failed swallow eval and will be needed in order for patient to be transferred out of the hospital. Will proceed using COVID precautions per OR/Endo protocol. Discussed with Elina Burleson (daughter) the anesthetic plan and increased risk for clint-procedure pulmonary complicatons. She verbalized understanding and gave anesthesia consent.
[2020-01-31] MEDS ORDERED: ceFAZolin/Water 2 GM/20 ML 2 GM/20 ML SYRINGE IV ONE (15:47)
--- NOTE | 2020-01-31 15:47 | Anesthesia Day of Surgery ---
Anesthesia Day of Surgery - Day of Surgery Patient Examined: Yes Patient H&P Reviewed: Yes Patient is NPO: Yes
[2020-01-31] MEDS ORDERED: SODIUM CHLORIDE 0.9% 1000 ML 1,000 ML ONE (15:48)
[2020-01-31] MEDS ORDERED: ceFAZolin/Water 2 GM/20 ML 2 GM/20 ML SYRINGE IV NR (16:00)
[2020-01-31] MEDS ORDERED: LIDOCAINE MPF (2%) 20 MG/1 ML VIAL 5 ML ONE (16:00)
--- NOTE | 2020-01-31 16:31 | Operative Report ---
Operative Report Operative Report: DOS 01/31/2020 ANTIBIOTICS: Ancef 2gm IV once SURGEON: Anival Carney MD EGD WITH PEG TUBE PLACEMENT REPORT PREOPERATIVE DIAGNOSIS and POSTOPERATIVE DIAGNOSIS: Oropharyngeal dysphagia ESTIMATED BLOOD LOSS: minimal DESCRIPTION OF PROCEDURE: A high-resolution EGD scope was passed through the oropharynx, esophagus, stomach, and second portion of duodenum. The scope was carefully withdrawn. Retroflexion was performed in the stomach. At the end of the procedure, the scope was cleaned using normal technique. Vital signs monitored continuously throughout. The stomach was transilluminated and an optimal position for the PEG tube was identified using the single poke method. The skin was infiltrated with local anesthesia and the needle and sheath were inserted through the abdomen into the stomach under direct visualization. The needle was removed and a guidewire was inserted through the sheath. The patient coughed and the guidewire was lost, so had to reinsert the needle and guidewire. The guidewire was grasped from above with a snare. It was removed completely and the PEG tube was secured to the guidewire. The guidewire and PEG tube were then pulled through the mouth and esophagus and snug to the abdominal wall. There was no evidence of bleeding. The Bolster was placed on the PEG site. SEDATION: Provided by Anesthesiology Services. COMPLICATIONS: None. FINDINGS: * No gross lesions in the entire examined duodenum * Atrophic gastritis * Esophagitis at the GE junction, LA grade B moderate * Dry secretions and old food in the oropharynx cleaned out as best as possible * Remainder of exam was unremarkable RECOMMENDATIONS: The PEG may be used for medication and water flushes now. Tomorrow, if there are normal bowel sounds and no significant abdominal tenderness to palpation may start tube feeds
--- NOTE | 2020-01-31 16:55 | Post Anesthesia Evaluation ---
- Post Anesthesia Evaluation Patient Participated: Yes Airway Patent: Yes Stable Respiratory Function: Yes Nausea/Vomiting: No Temp > 96.8F: Yes Pain Manageable: Yes Adequeate Hydration: Yes Anesthesia Complications: No
--- NOTE | 2020-01-31 19:25 | Progress Note ---
Assessment and Plan Assessment and plan: --Dysphagia; for PEG placement today Current Visit: Yes Status: Acute . Plan to address problem: Patient underwent PEG placement per GI Okay to start PEG feeds from tomorrow morning If tolerated patient can be discharged Aspirin and Lovenox held for the PEG procedure Will resume tomorrow. -- Acute respiratory failure Current Visit: Yes Status: Acute . Plan to address problem: Acute respiratory failure secondary to COVID-19 pneumonia. Patient remains ill cachectic but able to breathe. With O2/nebulizers. Oxygenation has actually improved. Problem is debility and decreased p.o. intake. --Acute metabolic encephalopathy ; multifactorial Current Visit: Yes Status: Acute Plan to address problem: Multifactorial secondary to COVID-19 pneumonia as well as hypoxemia and malnutrition. This with underlying dementia. Awaiting family decision about PEG tube placement. -- COVID-19 virus infection Current Visit: Yes Status: Acute Plan to address problem: Patient not on dexamethasone or remdesivir at this time. No fever. --Elevated d-dimer Current Visit: Yes Status: Acute Plan to address problem: Secondary to COVID-19. Will treat with empiric anticoagulants. Patient currently on Lovenox now. Specially since patient's a receive PEG tube. Can stop this more rapidly. --Pneumonia due to COVID-19 virus Current Visit: Yes Status: Acute Plan to address problem: Continues to improve. Patient's oxygenation is improving cognition has been following slow behind. --Hypertension Current Visit: Yes Status: Chronic Plan to address problem: Patient's blood pressure fairly well controlled with amlodipine. --Acute hypernatremia Current Visit: Yes Status: Resolved Plan to address problem: Hypernatremia has resolved current sodium 137. Patient will require feeding tube. This will improve outcome. Brief history; 79-year-old male with HTN and DM who is a resident of a assisted presented to the ED on 01/17 via EMS for evaluation of a change mental status. Per assisted staff patient was not communicating well and having decreased oral intake. Upon arrival to the emergency department patient was found to be tachycardic, febrile to 102.2 and hypoxic with SPO2 of 91 on room air. Work-up was significant for hypernatremia, acute kidney injury (CR/BUN 2.2/55), hypochloremia, transaminitis and a chest x-ray showed mild bilateral pulmonary edema and CTh was unremarkable. Patient was admitted to hospitalist service as a Covid PUI, Sepsis, YIMI and infectious disease and nephrology were consulted. Patient failed swallow evaluation per speech therapy, recommended PEG placement, GI evaluated, patient had PEG tube placement today 01/31/2020. GI recommend to start tube feeding tomorrow and may discharge if stable. 01/17: elevated D-dimer therefore bilateral upper and lower extremity ultrasounds Dopplers were obtained to rule out DVT and a VQ scan was performed to rule out PE both of which were negative. Patient remained severely hypernatremic and his IV fluids were changed to D5 water. We will trend his BMP. He also has elevated Covid markers ferritin and CRP. 01/18: COVID-19 PCR resulted as positive. Patient remains hyponatremic therefore nephrology was consulted and he was started on FWF and his D5W was increased. 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 Dr. Petersen updated his daughter this morning (Ms. Burleson) and this afternoon after his COVID-19 PCR resulted I updated her. The phone got disconnected after 2 minutes of conversation and informing her of COVID-19 status and I tried calling back twice. Both times it was sent to [employer] and her mailbox is full therefore was not able to leave a message. Patient was also initiated on remdesivir therapy 01/19: MRI head and MRI brain still pending, continue remdesivir therapy, increased free water flush 300 mL every 4 hours and increase the D5W TO 100 mL/h 01/20: Zinc and vitamin C initiated, patient still remains hypernatremic 01/21: Patient remains hypernatremic, no acute events reported overnight 01/22: Patient remains hypernatremic, hyperchloremic though it is improving. Patient still remains with altered mental status and he has bilateral wrist restraints in place. Dr. Petersen updated patient's daughter over the phone today. No acute events reported overnight. Patient was hypokalemic which was repleted. 01/23: His hyperkalemia has resolved. No acute events reported overnight. Patient intermittently follows commands and is more verbal. Today he has bilateral mittens in place. 01/24: Patient has marked improvement in mentation today he is oriented to self and follows commands. Patient is hypokalemic today at 3.5 which was repleted and his hypernatremia and hyperchloremia are improving. Patient failed his swallow eval by speech therapy this morning. I updated daughter over the phone, Olya Pritchard, regarding ST evaluation and labs. I spoke to her about the possibility of a PEG being recommended by ST to which she agreed to as a last resort. 01/25: This morning patient is more alert with RN. Repeated speech evaluation was conducted and he failed. I updated the patient's daughter who would like to hold off a decision about PEG till Thursday and would like to see patient improves with speech therapy. This morning patient's hypernatremia and hyperchloremia has improved and his sodium is 148, chloride 111.4. 01/27-patient failed swallowing the valve again. Patient scheduled to determine about PEG tube feedings on Thursday. Seems will need a PEG. Family leaning toward this. 01/28;. Patient remains comfortable. Still has some cognitive impairment. Recent introduction to patient mental status appears about the same. Family to decide about PEG tube on Thursday. 01/29; I discussed with patient's daughter Elina Burleson and discussed the details of PEG placement, GI consult, possible procedure tomorrow She verbalized understanding and willing for PEG placement, GI consulted 01/30; patient received PEG placement today, GI recommend to start tube feeding tomorrow, and patient may be discharged if stable History Interval history: I have seen and examined the patient at the bedside Isolation precautions and PPE protocols strictly followed Patient underwent PEG placement today per GI Tolerated the procedure well Vital signs noted Hospitalist Physical - Constitutional Vitals: Temp Pulse Resp BP Pulse Ox 98.8 F 96 H 15 165/113 99 01/31/20 16:29 01/31/20 17:00 01/31/20 17:00 01/31/20 17:00 01/31/20 17:00 General appearance: Present: no acute distress, cachectic, disheveled - EENT Eyes: Present: PERRL, EOM intact - Neck Neck: Present: supple, normal ROM - Respiratory Respiratory effort: normal Respiratory: bilateral: diminished, negative: rales, rhonchi, wheezing - Cardiovascular Rhythm: regular Heart Sounds: Present: S1 & S2 - Extremities Extremities: no ischemia, No edema - Abdominal General gastrointestinal: soft, non-tender, non-distended, normal bowel sounds, other (PEG tube in place) - Integumentary Integumentary: Present: clear, warm - Psychiatric Psychiatric: cooperative, other (Confused minimally communicative) - Neurologic Neurologic: moves all extremities HEART Score - HEART Score Troponin: Troponin T < 0.010 ng/mL (0.00-0.029) 01/17/20 17:34 Results - Labs CBC & Chem 7: 01/30/20 08:24 01/30/20 08:24 Labs: Laboratory Last Values WBC 15.5 K/mm3 (4.5-11.0) H 01/30/20 08:24 RBC 5.55 M/mm3 (3.65-5.03) H 01/30/20 08:24 Hgb 13.8 gm/dl (11.8-15.2) 01/30/20 08:24 Hct 42.8 % (35.5-45.6) 01/30/20 08:24 MCV 77 fl (84-94) L 01/30/20 08:24 MCH 25 pg (28-32) L 01/30/20 08:24 MCHC 32 % (32-34) 01/30/20 08:24 RDW 14.5 % (13.2-15.2) 01/30/20 08:24 Plt Count 193 K/mm3 (140-440) 01/30/20 08:24 Lymph % (Auto) 8.8 % (13.4-35.0) L 01/25/20 05:48 [place] % (Auto) 3.0 % (0.0-7.3) 01/25/20 05:48 Eos % (Auto) 1.5 % (0.0-4.3) 01/25/20 05:48 Baso % (Auto) 0.4 % (0.0-1.8) 01/25/20 05:48 Lymph # (Auto) 1.5 K/mm3 (1.2-5.4) 01/25/20 05:48 [place] # (Auto) 0.5 K/mm3 (0.0-0.8) 01/25/20 05:48 Eos # (Auto) 0.3 K/mm3 (0.0-0.4) 01/25/20 05:48 Baso # (Auto) 0.1 K/mm3 (0.0-0.1) 01/25/20 05:48 Add Manual Diff Complete 01/30/20 08:24 Total Counted 100 01/30/20 08:24 Seg Neutrophils % 86.3 % (40.0-70.0) H 01/25/20 05:48 Seg Neuts % (Manual) 92.0 % (40.0-70.0) H 01/30/20 08:24 Band Neutrophils % 0 % 01/30/20 08:24 Lymphocytes % (Manual) 6.0 % (13.4-35.0) L 01/30/20 08:24 Reactive Lymphs % (Man) 0 % 01/30/20 08:24 Monocytes % (Manual) 2.0 % (0.0-7.3) 01/30/20 08:24 Eosinophils % (Manual) 0 % (0.0-4.3) 01/30/20 08:24 Basophils % (Manual) 0 % (0.0-1.8) 01/30/20 08:24 Metamyelocytes % 0 % 01/30/20 08:24 Myelocytes % 0 % 01/30/20 08:24 Promyelocytes % 0 % 01/30/20 08:24 Blast Cells % 0 % 01/30/20 08:24 Nucleated RBC % Not Reportable 01/30/20 08:24 Seg Neutrophils # 15.2 K/mm3 (1.8-7.7) H 01/25/20 05:48 Seg Neutrophils # Man 14.3 K/mm3 (1.8-7.7) H 01/30/20 08:24 Band Neutrophils # 0.0 K/mm3 01/30/20 08:24 Lymphocytes # (Manual) 0.9 K/mm3 (1.2-5.4) L 01/30/20 08:24 Abs React Lymphs (Man) 0.0 K/mm3 01/30/20 08:24 Monocytes # (Manual) 0.3 K/mm3 (0.0-0.8) 01/30/20 08:24 Eosinophils # (Manual) 0.0 K/mm3 (0.0-0.4) 01/30/20 08:24 Basophils # (Manual) 0.0 K/mm3 (0.0-0.1) 01/30/20 08:24 Metamyelocytes # 0.0 K/mm3 01/30/20 08:24 Myelocytes # 0.0 K/mm3 01/30/20 08:24 Promyelocytes # 0.0 K/mm3 01/30/20 08:24 Blast Cells # 0.0 K/mm3 01/30/20 08:24 WBC Morphology Not Reportable 01/30/20 08:24 Hypersegmented Neuts Not Reportable 01/30/20 08:24 Hyposegmented Neuts Not Reportable 01/30/20 08:24 Hypogranular Neuts Not Reportable 01/30/20 08:24 Smudge Cells Not Reportable 01/30/20 08:24 Toxic Granulation Not Reportable 01/30/20 08:24 Toxic Vacuolation Not Reportable 01/30/20 08:24 Dohle Bodies Not Reportable 01/30/20 08:24 Pelger-Huet Anomaly Not Reportable 01/30/20 08:24 Janice Rods Not Reportable 01/30/20 08:24 Platelet Estimate Consistent w auto 01/30/20 08:24 Clumped Platelets Not Reportable 01/30/20 08:24 Plt Clumps, EDTA Not Reportable 01/30/20 08:24 Large Platelets Not Reportable 01/30/20 08:24 Giant Platelets Not Reportable 01/30/20 08:24 Platelet Satelliting Not Reportable 01/30/20 08:24 Plt Morphology Comment Not Reportable 01/30/20 08:24 RBC Morphology Not Reportable 01/30/20 08:24 Dimorphic RBCs Not Reportable 01/30/20 08:24 Polychromasia Few 01/30/20 08:24 Hypochromasia 1+ 01/30/20 08:24 Poikilocytosis Not Reportable 01/30/20 08:24 Anisocytosis Not Reportable 01/30/20 08:24 Microcytosis Not Reportable 01/30/20 08:24 Macrocytosis Not Reportable 01/30/20 08:24 Spherocytes Not Reportable 01/30/20 08:24 Pappenheimer Bodies Not Reportable 01/30/20 08:24 Sickle Cells Not Reportable 01/30/20 08:24 Target Cells Rare 01/30/20 08:24 Tear Drop Cells Not Reportable 01/30/20 08:24 Ovalocytes Not Reportable 01/30/20 08:24 Helmet Cells Not Reportable 01/30/20 08:24 Fu-[place] Bodies Not Reportable 01/30/20 08:24 Ovalo Rings Not Reportable 01/30/20 08:24 Marco Cells Rare 01/30/20 08:24 Bite Cells Not Reportable 01/30/20 08:24 Crenated Cell Not Reportable 01/30/20 08:24 Elliptocytes Few 01/30/20 08:24 Acanthocytes (Spur) Not Reportable 01/30/20 08:24 Rouleaux Not Reportable 01/30/20 08:24 Hemoglobin C Crystals Not Reportable 01/30/20 08:24 Schistocytes Not Reportable 01/30/20 08:24 Malaria parasites Not Reportable 01/30/20 08:24 Cedrick Bodies Not Reportable 01/30/20 08:24 Hem Pathologist Commnt No 01/30/20 08:24 PT 13.5 Sec. (12.2-14.9) 01/31/20 05:10 INR 1.04 (0.87-1.13) 01/31/20 05:10 APTT 31.0 Sec. (24.2-36.6) 01/17/20 17:34 D-Dimer 3001.60 ng/mlDDU (0-234) H 01/22/20 07:46 Sodium 141 mmol/L (137-145) 01/30/20 08:24 Potassium 3.7 mmol/L (3.6-5.0) 01/30/20 08:24 Chloride 105.3 mmol/L (98-107) 01/30/20 08:24 Carbon Dioxide 25 mmol/L (22-30) 01/30/20 08:24 Anion Gap 14 mmol/L 01/30/20 08:24 BUN 19 mg/dL (9-20) 01/30/20 08:24 Creatinine 0.6 mg/dL (0.8-1.3) L 01/30/20 08:24 Estimated GFR > 60 ml/min 01/30/20 08:24 BUN/Creatinine Ratio 32 % 01/30/20 08:24 Glucose 126 mg/dL (75-100) H 01/30/20 08:24 POC Glucose 99 mg/dL (70-105) 01/31/20 17:52 Hemoglobin A1c 6.7 % (4-6) H 01/18/20 16:04 Lactic Acid 1.80 mmol/L (0.7-2.0) 01/17/20 19:40 Calcium 8.9 mg/dL (8.4-10.2) 01/30/20 08:24 Magnesium 2.00 mg/dL (1.7-2.3) 01/26/20 05:14 Ferritin 3748.0 ng/mL (30.0-300.0) H 01/22/20 07:46 Total Bilirubin 0.40 mg/dL (0.1-1.2) 01/20/20 05:39 Direct Bilirubin < 0.2 mg/dL (0-0.2) 01/20/20 05:39 Indirect Bilirubin 0.2 mg/dL 01/20/20 05:39 AST 60 units/L (5-40) H 01/20/20 05:39 ALT 44 units/L (7-56) 01/20/20 05:39 Alkaline Phosphatase 64 units/L (35-129) 01/20/20 05:39 Ammonia 38.0 umol/L (25-60) 01/17/20 17:34 Lactate Dehydrogenase 368 units/L (91-180) H 01/22/20 07:46 Total Creatine Kinase 164 units/L (55-170) 01/17/20 17:34 Troponin T < 0.010 ng/mL (0.00-0.029) 01/17/20 17:34 C-Reactive Protein 2.90 mg/dL (0.00-1.30) H 01/22/20 07:46 Total Protein 7.0 g/dL (6.3-8.2) 01/20/20 05:39 Albumin 2.8 g/dL (3.9-5) L 01/20/20 05:39 Albumin/Globulin Ratio 0.7 % 01/20/20 05:39 Triglycerides 219 mg/dL (2-149) H 01/18/20 16:04 Cholesterol 180 mg/dL (50-199) 01/18/20 16:04 LDL Cholesterol Direct 91 mg/dL (50-130) 01/18/20 16:04 HDL Cholesterol 37 mg/dL (40-59) L 01/18/20 16:04 Cholesterol/HDL Ratio 4.86 % 01/18/20 16:04 Procalcitonin 0.15 ng/mL (<0.15) 01/17/20 21:39 Urine Color Yellow (Yellow) 01/17/20 19:30 Urine Turbidity Clear (Clear) 01/17/20 19:30 Urine pH 5.0 (5.0-7.0) 01/17/20 19:30 Ur Specific [place] 1.016 (1.003-1.030) 01/17/20 19:30 Urine Protein 100 mg/dl mg/dL (Negative) 01/17/20 19:30 Urine Glucose (UA) Neg mg/dL (Negative) 01/17/20 19: Urine Ketones Neg mg/dL (Negative) 01/17/20 19:30 Urine Blood Sm (Negative) 01/17/20 19:30 Urine Nitrite Neg (Negative) 01/17/20 19:30 Urine Bilirubin Neg (Negative) 01/17/20 19:30 Urine Urobilinogen < 2.0 mg/dL (<2.0) 01/17/20 19:30 Ur Leukocyte Esterase Neg (Negative) 01/17/20 19:30 Urine WBC (Auto) 2.0 /HPF (0.0-6.0) 01/17/20 19:30 Urine RBC (Auto) 6.0 /HPF (0.0-6.0) 01/17/20 19:30 U Epithel Cells (Auto) < 1.0 /HPF (0-13.0) 01/17/20 19:30 Urine Bacteria (Auto) 1+ /HPF (Negative) 01/17/20 19:30 Urine Mucus Few /HPF 01/17/20 19:30 Coronavirus (PCR) Positive (Negative) A 01/31/20 08:12 SARS-CoV-2 IgG Ab Reactive (NonReactive) A 01/19/20 17:52 Moses/IV: Voiding Method Condom Catheter IV Catheter Type [Left Forearm INT / Saline Lock ] IV Catheter Type [Right INT / Saline Lock Antecubital] Active Medications - Current Medications Current Medications: Generic Name Dose Route Start Last Admin Trade Name Freq PRN Reason Stop Dose Admin Acetaminophen 650 mg 01/17/20 22:03 01/30/20 22:56 Tylenol PO 650 mg Q4H PRN Administration Pain MILD(1-3)/Fever >100.5/FORD Amlodipine Besylate 5 mg 01/24/20 10:00 01/31/20 17:56 Amlodipine PO 5 mg QDAY LIBORIO Administration Lipase/Protease/Amylase 1 each 01/21/20 11:34 01/30/20 13:[address] 10,500 Unit FEEDTUBE 1 each PRN PRN Administration For Clogged Feeding Tube Ascorbic Acid 500 mg 01/21/20 10:00 01/31/20 13:12 Vitamin C PO Not Given QDAY LIBORIO Atorvastatin Calcium 40 mg 01/19/20 22:00 01/30/20 22:56 Lipitor PO 40 mg QHS LIBORIO Administration Dextrose 50 ml 01/18/20 16:00 D50w (25gm) Syringe IV Q30MIN PRN Hypoglycemia Protocol Docusate Sodium 100 mg 01/20/20 10:00 01/31/20 13:12 Colace PO Not Given BID LIBORIO Hydralazine HCl 25 mg 01/26/20 08:00 01/31/20 17:56 Apresoline PO 25 mg Q8HR LIBORIO Administration Dextrose/Sodium Chloride 1,000 mls @ 75 mls/hr 01/31/20 20:00 01/31/20 19:07 D5ns IV 75 mls/hr DIRECT LIBORIO Administration Insulin Human Isoph/Insulin Regular 8 unit 01/27/20 08:45 01/31/20 09:54 Humulin 70/30 SUB-Q Not Given QDDIAB [facility] Insulin Human Regular 0 unit 01/18/20 16:00 01/31/20 17:55 Humulin R SUB-Q Not Given Q6HR [facility] Protocol Magnesium Hydroxide 30 ml 01/17/20 22:03 Milk Of Magnesia PO Q4H PRN Constipation Ondansetron HCl 4 mg 01/17/20 22:03 Zofran IV Q8H PRN Nausea And Vomiting Simple Syrup 15 ml 01/21/20 11:34 Simple Syrup FEEDTUBE PRN PRN Hypoglycemia Simple Syrup 30 ml 01/21/20 11:34 Simple Syrup FEEDTUBE PRN PRN Hypoglycemia Sodium Bicarbonate 325 mg 01/21/20 11:34 Sodium Bicarbonate FEEDTUBE PRN PRN For Clogged Feeding Tube Sodium Chloride 10 ml 01/18/20 10:00 01/31/20 17:20 Sodium Chloride Flush Syringe 10 Ml IV Not Given BID LIBORIO Sodium Chloride 10 ml 01/17/20 22:03 Sodium Chloride Flush Syringe 10 Ml IV PRN PRN LINE FLUSH Zinc Sulfate 220 mg 01/21/20 10:00 01/31/20 13:12 Zinc Sulfate PO Not Given QDAY LIBORIO Nutrition/Malnutrition Assess - Dietary Evaluation Nutrition/Malnutrition Findings: Nutrition Notes Start: 01/19/20 10:13 Freq: Status: Active Protocol: Document 01/27/20 12:55 AL (Rec: 01/27/20 13:04 AL [id number]) Co-Sign 01/27/20 12:55 MK Nutrition Notes Initial or Follow up Reassessment Current Diagnosis Diabetes,Hypertension,Stroke Other Pertinent Diagnosis COVID-19 (+), AMS, Dysphagia Current Diet Glucerna 1.2 at 65 mL/hr (goal rate) Labs/Tests BG 229 Cr 0.6 Pertinent Medications Humulin Decadron Height 5 ft 11 in Weight 88.8 kg [place] Body Weight (kg) 78.18 BMI 27.3 Subjective/Other Information F/U for Na, TF tolerance and water flush. Per RN, patient is tolerating TF well at the goal rate. Na labs are WNL currently. Percent of energy/protein needs met: 95%/100% Burn Absent Trauma Absent GI Symptoms None Current % PO Negligible Minimum of two criteria No physical signs of malnutrition #1 Nutrition Diagnosis Inadequate oral intake Diagnosis Progress(for reassessment Continues documentation) Is patient on ventilator? No Is Patient Ambulatory and/or Out of Bed No REE-([facility]-confined to bed) [phone] Calculation Used for Recommendations [facility] Additional Notes Pro needs 1-1.2g/k-106g/ day Fluid needs per MD Nutrition Intervention Change Diet Order: Continue TF Nutrition Support: Glucerna 1.2 at 65 mL/hr. Flush with 300 mL q4h. Kcal 1,872 Protein (gm) 94 Fluid (mL) 1,256 Goal #1 Meet at least 75% of estimated energy and protein needs via TF Goal #2 TF tolerance Anticipated Discharge Needs: Unable to determine at this time Follow-Up By: 02/01/20 Additional Comments F/U for TF tolerance
[2020-01-31] MEDS ORDERED: D5W/0.9% NACL 1,000 ML IV SCH (20:00)
[2020-02-01] MEDS: hydrALAZINE 25 MG TAB PO SCH ×3 (05:36→22:39)
[2020-02-01] MEDS: INSULIN NPH/REGULAR 70/30 INJ SUB-Q SCH (10:20)
[2020-02-01] MEDS: INSULIN REGULAR, HUMAN 100 UNIT/ML 3ML VIAL SUB-Q SCH ×2 (10:20→17:12)
[2020-02-01] MEDS: ZINC SULFATE 220 MG CAP PO SCH (10:21)
[2020-02-01] MEDS: ASPIRIN 81 MG TAB CHEW PO SCH (10:21)
[2020-02-01] MEDS: DOCUSATE SODIUM 100 MG/10 ML ORAL LIQD PO SCH ×2 (10:21→22:39)
[2020-02-01] MEDS: ASCORBIC ACID 500 MG TAB PO SCH (10:21)
[2020-02-01] MEDS: ACETAMINOPHEN 325 MG TAB PO PRN (10:21)
[2020-02-01] MEDS: amLODIPine 5 MG TAB PO SCH (10:21)
--- NOTE | 2020-02-01 11:09 | Progress Note ---
Assessment and Plan Assessment and plan: --Dysphagia Patient underwent PEG placement per GI -- Acute respiratory failure Acute respiratory failure secondary to COVID-19 pneumonia. Patient remains ill cachectic but able to breathe. With O2/nebulizers. Oxygenation has actually improved. Problem is debility and decreased p.o. intake. --Acute metabolic encephalopathy ; multifactorial Multifactorial secondary to COVID-19 pneumonia as well as hypoxemia and malnut rition. This with underlying dementia. Awaiting family decision about PEG tube placement. -- COVID-19 virus infection Patient not on dexamethasone or remdesivir at this time. No fever. --Elevated d-dimer Secondary to COVID-19. Empiric anticoagulants. Patient currently on Lovenox now. Specially since patient's a receive PEG tube. Can stop this more rapidly. --Pneumonia due to COVID-19 virus Current Visit: Yes Status: Acute Plan to address problem: Continues to improve. Patient's oxygenation is improving cognition has been following slow behind. --Hypertension Current Visit: Yes Status: Chronic Plan to address problem: Patient's blood pressure fairly well controlled with amlodipine. --Acute hypernatremia Current Visit: Yes Status: Resolved Plan to address problem: Hypernatremia has resolved current sodium 137. Patient will require feeding tube. This will improve outcome. Brief history; 79-year-old male with HTN and DM who is a [facility] presented to the ED on 01/17 via EMS for evaluation of a change mental status. Per [facility] staff patient was not communicating well and having decreased oral intake. Upon arrival to the emergency department patient was found to be tachycardic, febrile to 102.2 and hypoxic with SPO2 of 91 on room air. Work-up was significant for hypernatremia, acute kidney injury (CR/BUN 2.2/55), hypochloremia, transaminitis and a chest x-ray showed mild bilateral pulmonary edema and CTh was unremarkable. Patient was admitted to hospitalist service as a Covid PUI, Sepsis, YIMI and infectious disease and nephrology were consulted. Patient failed swallow evaluation per speech therapy, recommended PEG placement, GI evaluated, patient had PEG tube placement today 01/31/2020. GI recommend to start tube feeding tomorrow and may discharge if stable. 01/17: elevated D-dimer therefore bilateral upper and lower extremity ultrasounds Dopplers were obtained to rule out DVT and a VQ scan was performed to rule out PE both of which were negative. Patient remained severely hypernatremic and his IV fluids were changed to D5 water. We will trend his BMP. He also has elevated Covid markers ferritin and CRP. 01/18: COVID-19 PCR resulted as positive. Patient remains hyponatremic therefore nephrology was consulted and he was started on FWF and his D5W was increased. 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 Dr. Petersen updated his daughter this morning (Ms. Burleson) and this afternoon after his COVID-19 PCR resulted I updated her. The phone got disconnected after 2 minutes of conversation and informing her of COVID-19 status and I tried calling back twice. Both times it was sent to [employer] and her mailbox is full therefore was not able to leave a message. Patient was also initiated on remdesivir therapy 01/19: MRI head and MRI brain still pending, continue remdesivir therapy, increased free water flush 300 mL every 4 hours and increase the D5W TO 100 mL/h 01/20: Zinc and vitamin C initiated, patient still remains hypernatremic 01/21: Patient remains hypernatremic, no acute events reported overnight 01/22: Patient remains hypernatremic, hyperchloremic though it is improving. Patient still remains with altered mental status and he has bilateral wrist restraints in place. Dr. Petersen updated patient's daughter over the phone today. No acute events reported overnight. Patient was hypokalemic which was repleted. 01/23: His hyperkalemia has resolved. No acute events reported overnight. Patient intermittently follows commands and is more verbal. Today he has bilateral mittens in place. 01/24: Patient has marked improvement in mentation today he is oriented to self and follows commands. Patient is hypokalemic today at 3.5 which was repleted and his hypernatremia and hyperchloremia are improving. Patient failed his swallow eval by speech therapy this morning. I updated daughter over the phone, Olya Pritchard, regarding ST evaluation and labs. I spoke to her about the possibility of a PEG being recommended by ST to which she agreed to as a last resort. 01/25: This morning patient is more alert with RN. Repeated speech evaluation was conducted and he failed. I updated the patient's daughter who would like to hold off a decision about PEG till Thursday and would like to see patient improves with speech therapy. This morning patient's hypernatremia and hyperchloremia has improved and his sodium is 148, chloride 111.4. 01/27-patient failed swallowing the valve again. Patient scheduled to determine about PEG tube feedings on Thursday. Seems will need a PEG. Family leaning toward this. 01/28;. Patient remains comfortable. Still has some cognitive impairment. Recent introduction to patient mental status appears about the same. Family to decide about PEG tube on Thursday. 01/29; I discussed with patient's daughter Elina Burleson and discussed the details of PEG placement, GI consult, possible procedure tomorrow She verbalized understanding and willing for PEG placement, GI consulted 01/30; patient received PEG placement today, GI recommend to start tube feeding tomorrow, and patient may be discharged if stable 01/31. Patient is s/p PEG placement yesterday. Monitor tube feedings today. Covid testing remains positive from 01/31/2020 History Interval history: No new issues overnight. Hospitalist Physical - Constitutional Vitals: Temp Pulse Resp BP Pulse Ox 97.6 F 82 20 144/89 97 02/01/20 05:27 02/01/20 05:36 02/01/20 05:27 02/01/20 05:36 02/01/20 05:27 General appearance: Present: no acute distress, cachectic, disheveled - EENT Eyes: Present: PERRL, EOM intact ENT: hearing intact, clear oral mucosa, dentition normal - Neck Neck: Present: supple, normal ROM - Respiratory Respiratory effort: normal Respiratory: bilateral: CTA - Cardiovascular Rhythm: regular Heart Sounds: Present: S1 & S2. Absent: gallop, rub - Extremities Extremities: no ischemia, No edema, Full ROM - Abdominal General gastrointestinal: soft, non-tender, non-distended, normal bowel sounds - Integumentary Integumentary: Present: clear, warm, dry - Neurologic Neurologic: CNII-XII intact, moves all extremities HEART Score - HEART Score Troponin: Troponin T < 0.010 ng/mL (0.00-0.029) 01/17/20 17:34 Results - Labs CBC & Chem 7: 11/23/20 08:24 01/30/20 08:24 Labs: Laboratory Last Values WBC 15.5 K/mm3 (4.5-11.0) H 01/30/20 08:24 RBC 5.55 M/mm3 (3.65-5.03) H 01/30/20 08:24 Hgb 13.8 gm/dl (11.8-15.2) 01/30/20 08:24 Hct 42.8 % (35.5-45.6) 01/30/20 08:24 MCV 77 fl (84-94) L 01/30/20 08:24 MCH 25 pg (28-32) L 01/30/20 08:24 MCHC 32 % (32-34) 01/30/20 08:24 RDW 14.5 % (13.2-15.2) 01/30/20 08:24 Plt Count 193 K/mm3 (140-440) 01/30/20 08:24 Lymph % (Auto) 8.8 % (13.4-35.0) L 01/25/20 05:48 Ware % (Auto) 3.0 % (0.0-7.3) 01/25/20 05:48 Eos % (Auto) 1.5 % (0.0-4.3) 01/25/20 05:48 Baso % (Auto) 0.4 % (0.0-1.8) 01/25/20 05:48 Lymph # (Auto) 1.5 K/mm3 (1.2-5.4) 01/25/20 05:48 Ware # (Auto) 0.5 K/mm3 (0.0-0.8) 01/25/20 05:48 Eos # (Auto) 0.3 K/mm3 (0.0-0.4) 01/25/20 05:48 Baso # (Auto) 0.1 K/mm3 (0.0-0.1) 01/25/20 05:48 Add Manual Diff Complete 01/30/20 08:24 Total Counted 100 01/30/20 08:24 Seg Neutrophils % 86.3 % (40.0-70.0) H 01/25/20 05:48 Seg Neuts % (Manual) 92.0 % (40.0-70.0) H 01/30/20 08:24 Band Neutrophils % 0 % 01/30/20 08:24 Lymphocytes % (Manual) 6.0 % (13.4-35.0) L 01/30/20 08:24 Reactive Lymphs % (Man) 0 % 01/30/20 08:24 Monocytes % (Manual) 2.0 % (0.0-7.3) 01/30/20 08:24 Eosinophils % (Manual) 0 % (0.0-4.3) 01/30/20 08:24 Basophils % (Manual) 0 % (0.0-1.8) 01/30/20 08:24 Metamyelocytes % 0 % 01/30/20 08:24 Myelocytes % 0 % 01/30/20 08:24 Promyelocytes % 0 % 01/30/20 08:24 Blast Cells % 0 % 01/30/20 08:24 Nucleated RBC % Not Reportable 01/30/20 08:24 Seg Neutrophils # 15.2 K/mm3 (1.8-7.7) H 01/25/20 05:48 Seg Neutrophils # Man 14.3 K/mm3 (1.8-7.7) H 01/30/20 08:24 Band Neutrophils # 0.0 K/mm3 01/30/20 08:24 Lymphocytes # (Manual) 0.9 K/mm3 (1.2-5.4) L 01/30/20 08:24 Abs React Lymphs (Man) 0.0 K/mm3 01/30/20 08:24 Monocytes # (Manual) 0.3 K/mm3 (0.0-0.8) 01/30/20 08:24 Eosinophils # (Manual) 0.0 K/mm3 (0.0-0.4) 01/30/20 08:24 Basophils # (Manual) 0.0 K/mm3 (0.0-0.1) 01/30/20 08:24 Metamyelocytes # 0.0 K/mm3 01/30/20 08:24 Myelocytes # 0.0 K/mm3 01/30/20 08:24 Promyelocytes # 0.0 K/mm3 01/30/20 08:24 Blast Cells # 0.0 K/mm3 01/30/20 08:24 WBC Morphology Not Reportable 01/30/20 08:24 Hypersegmented Neuts Not Reportable 01/30/20 08:24 Hyposegmented Neuts Not Reportable 01/30/20 08:24 Hypogranular Neuts Not Reportable 01/30/20 08:24 Smudge Cells Not Reportable 01/30/20 08:24 Toxic Granulation Not Reportable 01/30/20 08:24 Toxic Vacuolation Not Reportable 01/30/20 08:24 Dohle Bodies Not Reportable 01/30/20 08:24 Pelger-Huet Anomaly Not Reportable 01/30/20 08:24 Janice Rods Not Reportable 01/30/20 08:24 Platelet Estimate Consistent w auto 01/30/20 08:24 Clumped Platelets Not Reportable 01/30/20 08:24 Plt Clumps, EDTA Not Reportable 01/30/20 08:24 Large Platelets Not Reportable 01/30/20 08:24 Giant Platelets Not Reportable 01/30/20 08:24 Platelet Satelliting Not Reportable 01/30/20 08:24 Plt Morphology Comment Not Reportable 01/30/20 08:24 RBC Morphology Not Reportable 01/30/20 08:24 Dimorphic RBCs Not Reportable 01/30/20 08:24 Polychromasia Few 01/30/20 08:24 Hypochromasia 1+ 01/30/20 08:24 Poikilocytosis Not Reportable 01/30/20 08:24 Anisocytosis Not Reportable 01/30/20 08:24 Microcytosis Not Reportable 01/30/20 08:24 Macrocytosis Not Reportable 01/30/20 08:24 Spherocytes Not Reportable 01/30/20 08:24 Pappenheimer Bodies Not Reportable 01/30/20 08:24 Sickle Cells Not Reportable 01/30/20 08:24 Target Cells Rare 01/30/20 08:24 Tear Drop Cells Not Reportable 01/30/20 08:24 Ovalocytes Not Reportable 01/30/20 08:24 Helmet Cells Not Reportable 01/30/20 08:24 [place] Bodies Not Reportable 01/30/20 08:24 [place] Rings Not Reportable 01/30/20 08:24 Marco Cells Rare 01/30/20 08:24 Bite Cells Not Reportable 01/30/20 08:24 Crenated Cell Not Reportable 01/30/20 08:24 Elliptocytes Few 01/30/20 08:24 Acanthocytes (Spur) Not Reportable 01/30/20 08:24 Rouleaux Not Reportable 01/30/20 08:24 Hemoglobin C Crystals Not Reportable 01/30/20 08:24 Schistocytes Not Reportable 01/30/20 08:24 Malaria parasites Not Reportable 01/30/20 08:24 Cedrick Bodies Not Reportable 01/30/20 08:24 Hem Pathologist Commnt No 01/30/20 08:24 PT 13.5 Sec. (12.2-14.9) 01/31/20 05:10 INR 1.04 (0.87-1.13) 01/31/20 05:10 APTT 31.0 Sec. (24.2-36.6) 01/17/20 17:34 D-Dimer 3001.60 ng/mlDDU (0-234) H 01/22/20 07:46 Sodium 141 mmol/L (137-145) 01/30/20 08:24 Potassium 3.7 mmol/L (3.6-5.0) 01/30/20 08:24 Chloride 105.3 mmol/L (98-107) 01/30/20 08:24 Carbon Dioxide 25 mmol/L (22-30) 01/30/20 08:24 Anion Gap 14 mmol/L 01/30/20 08:24 BUN 19 mg/dL (9-20) 01/30/20 08:24 Creatinine 0.6 mg/dL (0.8-1.3) L 01/30/20 08:24 Estimated GFR > 60 ml/min 01/30/20 08:24 BUN/Creatinine Ratio 32 % 01/30/20 08:24 Glucose 126 mg/dL (75-100) H 01/30/20 08:24 POC Glucose 120 mg/dL (70-105) H 01/31/20 22:49 Hemoglobin A1c 6.7 % (4-6) H 01/18/20 16:04 Lactic Acid 1.80 mmol/L (0.7-2.0) 01/17/20 19:40 Calcium 8.9 mg/dL (8.4-10.2) 01/30/20 08:24 Magnesium 2.00 mg/dL (1.7-2.3) 01/26/20 05:14 Ferritin 3748.0 ng/mL (30.0-300.0) H 01/22/20 07:46 Total Bilirubin 0.40 mg/dL (0.1-1.2) 01/20/20 05:39 Direct Bilirubin < 0.2 mg/dL (0-0.2) 01/20/20 05:39 Indirect Bilirubin 0.2 mg/dL 01/20/20 05:39 AST 60 units/L (5-40) H 01/20/20 05:39 ALT 44 units/L (7-56) 01/20/20 05:39 Alkaline Phosphatase 64 units/L (35-129) 01/20/20 05:39 Ammonia 38.0 umol/L (25-60) 01/17/20 17:34 Lactate Dehydrogenase 368 units/L (91-180) H 01/22/20 07:46 Total Creatine Kinase 164 units/L (55-170) 01/17/20 17:34 Troponin T < 0.010 ng/mL (0.00-0.029) 01/17/20 17:34 C-Reactive Protein 2.90 mg/dL (0.00-1.30) H 01/22/20 07:46 Total Protein 7.0 g/dL (6.3-8.2) 01/20/20 05:39 Albumin 2.8 g/dL (3.9-5) L 01/20/20 05:39 Albumin/Globulin Ratio 0.7 % 01/20/20 05:39 Triglycerides 219 mg/dL (2-149) H 01/18/20 16:04 Cholesterol 180 mg/dL (50-199) 01/18/20 16:04 LDL Cholesterol Direct 91 mg/dL (50-130) 01/18/20 16:04 HDL Cholesterol 37 mg/dL (40-59) L 01/18/20 16:04 Cholesterol/HDL Ratio 4.86 % 01/18/20 16:04 Procalcitonin 0.15 ng/mL (<0.15) 01/17/20 21:39 Urine Color Yellow (Yellow) 01/17/20 19:30 Urine Turbidity Clear (Clear) 01/17/20 19:30 Urine pH 5.0 (5.0-7.0) 01/17/20 19:30 Ur Specific [place] 1.016 (1.003-1.030) 01/17/20 19:30 Urine Protein 100 mg/dl mg/dL (Negative) 01/17/20 19:30 Urine Glucose (UA) Neg mg/dL (Negative) 01/17/20 19:30 Urine Ketones Neg mg/dL (Negative) 01/17/20 19:30 Urine Blood Sm (Negative) 01/17/20 19:30 Urine Nitrite Neg (Negative) 01/17/20 19:30 Urine Bilirubin Neg (Negative) 01/17/20 19:30 Urine Urobilinogen < 2.0 mg/dL (<2.0) 01/17/20 19:30 Ur Leukocyte Esterase Neg (Negative) 01/17/20 19: Urine WBC (Auto) 2.0 /HPF (0.0-6.0) 01/17/20 19:30 Urine RBC (Auto) 6.0 /HPF (0.0-6.0) 01/17/20 19: U Epithel Cells (Auto) < 1.0 /HPF (0-13.0) 01/17/20 19:30 Urine Bacteria (Auto) 1+ /HPF (Negative) 01/17/20 19: Urine Mucus Few /HPF 01/17/20 19:30 Coronavirus (PCR) Positive (Negative) A 01/31/20 08:12 SARS-CoV-2 IgG Ab Reactive (NonReactive) A 01/19/20 17:52 Moses/IV: Voiding Method Incontinent IV Catheter Type [Left Forearm INT / Saline Lock ] IV Catheter Type [Right INT / Saline Lock Antecubital] Active Medications - Current Medications Current Medications: Generic Name Dose Route Start Last Admin Trade Name Freq PRN Reason Stop Dose Admin Acetaminophen 650 mg 01/17/20 22:03 02/01/20 10:21 Tylenol PO 650 mg Q4H PRN Administration Pain MILD(1-3)/Fever >100.5/FORD Amlodipine Besylate 5 mg 01/24/20 10:00 02/01/20 10:21 Amlodipine PO 5 mg QDAY LIBORIO Administration Lipase/Protease/Amylase 1 each 01/21/20 11:34 01/30/20 13:[address] 10,500 Unit FEEDTUBE 1 each PRN PRN Administration For Clogged Feeding Tube Ascorbic Acid 500 mg 01/21/20 10:00 02/01/20 10:21 Vitamin C PO 500 mg QDAY LIBORIO Administration Aspirin 81 mg 02/01/20 10:00 02/01/20 10:21 Baby Aspirin PO 81 mg QDAY LIBORIO Administration Atorvastatin Calcium 40 mg 01/19/20 22:00 01/31/20 21:30 Lipitor PO 40 mg QHS LIBORIO Administration Dextrose 50 ml 01/18/20 16:00 D50w (25gm) Syringe IV Q30MIN PRN Hypoglycemia Protocol Docusate Sodium 100 mg 01/20/20 10:00 02/01/20 10:21 Colace PO 100 mg BID LIBORIO Administration Enoxaparin Sodium 40 mg 02/01/20 22:00 Enoxaparin SUB-Q QDAY@2200 [facility] Protocol Hydralazine HCl 25 mg 01/26/20 08:00 02/01/20 05:36 Apresoline PO 25 mg Q8HR LIBORIO Administration Dextrose/Sodium Chloride 1,000 mls @ 75 mls/hr 01/31/20 20:00 01/31/20 19:07 D5ns IV 75 mls/hr DIRECT LIBORIO Administration Insulin Human Isoph/Insulin Regular 8 unit 01/27/20 08:45 02/01/20 10:20 Humulin 70/30 SUB-Q Not Given QDDIAB [facility] Insulin Human Regular 0 unit 01/18/20 16:00 02/01/20 10:20 Humulin R SUB-Q Not Given Q6HR [facility] Protocol Magnesium Hydroxide 30 ml 01/17/20 22:03 Milk Of Magnesia PO Q4H PRN Constipation Ondansetron HCl 4 mg 01/17/20 22:03 Zofran IV Q8H PRN Nausea And Vomiting Simple Syrup 15 ml 01/21/20 11:34 Simple Syrup FEEDTUBE PRN PRN Hypoglycemia Simple Syrup 30 ml 01/21/20 11:34 Simple Syrup FEEDTUBE PRN PRN Hypoglycemia Sodium Bicarbonate 325 mg 01/21/20 11:34 Sodium Bicarbonate FEEDTUBE PRN PRN For Clogged Feeding Tube Sodium Chloride 10 ml 01/18/20 10:00 02/01/20 10:21 Sodium Chloride Flush Syringe 10 Ml IV 10 ml BID LIBORIO Administration Sodium Chloride 10 ml 01/17/20 22:03 Sodium Chloride Flush Syringe 10 Ml IV PRN PRN LINE FLUSH Zinc Sulfate 220 mg 01/21/20 10:00 02/01/20 10:21 Zinc Sulfate PO 220 mg QDAY LIBORIO Administration Nutrition/Malnutrition Assess - Dietary Evaluation Nutrition/Malnutrition Findings: Nutrition Notes Start: 01/19/20 10:13 Freq: Status: Active Protocol: Document 01/27/20 12:55 AL (Rec: 01/27/20 13:04 AL [id number]) Co-Sign 01/27/20 12:55 MK Nutrition Notes Initial or Follow up Reassessment Current Diagnosis Diabetes,Hypertension,Stroke Other Pertinent Diagnosis COVID-19 (+), AMS, Dysphagia Current Diet Glucerna 1.2 at 65 mL/hr (goal rate) Labs/Tests BG 229 Cr 0.6 Pertinent Medications Humulin Decadron Height 5 ft 11 in Weight 88.8 kg [place] Body Weight (kg) 78.18 BMI 27.3 Subjective/Other Information F/U for Na, TF tolerance and water flush. Per RN, patient is tolerating TF well at the goal rate. Na labs are WNL currently. Percent of energy/protein needs met: 95%/100% Burn Absent Trauma Absent GI Symptoms None Current % PO Negligible Minimum of two criteria No physical signs of malnutrition #1 Nutrition Diagnosis Inadequate oral intake Diagnosis Progress(for reassessment Continues documentation) Is patient on ventilator? No Is Patient Ambulatory and/or Out of Bed No REE-([facility]-confined to bed) [phone] Calculation Used for Recommendations [facility] Additional Notes Pro needs 1-1.2g/k-106g/ day Fluid needs per MD Nutrition Intervention Change Diet Order: Continue TF Nutrition Support: Glucerna 1.2 at 65 mL/hr. Flush with 300 mL q4h. Kcal 1,872 Protein (gm) 94 Fluid (mL) 1,256 Goal #1 Meet at least 75% of estimated energy and protein needs via TF Goal #2 TF tolerance Anticipated Discharge Needs: Unable to determine at this time Follow-Up By: 02/01/20 Additional Comments F/U for TF tolerance
--- NOTE | 2020-02-01 11:16 | Discharge Summary ---
Providers - Providers Date of Admission: 01/18/20 07:33 Date of discharge: 02/04/20 Attending physician: MELYSSA AVALOS 01/17/20 22:11 Consult to Physician [CONS] Routine Comment: Consulting Provider: NIKOLAI STEWART Physician Instructions: Reason For Exam: Fever 01/19/20 07:34 Consult to Dietitian/Nutrition [CONS] Routine Physician Instructions: Reason For Exam: Reason for Consult: Write/Manage Tube Feeding Consult to Physician [CONS] Routine Comment: Consulting Provider: SUDHEER ROUSE Physician Instructions: Reason For Exam: hyperNatremia 01/19/20 07:35 Consult to Dietitian/Nutrition [CONS] Routine Physician Instructions: Reason For Exam: Reason for Consult: Write/Manage TPN/PPN 01/19/20 12:11 Consult to Physician [CONS] Routine Comment: Consulting Provider: ANDRE CORREA Physician Instructions: Reason For Exam: cva 01/19/20 15:21 Consult to Case Management [CONS] Routine Services Needed at Discharge: Senior Net [employer] Developer Notified:: CM Additional Physician Instructions: PLEASE CALL FAMILY 01/19/20 15:38 Occupational Therapy Evaluate and Treat [CONS] Routine Comment: Reason For Exam: Neuro deficits Physical Therapy Evaluation and Treat [CONS] Routine Comment: Reason For Exam: Neuro deficits 01/21/20 07:09 Consult to Dietitian/Nutrition [CONS] Routine Physician Instructions: Assess nutrtn needs, initiate, modify, manage TF Reason For Exam: Reason for Consult: Write/Manage Tube Feeding Reason for Consult: Write/Manage Tube Feeding 01/24/20 17:52 Speech Therapy Evaluation and Treat [CONS] Routine Reason For Exam: eval 01/26/20 12:01 Speech Therapy Evaluation and Treat [CONS] Routine Reason For Exam: evaluate swallowing 01/30/20 19:47 Consult to Physician [CONS] Routine Comment: Consulting Provider: BENNY EDWARDS Physician Instructions: Reason For Exam: Dysphagia/failed swallow/PEG placement Primary care physician: GERALD DAVID Hospitalization Reason for admission: sepsis Condition: Stable Hospital course: 79-year-old male with HTN and DM who is a resident of a retirement presented to the ED on 01/17 via EMS for evaluation of a change mental status. Per retirement staff patient was not communicating well and having decreased oral intake. Upon arrival to the emergency department patient was found to be tachycardic, febrile to 102.2 and hypoxic with SPO2 of 91 on room air. Work-up was significant for hypernatremia, acute kidney injury (CR/BUN 2.2/55), hypochloremia, transaminitis and a chest x-ray showed mild bilateral pulmonary edema and CTh was unremarkable. Patient was admitted to hospitalist service as a Covid PUI, Sepsis, YIMI and infectious disease and nephrology were consulted. Patient failed swallow evaluation per speech therapy, recommended PEG placement, GI evaluated, patient had PEG tube placement today 01/31/2020. GI recommend to start tube feeding. Hospital course: 01/17: elevated D-dimer therefore bilateral upper and lower extremity ultrasounds Dopplers were obtained to rule out DVT and a VQ scan was performed to rule out PE both of which were negative. Patient remained severely hypernatremic and his IV fluids were changed to D5 water. We will trend his BMP. He also has elevated Covid markers ferritin and CRP. 01/18: COVID-19 PCR resulted as positive. Patient remains hyponatremic therefore nephrology was consulted and he was started on FWF and his D5W was increased. 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 Dr. Petersen updated his daughter this morning (Ms. Burleson) and this afternoon after his COVID-19 PCR resulted I updated her. The phone got disconnected after 2 minutes of conversation and informing her of COVID-19 status and I tried calling back twice. Both times it was sent to [employer] and her mailbox is full therefore was not able to leave a message. Patient was also initiated on remdesivir therapy 01/19: MRI head and MRI brain still pending, continue remdesivir therapy, increased free water flush 300 mL every 4 hours and increase the D5W TO 100 mL/h 01/20: Zinc and vitamin C initiated, patient still remains hypernatremic 01/21: Patient remains hypernatremic, no acute events reported overnight 01/22: Patient remains hypernatremic, hyperchloremic though it is improving. Patient still remains with altered mental status and he has bilateral wrist restraints in place. Dr. Petersen updated patient's daughter over the phone today. No acute events reported overnight. Patient was hypokalemic which was repleted. 01/23: His hyperkalemia has resolved. No acute events reported overnight. Patient intermittently follows commands and is more verbal. Today he has bilateral mittens in place. 01/24: Patient has marked improvement in mentation today he is oriented to self and follows commands. Patient is hypokalemic today at 3.5 which was repleted and his hypernatremia and hyperchloremia are improving. Patient failed his swallow eval by speech therapy this morning. I updated daughter over the phone, Olya Pritchard, regarding ST evaluation and labs. I spoke to her about the possibility of a PEG being recommended by ST to which she agreed to as a last resort. 01/25: This morning patient is more alert with RN. Repeated speech evaluation was conducted and he failed. I updated the patient's daughter who would like to hold off a decision about PEG till Thursday and would like to see patient improves with speech therapy. This morning patient's hypernatremia and hyperchloremia has improved and his sodium is 148, chloride 111.4. 01/27-patient failed swallowing the valve again. Patient scheduled to determine about PEG tube feedings on Thursday. Seems will need a PEG. Family leaning toward this. 01/28;. Patient remains comfortable. Still has some cognitive impairment. Recent introduction to patient mental status appears about the same. Family to decide about PEG tube on Thursday. 01/29; I discussed with patient's daughter Elina Burleson and discussed the details of PEG placement, GI consult, possible procedure tomorrow She verbalized understanding and willing for PEG placement, GI consulted 01/30; patient received PEG placement today, GI recommend to start tube feeding tomorrow, and patient may be discharged if stable 01/31. Patient is s/p PEG placement yesterday. Monitor tube feedings today. Covid testing remains positive from 01/31/2020 Patient was initially set to discharge back to [facility] but family opted for patient to discharge home. Once hospital bed is arranged patient will be discharged Dedicated discharge time 40 minutes Disposition: [id number] Time spent for discharge: 40 - Discharge Diagnoses (1) Acute respiratory failure Status: Acute Qualifiers: Respiratory failure complication: hypoxia Qualified Code(s): J96.01 - Acute respiratory failure with hypoxia (2) COVID-19 virus infection Status: Acute (3) Dysphagia, oropharyngeal Status: Acute (4) Elevated d-dimer Status: Acute (5) Encephalopathy Status: Acute (6) Full code status Status: Acute (7) Pneumonia due to COVID-19 virus Status: Acute (8) Sepsis Status: Acute (9) Diabetes mellitus Status: Chronic (10) Hypertension Status: Chronic (11) Acute hypernatremia Status: Resolved (12) Acute kidney injury Status: Resolved Core Measure Documentation - Palliative Care Palliative Care/ Comfort Measures: Not Applicable - Core Measures Any of the following diagnoses?: none Exam - Constitutional Vitals: Temp Pulse Resp BP Pulse Ox 97.6 F 82 20 144/89 97 02/01/20 05:27 02/01/20 05:36 02/01/20 05:27 02/01/20 05:36 02/01/20 05:27 General appearance: Present: no acute distress, well-nourished - EENT Eyes: Present: PERRL ENT: hearing intact, clear oral mucosa - Neck Neck: Present: supple, normal ROM - Respiratory Respiratory effort: normal Respiratory: bilateral: CTA - Cardiovascular Heart Sounds: Present: S1 & S2. Absent: rub, click - Extremities Extremities: pulses symmetrical, No edema Peripheral Pulses: within normal limits - Abdominal General gastrointestinal: Present: soft, non-tender, non-distended, normal bowel sounds Male genitourinary: Present: normal - Integumentary Integumentary: Present: clear, warm, dry - Musculoskeletal Musculoskeletal: gait normal, strength equal bilaterally - Psychiatric Psychiatric: appropriate mood/affect, intact judgment & insight - Neurologic Neurologic: CNII-XII intact, moves all extremities Plan Activity: advance as tolerated Weight Bearing Status: Weight Bear as Tolerated Diet: diabetic Follow up with: GERALD DAVID MD [Primary Care Provider] - 3-5 Days Prescriptions: hydrALAZINE [Apresoline TAB] 25 mg PO Q8HR #90 tablet Aspirin [Aspirin BABY CHEW TAB] 81 mg PO QDAY #30 tab.chew Docusate Sodium [Colace ORAL LIQ] 100 mg PO BID #60 oral.liqd Insulin Regular, Human [HumuLIN R] 0 unit SUB-Q Q6HR 30 Days vial AtorvaSTATin [Lipitor] 40 mg PO QHS #30 tablet Magnesium Hydroxide [Milk of Magnesia] 30 ml PO Q4H PRN 30 Days oral.liqd PRN Reason: Constipation Insulin NPH/Regular [NovoLIN 70/30] 8 unit SUB-Q QDDIAB 30 Days units Lipase/Protease/Amylase [Shawn Urrutia 10,500 Unit] 1 each FEEDTUBE PRN PRN 30 Days capsule PRN Reason: For Clogged Feeding Tube Simple Syrup 30 ml FEEDTUBE PRN PRN 30 Days oral.liqd PRN Reason: Hypoglycemia Simple Syrup 15 ml FEEDTUBE PRN PRN 30 Days oral.liqd PRN Reason: Hypoglycemia Sodium Bicarbonate 325 mg FEEDTUBE PRN PRN 30 Days tablet PRN Reason: For Clogged Feeding Tube Zinc Sulfate 220 mg PO QDAY 30 Days capsule
[2020-02-01] MEDS: ENOXAPARIN 40 MG/0.4 ML INJ SUB-Q SCH (22:39)
[2020-02-02] MEDS: INSULIN REGULAR, HUMAN 100 UNIT/ML 3ML VIAL SUB-Q SCH ×4 (01:45→21:11)
[2020-02-02] MEDS: hydrALAZINE 25 MG TAB PO SCH ×3 (06:48→21:49)
[2020-02-02] MEDS: INSULIN NPH/REGULAR 70/30 INJ SUB-Q SCH (08:00)
[2020-02-02 09:53] LABS: Basophils % (Auto) 0.1 % (0.0-1.8); Eosinophils # (Auto) 0.1 K/mm3 (0.0-0.4); Eosinophils % (Auto) 0.9 % (0.0-4.3); Hematocrit 41.3 % (35.5-45.6); Hemoglobin 13.4 gm/dl (11.8-15.2); Lymphocytes # (Auto) 1.3 K/mm3 (1.2-5.4); Lymphocytes % (Auto) 8.7 % (13.4-35.0); Mean Corpuscular HGB Conc 33 % (32-34); Mean Corpuscular Volume 78 fl (84-94); Monocytes # (Auto) 0.7 K/mm3 (0.0-0.8); Platelet Count 183 K/mm3 (140-440); Red Blood Count 5.31 M/mm3 (3.65-5.03); Red Cell Distribution Width 14.5 % (13.2-15.2)
[2020-02-02 10:12] LABS: Blood Urea Nitrogen 14 mg/dL (9-20); Hemolysis Index 3
[2020-02-02 10:27] LABS: BUN/Creatinine Ratio 23
--- NOTE | 2020-02-02 11:10 | Progress Note ---
Assessment and Plan Assessment and plan: --Dysphagia Patient underwent PEG placement per GI -- Acute respiratory failure Acute respiratory failure secondary to COVID-19 pneumonia. Patient remains ill cachectic but able to breathe. With O2/nebulizers. Oxygenation has actually improved. Problem is debility and decreased p.o. intake. --Acute metabolic encephalopathy ; multifactorial Multifactorial secondary to COVID-19 pneumonia as well as hypoxemia and malnut rition. This with underlying dementia. Awaiting family decision about PEG tube placement. -- COVID-19 virus infection Patient not on dexamethasone or remdesivir at this time. No fever. --Elevated d-dimer Secondary to COVID-19. Empiric anticoagulants. Patient currently on Lovenox now. Specially since patient's a receive PEG tube. Can stop this more rapidly. --Pneumonia due to COVID-19 virus Current Visit: Yes Status: Acute Plan to address problem: Continues to improve. Patient's oxygenation is improving cognition has been following slow behind. --Hypertension Current Visit: Yes Status: Chronic Plan to address problem: Patient's blood pressure fairly well controlled with amlodipine. --Acute hypernatremia Current Visit: Yes Status: Resolved Plan to address problem: Hypernatremia has resolved current sodium 137. Patient will require feeding tube. This will improve outcome. Brief history; 79-year-old male with HTN and DM who is a resident of a correction presented to the ED on 01/17 via EMS for evaluation of a change mental status. Per correction staff patient was not communicating well and having decreased oral intake. Upon arrival to the emergency department patient was found to be tachycardic, febrile to 102.2 and hypoxic with SPO2 of 91 on room air. Work-up was significant for hypernatremia, acute kidney injury (CR/BUN 2.2/55), hypochloremia, transaminitis and a chest x-ray showed mild bilateral pulmonary edema and CTh was unremarkable. Patient was admitted to hospitalist service as a Covid PUI, Sepsis, YIMI and infectious disease and nephrology were consulted. Patient failed swallow evaluation per speech therapy, recommended PEG placement, GI evaluated, patient had PEG tube placement today 01/31/2020. GI recommend to start tube feeding tomorrow and may discharge if stable. 01/17: elevated D-dimer therefore bilateral upper and lower extremity ultrasounds Dopplers were obtained to rule out DVT and a VQ scan was performed to rule out PE both of which were negative. Patient remained severely hypernatremic and his IV fluids were changed to D5 water. We will trend his BMP. He also has elevated Covid markers ferritin and CRP. 01/18: COVID-19 PCR resulted as positive. Patient remains hyponatremic therefore nephrology was consulted and he was started on FWF and his D5W was increased. 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 Dr. Petersen updated his daughter this morning (Ms. Burleson) and this afternoon after his COVID-19 PCR resulted I updated her. The phone got disconnected after 2 minutes of conversation and informing her of COVID-19 status and I tried calling back twice. Both times it was sent to [email or web address] and her mailbox is full therefore was not able to leave a message. Patient was also initiated on remdesivir therapy 01/19: MRI head and MRI brain still pending, continue remdesivir therapy, increased free water flush 300 mL every 4 hours and increase the D5W TO 100 mL/h 01/20: Zinc and vitamin C initiated, patient still remains hypernatremic 01/21: Patient remains hypernatremic, no acute events reported overnight 01/22: Patient remains hypernatremic, hyperchloremic though it is improving. Patient still remains with altered mental status and he has bilateral wrist restraints in place. Dr. Petersen updated patient's daughter over the phone today. No acute events reported overnight. Patient was hypokalemic which was repleted. 01/23: His hyperkalemia has resolved. No acute events reported overnight. Patient intermittently follows commands and is more verbal. Today he has bilateral mittens in place. 01/24: Patient has marked improvement in mentation today he is oriented to self and follows commands. Patient is hypokalemic today at 3.5 which was repleted and his hypernatremia and hyperchloremia are improving. Patient failed his swallow eval by speech therapy this morning. I updated daughter over the phone, Olya Pritchard, regarding ST evaluation and labs. I spoke to her about the possibility of a PEG being recommended by ST to which she agreed to as a last resort. 01/25: This morning patient is more alert with RN. Repeated speech evaluation was conducted and he failed. I updated the patient's daughter who would like to hold off a decision about PEG till Thursday and would like to see patient improves with speech therapy. This morning patient's hypernatremia and hyperchloremia has improved and his sodium is 148, chloride 111.4. 01/27-patient failed swallowing the valve again. Patient scheduled to determine about PEG tube feedings on Thursday. Seems will need a PEG. Family leaning toward this. 01/28;. Patient remains comfortable. Still has some cognitive impairment. Recent introduction to patient mental status appears about the same. Family to decide about PEG tube on Thursday. 01/29; I discussed with patient's daughter Elina Burleson and discussed the details of PEG placement, GI consult, possible procedure tomorrow She verbalized understanding and willing for PEG placement, GI consulted 01/30; patient received PEG placement today, GI recommend to start tube feeding tomorrow, and patient may be discharged if stable 01/31. Patient is s/p PEG placement yesterday. Monitor tube feedings today. Covid testing remains positive from 01/31/2020 02/02/2020. Awaiting for arrangements for hospital bed for patient to discharge home in a.m. - Patient Problems (1) Acute respiratory failure Current Visit: Yes Status: Acute Qualifiers: Respiratory failure complication: hypoxia Qualified Code(s): J96.01 - Acute respiratory failure with hypoxia (2) COVID-19 virus infection Current Visit: Yes Status: Acute (3) Dysphagia, oropharyngeal Current Visit: Yes Status: Acute (4) Elevated d-dimer Current Visit: Yes Status: Acute (5) Encephalopathy Current Visit: Yes Status: Acute (6) Full code status Current Visit: Yes Status: Acute (7) Pneumonia due to COVID-19 virus Current Visit: Yes Status: Acute (8) Sepsis Current Visit: Yes Status: Acute (9) Diabetes mellitus Current Visit: Yes Status: Chronic (10) Hypertension Current Visit: Yes Status: Chronic (11) Acute hypernatremia Current Visit: Yes Status: Resolved (12) Acute kidney injury Current Visit: Yes Status: Resolved History Interval history: No new issues overnight. Hospitalist Physical - Constitutional Vitals: Temp Pulse Resp BP Pulse Ox 97.9 F 101 H 8 L 138/89 93 02/02/20 06:30 02/02/20 06:30 02/02/20 06:30 02/02/20 06:48 02/02/20 06:30 General appearance: Present: no acute distress, well-nourished - EENT Eyes: Present: PERRL, EOM intact ENT: hearing intact, clear oral mucosa, dentition normal - Neck Neck: Present: supple, normal ROM - Respiratory Respiratory effort: normal Respiratory: bilateral: CTA - Cardiovascular Rhythm: regular Heart Sounds: Present: S1 & S2. Absent: gallop, rub - Extremities Extremities: no ischemia, No edema, Full ROM - Abdominal General gastrointestinal: soft, non-tender, non-distended, normal bowel sounds - Integumentary Integumentary: Present: clear, warm, dry - Neurologic Neurologic: CNII-XII intact, moves all extremities HEART Score - HEART Score Troponin: Troponin T < 0.010 ng/mL (0.00-0.029) 01/17/20 17:34 Results - Labs CBC & Chem 7: 02/02/20 09:15 02/02/20 09:15 Labs: Laboratory Last Values WBC 14.9 K/mm3 (4.5-11.0) H 02/02/20 09:15 RBC 5.31 M/mm3 (3.65-5.03) H 02/02/20 09:15 Hgb 13.4 gm/dl (11.8-15.2) 02/02/20 09:15 Hct 41.3 % (35.5-45.6) 02/02/20 09:15 MCV 78 fl (84-94) L 02/02/20 09:15 MCH 25 pg (28-32) L 02/02/20 09:15 MCHC 33 % (32-34) 02/02/20 09:15 RDW 14.5 % (13.2-15.2) 02/02/20 09:15 Plt Count 183 K/mm3 (140-440) 02/02/20 09:15 Lymph % (Auto) 8.7 % (13.4-35.0) L 02/02/20 09:15 [place] % (Auto) 5.0 % (0.0-7.3) 02/02/20 09:15 Eos % (Auto) 0.9 % (0.0-4.3) 02/02/20 09:15 Baso % (Auto) 0.1 % (0.0-1.8) 02/02/20 09:15 Lymph # (Auto) 1.3 K/mm3 (1.2-5.4) 02/02/20 09:15 [place] # (Auto) 0.7 K/mm3 (0.0-0.8) 02/02/20 09:15 Eos # (Auto) 0.1 K/mm3 (0.0-0.4) 02/02/20 09:15 Baso # (Auto) 0.0 K/mm3 (0.0-0.1) 02/02/20 09:15 Add Manual Diff Complete 01/30/20 08:24 Total Counted 100 01/30/20 08:24 Seg Neutrophils % 85.3 % (40.0-70.0) H 02/02/20 09:15 Seg Neuts % (Manual) 92.0 % (40.0-70.0) H 01/30/20 08:24 Band Neutrophils % 0 % 01/30/20 08:24 Lymphocytes % (Manual) 6.0 % (13.4-35.0) L 01/30/20 08:24 Reactive Lymphs % (Man) 0 % 01/30/20 08:24 Monocytes % (Manual) 2.0 % (0.0-7.3) 01/30/20 08:24 Eosinophils % (Manual) 0 % (0.0-4.3) 01/30/20 08:24 Basophils % (Manual) 0 % (0.0-1.8) 01/30/20 08:24 Metamyelocytes % 0 % 01/30/20 08:24 Myelocytes % 0 % 01/30/20 08:24 Promyelocytes % 0 % 01/30/20 08:24 Blast Cells % 0 % 01/30/20 08:24 Nucleated RBC % Not Reportable 01/30/20 08:24 Seg Neutrophils # 12.7 K/mm3 (1.8-7.7) H 02/02/20 09:15 Seg Neutrophils # Man 14.3 K/mm3 (1.8-7.7) H 01/30/20 08:24 Band Neutrophils # 0.0 K/mm3 01/30/20 08:24 Lymphocytes # (Manual) 0.9 K/mm3 (1.2-5.4) L 01/30/20 08:24 Abs React Lymphs (Man) 0.0 K/mm3 01/30/20 08:24 Monocytes # (Manual) 0.3 K/mm3 (0.0-0.8) 01/30/20 08:24 Eosinophils # (Manual) 0.0 K/mm3 (0.0-0.4) 01/30/20 08:24 Basophils # (Manual) 0.0 K/mm3 (0.0-0.1) 01/30/20 08:24 Metamyelocytes # 0.0 K/mm3 01/30/20 08:24 Myelocytes # 0.0 K/mm3 01/30/20 08:24 Promyelocytes # 0.0 K/mm3 01/30/20 08:24 Blast Cells # 0.0 K/mm3 01/30/20 08:24 WBC Morphology Not Reportable 01/30/20 08:24 Hypersegmented Neuts Not Reportable 01/30/20 08:24 Hyposegmented Neuts Not Reportable 01/30/20 08:24 Hypogranular Neuts Not Reportable 01/30/20 08:24 Smudge Cells Not Reportable 01/30/20 08:24 Toxic Granulation Not Reportable 01/30/20 08:24 Toxic Vacuolation Not Reportable 01/30/20 08:24 Dohle Bodies Not Reportable 01/30/20 08:24 Pelger-Huet Anomaly Not Reportable 01/30/20 08:24 Janice Rods Not Reportable 01/30/20 08:24 Platelet Estimate Consistent w auto 01/30/20 08:24 Clumped Platelets Not Reportable 01/30/20 08:24 Plt Clumps, EDTA Not Reportable 01/30/20 08:24 Large Platelets Not Reportable 01/30/20 08:24 Giant Platelets Not Reportable 01/30/20 08:24 Platelet Satelliting Not Reportable 01/30/20 08:24 Plt Morphology Comment Not Reportable 01/30/20 08:24 RBC Morphology Not Reportable 01/30/20 08:24 Dimorphic RBCs Not Reportable 01/30/20 08:24 Polychromasia Few 01/30/20 08:24 Hypochromasia 1+ 01/30/20 08:24 Poikilocytosis Not Reportable 01/30/20 08:24 Anisocytosis Not Reportable 01/30/20 08:24 Microcytosis Not Reportable 01/30/20 08:24 Macrocytosis Not Reportable 01/30/20 08:24 Spherocytes Not Reportable 01/30/20 08:24 Pappenheimer Bodies Not Reportable 01/30/20 08:24 Sickle Cells Not Reportable 01/30/20 08:24 Target Cells Rare 01/30/20 08:24 Tear Drop Cells Not Reportable 01/30/20 08:24 Ovalocytes Not Reportable 01/30/20 08:24 Helmet Cells Not Reportable 01/30/20 08:24 Fu-Tolna Bodies Not Reportable 01/30/20 08:24 [place] Rings Not Reportable 01/30/20 08:24 [place] Cells Rare 01/30/20 08:24 Bite Cells Not Reportable 01/30/20 08:24 Crenated Cell Not Reportable 01/30/20 08:24 Elliptocytes Few 01/30/20 08:24 Acanthocytes (Spur) Not Reportable 01/30/20 08:24 Rouleaux Not Reportable 01/30/20 08:24 Hemoglobin C Crystals Not Reportable 01/30/20 08:24 Schistocytes Not Reportable 01/30/20 08:24 Malaria parasites Not Reportable 01/30/20 08:24 [place] Bodies Not Reportable 01/30/20 08:24 Hem Pathologist Commnt No 01/30/20 08:24 PT 13.5 Sec. (12.2-14.9) 01/31/20 05:10 INR 1.04 (0.87-1.13) 01/31/20 05:10 APTT 31.0 Sec. (24.2-36.6) 01/17/20 17:34 D-Dimer 3001.60 ng/mlDDU (0-234) H 01/22/20 07:46 Sodium 142 mmol/L (137-145) 02/02/20 09:15 Potassium 3.9 mmol/L (3.6-5.0) 02/02/20 09:15 Chloride 109.5 mmol/L (98-107) H 02/02/20 09:15 Carbon Dioxide 25 mmol/L (22-30) 02/02/20 09:15 Anion Gap 11 mmol/L 02/02/20 09:15 BUN 14 mg/dL (9-20) 02/02/20 09:15 Creatinine 0.6 mg/dL (0.8-1.3) L 02/02/20 09:15 Estimated GFR > 60 ml/min 02/02/20 09:15 BUN/Creatinine Ratio 23 % 02/02/20 09:15 Glucose 131 mg/dL (75-100) H 02/02/20 09:15 POC Glucose 117 mg/dL (70-105) H 02/02/20 08:07 Hemoglobin A1c 6.7 % (4-6) H 01/18/20 16:04 Lactic Acid 1.80 mmol/L (0.7-2.0) 01/17/20 19:40 Calcium 9.0 mg/dL (8.4-10.2) 02/02/20 09:15 Magnesium 2.00 mg/dL (1.7-2.3) 01/26/20 05:14 Ferritin 3748.0 ng/mL (30.0-300.0) H 01/22/20 07:46 Total Bilirubin 0.40 mg/dL (0.1-1.2) 01/20/20 05:39 Direct Bilirubin < 0.2 mg/dL (0-0.2) 01/20/20 05:39 Indirect Bilirubin 0.2 mg/dL 01/20/20 05:39 AST 60 units/L (5-40) H 01/20/20 05:39 ALT 44 units/L (7-56) 01/20/20 05:39 Alkaline Phosphatase 64 units/L (35-129) 01/20/20 05:39 Ammonia 38.0 umol/L (25-60) 01/17/20 17:34 Lactate Dehydrogenase 368 units/L (91-180) H 01/22/20 07:46 Total Creatine Kinase 164 units/L (55-170) 01/17/20 17:34 Troponin T < 0.010 ng/mL (0.00-0.029) 01/17/20 17:34 C-Reactive Protein 2.90 mg/dL (0.00-1.30) H 01/22/20 07:46 Total Protein 7.0 g/dL (6.3-8.2) 01/20/20 05:39 Albumin 2.8 g/dL (3.9-5) L 01/20/20 05:39 Albumin/Globulin Ratio 0.7 % 01/20/20 05:39 Triglycerides 219 mg/dL (2-149) H 01/18/20 16:04 Cholesterol 180 mg/dL (50-199) 01/18/20 16:04 LDL Cholesterol Direct 91 mg/dL (50-130) 01/18/20 16:04 HDL Cholesterol 37 mg/dL (40-59) L 01/18/20 16:04 Cholesterol/HDL Ratio 4.86 % 01/18/20 16:04 Procalcitonin 0.15 ng/mL (<0.15) 01/17/20 21:39 Urine Color Yellow (Yellow) 01/17/20 19:30 Urine Turbidity Clear (Clear) 01/17/20 19:30 Urine pH 5.0 (5.0-7.0) 01/17/20 19:30 Ur Specific [place] 1.016 (1.003-1.030) 01/17/20 19:30 Urine Protein 100 mg/dl mg/dL (Negative) 01/17/20 19:30 Urine Glucose (UA) Neg mg/dL (Negative) 01/17/20 19:30 Urine Ketones Neg mg/dL (Negative) 01/17/20 19:30 Urine Blood Sm (Negative) 01/17/20 19:30 Urine Nitrite Neg (Negative) 01/17/20 19:30 Urine Bilirubin Neg (Negative) 01/17/20 19:30 Urine Urobilinogen < 2.0 mg/dL (<2.0) 01/17/20 19:30 Ur Leukocyte Esterase Neg (Negative) 01/17/20 19:30 Urine WBC (Auto) 2.0 /HPF (0.0-6.0) 01/17/20 19:30 Urine RBC (Auto) 6.0 /HPF (0.0-6.0) 01/17/20 19:30 U Epithel Cells (Auto) < 1.0 /HPF (0-13.0) 01/17/20 19:30 Urine Bacteria (Auto) 1+ /HPF (Negative) 01/17/20 19: Urine Mucus Few /HPF 01/17/20 19:30 Coronavirus (PCR) Positive (Negative) A 01/31/20 08:12 SARS-CoV-2 IgG Ab Reactive (NonReactive) A 01/19/20 17:52 Moses/IV: Voiding Method Condom Catheter IV Catheter Type [Left Forearm INT / Saline Lock ] IV Catheter Type [Right INT / Saline Lock Antecubital] Active Medications - Current Medications Current Medications: Generic Name Dose Route Start Last Admin Trade Name Freq PRN Reason Stop Dose Admin Acetaminophen 650 mg 01/17/20 22:03 02/01/20 10:21 Tylenol PO 650 mg Q4H PRN Administration Pain MILD(1-3)/Fever >100.5/FORD Amlodipine Besylate 5 mg 01/24/20 10:00 02/01/20 10:21 Amlodipine PO 5 mg QDAY LIBORIO Administration Lipase/Protease/Amylase 1 each 01/21/20 11:34 01/30/20 13:11 Pancreazace Urrutia 10,500 Unit FEEDTUBE 1 each PRN PRN Administration For Clogged Feeding Tube Ascorbic Acid 500 mg 01/21/20 10:00 02/01/20 10:21 Vitamin C PO 500 mg QDAY LIBORIO Administration Aspirin 81 mg 02/01/20 10:00 02/01/20 10:21 Baby Aspirin PO 81 mg QDAY LIBORIO Administration Atorvastatin Calcium 40 mg 01/19/20 22:00 02/01/20 22:39 Lipitor PO 40 mg QHS LIBORIO Administration Dextrose 50 ml 01/18/20 16:00 D50w (25gm) Syringe IV Q30MIN PRN Hypoglycemia Protocol Docusate Sodium 100 mg 01/20/20 10:00 02/01/20 22:39 Colace PO 100 mg BID LIBORIO Administration Enoxaparin Sodium 40 mg 02/01/20 22:00 02/01/20 22:39 Enoxaparin SUB-Q 40 mg QDAY@2200 LIBORIO Administration Protocol Hydralazine HCl 25 mg 01/26/20 08:00 02/02/20 06:48 Apresoline PO 25 mg Q8HR LIBORIO Administration Dextrose/Sodium Chloride 1,000 mls @ 75 mls/hr 01/31/20 20:00 01/31/20 19:07 D5ns IV 75 mls/hr DIRECT LIBORIO Administration Insulin Human Isoph/Insulin Regular 8 unit 01/27/20 08:45 02/02/20 08:00 Humulin 70/30 SUB-Q Not Given QDDIAB [facility] Insulin Human Regular 0 unit 01/18/20 16:00 02/02/20 06:56 Humulin R SUB-Q Not Given Q6HR [facility] Protocol Magnesium Hydroxide 30 ml 01/17/20 22:03 Milk Of Magnesia PO Q4H PRN Constipation Ondansetron HCl 4 mg 01/17/20 22:03 Zofran IV Q8H PRN Nausea And Vomiting Simple Syrup 15 ml 01/21/20 11:34 Simple Syrup FEEDTUBE PRN PRN Hypoglycemia Simple Syrup 30 ml 01/21/20 11:34 Simple Syrup FEEDTUBE PRN PRN Hypoglycemia Sodium Bicarbonate 325 mg 01/21/20 11:34 Sodium Bicarbonate FEEDTUBE PRN PRN For Clogged Feeding Tube Sodium Chloride 10 ml 01/18/20 10:00 02/01/20 22:40 Sodium Chloride Flush Syringe 10 Ml IV 10 ml BID LIBORIO Administration Sodium Chloride 10 ml 01/17/20 22:03 Sodium Chloride Flush Syringe 10 Ml IV PRN PRN LINE FLUSH Zinc Sulfate 220 mg 01/21/20 10:00 02/01/20 10:21 Zinc Sulfate PO 220 mg QDAY LIBORIO Administration Nutrition/Malnutrition Assess - Dietary Evaluation Nutrition/Malnutrition Findings: Nutrition Notes Start: 01/19/20 10:13 Freq: Status: Active Protocol: Document 02/01/20 13:29 LM (Rec: 02/01/20 13:40 LM [id number]) Nutrition Notes Need for Assessment generated from: MD Order Initial or Follow up Reassessment Current Diagnosis Diabetes,Hypertension,Stroke Other Pertinent Diagnosis COVID-19 (+), AMS, Dysphagia Current Diet NPO Labs/Tests Reviewed Pertinent Medications Zinc Vit C Height 5 ft 11 in Weight 90.2 kg [place] Body Weight (kg) 78.18 BMI 27.7 Weight change and time frame Wt change noted Subjective/Other Information MD consult for TF. Pt s/p PEG. Burn Absent Trauma Absent GI Symptoms None Current % PO Negligible Minimum of two criteria No physical signs of malnutrition #1 Nutrition Diagnosis Inadequate oral intake Diagnosis Progress(for reassessment Continues documentation) Is patient on ventilator? No Is Patient Ambulatory and/or Out of Bed No REE-([facility] [place]-confined to bed) 1984.256 Calculation Used for Recommendations Nini Smith Additional Notes Pro needs 1-1.2g/k-106g/ day Fluid needs per MD Nutrition Intervention Change Diet Order: TF Nutrition Support: Glucerna 1.2 at 65 mL/hr. Flush with 100 mL q4h. Kcal 1,872 Protein (gm) 94 Fluid (mL) 1,256 Goal #1 Meet at least 75% of estimated energy and protein needs via TF Goal #2 TF tolerance Anticipated Discharge Needs: TF Follow-Up By: 02/03/20 Additional Comments F/U for TF start/ tolerance
[2020-02-02] MEDS: ASPIRIN 81 MG TAB CHEW PO SCH (11:24)
[2020-02-02] MEDS: ASCORBIC ACID 500 MG TAB PO SCH (11:24)
[2020-02-02] MEDS: ZINC SULFATE 220 MG CAP PO SCH (11:25)
[2020-02-02] MEDS: DOCUSATE SODIUM 100 MG/10 ML ORAL LIQD PO SCH ×2 (11:25→21:49)
[2020-02-02] MEDS: amLODIPine 5 MG TAB PO SCH (11:26)
[2020-02-02] MEDS: ENOXAPARIN 40 MG/0.4 ML INJ SUB-Q SCH (21:49)
[2020-02-03] MEDS: INSULIN REGULAR, HUMAN 100 UNIT/ML 3ML VIAL SUB-Q SCH ×4 (01:34→18:07)
[2020-02-03] MEDS: hydrALAZINE 25 MG TAB PO SCH ×2 (05:32→15:12)
[2020-02-03] MEDS: ASPIRIN 81 MG TAB CHEW PO SCH (10:25)
[2020-02-03] MEDS: ASCORBIC ACID 500 MG TAB PO SCH (10:25)
[2020-02-03] MEDS: ZINC SULFATE 220 MG CAP PO SCH (10:25)
[2020-02-03] MEDS: DOCUSATE SODIUM 100 MG/10 ML ORAL LIQD PO SCH ×2 (10:25→22:00)
[2020-02-03] MEDS: amLODIPine 5 MG TAB PO SCH (10:25)
[2020-02-03] MEDS: INSULIN NPH/REGULAR 70/30 INJ SUB-Q SCH (10:55)
[2020-02-03] MEDS: ENOXAPARIN 40 MG/0.4 ML INJ SUB-Q SCH (22:00)
[2020-02-04] MEDS: hydrALAZINE 25 MG TAB PO SCH ×4 (06:00→22:30)
[2020-02-04] MEDS: INSULIN REGULAR, HUMAN 100 UNIT/ML 3ML VIAL SUB-Q SCH ×5 (06:00→23:52)
[2020-02-04] MEDS: INSULIN NPH/REGULAR 70/30 INJ SUB-Q SCH (08:48)
--- NOTE | 2020-02-04 08:54 | Progress Note ---
Assessment and Plan Assessment and plan: --Dysphagia Patient underwent PEG placement per GI -- Acute respiratory failure Acute respiratory failure secondary to COVID-19 pneumonia. Patient remains ill cachectic but able to breathe. With O2/nebulizers. Oxygenation has actually improved. Problem is debility and decreased p.o. intake. --Acute metabolic encephalopathy ; multifactorial Multifactorial secondary to COVID-19 pneumonia as well as hypoxemia and malnut rition. This with underlying dementia. Awaiting family decision about PEG tube placement. -- COVID-19 virus infection Patient not on dexamethasone or remdesivir at this time. No fever. --Elevated d-dimer Secondary to COVID-19. Empiric anticoagulants. Patient currently on Lovenox now. Specially since patient's a receive PEG tube. Can stop this more rapidly. --Pneumonia due to COVID-19 virus Current Visit: Yes Status: Acute Plan to address problem: Continues to improve. Patient's oxygenation is improving cognition has been following slow behind. --Hypertension Current Visit: Yes Status: Chronic Plan to address problem: Patient's blood pressure fairly well controlled with amlodipine. --Acute hypernatremia Current Visit: Yes Status: Resolved Plan to address problem: Hypernatremia has resolved current sodium 137. Patient will require feeding tube. This will improve outcome. Brief history; 79-year-old male with HTN and DM who is a resident of a [facility]dc presented to the ED on 01/17 via EMS for evaluation of a change mental status. Per fdc staff patient was not communicating well and having decreased oral intake. Upon arrival to the emergency department patient was found to be tachycardic, febrile to 102.2 and hypoxic with SPO2 of 91 on room air. Work-up was significant for hypernatremia, acute kidney injury (CR/BUN 2.2/55), hypochloremia, transaminitis and a chest x-ray showed mild bilateral pulmonary edema and CTh was unremarkable. Patient was admitted to hospitalist service as a Covid PUI, Sepsis, YIMI and infectious disease and nephrology were consulted. Patient failed swallow evaluation per speech therapy, recommended PEG placement, GI evaluated, patient had PEG tube placement today 01/31/2020. GI recommend to start tube feeding tomorrow and may discharge if stable. 01/17: elevated D-dimer therefore bilateral upper and lower extremity ultrasounds Dopplers were obtained to rule out DVT and a VQ scan was performed to rule out PE both of which were negative. Patient remained severely hypernatremic and his IV fluids were changed to D5 water. We will trend his BMP. He also has elevated Covid markers ferritin and CRP. 01/18: COVID-19 PCR resulted as positive. Patient remains hyponatremic therefore nephrology was consulted and he was started on FWF and his D5W was increased. 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 Dr. Petersen updated his daughter this morning (Ms. Burleson) and this afternoon after his COVID-19 PCR resulted I updated her. The phone got disconnected after 2 minutes of conversation and informing her of COVID-19 status and I tried calling back twice. Both times it was sent to [facility] and her mailbox is full therefore was not able to leave a message. Patient was also initiated on remdesivir therapy 01/19: MRI head and MRI brain still pending, continue remdesivir therapy, increased free water flush 300 mL every 4 hours and increase the D5W TO 100 mL/h 01/20: Zinc and vitamin C initiated, patient still remains hypernatremic 01/21: Patient remains hypernatremic, no acute events reported overnight 01/22: Patient remains hypernatremic, hyperchloremic though it is improving. Patient still remains with altered mental status and he has bilateral wrist restraints in place. Dr. Petersen updated patient's daughter over the phone today. No acute events reported overnight. Patient was hypokalemic which was repleted. 01/23: His hyperkalemia has resolved. No acute events reported overnight. Patient intermittently follows commands and is more verbal. Today he has bilateral mittens in place. 01/24: Patient has marked improvement in mentation today he is oriented to self and follows commands. Patient is hypokalemic today at 3.5 which was repleted and his hypernatremia and hyperchloremia are improving. Patient failed his swallow eval by speech therapy this morning. I updated daughter over the phone, Olya Pritchard, regarding ST evaluation and labs. I spoke to her about the possibility of a PEG being recommended by ST to which she agreed to as a last resort. 01/25: This morning patient is more alert with RN. Repeated speech evaluation was conducted and he failed. I updated the patient's daughter who would like to hold off a decision about PEG till Thursday and would like to see patient improves with speech therapy. This morning patient's hypernatremia and hyperchloremia has improved and his sodium is 148, chloride 111.4. 01/27-patient failed swallowing the valve again. Patient scheduled to determine about PEG tube feedings on Thursday. Seems will need a PEG. Family leaning toward this. 01/28;. Patient remains comfortable. Still has some cognitive impairment. Recent introduction to patient mental status appears about the same. Family to decide about PEG tube on Thursday. 01/29; I discussed with patient's daughter Elina Burleson and discussed the details of PEG placement, GI consult, possible procedure tomorrow She verbalized understanding and willing for PEG placement, GI consulted 01/30; patient received PEG placement today, GI recommend to start tube feeding tomorrow, and patient may be discharged if stable 01/31. Patient is s/p PEG placement yesterday. Monitor tube feedings today. Covid testing remains positive from 01/31/2020 02/02/2020. Awaiting for arrangements for hospital bed for patient to discharge home in a.m. 02/03/2020. Awaiting arrangements for hospital bed and tube feeding supplies to discharge home with home health. - Patient Problems (1) Acute respiratory failure Current Visit: Yes Status: Acute Qualifiers: Respiratory failure complication: hypoxia Qualified Code(s): J96.01 - Acute respiratory failure with hypoxia (2) COVID-19 virus infection Current Visit: Yes Status: Acute (3) Dysphagia, oropharyngeal Current Visit: Yes Status: Acute (4) Elevated d-dimer Current Visit: Yes Status: Acute (5) Encephalopathy Current Visit: Yes Status: Acute (6) Full code status Current Visit: Yes Status: Acute (7) Pneumonia due to COVID-19 virus Current Visit: Yes Status: Acute (8) Sepsis Current Visit: Yes Status: Acute (9) Diabetes mellitus Current Visit: Yes Status: Chronic (10) Hypertension Current Visit: Yes Status: Chronic (11) Acute hypernatremia Current Visit: Yes Status: Resolved (12) Acute kidney injury Current Visit: Yes Status: Resolved History Interval history: No new issues overnight. Hospitalist Physical - Constitutional Vitals: Temp Pulse Resp BP Pulse Ox 98.4 F 92 H 16 150/99 92 02/04/20 05:19 02/04/20 06:32 02/04/20 05:19 02/04/20 06:32 02/04/20 05:19 General appearance: Present: no acute distress, well-nourished - EENT Eyes: Present: PERRL, EOM intact ENT: hearing intact, clear oral mucosa, dentition normal - Neck Neck: Present: supple, normal ROM - Respiratory Respiratory effort: normal Respiratory: bilateral: CTA - Cardiovascular Rhythm: regular Heart Sounds: Present: S1 & S2. Absent: gallop, rub - Extremities Extremities: no ischemia, No edema, Full ROM - Abdominal General gastrointestinal: soft, non-tender, non-distended, normal bowel sounds - Integumentary Integumentary: Present: clear, warm, dry - Neurologic Neurologic: CNII-XII intact, moves all extremities HEART Score - HEART Score Troponin: Troponin T < 0.010 ng/mL (0.00-0.029) 01/17/20 17:34 Results - Labs CBC & Chem 7: 02/02/20 09:15 02/02/20 09:15 Labs: Laboratory Last Values WBC 14.9 K/mm3 (4.5-11.0) H 02/02/20 09:15 RBC 5.31 M/mm3 (3.65-5.03) H 02/02/20 09:15 Hgb 13.4 gm/dl (11.8-15.2) 02/02/20 09:15 Hct 41.3 % (35.5-45.6) 02/02/20 09:15 MCV 78 fl (84-94) L 02/02/20 09:15 MCH 25 pg (28-32) L 02/02/20 09:15 MCHC 33 % (32-34) 02/02/20 09:15 RDW 14.5 % (13.2-15.2) 02/02/20 09:15 Plt Count 183 K/mm3 (140-440) 02/02/20 09:15 Lymph % (Auto) 8.7 % (13.4-35.0) L 02/02/20 09:15 [place] % (Auto) 5.0 % (0.0-7.3) 02/02/20 09:15 Eos % (Auto) 0.9 % (0.0-4.3) 02/02/20 09:15 Baso % (Auto) 0.1 % (0.0-1.8) 02/02/20 09:15 Lymph # (Auto) 1.3 K/mm3 (1.2-5.4) 02/02/20 09:15 [place] # (Auto) 0.7 K/mm3 (0.0-0.8) 02/02/20 09:15 Eos # (Auto) 0.1 K/mm3 (0.0-0.4) 02/02/20 09:15 Baso # (Auto) 0.0 K/mm3 (0.0-0.1) 02/02/20 09:15 Add Manual Diff Complete 01/30/20 08:24 Total Counted 100 01/30/20 08:24 Seg Neutrophils % 85.3 % (40.0-70.0) H 02/02/20 09:15 Seg Neuts % (Manual) 92.0 % (40.0-70.0) H 01/30/20 08:24 Band Neutrophils % 0 % 01/30/20 08:24 Lymphocytes % (Manual) 6.0 % (13.4-35.0) L 01/30/20 08:24 Reactive Lymphs % (Man) 0 % 01/30/20 08:24 Monocytes % (Manual) 2.0 % (0.0-7.3) 01/30/20 08:24 Eosinophils % (Manual) 0 % (0.0-4.3) 01/30/20 08:24 Basophils % (Manual) 0 % (0.0-1.8) 01/30/20 08:24 Metamyelocytes % 0 % 01/30/20 08:24 Myelocytes % 0 % 01/30/20 08:24 Promyelocytes % 0 % 01/30/20 08:24 Blast Cells % 0 % 01/30/20 08:24 Nucleated RBC % Not Reportable 01/30/20 08:24 Seg Neutrophils # 12.7 K/mm3 (1.8-7.7) H 02/02/20 09:15 Seg Neutrophils # Man 14.3 K/mm3 (1.8-7.7) H 01/30/20 08:24 Band Neutrophils # 0.0 K/mm3 01/30/20 08:24 Lymphocytes # (Manual) 0.9 K/mm3 (1.2-5.4) L 01/30/20 08:24 Abs React Lymphs (Man) 0.0 K/mm3 01/30/20 08:24 Monocytes # (Manual) 0.3 K/mm3 (0.0-0.8) 01/30/20 08:24 Eosinophils # (Manual) 0.0 K/mm3 (0.0-0.4) 01/30/20 08:24 Basophils # (Manual) 0.0 K/mm3 (0.0-0.1) 01/30/20 08:24 Metamyelocytes # 0.0 K/mm3 01/30/20 08:24 Myelocytes # 0.0 K/mm3 01/30/20 08:24 Promyelocytes # 0.0 K/mm3 01/30/20 08:24 Blast Cells # 0.0 K/mm3 01/30/20 08:24 WBC Morphology Not Reportable 01/30/20 08:24 Hypersegmented Neuts Not Reportable 01/30/20 08:24 Hyposegmented Neuts Not Reportable 01/30/20 08:24 Hypogranular Neuts Not Reportable 01/30/20 08:24 Smudge Cells Not Reportable 01/30/20 08:24 Toxic Granulation Not Reportable 01/30/20 08:24 Toxic Vacuolation Not Reportable 01/30/20 08:24 Dohle Bodies Not Reportable 01/30/20 08:24 Pelger-Huet Anomaly Not Reportable 01/30/20 08:24 Janice Rods Not Reportable 01/30/20 08:24 Platelet Estimate Consistent w auto 01/30/20 08:24 Clumped Platelets Not Reportable 01/30/20 08:24 Plt Clumps, EDTA Not Reportable 01/30/20 08:24 Large Platelets Not Reportable 01/30/20 08:24 Giant Platelets Not Reportable 01/30/20 08:24 Platelet Satelliting Not Reportable 01/30/20 08:24 Plt Morphology Comment Not Reportable 01/30/20 08:24 RBC Morphology Not Reportable 01/30/20 08:24 Dimorphic RBCs Not Reportable 01/30/20 08:24 Polychromasia Few 01/30/20 08:24 Hypochromasia 1+ 01/30/20 08:24 Poikilocytosis Not Reportable 01/30/20 08:24 Anisocytosis Not Reportable 01/30/20 08:24 Microcytosis Not Reportable 01/30/20 08:24 Macrocytosis Not Reportable 01/30/20 08:24 Spherocytes Not Reportable 01/30/20 08:24 Pappenheimer Bodies Not Reportable 01/30/20 08:24 Sickle Cells Not Reportable 01/30/20 08:24 Target Cells Rare 01/30/20 08:24 Tear Drop Cells Not Reportable 01/30/20 08:24 Ovalocytes Not Reportable 01/30/20 08:24 Helmet Cells Not Reportable 01/30/20 08:24 Fu[place] Bodies Not Reportable 01/30/20 08:24 [place] Rings Not Reportable 01/30/20 08:24 [place] Cells Rare 01/30/20 08:24 Bite Cells Not Reportable 01/30/20 08:24 Crenated Cell Not Reportable 01/30/20 08:24 Elliptocytes Few 01/30/20 08:24 Acanthocytes (Spur) Not Reportable 01/30/20 08:24 Rouleaux Not Reportable 01/30/20 08:24 Hemoglobin C Crystals Not Reportable 01/30/20 08:24 Schistocytes Not Reportable 01/30/20 08:24 Malaria parasites Not Reportable 01/30/20 08:24 [place] Bodies Not Reportable 01/30/20 08:24 Hem Pathologist Commnt No 01/30/20 08:24 PT 13.5 Sec. (12.2-14.9) 01/31/20 05:10 INR 1.04 (0.87-1.13) 01/31/20 05:10 APTT 31.0 Sec. (24.2-36.6) 01/17/20 17:34 D-Dimer 3001.60 ng/mlDDU (0-234) H 01/22/20 07:46 Sodium 142 mmol/L (137-145) 02/02/20 09:15 Potassium 3.9 mmol/L (3.6-5.0) 02/02/20 09:15 Chloride 109.5 mmol/L (98-107) H 02/02/20 09:15 Carbon Dioxide 25 mmol/L (22-30) 02/02/20 09:15 Anion Gap 11 mmol/L 02/02/20 09:15 BUN 14 mg/dL (9-20) 02/02/20 09:15 Creatinine 0.6 mg/dL (0.8-1.3) L 02/02/20 09:15 Estimated GFR > 60 ml/min 02/02/20 09:15 BUN/Creatinine Ratio 23 % 02/02/20 09:15 Glucose 131 mg/dL (75-100) H 02/02/20 09:15 POC Glucose 112 mg/dL (70-105) H 02/04/20 05:34 Hemoglobin A1c 6.7 % (4-6) H 01/18/20 16:04 Lactic Acid 1.80 mmol/L (0.7-2.0) 01/17/20 19:40 Calcium 9.0 mg/dL (8.4-10.2) 02/02/20 09:15 Magnesium 2.00 mg/dL (1.7-2.3) 01/26/20 05:14 Ferritin 3748.0 ng/mL (30.0-300.0) H 01/22/20 07:46 Total Bilirubin 0.40 mg/dL (0.1-1.2) 01/20/20 05:39 Direct Bilirubin < 0.2 mg/dL (0-0.2) 01/20/20 05:39 Indirect Bilirubin 0.2 mg/dL 01/20/20 05:39 AST 60 units/L (5-40) H 01/20/20 05:39 ALT 44 units/L (7-56) 01/20/20 05:39 Alkaline Phosphatase 64 units/L (35-129) 01/20/20 05:39 Ammonia 38.0 umol/L (25-60) 01/17/20 17:34 Lactate Dehydrogenase 368 units/L (91-180) H 01/22/20 07:46 Total Creatine Kinase 164 units/L (55-170) 01/17/20 17:34 Troponin T < 0.010 ng/mL (0.00-0.029) 01/17/20 17:34 C-Reactive Protein 2.90 mg/dL (0.00-1.30) H 01/22/20 07:46 Total Protein 7.0 g/dL (6.3-8.2) 01/20/20 05:39 Albumin 2.8 g/dL (3.9-5) L 01/20/20 05:39 Albumin/Globulin Ratio 0.7 % 01/20/20 05:39 Triglycerides 219 mg/dL (2-149) H 01/18/20 16:04 Cholesterol 180 mg/dL (50-199) 01/18/20 16:04 LDL Cholesterol Direct 91 mg/dL (50-130) 01/18/20 16:04 HDL Cholesterol 37 mg/dL (40-59) L 01/18/20 16:04 Cholesterol/HDL Ratio 4.86 % 01/18/20 16:04 Procalcitonin 0.15 ng/mL (<0.15) 01/17/20 21:39 Urine Color Yellow (Yellow) 01/17/20 19:30 Urine Turbidity Clear (Clear) 01/17/20 19:30 Urine pH 5.0 (5.0-7.0) 01/17/20 19:30 Ur Specific [place] 1.016 (1.003-1.030) 01/17/20 19:30 Urine Protein 100 mg/dl mg/dL (Negative) 01/17/20 19:30 Urine Glucose (UA) Neg mg/dL (Negative) 01/17/20 19:30 Urine Ketones Neg mg/dL (Negative) 01/17/20 19:30 Urine Blood Sm (Negative) 01/17/20 19:30 Urine Nitrite Neg (Negative) 01/17/20 19:30 Urine Bilirubin Neg (Negative) 01/17/20 19:30 Urine Urobilinogen < 2.0 mg/dL (<2.0) 01/17/20 19:30 Ur Leukocyte Esterase Neg (Negative) 01/17/20 19:30 Urine WBC (Auto) 2.0 /HPF (0.0-6.0) 01/17/20 19:30 Urine RBC (Auto) 6.0 /HPF (0.0-6.0) 01/17/20 19:30 U Epithel Cells (Auto) < 1.0 /HPF (0-13.0) 01/17/20 19:30 Urine Bacteria (Auto) 1+ /HPF (Negative) 11/10/20 19:30 Urine Mucus Few /HPF 01/17/20 19:30 Coronavirus (PCR) Positive (Negative) A 01/31/20 08:12 SARS-CoV-2 IgG Ab Reactive (NonReactive) A 01/19/20 17:52 Moses/IV: Voiding Method Condom Catheter IV Catheter Type [Left Forearm INT / Saline Lock ] IV Catheter Type [Right INT / Saline Lock Antecubital] Active Medications - Current Medications Current Medications: Generic Name Dose Route Start Last Admin Trade Name Freq PRN Reason Stop Dose Admin Acetaminophen 650 mg 01/17/20 22:03 02/01/20 10:21 Tylenol PO 650 mg Q4H PRN Administration Pain MILD(1-3)/Fever >100.5/FORD Amlodipine Besylate 5 mg 01/24/20 10:00 02/03/20 10:25 Amlodipine PO 5 mg QDAY LIBORIO Administration Lipase/Protease/Amylase 1 each 01/21/20 11:34 01/30/20 13:11 Pancrenick Urrutia 10,500 Unit FEEDTUBE 1 each PRN PRN Administration For Clogged Feeding Tube Ascorbic Acid 500 mg 01/21/20 10:00 02/03/20 10:25 Vitamin C PO 500 mg QDAY LIBORIO Administration Aspirin 81 mg 02/01/20 10:00 02/03/20 10:25 Baby Aspirin PO 81 mg QDAY LIBORIO Administration Atorvastatin Calcium 40 mg 01/19/20 22:00 02/03/20 22:00 Lipitor PO 40 mg QHS LIBORIO Administration Dextrose 50 ml 01/18/20 16:00 D50w (25gm) Syringe IV Q30MIN PRN Hypoglycemia Protocol Docusate Sodium 100 mg 01/20/20 10:00 02/03/20 22:00 Colace PO 100 mg BID LIBORIO Administration Enoxaparin Sodium 40 mg 02/01/20 22:00 02/03/20 22:00 Enoxaparin SUB-Q 40 mg QDAY@2200 LIBORIO Administration Protocol Hydralazine HCl 25 mg 01/26/20 08:00 02/04/20 06:32 Apresoline PO 25 mg Q8HR LIBORIO Administration Dextrose/Sodium Chloride 1,000 mls @ 75 mls/hr 01/31/20 20:00 01/31/20 19:07 D5ns IV 75 mls/hr DIRECT LIBORIO Administration Insulin Human Isoph/Insulin Regular 8 unit 01/27/20 08:45 02/04/20 08:48 Humulin 70/30 SUB-Q Not Given QDDIAB LIBORIO Insulin Human Regular 0 unit 01/18/20 16:00 02/04/20 06:00 Humulin R SUB-Q Not Given Q6HR [facility] Protocol Magnesium Hydroxide 30 ml 01/17/20 22:03 Milk Of Magnesia PO Q4H PRN Constipation Ondansetron HCl 4 mg 01/17/20 22:03 Zofran IV Q8H PRN Nausea And Vomiting Simple Syrup 15 ml 01/21/20 11:34 Simple Syrup FEEDTUBE PRN PRN Hypoglycemia Simple Syrup 30 ml 01/21/20 11:34 Simple Syrup FEEDTUBE PRN PRN Hypoglycemia Sodium Bicarbonate 325 mg 01/21/20 11:34 Sodium Bicarbonate FEEDTUBE PRN PRN For Clogged Feeding Tube Sodium Chloride 10 ml 01/18/20 10:00 02/03/20 22:00 Sodium Chloride Flush Syringe 10 Ml IV 10 ml BID LIBORIO Administration Sodium Chloride 10 ml 01/17/20 22:03 Sodium Chloride Flush Syringe 10 Ml IV PRN PRN LINE FLUSH Zinc Sulfate 220 mg 01/21/20 10:00 02/03/20 10:25 Zinc Sulfate PO 220 mg QDAY LIBORIO Administration Nutrition/Malnutrition Assess - Dietary Evaluation Nutrition/Malnutrition Findings: Nutrition Notes Start: 01/19/20 10:13 Freq: Status: Active Protocol: Document 02/03/20 11:55 (Rec: 02/03/20 11:56 [email or web address]) Nutrition Notes Initial or Follow up Reassessment Current Diagnosis Diabetes,Hypertension,Stroke Other Pertinent Diagnosis COVID-19 (+), AMS, Dysphagia Current Diet Glucerna 1.2 at 65 ml/hr Labs/Tests Reviewed Pertinent Medications Zinc Vit C Height 5 ft 11 in Weight 90.2 kg [place] Body Weight (kg) 78.18 BMI 27.7 Subjective/Other Information FU for TF tolerance. Per RN, pt tolerating TF at goal. Percent of energy/protein needs met: 95%/100% Burn Absent Trauma Absent GI Symptoms None Current % PO Negligible Minimum of two criteria No physical signs of malnutrition #1 Nutrition Diagnosis Inadequate oral intake Diagnosis Progress(for reassessment Continues documentation) Is patient on ventilator? No Is Patient Ambulatory and/or Out of Bed No REE-(Irion-St. Jeor-confined to bed) 1984.256 Calculation Used for Recommendations Irion-St Jeor Additional Notes Pro needs 1-1.2g/k-106g/ day Fluid needs per MD Nutrition Intervention Change Diet Order: Continue TF Nutrition Support: Glucerna 1.2 at 65 mL/hr. Flush with 100 mL q4h. Kcal 1,872 Protein (gm) 94 Fluid (mL) ,256 Goal #1 Meet at least 75% of estimated energy and protein needs via TF Goal #2 TF tolerance Anticipated Discharge Needs: TF Glucerna 1.2 at 65ml/hr. Water flush with 200ml q4h Follow-Up By: 02/07/20 Additional Comments F/U for TF tolerance
[2020-02-04] MEDS: ZINC SULFATE 220 MG CAP PO SCH (10:10)
[2020-02-04] MEDS: amLODIPine 5 MG TAB PO SCH (10:10)
[2020-02-04] MEDS: ASCORBIC ACID 500 MG TAB PO SCH (10:10)
[2020-02-04] MEDS: ASPIRIN 81 MG TAB CHEW PO SCH (10:10)
[2020-02-04] MEDS: DOCUSATE SODIUM 100 MG/10 ML ORAL LIQD PO SCH ×2 (10:10→22:30)
[2020-02-04] MEDS: ENOXAPARIN 40 MG/0.4 ML INJ SUB-Q SCH (22:30)
[2020-02-05] MEDS: hydrALAZINE 25 MG TAB PO SCH ×3 (05:53→22:04)
[2020-02-05] MEDS: INSULIN REGULAR, HUMAN 100 UNIT/ML 3ML VIAL SUB-Q SCH ×3 (06:11→18:21)
[2020-02-05] MEDS: INSULIN NPH/REGULAR 70/30 INJ SUB-Q SCH (08:12)
--- NOTE | 2020-02-05 09:51 | Progress Note ---
Assessment and Plan Assessment and plan: --Dysphagia Patient underwent PEG placement per GI -- Acute respiratory failure Acute respiratory failure secondary to COVID-19 pneumonia. Patient remains ill cachectic but able to breathe. With O2/nebulizers. Oxygenation has actually improved. Problem is debility and decreased p.o. intake. --Acute metabolic encephalopathy ; multifactorial Multifactorial secondary to COVID-19 pneumonia as well as hypoxemia and malnut rition. This with underlying dementia. Awaiting family decision about PEG tube placement. -- COVID-19 virus infection Patient not on dexamethasone or remdesivir at this time. No fever. --Elevated d-dimer Secondary to COVID-19. Empiric anticoagulants. Patient currently on Lovenox now. Specially since patient's a receive PEG tube. Can stop this more rapidly. --Pneumonia due to COVID-19 virus Current Visit: Yes Status: Acute Plan to address problem: Continues to improve. Patient's oxygenation is improving cognition has been following slow behind. --Hypertension Current Visit: Yes Status: Chronic Plan to address problem: Patient's blood pressure fairly well controlled with amlodipine. --Acute hypernatremia Current Visit: Yes Status: Resolved Plan to address problem: Hypernatremia has resolved current sodium 137. Patient will require feeding tube. This will improve outcome. Brief history; 79-year-old male with HTN and DM who is a resident of a assisted presented to the ED on 01/17 via EMS for evaluation of a change mental status. Per assisted staff patient was not communicating well and having decreased oral intake. Upon arrival to the emergency department patient was found to be tachycardic, febrile to 102.2 and hypoxic with SPO2 of 91 on room air. Work-up was significant for hypernatremia, acute kidney injury (CR/BUN 2.2/55), hypochloremia, transaminitis and a chest x-ray showed mild bilateral pulmonary edema and CTh was unremarkable. Patient was admitted to hospitalist service as a Covid PUI, Sepsis, YIMI and infectious disease and nephrology were consulted. Patient failed swallow evaluation per speech therapy, recommended PEG placement, GI evaluated, patient had PEG tube placement today 01/31/2020. GI recommend to start tube feeding tomorrow and may discharge if stable. 01/17: elevated D-dimer therefore bilateral upper and lower extremity ultrasounds Dopplers were obtained to rule out DVT and a VQ scan was performed to rule out PE both of which were negative. Patient remained severely hypernatremic and his IV fluids were changed to D5 water. We will trend his BMP. He also has elevated Covid markers ferritin and CRP. 01/18: COVID-19 PCR resulted as positive. Patient remains hyponatremic therefore nephrology was consulted and he was started on FWF and his D5W was increased. 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 Dr. Petersen updated his daughter this morning (Ms. Burleson) and this afternoon after his COVID-19 PCR resulted I updated her. The phone got disconnected after 2 minutes of conversation and informing her of COVID-19 status and I tried calling back twice. Both times it was sent to [facility] and her mailbox is full therefore was not able to leave a message. Patient was also initiated on remdesivir therapy 01/19: MRI head and MRI brain still pending, continue remdesivir therapy, increased free water flush 300 mL every 4 hours and increase the D5W TO 100 mL/h 01/20: Zinc and vitamin C initiated, patient still remains hypernatremic 01/21: Patient remains hypernatremic, no acute events reported overnight 01/22: Patient remains hypernatremic, hyperchloremic though it is improving. Patient still remains with altered mental status and he has bilateral wrist restraints in place. Dr. Petersen updated patient's daughter over the phone today. No acute events reported overnight. Patient was hypokalemic which was repleted. 01/23: His hyperkalemia has resolved. No acute events reported overnight. Patient intermittently follows commands and is more verbal. Today he has bilateral mittens in place. 01/24: Patient has marked improvement in mentation today he is oriented to self and follows commands. Patient is hypokalemic today at 3.5 which was repleted and his hypernatremia and hyperchloremia are improving. Patient failed his swallow eval by speech therapy this morning. I updated daughter over the phone, Olya Pritchard, regarding ST evaluation and labs. I spoke to her about the possibility of a PEG being recommended by ST to which she agreed to as a last resort. 01/25: This morning patient is more alert with RN. Repeated speech evaluation was conducted and he failed. I updated the patient's daughter who would like to hold off a decision about PEG till Thursday and would like to see patient improves with speech therapy. This morning patient's hypernatremia and hyperchloremia has improved and his sodium is 148, chloride 111.4. 01/27-patient failed swallowing the valve again. Patient scheduled to determine about PEG tube feedings on Thursday. Seems will need a PEG. Family leaning toward this. 01/28;. Patient remains comfortable. Still has some cognitive impairment. Recent introduction to patient mental status appears about the same. Family to decide about PEG tube on Thursday. 01/29; I discussed with patient's daughter Elina Burleson and discussed the details of PEG placement, GI consult, possible procedure tomorrow She verbalized understanding and willing for PEG placement, GI consulted 01/30; patient received PEG placement today, GI recommend to start tube feeding tomorrow, and patient may be discharged if stable 01/31. Patient is s/p PEG placement yesterday. Monitor tube feedings today. Covid testing remains positive from 01/31/2020 02/02/2020. Awaiting for arrangements for hospital bed for patient to discharge home in a.m. 02/03/2020. Awaiting arrangements for hospital bed and tube feeding supplies to discharge home with home health. 02/04/2020. Awaiting arrangements for hospital bed and tube feeding supplies to discharge home with home health. - Patient Problems (1) Acute respiratory failure Current Visit: Yes Status: Acute Qualifiers: Respiratory failure complication: hypoxia Qualified Code(s): J96.01 - Acute respiratory failure with hypoxia (2) COVID-19 virus infection Current Visit: Yes Status: Acute (3) Dysphagia, oropharyngeal Current Visit: Yes Status: Acute (4) Elevated d-dimer Current Visit: Yes Status: Acute (5) Encephalopathy Current Visit: Yes Status: Acute (6) Full code status Current Visit: Yes Status: Acute (7) Pneumonia due to COVID-19 virus Current Visit: Yes Status: Acute (8) Sepsis Current Visit: Yes Status: Acute (9) Diabetes mellitus Current Visit: Yes Status: Chronic (10) Hypertension Current Visit: Yes Status: Chronic (11) Acute hypernatremia Current Visit: Yes Status: Resolved (12) Acute kidney injury Current Visit: Yes Status: Resolved History Interval history: No new issues overnight. Hospitalist Physical - Constitutional Vitals: Temp Pulse Resp BP Pulse Ox 98 F 90 20 142/86 95 02/05/20 06:29 02/05/20 06:29 02/05/20 06:29 02/05/20 06:29 02/04/20 23:05 General appearance: Present: no acute distress, well-nourished - EENT Eyes: Present: PERRL, EOM intact ENT: hearing intact, clear oral mucosa, dentition normal - Neck Neck: Present: supple, normal ROM - Respiratory Respiratory effort: normal Respiratory: bilateral: CTA - Cardiovascular Rhythm: regular Heart Sounds: Present: S1 & S2. Absent: gallop, rub - Extremities Extremities: no ischemia, No edema, Full ROM - Abdominal General gastrointestinal: soft, non-tender, non-distended, normal bowel sounds - Integumentary Integumentary: Present: clear, warm, dry - Neurologic Neurologic: CNII-XII intact, moves all extremities HEART Score - HEART Score Troponin: Troponin T < 0.010 ng/mL (0.00-0.029) 01/17/20 17:34 Results - Labs CBC & Chem 7: 02/02/20 09:15 02/02/20 09:15 Labs: Laboratory Last Values WBC 14.9 K/mm3 (4.5-11.0) H 02/02/20 09:15 RBC 5.31 M/mm3 (3.65-5.03) H 02/02/20 09:15 Hgb 13.4 gm/dl (11.8-15.2) 02/02/20 09:15 Hct 41.3 % (35.5-45.6) 02/02/20 09:15 MCV 78 fl (84-94) L 02/02/20 09:15 MCH 25 pg (28-32) L 02/02/20 09:15 MCHC 33 % (32-34) 02/02/20 09:15 RDW 14.5 % (13.2-15.2) 02/02/20 09:15 Plt Count 183 K/mm3 (140-440) 02/02/20 09:15 Lymph % (Auto) 8.7 % (13.4-35.0) L 02/02/20 09:15 [place] % (Auto) 5.0 % (0.0-7.3) 02/02/20 09:15 Eos % (Auto) 0.9 % (0.0-4.3) 02/02/20 09:15 Baso % (Auto) 0.1 % (0.0-1.8) 02/02/20 09:15 Lymph # (Auto) 1.3 K/mm3 (1.2-5.4) 02/02/20 09:15 [place] # (Auto) 0.7 K/mm3 (0.0-0.8) 02/02/20 09:15 Eos # (Auto) 0.1 K/mm3 (0.0-0.4) 02/02/20 09:15 Baso # (Auto) 0.0 K/mm3 (0.0-0.1) 02/02/20 09:15 Add Manual Diff Complete 01/30/20 08:24 Total Counted 100 01/30/20 08:24 Seg Neutrophils % 85.3 % (40.0-70.0) H 02/02/20 09:15 Seg Neuts % (Manual) 92.0 % (40.0-70.0) H 01/30/20 08:24 Band Neutrophils % 0 % 01/30/20 08:24 Lymphocytes % (Manual) 6.0 % (13.4-35.0) L 01/30/20 08:24 Reactive Lymphs % (Man) 0 % 01/30/20 08:24 Monocytes % (Manual) 2.0 % (0.0-7.3) 01/30/20 08:24 Eosinophils % (Manual) 0 % (0.0-4.3) 01/30/20 08:24 Basophils % (Manual) 0 % (0.0-1.8) 01/30/20 08:24 Metamyelocytes % 0 % 01/30/20 08:24 Myelocytes % 0 % 01/30/20 08:24 Promyelocytes % 0 % 01/30/20 08:24 Blast Cells % 0 % 01/30/20 08:24 Nucleated RBC % Not Reportable 01/30/20 08:24 Seg Neutrophils # 12.7 K/mm3 (1.8-7.7) H 02/02/20 09:15 Seg Neutrophils # Man 14.3 K/mm3 (1.8-7.7) H 01/30/20 08:24 Band Neutrophils # 0.0 K/mm3 01/30/20 08:24 Lymphocytes # (Manual) 0.9 K/mm3 (1.2-5.4) L 01/30/20 08:24 Abs React Lymphs (Man) 0.0 K/mm3 01/30/20 08:24 Monocytes # (Manual) 0.3 K/mm3 (0.0-0.8) 01/30/20 08:24 Eosinophils # (Manual) 0.0 K/mm3 (0.0-0.4) 01/30/20 08:24 Basophils # (Manual) 0.0 K/mm3 (0.0-0.1) 01/30/20 08:24 Metamyelocytes # 0.0 K/mm3 01/30/20 08:24 Myelocytes # 0.0 K/mm3 01/30/20 08:24 Promyelocytes # 0.0 K/mm3 01/30/20 08:24 Blast Cells # 0.0 K/mm3 01/30/20 08:24 WBC Morphology Not Reportable 01/30/20 08:24 Hypersegmented Neuts Not Reportable 01/30/20 08:24 Hyposegmented Neuts Not Reportable 01/30/20 08:24 Hypogranular Neuts Not Reportable 01/30/20 08:24 Smudge Cells Not Reportable 01/30/20 08:24 Toxic Granulation Not Reportable 01/30/20 08:24 Toxic Vacuolation Not Reportable 01/30/20 08:24 Dohle Bodies Not Reportable 01/30/20 08:24 Pelger-Huet Anomaly Not Reportable 01/30/20 08:24 Janice Rods Not Reportable 01/30/20 08:24 Platelet Estimate Consistent w auto 01/30/20 08:24 Clumped Platelets Not Reportable 01/30/20 08:24 Plt Clumps, EDTA Not Reportable 01/30/20 08:24 Large Platelets Not Reportable 01/30/20 08:24 Giant Platelets Not Reportable 01/30/20 08:24 Platelet Satelliting Not Reportable 01/30/20 08:24 Plt Morphology Comment Not Reportable 01/30/20 08:24 RBC Morphology Not Reportable 01/30/20 08:24 Dimorphic RBCs Not Reportable 01/30/20 08:24 Polychromasia Few 01/30/20 08:24 Hypochromasia 1+ 01/30/20 08:24 Poikilocytosis Not Reportable 01/30/20 08:24 Anisocytosis Not Reportable 01/30/20 08:24 Microcytosis Not Reportable 01/30/20 08:24 Macrocytosis Not Reportable 01/30/20 08:24 Spherocytes Not Reportable 01/30/20 08:24 Pappenheimer Bodies Not Reportable 01/30/20 08:24 Sickle Cells Not Reportable 01/30/20 08:24 Target Cells Rare 01/30/20 08:24 Tear Drop Cells Not Reportable 01/30/20 08:24 Ovalocytes Not Reportable 01/30/20 08:24 Helmet Cells Not Reportable 01/30/20 08:24 Fu-[place] Bodies Not Reportable 01/30/20 08:24 [place] Rings Not Reportable 01/30/20 08:24 Marco Cells Rare 01/30/20 08:24 Bite Cells Not Reportable 01/30/20 08:24 Crenated Cell Not Reportable 01/30/20 08:24 Elliptocytes Few 01/30/20 08:24 Acanthocytes (Spur) Not Reportable 01/30/20 08:24 Rouleaux Not Reportable 01/30/20 08:24 Hemoglobin C Crystals Not Reportable 01/30/20 08:24 Schistocytes Not Reportable 01/30/20 08:24 Malaria parasites Not Reportable 01/30/20 08:24 Cedrick Bodies Not Reportable 01/30/20 08:24 Hem Pathologist Commnt No 01/30/20 08:24 PT 13.5 Sec. (12.2-14.9) 01/31/20 05:10 INR 1.04 (0.87-1.13) 01/31/20 05:10 APTT 31.0 Sec. (24.2-36.6) 01/17/20 17:34 D-Dimer 3001.60 ng/mlDDU (0-234) H 01/22/20 07:46 Sodium 142 mmol/L (137-145) 02/02/20 09:15 Potassium 3.9 mmol/L (3.6-5.0) 02/02/20 09:15 Chloride 109.5 mmol/L (98-107) H 02/02/20 09:15 Carbon Dioxide 25 mmol/L (22-30) 02/02/20 09:15 Anion Gap 11 mmol/L 02/02/20 09:15 BUN 14 mg/dL (9-20) 02/02/20 09:15 Creatinine 0.6 mg/dL (0.8-1.3) L 02/02/20 09:15 Estimated GFR > 60 ml/min 02/02/20 09:15 BUN/Creatinine Ratio 23 % 02/02/20 09:15 Glucose 131 mg/dL (75-100) H 02/02/20 09:15 POC Glucose 110 mg/dL (70-105) H 02/05/20 05:58 Hemoglobin A1c 6.7 % (4-6) H 01/18/20 16:04 Lactic Acid 1.80 mmol/L (0.7-2.0) 01/17/20 19:40 Calcium 9.0 mg/dL (8.4-10.2) 02/02/20 09:15 Magnesium 2.00 mg/dL (1.7-2.3) 01/26/20 05:14 Ferritin 3748.0 ng/mL (30.0-300.0) H 01/22/20 07:46 Total Bilirubin 0.40 mg/dL (0.1-1.2) 01/20/20 05:39 Direct Bilirubin < 0.2 mg/dL (0-0.2) 01/20/20 05:39 Indirect Bilirubin 0.2 mg/dL 01/20/20 05:39 AST 60 units/L (5-40) H 01/20/20 05:39 ALT 44 units/L (7-56) 01/20/20 05:39 Alkaline Phosphatase 64 units/L (35-129) 01/20/20 05:39 Ammonia 38.0 umol/L (25-60) 01/17/20 17:34 Lactate Dehydrogenase 368 units/L (91-180) H 01/22/20 07:46 Total Creatine Kinase 164 units/L (55-170) 01/17/20 17:34 Troponin T < 0.010 ng/mL (0.00-0.029) 01/17/20 17:34 C-Reactive Protein 2.90 mg/dL (0.00-1.30) H 01/22/20 07:46 Total Protein 7.0 g/dL (6.3-8.2) 01/20/20 05:39 Albumin 2.8 g/dL (3.9-5) L 01/20/20 05:39 Albumin/Globulin Ratio 0.7 % 01/20/20 05:39 Triglycerides 219 mg/dL (2-149) H 01/18/20 16:04 Cholesterol 180 mg/dL (50-199) 01/18/20 16:04 LDL Cholesterol Direct 91 mg/dL (50-130) 01/18/20 16:04 HDL Cholesterol 37 mg/dL (40-59) L 01/18/20 16:04 Cholesterol/HDL Ratio 4.86 % 01/18/20 16:04 Procalcitonin 0.15 ng/mL (<0.15) 01/17/20 21:39 Urine Color Yellow (Yellow) 01/17/20 19:30 Urine Turbidity Clear (Clear) 01/17/20 19:30 Urine pH 5.0 (5.0-7.0) 01/17/20 19:30 Ur Specific [place] 1.016 (1.003-1.030) 01/17/20 19:30 Urine Protein 100 mg/dl mg/dL (Negative) 01/17/20 19:30 Urine Glucose (UA) Neg mg/dL (Negative) 01/17/20 19:30 Urine Ketones Neg mg/dL (Negative) 01/17/20 19:30 Urine Blood Sm (Negative) 01/17/20 19:30 Urine Nitrite Neg (Negative) 01/17/20 19:30 Urine Bilirubin Neg (Negative) 01/17/20 19:30 Urine Urobilinogen < 2.0 mg/dL (<2.0) 01/17/20 19:30 Ur Leukocyte Esterase Neg (Negative) 01/17/20 19:30 Urine WBC (Auto) 2.0 /HPF (0.0-6.0) 01/17/20 19:30 Urine RBC (Auto) 6.0 /HPF (0.0-6.0) 01/17/20 19:30 U Epithel Cells (Auto) < 1.0 /HPF (0-13.0) 01/17/20 19:30 Urine Bacteria (Auto) 1+ /HPF (Negative) 01/17/20 19:30 Urine Mucus Few /HPF 01/17/20 19:30 Coronavirus (PCR) Positive (Negative) A 01/31/20 08:12 SARS-CoV-2 IgG Ab Reactive (NonReactive) A 01/19/20 17:52 Moses/IV: Voiding Method Incontinent IV Catheter Type [Left Forearm INT / Saline Lock ] IV Catheter Type [Right INT / Saline Lock Antecubital] Active Medications - Current Medications Current Medications: Generic Name Dose Route Start Last Admin Trade Name Freq PRN Reason Stop Dose Admin Acetaminophen 650 mg 01/17/20 22:03 02/01/20 10:21 Tylenol PO 650 mg Q4H PRN Administration Pain MILD(1-3)/Fever >100.5/FORD Amlodipine Besylate 5 mg 01/24/20 10:00 02/04/20 10:10 Amlodipine PO 5 mg QDAY LIBORIO Administration Lipase/Protease/Amylase 1 each 01/21/20 11:34 01/30/20 13:[address] 10,500 Unit FEEDTUBE 1 each PRN PRN Administration For Clogged Feeding Tube Ascorbic Acid 500 mg 01/21/20 10:00 02/04/20 10:10 Vitamin C PO 500 mg QDAY LIBORIO Administration Aspirin 81 mg 02/01/20 10:00 02/04/20 10:10 Baby Aspirin PO 81 mg QDAY LIBORIO Administration Atorvastatin Calcium 40 mg 01/19/20 22:00 02/04/20 22:30 Lipitor PO 40 mg QHS LIBORIO Administration Dextrose 50 ml 01/18/20 16:00 D50w (25gm) Syringe IV Q30MIN PRN Hypoglycemia Protocol Docusate Sodium 100 mg 01/20/20 10:00 02/04/20 22:30 Colace PO 100 mg BID LIBORIO Administration Enoxaparin Sodium 40 mg 02/01/20 22:00 02/04/20 22:30 Enoxaparin SUB-Q 40 mg QDAY@2200 LIBORIO Administration Protocol Hydralazine HCl 25 mg 01/26/20 08:00 02/05/20 05:53 Apresoline PO 25 mg Q8HR LIBORIO Administration Dextrose/Sodium Chloride 1,000 mls @ 75 mls/hr 01/31/20 20:00 01/31/20 19:07 D5ns IV 75 mls/hr DIRECT LIBORIO Administration Insulin Human Isoph/Insulin Regular 8 unit 01/27/20 08:45 02/05/20 08:12 Humulin 70/30 SUB-Q Not Given QDDIAB LIBORIO Insulin Human Regular 0 unit 01/18/20 16:00 02/05/20 06:11 Humulin R SUB-Q Not Given Q6HR [facility] Protocol Magnesium Hydroxide 30 ml 01/17/20 22:03 Milk Of Magnesia PO Q4H PRN Constipation Ondansetron HCl 4 mg 01/17/20 22:03 Zofran IV Q8H PRN Nausea And Vomiting Simple Syrup 15 ml 01/21/20 11:34 Simple Syrup FEEDTUBE PRN PRN Hypoglycemia Simple Syrup 30 ml 01/21/20 11:34 Simple Syrup FEEDTUBE PRN PRN Hypoglycemia Sodium Bicarbonate 325 mg 01/21/20 11:34 Sodium Bicarbonate FEEDTUBE PRN PRN For Clogged Feeding Tube Sodium Chloride 10 ml 01/18/20 10:00 02/04/20 22:31 Sodium Chloride Flush Syringe 10 Ml IV 10 ml BID LIBORIO Administration Sodium Chloride 10 ml 01/17/20 22:03 Sodium Chloride Flush Syringe 10 Ml IV PRN PRN LINE FLUSH Zinc Sulfate 220 mg 01/21/20 10:00 02/04/20 10:10 Zinc Sulfate PO 220 mg QDAY LIBORIO Administration Nutrition/Malnutrition Assess - Dietary Evaluation Nutrition/Malnutrition Findings: Nutrition Notes Start: 01/19/20 10:13 Freq: Status: Active Protocol: Document 02/03/20 11:55 (Rec: 02/03/20 11:56 [id number]) Nutrition Notes Initial or Follow up Reassessment Current Diagnosis Diabetes,Hypertension,Stroke Other Pertinent Diagnosis COVID-19 (+), AMS, Dysphagia Current Diet Glucerna 1.2 at 65 ml/hr Labs/Tests Reviewed Pertinent Medications Zinc Vit C Height 5 ft 11 in Weight 90.2 kg [place] Body Weight (kg) 78.18 BMI 27.7 Subjective/Other Information FU for TF tolerance. Per RN, pt tolerating TF at goal. Percent of energy/protein needs met: 95%/100% Burn Absent Trauma Absent GI Symptoms None Current % PO Negligible Minimum of two criteria No physical signs of malnutrition #1 Nutrition Diagnosis Inadequate oral intake Diagnosis Progress(for reassessment Continues documentation) Is patient on ventilator? No Is Patient Ambulatory and/or Out of Bed No REE-([facility]-confined to bed) Calculation Used for Recommendations [facility] Additional Notes Pro needs 1-1.2g/k-106g/ day Fluid needs per MD Nutrition Intervention Change Diet Order: Continue TF Nutrition Support: Glucerna 1.2 at 65 mL/hr. Flush with 100 mL q4h. Kcal 1,872 Protein (gm) 94 Fluid (mL) ,256 Goal #1 Meet at least 75% of estimated energy and protein needs via TF Goal #2 TF tolerance Anticipated Discharge Needs: TF Glucerna 1.2 at 65ml/hr. Water flush with 200ml q4h Follow-Up By: 02/07/20 Additional Comments F/U for TF tolerance
[2020-02-05] MEDS: ASPIRIN 81 MG TAB CHEW PO SCH (09:52)
[2020-02-05] MEDS: amLODIPine 5 MG TAB PO SCH (09:52)
[2020-02-05] MEDS: ASCORBIC ACID 500 MG TAB PO SCH (09:52)
[2020-02-05] MEDS: DOCUSATE SODIUM 100 MG/10 ML ORAL LIQD PO SCH ×2 (09:52→22:05)
[2020-02-05] MEDS: ZINC SULFATE 220 MG CAP PO SCH (09:52)
[2020-02-05] MEDS: ENOXAPARIN 40 MG/0.4 ML INJ SUB-Q SCH (22:05)
[2020-02-06] MEDS: INSULIN REGULAR, HUMAN 100 UNIT/ML 3ML VIAL SUB-Q SCH ×4 (00:02→18:04)
[2020-02-06] MEDS: hydrALAZINE 25 MG TAB PO SCH ×3 (05:17→21:50)
[2020-02-06] MEDS ORDERED: hydrALAZINE 25 MG TAB PO SCH (08:00)
--- NOTE | 2020-02-06 08:37 | Progress Note ---
Assessment and Plan Assessment and plan: --Dysphagia Patient underwent PEG placement per GI -- Acute respiratory failure Acute respiratory failure secondary to COVID-19 pneumonia. Patient remains ill cachectic but able to breathe. With O2/nebulizers. Oxygenation has actually improved. Problem is debility and decreased p.o. intake. --Acute metabolic encephalopathy ; multifactorial Multifactorial secondary to COVID-19 pneumonia as well as hypoxemia and malnut rition. This with underlying dementia. Awaiting family decision about PEG tube placement. -- COVID-19 virus infection Patient not on dexamethasone or remdesivir at this time. No fever. --Elevated d-dimer Secondary to COVID-19. Empiric anticoagulants. Patient currently on Lovenox now. Specially since patient's a receive PEG tube. Can stop this more rapidly. --Pneumonia due to COVID-19 virus Current Visit: Yes Status: Acute Plan to address problem: Continues to improve. Patient's oxygenation is improving cognition has been following slow behind. --Hypertension Current Visit: Yes Status: Chronic Plan to address problem: Patient's blood pressure fairly well controlled with amlodipine. --Acute hypernatremia Current Visit: Yes Status: Resolved Plan to address problem: Hypernatremia has resolved current sodium 137. Patient will require feeding tube. This will improve outcome. Brief history; 79-year-old male with HTN and DM who is a resident of a correction presented to the ED on 01/17 via EMS for evaluation of a change mental status. Per correction staff patient was not communicating well and having decreased oral intake. Upon arrival to the emergency department patient was found to be tachycardic, febrile to 102.2 and hypoxic with SPO2 of 91 on room air. Work-up was significant for hypernatremia, acute kidney injury (CR/BUN 2.2/55), hypochloremia, transaminitis and a chest x-ray showed mild bilateral pulmonary edema and CTh was unremarkable. Patient was admitted to hospitalist service as a Covid PUI, Sepsis, YIMI and infectious disease and nephrology were consulted. Patient failed swallow evaluation per speech therapy, recommended PEG placement, GI evaluated, patient had PEG tube placement today 01/31/2020. GI recommend to start tube feeding tomorrow and may discharge if stable. 01/17: elevated D-dimer therefore bilateral upper and lower extremity ultrasounds Dopplers were obtained to rule out DVT and a VQ scan was performed to rule out PE both of which were negative. Patient remained severely hypernatremic and his IV fluids were changed to D5 water. We will trend his BMP. He also has elevated Covid markers ferritin and CRP. 01/18: COVID-19 PCR resulted as positive. Patient remains hyponatremic therefore nephrology was consulted and he was started on FWF and his D5W was increased. 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 Dr. Petersen updated his daughter this morning (Ms. Burleson) and this afternoon after his COVID-19 PCR resulted I updated her. The phone got disconnected after 2 minutes of conversation and informing her of COVID-19 status and I tried calling back twice. Both times it was sent to [facility] and her mailbox is full therefore was not able to leave a message. Patient was also initiated on remdesivir therapy 01/19: MRI head and MRI brain still pending, continue remdesivir therapy, increased free water flush 300 mL every 4 hours and increase the D5W TO 100 mL/h 01/20: Zinc and vitamin C initiated, patient still remains hypernatremic 01/21: Patient remains hypernatremic, no acute events reported overnight 01/22: Patient remains hypernatremic, hyperchloremic though it is improving. Patient still remains with altered mental status and he has bilateral wrist restraints in place. Dr. Petersen updated patient's daughter over the phone today. No acute events reported overnight. Patient was hypokalemic which was repleted. 01/23: His hyperkalemia has resolved. No acute events reported overnight. Patient intermittently follows commands and is more verbal. Today he has bilateral mittens in place. 01/24: Patient has marked improvement in mentation today he is oriented to self and follows commands. Patient is hypokalemic today at 3.5 which was repleted and his hypernatremia and hyperchloremia are improving. Patient failed his swallow eval by speech therapy this morning. I updated daughter over the phone, Olya Pritchard, regarding ST evaluation and labs. I spoke to her about the possibility of a PEG being recommended by ST to which she agreed to as a last resort. 01/25: This morning patient is more alert with RN. Repeated speech evaluation was conducted and he failed. I updated the patient's daughter who would like to hold off a decision about PEG till Thursday and would like to see patient improves with speech therapy. This morning patient's hypernatremia and hyperchloremia has improved and his sodium is 148, chloride 111.4. 01/27-patient failed swallowing the valve again. Patient scheduled to determine about PEG tube feedings on Thursday. Seems will need a PEG. Family leaning toward this. 01/28;. Patient remains comfortable. Still has some cognitive impairment. Recent introduction to patient mental status appears about the same. Family to decide about PEG tube on Thursday. 01/29; I discussed with patient's daughter Elina Burleson and discussed the details of PEG placement, GI consult, possible procedure tomorrow She verbalized understanding and willing for PEG placement, GI consulted 01/30; patient received PEG placement today, GI recommend to start tube feeding tomorrow, and patient may be discharged if stable 01/31. Patient is s/p PEG placement yesterday. Monitor tube feedings today. Covid testing remains positive from 01/31/2020 02/02/2020. Awaiting for arrangements for hospital bed for patient to discharge home in a.m. 02/03/2020. Awaiting arrangements for hospital bed and tube feeding supplies to discharge home with home health. - Patient Problems (1) Acute respiratory failure Current Visit: Yes Status: Acute Qualifiers: Respiratory failure complication: hypoxia Qualified Code(s): J96.01 - Acute respiratory failure with hypoxia (2) COVID-19 virus infection Current Visit: Yes Status: Acute (3) Dysphagia, oropharyngeal Current Visit: Yes Status: Acute (4) Elevated d-dimer Current Visit: Yes Status: Acute (5) Encephalopathy Current Visit: Yes Status: Acute (6) Full code status Current Visit: Yes Status: Acute (7) Pneumonia due to COVID-19 virus Current Visit: Yes Status: Acute (8) Sepsis Current Visit: Yes Status: Acute (9) Diabetes mellitus Current Visit: Yes Status: Chronic (10) Hypertension Current Visit: Yes Status: Chronic (11) Acute hypernatremia Current Visit: Yes Status: Resolved (12) Acute kidney injury Current Visit: Yes Status: Resolved History Interval history: No new issues overnight. Hospitalist Physical - Constitutional Vitals: Temp Pulse Resp BP Pulse Ox 98.7 F 95 H 18 150/101 93 02/06/20 04:53 02/06/20 04:53 02/06/20 04:53 02/06/20 04:53 02/06/20 04:53 General appearance: Present: no acute distress, well-nourished - EENT Eyes: Present: PERRL, EOM intact ENT: hearing intact, clear oral mucosa, dentition normal - Neck Neck: Present: supple, normal ROM - Respiratory Respiratory effort: normal Respiratory: bilateral: CTA - Cardiovascular Rhythm: regular Heart Sounds: Present: S1 & S2. Absent: gallop, rub - Extremities Extremities: no ischemia, No edema, Full ROM - Abdominal General gastrointestinal: soft, non-tender, non-distended, normal bowel sounds - Integumentary Integumentary: Present: clear, warm, dry - Neurologic Neurologic: CNII-XII intact, moves all extremities HEART Score - HEART Score Troponin: Troponin T < 0.010 ng/mL (0.00-0.029) 01/17/20 17:34 Results - Labs CBC & Chem 7: 02/02/20 09:15 02/02/20 09:15 Labs: Laboratory Last Values WBC 14.9 K/mm3 (4.5-11.0) H 02/02/20 09:15 RBC 5.31 M/mm3 (3.65-5.03) H 02/02/20 09:15 Hgb 13.4 gm/dl (11.8-15.2) 02/02/20 09:15 Hct 41.3 % (35.5-45.6) 02/02/20 09:15 MCV 78 fl (84-94) L 02/02/20 09:15 MCH 25 pg (28-32) L 02/02/20 09:15 MCHC 33 % (32-34) 02/02/20 09:15 RDW 14.5 % (13.2-15.2) 02/02/20 09:15 Plt Count 183 K/mm3 (140-440) 02/02/20 09:15 Lymph % (Auto) 8.7 % (13.4-35.0) L 02/02/20 09:15 [place] % (Auto) 5.0 % (0.0-7.3) 02/02/20 09:15 Eos % (Auto) 0.9 % (0.0-4.3) 02/02/20 09:15 Baso % (Auto) 0.1 % (0.0-1.8) 02/02/20 09:15 Lymph # (Auto) 1.3 K/mm3 (1.2-5.4) 02/02/20 09:15 [place] # (Auto) 0.7 K/mm3 (0.0-0.8) 02/02/20 09:15 Eos # (Auto) 0.1 K/mm3 (0.0-0.4) 02/02/20 09:15 Baso # (Auto) 0.0 K/mm3 (0.0-0.1) 02/02/20 09:15 Add Manual Diff Complete 01/30/20 08:24 Total Counted 100 01/30/20 08:24 Seg Neutrophils % 85.3 % (40.0-70.0) H 02/02/20 09:15 Seg Neuts % (Manual) 92.0 % (40.0-70.0) H 01/30/20 08:24 Band Neutrophils % 0 % 01/30/20 08:24 Lymphocytes % (Manual) 6.0 % (13.4-35.0) L 01/30/20 08:24 Reactive Lymphs % (Man) 0 % 01/30/20 08:24 Monocytes % (Manual) 2.0 % (0.0-7.3) 01/30/20 08:24 Eosinophils % (Manual) 0 % (0.0-4.3) 01/30/20 08:24 Basophils % (Manual) 0 % (0.0-1.8) 01/30/20 08:24 Metamyelocytes % 0 % 01/30/20 08:24 Myelocytes % 0 % 01/30/20 08:24 Promyelocytes % 0 % 01/30/20 08:24 Blast Cells % 0 % 01/30/20 08:24 Nucleated RBC % Not Reportable 01/30/20 08:24 Seg Neutrophils # 12.7 K/mm3 (1.8-7.7) H 02/02/20 09:15 Seg Neutrophils # Man 14.3 K/mm3 (1.8-7.7) H 01/30/20 08:24 Band Neutrophils # 0.0 K/mm3 01/30/20 08:24 Lymphocytes # (Manual) 0.9 K/mm3 (1.2-5.4) L 01/30/20 08:24 Abs React Lymphs (Man) 0.0 K/mm3 01/30/20 08:24 Monocytes # (Manual) 0.3 K/mm3 (0.0-0.8) 01/30/20 08:24 Eosinophils # (Manual) 0.0 K/mm3 (0.0-0.4) 01/30/20 08:24 Basophils # (Manual) 0.0 K/mm3 (0.0-0.1) 01/30/20 08:24 Metamyelocytes # 0.0 K/mm3 01/30/20 08:24 Myelocytes # 0.0 K/mm3 01/30/20 08:24 Promyelocytes # 0.0 K/mm3 01/30/20 08:24 Blast Cells # 0.0 K/mm3 01/30/20 08:24 WBC Morphology Not Reportable 01/30/20 08:24 Hypersegmented Neuts Not Reportable 01/30/20 08:24 Hyposegmented Neuts Not Reportable 01/30/20 08:24 Hypogranular Neuts Not Reportable 01/30/20 08:24 Smudge Cells Not Reportable 01/30/20 08:24 Toxic Granulation Not Reportable 01/30/20 08:24 Toxic Vacuolation Not Reportable 01/30/20 08:24 Dohle Bodies Not Reportable 01/30/20 08:24 Pelger-Huet Anomaly Not Reportable 01/30/20 08:24 Janice Rods Not Reportable 01/30/20 08:24 Platelet Estimate Consistent w auto 01/30/20 08:24 Clumped Platelets Not Reportable 01/30/20 08:24 Plt Clumps, EDTA Not Reportable 01/30/20 08:24 Large Platelets Not Reportable 01/30/20 08:24 Giant Platelets Not Reportable 01/30/20 08:24 Platelet Satelliting Not Reportable 01/30/20 08:24 Plt Morphology Comment Not Reportable 01/30/20 08:24 RBC Morphology Not Reportable 01/30/20 08:24 Dimorphic RBCs Not Reportable 01/30/20 08:24 Polychromasia Few 01/30/20 08:24 Hypochromasia 1+ 01/30/20 08:24 Poikilocytosis Not Reportable 01/30/20 08:24 Anisocytosis Not Reportable 01/30/20 08:24 Microcytosis Not Reportable 01/30/20 08:24 Macrocytosis Not Reportable 01/30/20 08:24 Spherocytes Not Reportable 01/30/20 08:24 Pappenheimer Bodies Not Reportable 01/30/20 08:24 Sickle Cells Not Reportable 01/30/20 08:24 Target Cells Rare 01/30/20 08:24 Tear Drop Cells Not Reportable 01/30/20 08:24 Ovalocytes Not Reportable 01/30/20 08:24 Helmet Cells Not Reportable 01/30/20 08:24 [place] Bodies Not Reportable 01/30/20 08:24 [place] Rings Not Reportable 01/30/20 08:24 Marco Cells Rare 01/30/20 08:24 Bite Cells Not Reportable 01/30/20 08:24 Crenated Cell Not Reportable 01/30/20 08:24 Elliptocytes Few 01/30/20 08:24 Acanthocytes (Spur) Not Reportable 01/30/20 08:24 Rouleaux Not Reportable 01/30/20 08:24 Hemoglobin C Crystals Not Reportable 01/30/20 08:24 Schistocytes Not Reportable 01/30/20 08:24 Malaria parasites Not Reportable 01/30/20 08:24 Cedrick Bodies Not Reportable 01/30/20 08:24 Hem Pathologist Commnt No 01/30/20 08:24 PT 13.5 Sec. (12.2-14.9) 01/31/20 05:10 INR 1.04 (0.87-1.13) 01/31/20 05:10 APTT 31.0 Sec. (24.2-36.6) 01/17/20 17:34 D-Dimer 3001.60 ng/mlDDU (0-234) H 01/22/20 07:46 Sodium 142 mmol/L (137-145) 02/02/20 09:15 Potassium 3.9 mmol/L (3.6-5.0) 02/02/20 09:15 Chloride 109.5 mmol/L (98-107) H 02/02/20 09:15 Carbon Dioxide 25 mmol/L (22-30) 02/02/20 09:15 Anion Gap 11 mmol/L 02/02/20 09:15 BUN 14 mg/dL (9-20) 02/02/20 09:15 Creatinine 0.6 mg/dL (0.8-1.3) L 02/02/20 09:15 Estimated GFR > 60 ml/min 02/02/20 09:15 BUN/Creatinine Ratio 23 % 02/02/20 09:15 Glucose 131 mg/dL (75-100) H 02/02/20 09:15 POC Glucose 112 mg/dL (70-105) H 02/06/20 06:01 Hemoglobin A1c 6.7 % (4-6) H 01/18/20 16:04 Lactic Acid 1.80 mmol/L (0.7-2.0) 01/17/20 19:40 Calcium 9.0 mg/dL (8.4-10.2) 02/02/20 09:15 Magnesium 2.00 mg/dL (1.7-2.3) 01/26/20 05:14 Ferritin 3748.0 ng/mL (30.0-300.0) H 01/22/20 07:46 Total Bilirubin 0.40 mg/dL (0.1-1.2) 01/20/20 05:39 Direct Bilirubin < 0.2 mg/dL (0-0.2) 01/20/20 05:39 Indirect Bilirubin 0.2 mg/dL 01/20/20 05:39 AST 60 units/L (5-40) H 01/20/20 05:39 ALT 44 units/L (7-56) 01/20/20 05:39 Alkaline Phosphatase 64 units/L (35-129) 01/20/20 05:39 Ammonia 38.0 umol/L (25-60) 01/17/20 17:34 Lactate Dehydrogenase 368 units/L (91-180) H 01/22/20 07:46 Total Creatine Kinase 164 units/L (55-170) 01/17/20 17:34 Troponin T < 0.010 ng/mL (0.00-0.029) 01/17/20 17:34 C-Reactive Protein 2.90 mg/dL (0.00-1.30) H 01/22/20 07:46 Total Protein 7.0 g/dL (6.3-8.2) 01/20/20 05:39 Albumin 2.8 g/dL (3.9-5) L 01/20/20 05:39 Albumin/Globulin Ratio 0.7 % 01/20/20 05:39 Triglycerides 219 mg/dL (2-149) H 01/18/20 16:04 Cholesterol 180 mg/dL (50-199) 01/18/20 16:04 LDL Cholesterol Direct 91 mg/dL (50-130) 01/18/20 16:04 HDL Cholesterol 37 mg/dL (40-59) L 01/18/20 16:04 Cholesterol/HDL Ratio 4.86 % 01/18/20 16:04 Procalcitonin 0.15 ng/mL (<0.15) 01/17/20 21:39 Urine Color Yellow (Yellow) 01/17/20 19:30 Urine Turbidity Clear (Clear) 01/17/20 19:30 Urine pH 5.0 (5.0-7.0) 01/17/20 19:30 Ur Specific [place] 1.016 (1.003-1.030) 01/17/20 19:30 Urine Protein 100 mg/dl mg/dL (Negative) 01/17/20 19:30 Urine Glucose (UA) Neg mg/dL (Negative) 01/17/20 19:30 Urine Ketones Neg mg/dL (Negative) 01/17/20 19:30 Urine Blood Sm (Negative) 01/17/20 19:30 Urine Nitrite Neg (Negative) 01/17/20 19:30 Urine Bilirubin Neg (Negative) 01/17/20 19:30 Urine Urobilinogen < 2.0 mg/dL (<2.0) 01/17/20 19:30 Ur Leukocyte Esterase Neg (Negative) 01/17/20 19:30 Urine WBC (Auto) 2.0 /HPF (0.0-6.0) 01/17/20 19:30 Urine RBC (Auto) 6.0 /HPF (0.0-6.0) 01/17/20 19:30 U Epithel Cells (Auto) < 1.0 /HPF (0-13.0) 01/17/20 19:30 Urine Bacteria (Auto) 1+ /HPF (Negative) 11/10/20 19:30 Urine Mucus Few /HPF 01/17/20 19:30 Coronavirus (PCR) Positive (Negative) A 01/31/20 08:12 SARS-CoV-2 IgG Ab Reactive (NonReactive) A 01/19/20 17:52 Moses/IV: Voiding Method Condom Catheter IV Catheter Type [Left Forearm INT / Saline Lock ] IV Catheter Type [Right INT / Saline Lock Antecubital] Active Medications - Current Medications Current Medications: Generic Name Dose Route Start Last Admin Trade Name Freq PRN Reason Stop Dose Admin Acetaminophen 650 mg 01/17/20 22:03 02/01/20 10:21 Tylenol PO 650 mg Q4H PRN Administration Pain MILD(1-3)/Fever >100.5/FORD Amlodipine Besylate 5 mg 01/24/20 10:00 02/05/20 09:52 Amlodipine PO 5 mg QDAY LIBORIO Administration Lipase/Protease/Amylase 1 each 01/21/20 11:34 01/30/20 13:11 Pancrenick Urrutia 10,500 Unit FEEDTUBE 1 each PRN PRN Administration For Clogged Feeding Tube Ascorbic Acid 500 mg 01/21/20 10:00 02/05/20 09:52 Vitamin C PO 500 mg QDAY LIBORIO Administration Aspirin 81 mg 02/01/20 10:00 02/05/20 09:52 Baby Aspirin PO 81 mg QDAY LIBORIO Administration Atorvastatin Calcium 40 mg 01/19/20 22:00 02/05/20 22:05 Lipitor PO 40 mg QHS LIBORIO Administration Dextrose 50 ml 01/18/20 16:00 D50w (25gm) Syringe IV Q30MIN PRN Hypoglycemia Protocol Docusate Sodium 100 mg 01/20/20 10:00 02/05/20 22:05 Colace PO 100 mg BID LIBORIO Administration Enoxaparin Sodium 40 mg 02/01/20 22:00 02/05/20 22:05 Enoxaparin SUB-Q 40 mg QDAY@2200 LIBORIO Administration Protocol Hydralazine HCl 25 mg 02/06/20 14:00 Apresoline PO Q8HR [facility] Insulin Human Isoph/Insulin Regular 8 unit 01/27/20 08:45 02/05/20 08:12 Humulin 70/30 SUB-Q Not Given QDDIAB [facility] Insulin Human Regular 0 unit 01/18/20 16:00 02/06/20 06:26 Humulin R SUB-Q Not Given Q6HR [facility] Protocol Magnesium Hydroxide 30 ml 01/17/20 22:03 Milk Of Magnesia PO Q4H PRN Constipation Ondansetron HCl 4 mg 01/17/20 22:03 Zofran IV Q8H PRN Nausea And Vomiting Simple Syrup 15 ml 01/21/20 11:34 Simple Syrup FEEDTUBE PRN PRN Hypoglycemia Simple Syrup 30 ml 01/21/20 11:34 Simple Syrup FEEDTUBE PRN PRN Hypoglycemia Sodium Bicarbonate 325 mg 01/21/20 11:34 Sodium Bicarbonate FEEDTUBE PRN PRN For Clogged Feeding Tube Sodium Chloride 10 ml 01/18/20 10:00 02/05/20 22:05 Sodium Chloride Flush Syringe 10 Ml IV 10 ml BID LIBORIO Administration Sodium Chloride 10 ml 01/17/20 22:03 Sodium Chloride Flush Syringe 10 Ml IV PRN PRN LINE FLUSH Zinc Sulfate 220 mg 01/21/20 10:00 02/05/20 09:52 Zinc Sulfate PO 220 mg QDAY LIBORIO Administration Nutrition/Malnutrition Assess - Dietary Evaluation Nutrition/Malnutrition Findings: Nutrition Notes Start: 01/19/20 10:13 Freq: Status: Active Protocol: Document 02/03/20 11:55 (Rec: 02/03/20 11:56 [email or web address]) Nutrition Notes Initial or Follow up Reassessment Current Diagnosis Diabetes,Hypertension,Stroke Other Pertinent Diagnosis COVID-19 (+), AMS, Dysphagia Current Diet Glucerna 1.2 at 65 ml/hr Labs/Tests Reviewed Pertinent Medications Zinc Vit C Height 5 ft 11 in Weight 90.2 kg [place] Body Weight (kg) 78.18 BMI 27.7 Subjective/Other Information FU for TF tolerance. Per RN, pt tolerating TF at goal. Percent of energy/protein needs met: 95%/100% Burn Absent Trauma Absent GI Symptoms None Current % PO Negligible Minimum of two criteria No physical signs of malnutrition #1 Nutrition Diagnosis Inadequate oral intake Diagnosis Progress(for reassessment Continues documentation) Is patient on ventilator? No Is Patient Ambulatory and/or Out of Bed No REE-([facility]-confined to bed) 1984.256 Calculation Used for Recommendations [facility] Additional Notes Pro needs 1-1.2g/k-106g/ day Fluid needs per MD Nutrition Intervention Change Diet Order: Continue TF Nutrition Support: Glucerna 1.2 at 65 mL/hr. Flush with 100 mL q4h. Kcal 1,872 Protein (gm) 94 Fluid (mL) 1,256 Goal #1 Meet at least 75% of estimated energy and protein needs via TF Goal #2 TF tolerance Anticipated Discharge Needs: TF Glucerna 1.2 at 65ml/hr. Water flush with 200ml q4h Follow-Up By: 02/07/20 Additional Comments F/U for TF tolerance
--- NOTE | 2020-02-06 09:49 | Progress Note ---
Assessment and Plan Assessment and plan: --Dysphagia Patient underwent PEG placement per GI -- Acute respiratory failure Acute respiratory failure secondary to COVID-19 pneumonia. Patient remains ill cachectic but able to breathe. With O2/nebulizers. Oxygenation has actually improved. Problem is debility and decreased p.o. intake. --Acute metabolic encephalopathy ; multifactorial Multifactorial secondary to COVID-19 pneumonia as well as hypoxemia and malnut rition. This with underlying dementia. Awaiting family decision about PEG tube placement. -- COVID-19 virus infection Patient not on dexamethasone or remdesivir at this time. No fever. --Elevated d-dimer Secondary to COVID-19. Empiric anticoagulants. Patient currently on Lovenox now. Specially since patient's a receive PEG tube. Can stop this more rapidly. --Pneumonia due to COVID-19 virus Current Visit: Yes Status: Acute Plan to address problem: Continues to improve. Patient's oxygenation is improving cognition has been following slow behind. --Hypertension Current Visit: Yes Status: Chronic Plan to address problem: Patient's blood pressure fairly well controlled with amlodipine. --Acute hypernatremia Current Visit: Yes Status: Resolved Plan to address problem: Hypernatremia has resolved current sodium 137. Patient will require feeding tube. This will improve outcome. Brief history; 79-year-old male with HTN and DM who is a resident of a senior care presented to the ED on 01/17 via EMS for evaluation of a change mental status. Per senior care staff patient was not communicating well and having decreased oral intake. Upon arrival to the emergency department patient was found to be tachycardic, febrile to 102.2 and hypoxic with SPO2 of 91 on room air. Work-up was significant for hypernatremia, acute kidney injury (CR/BUN 2.2/55), hypochloremia, transaminitis and a chest x-ray showed mild bilateral pulmonary edema and CTh was unremarkable. Patient was admitted to hospitalist service as a Covid PUI, Sepsis, YIMI and infectious disease and nephrology were consulted. Patient failed swallow evaluation per speech therapy, recommended PEG placement, GI evaluated, patient had PEG tube placement today 01/31/2020. GI recommend to start tube feeding tomorrow and may discharge if stable. 01/17: elevated D-dimer therefore bilateral upper and lower extremity ultrasounds Dopplers were obtained to rule out DVT and a VQ scan was performed to rule out PE both of which were negative. Patient remained severely hypernatremic and his IV fluids were changed to D5 water. We will trend his BMP. He also has elevated Covid markers ferritin and CRP. 01/18: COVID-19 PCR resulted as positive. Patient remains hyponatremic therefore nephrology was consulted and he was started on FWF and his D5W was increased. 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 Dr. Petersen updated his daughter this morning (Ms. Burleson) and this afternoon after his COVID-19 PCR resulted I updated her. The phone got disconnected after 2 minutes of conversation and informing her of COVID-19 status and I tried calling back twice. Both times it was sent to [facility] and her mailbox is full therefore was not able to leave a message. Patient was also initiated on remdesivir therapy 01/19: MRI head and MRI brain still pending, continue remdesivir therapy, increased free water flush 300 mL every 4 hours and increase the D5W TO 100 mL/h 01/20: Zinc and vitamin C initiated, patient still remains hypernatremic 01/21: Patient remains hypernatremic, no acute events reported overnight 01/22: Patient remains hypernatremic, hyperchloremic though it is improving. Patient still remains with altered mental status and he has bilateral wrist restraints in place. Dr. Petersen updated patient's daughter over the phone today. No acute events reported overnight. Patient was hypokalemic which was repleted. 01/23: His hyperkalemia has resolved. No acute events reported overnight. Patient intermittently follows commands and is more verbal. Today he has bilateral mittens in place. 01/24: Patient has marked improvement in mentation today he is oriented to self and follows commands. Patient is hypokalemic today at 3.5 which was repleted and his hypernatremia and hyperchloremia are improving. Patient failed his swallow eval by speech therapy this morning. I updated daughter over the phone, Olya Prtichard, regarding ST evaluation and labs. I spoke to her about the possibility of a PEG being recommended by ST to which she agreed to as a last resort. 01/25: This morning patient is more alert with RN. Repeated speech evaluation was conducted and he failed. I updated the patient's daughter who would like to hold off a decision about PEG till Thursday and would like to see patient improves with speech therapy. This morning patient's hypernatremia and hyperchloremia has improved and his sodium is 148, chloride 111.4. 01/27-patient failed swallowing the valve again. Patient scheduled to determine about PEG tube feedings on Thursday. Seems will need a PEG. Family leaning toward this. 01/28;. Patient remains comfortable. Still has some cognitive impairment. Recent introduction to patient mental status appears about the same. Family to decide about PEG tube on Thursday. 01/29; I discussed with patient's daughter Elina Burleson and discussed the details of PEG placement, GI consult, possible procedure tomorrow She verbalized understanding and willing for PEG placement, GI consulted 01/30; patient received PEG placement today, GI recommend to start tube feeding tomorrow, and patient may be discharged if stable 01/31. Patient is s/p PEG placement yesterday. Monitor tube feedings today. Covid testing remains positive from 01/31/2020 02/02/2020. Awaiting for arrangements for hospital bed for patient to discharge home in a.m. 02/03/2020. Awaiting arrangements for hospital bed and tube feeding supplies to discharge home with home health. 02/04/2020. Awaiting arrangements for hospital bed and tube feeding supplies to discharge home with home health. 02/05/2020. Awaiting arrangements for hospital bed and tube feeding supplies to discharge home with home health. 02/06/2020. Case management spoke to patient's daughter Elina Burleson at [phone] who is in process of getting a rental bed for a bed from the [facility] today. Patient will need hospital bed prior to discharge. - Patient Problems (1) Acute respiratory failure Current Visit: Yes Status: Acute Qualifiers: Respiratory failure complication: hypoxia Qualified Code(s): J96.01 - Acute respiratory failure with hypoxia (2) COVID-19 virus infection Current Visit: Yes Status: Acute (3) Dysphagia, oropharyngeal Current Visit: Yes Status: Acute (4) Elevated d-dimer Current Visit: Yes Status: Acute (5) Encephalopathy Current Visit: Yes Status: Acute (6) Full code status Current Visit: Yes Status: Acute (7) Pneumonia due to COVID-19 virus Current Visit: Yes Status: Acute (8) Sepsis Current Visit: Yes Status: Acute (9) Diabetes mellitus Current Visit: Yes Status: Chronic (10) Hypertension Current Visit: Yes Status: Chronic (11) Acute hypernatremia Current Visit: Yes Status: Resolved (12) Acute kidney injury Current Visit: Yes Status: Resolved History Interval history: No new issues overnight. Hospitalist Physical - Constitutional Vitals: Temp Pulse Resp BP Pulse Ox 98.7 F 95 H 18 150/101 93 02/06/20 04:53 02/06/20 04:53 02/06/20 04:53 02/06/20 04:53 02/06/20 04:53 General appearance: Present: no acute distress, well-nourished - EENT Eyes: Present: PERRL, EOM intact ENT: hearing intact, clear oral mucosa, dentition normal - Neck Neck: Present: supple, normal ROM - Respiratory Respiratory effort: normal Respiratory: bilateral: CTA - Cardiovascular Rhythm: regular Heart Sounds: Present: S1 & S2. Absent: gallop, rub - Extremities Extremities: no ischemia, No edema, Full ROM - Abdominal General gastrointestinal: soft, non-tender, non-distended, normal bowel sounds - Integumentary Integumentary: Present: clear, warm, dry - Neurologic Neurologic: CNII-XII intact, moves all extremities HEART Score - HEART Score Troponin: Troponin T < 0.010 ng/mL (0.00-0.029) 01/17/20 17:34 Results - Labs CBC & Chem 7: 02/02/20 09:15 02/02/20 09:15 Labs: Laboratory Last Values WBC 14.9 K/mm3 (4.5-11.0) H 02/02/20 09:15 RBC 5.31 M/mm3 (3.65-5.03) H 02/02/20 09:15 Hgb 13.4 gm/dl (11.8-15.2) 02/02/20 09:15 Hct 41.3 % (35.5-45.6) 02/02/20 09:15 MCV 78 fl (84-94) L 02/02/20 09:15 MCH 25 pg (28-32) L 02/02/20 09:15 MCHC 33 % (32-34) 02/02/20 09:15 RDW 14.5 % (13.2-15.2) 02/02/20 09:15 Plt Count 183 K/mm3 (140-440) 02/02/20 09:15 Lymph % (Auto) 8.7 % (13.4-35.0) L 02/02/20 09:15 [place] % (Auto) 5.0 % (0.0-7.3) 02/02/20 09:15 Eos % (Auto) 0.9 % (0.0-4.3) 02/02/20 09:15 Baso % (Auto) 0.1 % (0.0-1.8) 02/02/20 09:15 Lymph # (Auto) 1.3 K/mm3 (1.2-5.4) 02/02/20 09:15 [place] # (Auto) 0.7 K/mm3 (0.0-0.8) 02/02/20 09:15 Eos # (Auto) 0.1 K/mm3 (0.0-0.4) 02/02/20 09:15 Baso # (Auto) 0.0 K/mm3 (0.0-0.1) 02/02/20 09:15 Add Manual Diff Complete 01/30/20 08:24 Total Counted 100 01/30/20 08:24 Seg Neutrophils % 85.3 % (40.0-70.0) H 02/02/20 09:15 Seg Neuts % (Manual) 92.0 % (40.0-70.0) H 01/30/20 08:24 Band Neutrophils % 0 % 01/30/20 08:24 Lymphocytes % (Manual) 6.0 % (13.4-35.0) L 01/30/20 08:24 Reactive Lymphs % (Man) 0 % 01/30/20 08:24 Monocytes % (Manual) 2.0 % (0.0-7.3) 01/30/20 08:24 Eosinophils % (Manual) 0 % (0.0-4.3) 01/30/20 08:24 Basophils % (Manual) 0 % (0.0-1.8) 01/30/20 08:24 Metamyelocytes % 0 % 01/30/20 08:24 Myelocytes % 0 % 01/30/20 08:24 Promyelocytes % 0 % 01/30/20 08:24 Blast Cells % 0 % 01/30/20 08:24 Nucleated RBC % Not Reportable 01/30/20 08:24 Seg Neutrophils # 12.7 K/mm3 (1.8-7.7) H 02/02/20 09:15 Seg Neutrophils # Man 14.3 K/mm3 (1.8-7.7) H 01/30/20 08:24 Band Neutrophils # 0.0 K/mm3 01/30/20 08:24 Lymphocytes # (Manual) 0.9 K/mm3 (1.2-5.4) L 01/30/20 08:24 Abs React Lymphs (Man) 0.0 K/mm3 01/30/20 08:24 Monocytes # (Manual) 0.3 K/mm3 (0.0-0.8) 01/30/20 08:24 Eosinophils # (Manual) 0.0 K/mm3 (0.0-0.4) 01/30/20 08:24 Basophils # (Manual) 0.0 K/mm3 (0.0-0.1) 01/30/20 08:24 Metamyelocytes # 0.0 K/mm3 01/30/20 08:24 Myelocytes # 0.0 K/mm3 01/30/20 08:24 Promyelocytes # 0.0 K/mm3 01/30/20 08:24 Blast Cells # 0.0 K/mm3 01/30/20 08:24 WBC Morphology Not Reportable 01/30/20 08:24 Hypersegmented Neuts Not Reportable 01/30/20 08:24 Hyposegmented Neuts Not Reportable 01/30/20 08:24 Hypogranular Neuts Not Reportable 01/30/20 08:24 Smudge Cells Not Reportable 01/30/20 08:24 Toxic Granulation Not Reportable 01/30/20 08:24 Toxic Vacuolation Not Reportable 01/30/20 08:24 Dohle Bodies Not Reportable 01/30/20 08:24 Pelger-Huet Anomaly Not Reportable 01/30/20 08:24 Janice Rods Not Reportable 01/30/20 08:24 Platelet Estimate Consistent w auto 01/30/20 08:24 Clumped Platelets Not Reportable 01/30/20 08:24 Plt Clumps, EDTA Not Reportable 01/30/20 08:24 Large Platelets Not Reportable 01/30/20 08:24 Giant Platelets Not Reportable 01/30/20 08:24 Platelet Satelliting Not Reportable 01/30/20 08:24 Plt Morphology Comment Not Reportable 01/30/20 08:24 RBC Morphology Not Reportable 01/30/20 08:24 Dimorphic RBCs Not Reportable 01/30/20 08:24 Polychromasia Few 01/30/20 08:24 Hypochromasia 1+ 01/30/20 08:24 Poikilocytosis Not Reportable 01/30/20 08:24 Anisocytosis Not Reportable 01/30/20 08:24 Microcytosis Not Reportable 01/30/20 08:24 Macrocytosis Not Reportable 01/30/20 08:24 Spherocytes Not Reportable 01/30/20 08:24 Pappenheimer Bodies Not Reportable 01/30/20 08:24 Sickle Cells Not Reportable 01/30/20 08:24 Target Cells Rare 01/30/20 08:24 Tear Drop Cells Not Reportable 01/30/20 08:24 Ovalocytes Not Reportable 01/30/20 08:24 Helmet Cells Not Reportable 01/30/20 08:24 Fu[place] Bodies Not Reportable 01/30/20 08:24 [place] Rings Not Reportable 01/30/20 08:24 Carlock Cells Rare 01/30/20 08:24 Bite Cells Not Reportable 01/30/20 08:24 Crenated Cell Not Reportable 01/30/20 08:24 Elliptocytes Few 01/30/20 08:24 Acanthocytes (Spur) Not Reportable 01/30/20 08:24 Rouleaux Not Reportable 01/30/20 08:24 Hemoglobin C Crystals Not Reportable 01/30/20 08:24 Schistocytes Not Reportable 01/30/20 08:24 Malaria parasites Not Reportable 01/30/20 08:24 Cedrick Bodies Not Reportable 01/30/20 08:24 Hem Pathologist Commnt No 01/30/20 08:24 PT 13.5 Sec. (12.2-14.9) 01/31/20 05:10 INR 1.04 (0.87-1.13) 01/31/20 05:10 APTT 31.0 Sec. (24.2-36.6) 01/17/20 17:34 D-Dimer 3001.60 ng/mlDDU (0-234) H 01/22/20 07:46 Sodium 142 mmol/L (137-145) 02/02/20 09:15 Potassium 3.9 mmol/L (3.6-5.0) 02/02/20 09:15 Chloride 109.5 mmol/L (98-107) H 02/02/20 09:15 Carbon Dioxide 25 mmol/L (22-30) 02/02/20 09:15 Anion Gap 11 mmol/L 02/02/20 09:15 BUN 14 mg/dL (9-20) 02/02/20 09:15 Creatinine 0.6 mg/dL (0.8-1.3) L 02/02/20 09:15 Estimated GFR > 60 ml/min 02/02/20 09:15 BUN/Creatinine Ratio 23 % 02/02/20 09:15 Glucose 131 mg/dL (75-100) H 02/02/20 09:15 POC Glucose 112 mg/dL (70-105) H 02/06/20 06:01 Hemoglobin A1c 6.7 % (4-6) H 01/18/20 16:04 Lactic Acid 1.80 mmol/L (0.7-2.0) 01/17/20 19:40 Calcium 9.0 mg/dL (8.4-10.2) 02/02/20 09:15 Magnesium 2.00 mg/dL (1.7-2.3) 01/26/20 05:14 Ferritin 3748.0 ng/mL (30.0-300.0) H 01/22/20 07:46 Total Bilirubin 0.40 mg/dL (0.1-1.2) 01/20/20 05:39 Direct Bilirubin < 0.2 mg/dL (0-0.2) 01/20/20 05:39 Indirect Bilirubin 0.2 mg/dL 01/20/20 05:39 AST 60 units/L (5-40) H 01/20/20 05:39 ALT 44 units/L (7-56) 01/20/20 05:39 Alkaline Phosphatase 64 units/L (35-129) 01/20/20 05:39 Ammonia 38.0 umol/L (25-60) 01/17/20 17:34 Lactate Dehydrogenase 368 units/L (91-180) H 01/22/20 07:46 Total Creatine Kinase 164 units/L (55-170) 01/17/20 17:34 Troponin T < 0.010 ng/mL (0.00-0.029) 01/17/20 17:34 C-Reactive Protein 2.90 mg/dL (0.00-1.30) H 01/22/20 07:46 Total Protein 7.0 g/dL (6.3-8.2) 01/20/20 05:39 Albumin 2.8 g/dL (3.9-5) L 01/20/20 05:39 Albumin/Globulin Ratio 0.7 % 01/20/20 05:39 Triglycerides 219 mg/dL (2-149) H 01/18/20 16:04 Cholesterol 180 mg/dL (50-199) 01/18/20 16:04 LDL Cholesterol Direct 91 mg/dL (50-130) 01/18/20 16:04 HDL Cholesterol 37 mg/dL (40-59) L 01/18/20 16:04 Cholesterol/HDL Ratio 4.86 % 01/18/20 16:04 Procalcitonin 0.15 ng/mL (<0.15) 01/17/20 21:39 Urine Color Yellow (Yellow) 01/17/20 19:30 Urine Turbidity Clear (Clear) 01/17/20 19:30 Urine pH 5.0 (5.0-7.0) 01/17/20 19:30 Ur Specific [place] 1.016 (1.003-1.030) 01/17/20 19:30 Urine Protein 100 mg/dl mg/dL (Negative) 01/17/20 19:30 Urine Glucose (UA) Neg mg/dL (Negative) 01/17/20 19:30 Urine Ketones Neg mg/dL (Negative) 01/17/20 19:30 Urine Blood Sm (Negative) 01/17/20 19:30 Urine Nitrite Neg (Negative) 01/17/20 19:30 Urine Bilirubin Neg (Negative) 01/17/20 19:30 Urine Urobilinogen < 2.0 mg/dL (<2.0) 01/17/20 19:30 Ur Leukocyte Esterase Neg (Negative) 01/17/20 19:30 Urine WBC (Auto) 2.0 /HPF (0.0-6.0) 01/17/20 19:30 Urine RBC (Auto) 6.0 /HPF (0.0-6.0) 01/17/20 19:30 U Epithel Cells (Auto) < 1.0 /HPF (0-13.0) 01/17/20 19:30 Urine Bacteria (Auto) 1+ /HPF (Negative) 01/17/20 19:30 Urine Mucus Few /HPF 01/17/20 19:30 Coronavirus (PCR) Positive (Negative) A 01/31/20 08:12 SARS-CoV-2 IgG Ab Reactive (NonReactive) A 01/19/20 17:52 Moses/IV: Voiding Method Condom Catheter IV Catheter Type [Left Forearm INT / Saline Lock ] IV Catheter Type [Right INT / Saline Lock Antecubital] Active Medications - Current Medications Current Medications: Generic Name Dose Route Start Last Admin Trade Name Freq PRN Reason Stop Dose Admin Acetaminophen 650 mg 01/17/20 22:03 02/01/20 10:21 Tylenol PO 650 mg Q4H PRN Administration Pain MILD(1-3)/Fever >100.5/FORD Amlodipine Besylate 5 mg 01/24/20 10:00 02/05/20 09:52 Amlodipine PO 5 mg QDAY LIBORIO Administration Lipase/Protease/Amylase 1 each 01/21/20 11:34 01/30/20 13:11 Pancrenick Urrutia 10,500 Unit FEEDTUBE 1 each PRN PRN Administration For Clogged Feeding Tube Ascorbic Acid 500 mg 01/21/20 10:00 02/05/20 09:52 Vitamin C PO 500 mg QDAY LIBORIO Administration Aspirin 81 mg 02/01/20 10:00 02/05/20 09:52 Baby Aspirin PO 81 mg QDAY LIBORIO Administration Atorvastatin Calcium 40 mg 01/19/20 22:00 02/05/20 22:05 Lipitor PO 40 mg QHS LIBORIO Administration Dextrose 50 ml 01/18/20 16:00 D50w (25gm) Syringe IV Q30MIN PRN Hypoglycemia Protocol Docusate Sodium 100 mg 01/20/20 10:00 02/05/20 22:05 Colace PO 100 mg BID LIBORIO Administration Enoxaparin Sodium 40 mg 02/01/20 22:00 02/05/20 22:05 Enoxaparin SUB-Q 40 mg QDAY@2200 [facility] Administration Protocol Hydralazine HCl 25 mg 02/06/20 14:00 Apresoline PO Q8HR [facility] Insulin Human Isoph/Insulin Regular 8 unit 01/27/20 08:45 02/05/20 08:12 Humulin 70/30 SUB-Q Not Given QDDIAB [facility] Insulin Human Regular 0 unit 01/18/20 16:00 02/06/20 06:26 Humulin R SUB-Q Not Given Q6HR [facility] Protocol Magnesium Hydroxide 30 ml 01/17/20 22:03 Milk Of Magnesia PO Q4H PRN Constipation Ondansetron HCl 4 mg 01/17/20 22:03 Zofran IV Q8H PRN Nausea And Vomiting Simple Syrup 15 ml 01/21/20 11:34 Simple Syrup FEEDTUBE PRN PRN Hypoglycemia Simple Syrup 30 ml 01/21/20 11:34 Simple Syrup FEEDTUBE PRN PRN Hypoglycemia Sodium Bicarbonate 325 mg 01/21/20 11:34 Sodium Bicarbonate FEEDTUBE PRN PRN For Clogged Feeding Tube Sodium Chloride 10 ml 01/18/20 10:00 02/05/20 22:05 Sodium Chloride Flush Syringe 10 Ml IV 10 ml BID LIBORIO Administration Sodium Chloride 10 ml 01/17/20 22:03 Sodium Chloride Flush Syringe 10 Ml IV PRN PRN LINE FLUSH Zinc Sulfate 220 mg 01/21/20 10:00 02/05/20 09:52 Zinc Sulfate PO 220 mg QDAY LIBORIO Administration Nutrition/Malnutrition Assess - Dietary Evaluation Nutrition/Malnutrition Findings: Nutrition Notes Start: 01/19/20 10:13 Freq: Status: Active Protocol: Document 02/03/20 11:55 (Rec: 02/03/20 11:56 [email or web address]) Nutrition Notes Initial or Follow up Reassessment Current Diagnosis Diabetes,Hypertension,Stroke Other Pertinent Diagnosis COVID-19 (+), AMS, Dysphagia Current Diet Glucerna 1.2 at 65 ml/hr Labs/Tests Reviewed Pertinent Medications Zinc Vit C Height 5 ft 11 in Weight 90.2 kg [place] Body Weight (kg) 78.18 BMI 27.7 Subjective/Other Information FU for TF tolerance. Per RN, pt tolerating TF at goal. Percent of energy/protein needs met: 95%/100% Burn Absent Trauma Absent GI Symptoms None Current % PO Negligible Minimum of two criteria No physical signs of malnutrition #1 Nutrition Diagnosis Inadequate oral intake Diagnosis Progress(for reassessment Continues documentation) Is patient on ventilator? No Is Patient Ambulatory and/or Out of Bed No REE-([facility]-confined to bed) 256 Calculation Used for Recommendations [facility] Additional Notes Pro needs 1-1.2g/k-106g/ day Fluid needs per MD Nutrition Intervention Change Diet Order: Continue TF Nutrition Support: Glucerna 1.2 at 65 mL/hr. Flush with 100 mL q4h. Kcal 1,872 Protein (gm) 94 Fluid (mL) ,256 Goal #1 Meet at least 75% of estimated energy and protein needs via TF Goal #2 TF tolerance Anticipated Discharge Needs: TF Glucerna 1.2 at 65ml/hr. Water flush with 200ml q4h Follow-Up By: 02/07/20 Additional Comments F/U for TF tolerance
[2020-02-06] MEDS: ASCORBIC ACID 500 MG TAB PO SCH (11:04)
[2020-02-06] MEDS: ASPIRIN 81 MG TAB CHEW PO SCH (11:05)
[2020-02-06] MEDS: INSULIN NPH/REGULAR 70/30 INJ SUB-Q SCH (11:05)
[2020-02-06] MEDS: amLODIPine 5 MG TAB PO SCH (11:05)
[2020-02-06] MEDS: DOCUSATE SODIUM 100 MG/10 ML ORAL LIQD PO SCH ×2 (11:05→21:50)
[2020-02-06] MEDS: ZINC SULFATE 220 MG CAP PO SCH (11:06)
[2020-02-06] MEDS: ENOXAPARIN 40 MG/0.4 ML INJ SUB-Q SCH (21:51)
[2020-02-06] MEDS: ACETAMINOPHEN 325 MG TAB PO PRN (21:56)
[2020-02-07] MEDS: INSULIN REGULAR, HUMAN 100 UNIT/ML 3ML VIAL SUB-Q SCH ×4 (00:06→18:50)
[2020-02-07] MEDS: hydrALAZINE 25 MG TAB PO SCH ×3 (05:53→22:40)
[2020-02-07] MEDS: ASCORBIC ACID 500 MG TAB PO SCH (11:01)
[2020-02-07] MEDS: amLODIPine 5 MG TAB PO SCH (11:01)
[2020-02-07] MEDS: ASPIRIN 81 MG TAB CHEW PO SCH (11:01)
[2020-02-07] MEDS: DOCUSATE SODIUM 100 MG/10 ML ORAL LIQD PO SCH ×2 (11:01→22:40)
[2020-02-07] MEDS: INSULIN NPH/REGULAR 70/30 INJ SUB-Q SCH (11:02)
[2020-02-07] MEDS: ZINC SULFATE 220 MG CAP PO SCH (11:03)
--- NOTE | 2020-02-07 13:22 | Progress Note ---
Assessment and Plan Assessment and plan: --Dysphagia Patient underwent PEG placement per GI -- Acute respiratory failure Acute respiratory failure secondary to COVID-19 pneumonia. Patient remains ill cachectic but able to breathe. With O2/nebulizers. Oxygenation has actually improved. Problem is debility and decreased p.o. intake. --Acute metabolic encephalopathy ; multifactorial Multifactorial secondary to COVID-19 pneumonia as well as hypoxemia and malnut rition. This with underlying dementia. Awaiting family decision about PEG tube placement. -- COVID-19 virus infection Patient not on dexamethasone or remdesivir at this time. No fever. --Elevated d-dimer Secondary to COVID-19. Empiric anticoagulants. Patient currently on Lovenox now. Specially since patient's a receive PEG tube. Can stop this more rapidly. --Pneumonia due to COVID-19 virus Current Visit: Yes Status: Acute Plan to address problem: Continues to improve. Patient's oxygenation is improving cognition has been following slow behind. --Hypertension Current Visit: Yes Status: Chronic Plan to address problem: Patient's blood pressure fairly well controlled with amlodipine. --Acute hypernatremia Current Visit: Yes Status: Resolved Plan to address problem: Hypernatremia has resolved current sodium 137. Patient will require feeding tube. This will improve outcome. Brief history; 79-year-old male with HTN and DM who is a resident of a group home presented to the ED on 01/17 via EMS for evaluation of a change mental status. Per group home staff patient was not communicating well and having decreased oral intake. Upon arrival to the emergency department patient was found to be tachycardic, febrile to 102.2 and hypoxic with SPO2 of 91 on room air. Work-up was significant for hypernatremia, acute kidney injury (CR/BUN 2.2/55), hypochloremia, transaminitis and a chest x-ray showed mild bilateral pulmonary edema and CTh was unremarkable. Patient was admitted to hospitalist service as a Covid PUI, Sepsis, YIMI and infectious disease and nephrology were consulted. Patient failed swallow evaluation per speech therapy, recommended PEG placement, GI evaluated, patient had PEG tube placement today 01/31/2020. GI recommend to start tube feeding tomorrow and may discharge if stable. 01/17: elevated D-dimer therefore bilateral upper and lower extremity ultrasounds Dopplers were obtained to rule out DVT and a VQ scan was performed to rule out PE both of which were negative. Patient remained severely hypernatremic and his IV fluids were changed to D5 water. We will trend his BMP. He also has elevated Covid markers ferritin and CRP. 01/18: COVID-19 PCR resulted as positive. Patient remains hyponatremic therefore nephrology was consulted and he was started on FWF and his D5W was increased. 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 Dr. Petersen updated his daughter this morning (Ms. Burleson) and this afternoon after his COVID-19 PCR resulted I updated her. The phone got disconnected after 2 minutes of conversation and informing her of COVID-19 status and I tried calling back twice. Both times it was sent to [employer] and her mailbox is full therefore was not able to leave a message. Patient was also initiated on remdesivir therapy 01/19: MRI head and MRI brain still pending, continue remdesivir therapy, increased free water flush 300 mL every 4 hours and increase the D5W TO 100 mL/h 01/20: Zinc and vitamin C initiated, patient still remains hypernatremic 01/21: Patient remains hypernatremic, no acute events reported overnight 01/22: Patient remains hypernatremic, hyperchloremic though it is improving. Patient still remains with altered mental status and he has bilateral wrist restraints in place. Dr. Petersen updated patient's daughter over the phone today. No acute events reported overnight. Patient was hypokalemic which was repleted. 01/23: His hyperkalemia has resolved. No acute events reported overnight. Patient intermittently follows commands and is more verbal. Today he has bilateral mittens in place. 01/24: Patient has marked improvement in mentation today he is oriented to self and follows commands. Patient is hypokalemic today at 3.5 which was repleted and his hypernatremia and hyperchloremia are improving. Patient failed his swallow eval by speech therapy this morning. I updated daughter over the phone, Olya Pritchard, regarding ST evaluation and labs. I spoke to her about the possibility of a PEG being recommended by ST to which she agreed to as a last resort. 01/25: This morning patient is more alert with RN. Repeated speech evaluation was conducted and he failed. I updated the patient's daughter who would like to hold off a decision about PEG till Thursday and would like to see patient improves with speech therapy. This morning patient's hypernatremia and hyperchloremia has improved and his sodium is 148, chloride 111.4. 01/27-patient failed swallowing the valve again. Patient scheduled to determine about PEG tube feedings on Thursday. Seems will need a PEG. Family leaning toward this. 01/28;. Patient remains comfortable. Still has some cognitive impairment. Recent introduction to patient mental status appears about the same. Family to decide about PEG tube on Thursday. 01/29; I discussed with patient's daughter Elina Burleson and discussed the details of PEG placement, GI consult, possible procedure tomorrow She verbalized understanding and willing for PEG placement, GI consulted 01/30; patient received PEG placement today, GI recommend to start tube feeding tomorrow, and patient may be discharged if stable 01/31. Patient is s/p PEG placement yesterday. Monitor tube feedings today. Covid testing remains positive from 01/31/2020 02/02/2020. Awaiting for arrangements for hospital bed for patient to discharge home in a.m. 02/03/2020. Awaiting arrangements for hospital bed and tube feeding supplies to discharge home with home health. 02/04/2020. Awaiting arrangements for hospital bed and tube feeding supplies to discharge home with home health. 02/05/2020. Awaiting arrangements for hospital bed and tube feeding supplies to discharge home with home health. 02/06/2020. Case management spoke to patient's daughter Elina Burleson at [phone] who is in process of getting a rental bed for a bed from the [place] today. Patient will need hospital bed prior to discharge 02/07/2020. Bed reported to be available tomorrow as per daughter. Possible DC tomorrow. History Interval history: No overnight events. Still awaiting DME supplies. Hospitalist Physical - Physical exam Narrative exam: VITAL SIGNS: Reviewed. GENERAL: Awake HEAD: No signs of head trauma. EYES: Pupils are equal. EARS: Hearing grossly intact. MOUTH: Oropharynx is normal. NECK: No adenopathy, no JVD. CHEST: Chest with diminished breath sounds bilaterally. No wheezes, rales, or rhonchi. CARDIAC: Regular rate and rhythm. S1 and S2, without murmurs, gallops, or rubs. VASCULAR: No Edema. Peripheral pulses normal and equal in all extremities. ABDOMEN: Soft, non tender and non distended. No rebound or guarding, and no masses palpated. Bowel Sounds normal. NEUROLOGIC EXAM: Awake PSYCHIATRIC: Not assessed SKIN: No obvious lesions - Constitutional Vitals: Temp Pulse Resp BP Pulse Ox 98.0 F 92 H 20 155/95 97 02/07/20 04:29 02/07/20 10:58 02/07/20 10:58 02/07/20 11:01 02/07/20 10:58 HEART Score - HEART Score Troponin: Troponin T < 0.010 ng/mL (0.00-0.029) 01/17/20 17:34 Results - Labs CBC & Chem 7: 02/02/20 09:15 02/02/20 09:15 Labs: Laboratory Last Values WBC 14.9 K/mm3 (4.5-11.0) H 02/02/20 09:15 RBC 5.31 M/mm3 (3.65-5.03) H 02/02/20 09:15 Hgb 13.4 gm/dl (11.8-15.2) 02/02/20 09:15 Hct 41.3 % (35.5-45.6) 02/02/20 09:15 MCV 78 fl (84-94) L 02/02/20 09:15 MCH 25 pg (28-32) L 02/02/20 09:15 MCHC 33 % (32-34) 02/02/20 09:15 RDW 14.5 % (13.2-15.2) 02/02/20 09:15 Plt Count 183 K/mm3 (140-440) 02/02/20 09:15 Lymph % (Auto) 8.7 % (13.4-35.0) L 02/02/20 09:15 Baker % (Auto) 5.0 % (0.0-7.3) 02/02/20 09:15 Eos % (Auto) 0.9 % (0.0-4.3) 02/02/20 09:15 Baso % (Auto) 0.1 % (0.0-1.8) 02/02/20 09:15 Lymph # (Auto) 1.3 K/mm3 (1.2-5.4) 02/02/20 09:15 Baker # (Auto) 0.7 K/mm3 (0.0-0.8) 02/02/20 09:15 Eos # (Auto) 0.1 K/mm3 (0.0-0.4) 02/02/20 09:15 Baso # (Auto) 0.0 K/mm3 (0.0-0.1) 02/02/20 09:15 Add Manual Diff Complete 01/30/20 08:24 Total Counted 100 01/30/20 08:24 Seg Neutrophils % 85.3 % (40.0-70.0) H 02/02/20 09:15 Seg Neuts % (Manual) 92.0 % (40.0-70.0) H 01/30/20 08:24 Band Neutrophils % 0 % 01/30/20 08:24 Lymphocytes % (Manual) 6.0 % (13.4-35.0) L 01/30/20 08:24 Reactive Lymphs % (Man) 0 % 01/30/20 08:24 Monocytes % (Manual) 2.0 % (0.0-7.3) 01/30/20 08:24 Eosinophils % (Manual) 0 % (0.0-4.3) 01/30/20 08:24 Basophils % (Manual) 0 % (0.0-1.8) 01/30/20 08:24 Metamyelocytes % 0 % 01/30/20 08:24 Myelocytes % 0 % 01/30/20 08:24 Promyelocytes % 0 % 01/30/20 08:24 Blast Cells % 0 % 01/30/20 08:24 Nucleated RBC % Not Reportable 01/30/20 08:24 Seg Neutrophils # 12.7 K/mm3 (1.8-7.7) H 02/02/20 09:15 Seg Neutrophils # Man 14.3 K/mm3 (1.8-7.7) H 01/30/20 08:24 Band Neutrophils # 0.0 K/mm3 01/30/20 08:24 Lymphocytes # (Manual) 0.9 K/mm3 (1.2-5.4) L 01/30/20 08:24 Abs React Lymphs (Man) 0.0 K/mm3 01/30/20 08:24 Monocytes # (Manual) 0.3 K/mm3 (0.0-0.8) 01/30/20 08:24 Eosinophils # (Manual) 0.0 K/mm3 (0.0-0.4) 01/30/20 08:24 Basophils # (Manual) 0.0 K/mm3 (0.0-0.1) 01/30/20 08:24 Metamyelocytes # 0.0 K/mm3 01/30/20 08:24 Myelocytes # 0.0 K/mm3 01/30/20 08:24 Promyelocytes # 0.0 K/mm3 01/30/20 08:24 Blast Cells # 0.0 K/mm3 01/30/20 08:24 WBC Morphology Not Reportable 01/30/20 08:24 Hypersegmented Neuts Not Reportable 01/30/20 08:24 Hyposegmented Neuts Not Reportable 01/30/20 08:24 Hypogranular Neuts Not Reportable 01/30/20 08:24 Smudge Cells Not Reportable 01/30/20 08:24 Toxic Granulation Not Reportable 01/30/20 08:24 Toxic Vacuolation Not Reportable 01/30/20 08:24 Dohle Bodies Not Reportable 01/30/20 08:24 Pelger-Huet Anomaly Not Reportable 01/30/20 08:24 Janice Rods Not Reportable 01/30/20 08:24 Platelet Estimate Consistent w auto 01/30/20 08:24 Clumped Platelets Not Reportable 01/30/20 08:24 Plt Clumps, EDTA Not Reportable 01/30/20 08:24 Large Platelets Not Reportable 01/30/20 08:24 Giant Platelets Not Reportable 01/30/20 08:24 Platelet Satelliting Not Reportable 01/30/20 08:24 Plt Morphology Comment Not Reportable 01/30/20 08:24 RBC Morphology Not Reportable 01/30/20 08:24 Dimorphic RBCs Not Reportable 01/30/20 08:24 Polychromasia Few 01/30/20 08:24 Hypochromasia 1+ 01/30/20 08:24 Poikilocytosis Not Reportable 01/30/20 08:24 Anisocytosis Not Reportable 01/30/20 08:24 Microcytosis Not Reportable 01/30/20 08:24 Macrocytosis Not Reportable 01/30/20 08:24 Spherocytes Not Reportable 01/30/20 08:24 Pappenheimer Bodies Not Reportable 01/30/20 08:24 Sickle Cells Not Reportable 01/30/20 08:24 Target Cells Rare 01/30/20 08:24 Tear Drop Cells Not Reportable 01/30/20 08:24 Ovalocytes Not Reportable 01/30/20 08:24 Helmet Cells Not Reportable 01/30/20 08:24 [place] Bodies Not Reportable 01/30/20 08:24 [place] Rings Not Reportable 01/30/20 08:24 [place] Cells Rare 01/30/20 08:24 Bite Cells Not Reportable 01/30/20 08:24 Crenated Cell Not Reportable 01/30/20 08:24 Elliptocytes Few 01/30/20 08:24 Acanthocytes (Spur) Not Reportable 01/30/20 08:24 Rouleaux Not Reportable 01/30/20 08:24 Hemoglobin C Crystals Not Reportable 01/30/20 08:24 Schistocytes Not Reportable 01/30/20 08:24 Malaria parasites Not Reportable 01/30/20 08:24 [place] Bodies Not Reportable 01/30/20 08:24 Hem Pathologist Commnt No 01/30/20 08:24 PT 13.5 Sec. (12.2-14.9) 01/31/20 05:10 INR 1.04 (0.87-1.13) 01/31/20 05:10 APTT 31.0 Sec. (24.2-36.6) 01/17/20 17:34 D-Dimer 3001.60 ng/mlDDU (0-234) H 01/22/20 07:46 Sodium 142 mmol/L (137-145) 02/02/20 09:15 Potassium 3.9 mmol/L (3.6-5.0) 02/02/20 09:15 Chloride 109.5 mmol/L (98-107) H 02/02/20 09:15 Carbon Dioxide 25 mmol/L (22-30) 02/02/20 09:15 Anion Gap 11 mmol/L 02/02/20 09:15 BUN 14 mg/dL (9-20) 02/02/20 09:15 Creatinine 0.6 mg/dL (0.8-1.3) L 02/02/20 09:15 Estimated GFR > 60 ml/min 02/02/20 09:15 BUN/Creatinine Ratio 23 % 02/02/20 09:15 Glucose 131 mg/dL (75-100) H 02/02/20 09:15 POC Glucose 104 mg/dL (70-105) 02/07/20 12:29 Hemoglobin A1c 6.7 % (4-6) H 01/18/20 16:04 Lactic Acid 1.80 mmol/L (0.7-2.0) 01/17/20 19:40 Calcium 9.0 mg/dL (8.4-10.2) 02/02/20 09:15 Magnesium 2.00 mg/dL (1.7-2.3) 01/26/20 05:14 Ferritin 3748.0 ng/mL (30.0-300.0) H 01/22/20 07:46 Total Bilirubin 0.40 mg/dL (0.1-1.2) 01/20/20 05:39 Direct Bilirubin < 0.2 mg/dL (0-0.2) 01/20/20 05:39 Indirect Bilirubin 0.2 mg/dL 01/20/20 05:39 AST 60 units/L (5-40) H 01/20/20 05:39 ALT 44 units/L (7-56) 01/20/20 05:39 Alkaline Phosphatase 64 units/L (35-129) 01/20/20 05:39 Ammonia 38.0 umol/L (25-60) 01/17/20 17:34 Lactate Dehydrogenase 368 units/L (91-180) H 01/22/20 07:46 Total Creatine Kinase 164 units/L (55-170) 01/17/20 17:34 Troponin T < 0.010 ng/mL (0.00-0.029) 01/17/20 17:34 C-Reactive Protein 2.90 mg/dL (0.00-1.30) H 01/22/20 07:46 Total Protein 7.0 g/dL (6.3-8.2) 01/20/20 05:39 Albumin 2.8 g/dL (3.9-5) L 01/20/20 05:39 Albumin/Globulin Ratio 0.7 % 01/20/20 05:39 Triglycerides 219 mg/dL (2-149) H 01/18/20 16:04 Cholesterol 180 mg/dL (50-199) 01/18/20 16:04 LDL Cholesterol Direct 91 mg/dL (50-130) 01/18/20 16:04 HDL Cholesterol 37 mg/dL (40-59) L 01/18/20 16:04 Cholesterol/HDL Ratio 4.86 % 01/18/20 16:04 Procalcitonin 0.15 ng/mL (<0.15) 01/17/20 21:39 Urine Color Yellow (Yellow) 01/17/20 19:30 Urine Turbidity Clear (Clear) 01/17/20 19:30 Urine pH 5.0 (5.0-7.0) 01/17/20 19:30 Ur Specific [place] 1.016 (1.003-1.030) 01/17/20 19:30 Urine Protein 100 mg/dl mg/dL (Negative) 01/17/20 19:30 Urine Glucose (UA) Neg mg/dL (Negative) 01/17/20 19:30 Urine Ketones Neg mg/dL (Negative) 01/17/20 19:30 Urine Blood Sm (Negative) 01/17/20 19:30 Urine Nitrite Neg (Negative) 01/17/20 19:30 Urine Bilirubin Neg (Negative) 01/17/20 19:30 Urine Urobilinogen < 2.0 mg/dL (<2.0) 01/17/20 19:30 Ur Leukocyte Esterase Neg (Negative) 01/17/20 19:30 Urine WBC (Auto) 2.0 /HPF (0.0-6.0) 01/17/20 19:30 Urine RBC (Auto) 6.0 /HPF (0.0-6.0) 01/17/20 19:30 U Epithel Cells (Auto) < 1.0 /HPF (0-13.0) 01/17/20 19:30 Urine Bacteria (Auto) 1+ /HPF (Negative) 01/17/20 19:30 Urine Mucus Few /HPF 01/17/20 19:30 Coronavirus (PCR) Positive (Negative) A 01/31/20 08:12 SARS-CoV-2 IgG Ab Reactive (NonReactive) A 01/19/20 17:52 Moses/IV: Voiding Method Condom Catheter IV Catheter Type [Left Forearm INT / Saline Lock ] IV Catheter Type [Right INT / Saline Lock Antecubital] Active Medications - Current Medications Current Medications: Generic Name Dose Route Start Last Admin Trade Name Freq PRN Reason Stop Dose Admin Acetaminophen 650 mg 01/17/20 22:03 02/06/20 21:56 Tylenol PO 650 mg Q4H PRN Administration Pain MILD(1-3)/Fever >100.5/FORD Amlodipine Besylate 5 mg 01/24/20 10:00 02/07/20 11:01 Amlodipine PO 5 mg QDAY LIBORIO Administration Lipase/Protease/Amylase 1 each 01/21/20 11:34 01/30/20 13:11 Pancreaze 10,500 Unit FEEDTUBE 1 each PRN PRN Administration For Clogged Feeding Tube Ascorbic Acid 500 mg 01/21/20 10:00 02/07/20 11:01 Vitamin C PO 500 mg QDAY LIBORIO Administration Aspirin 81 mg 02/01/20 10:00 02/07/20 11:01 Baby Aspirin PO 81 mg QDAY LIBORIO Administration Atorvastatin Calcium 40 mg 01/19/20 22:00 02/06/20 21:50 Lipitor PO 40 mg QHS LIBORIO Administration Dextrose 50 ml 01/18/20 16:00 D50w (25gm) Syringe IV Q30MIN PRN Hypoglycemia Protocol Docusate Sodium 100 mg 01/20/20 10:00 02/07/20 11:01 Colace PO 100 mg BID LIBORIO Administration Enoxaparin Sodium 40 mg 02/01/20 22:00 02/06/20 21:51 Enoxaparin SUB-Q 40 mg QDAY@2200 LIBORIO Administration Protocol Hydralazine HCl 25 mg 02/06/20 14:00 02/07/20 05:53 Apresoline PO 25 mg Q8HR LIBORIO Administration Insulin Human Isoph/Insulin Regular 8 unit 01/27/20 08:45 02/07/20 11:02 Humulin 70/30 SUB-Q 8 unit QDDIAB LIBORIO Administration Insulin Human Regular 0 unit 01/18/20 16:00 02/07/20 05:54 Humulin R SUB-Q Not Given Q6HR [facility] Protocol Magnesium Hydroxide 30 ml 01/17/20 22:03 Milk Of Magnesia PO Q4H PRN Constipation Ondansetron HCl 4 mg 01/17/20 22:03 Zofran IV Q8H PRN Nausea And Vomiting Simple Syrup 15 ml 01/21/20 11:34 Simple Syrup FEEDTUBE PRN PRN Hypoglycemia Simple Syrup 30 ml 01/21/20 11:34 Simple Syrup FEEDTUBE PRN PRN Hypoglycemia Sodium Bicarbonate 325 mg 01/21/20 11:34 Sodium Bicarbonate FEEDTUBE PRN PRN For Clogged Feeding Tube Sodium Chloride 10 ml 01/18/20 10:00 02/07/20 11:03 Sodium Chloride Flush Syringe 10 Ml IV 10 ml BID LIBORIO Administration Sodium Chloride 10 ml 01/17/20 22:03 Sodium Chloride Flush Syringe 10 Ml IV PRN PRN LINE FLUSH Zinc Sulfate 220 mg 01/21/20 10:00 02/07/20 11:03 Zinc Sulfate PO 220 mg QDAY LIBORIO Administration Nutrition/Malnutrition Assess - Dietary Evaluation Nutrition/Malnutrition Findings: Nutrition Notes Start: 01/19/20 10:1 3 Freq: Status: Active Protocol: Document 02/03/20 11:55 (Rec: 02/03/20 11:56 [email or web address]) Nutrition Notes Initial or Follow up Reassessment Current Diagnosis Diabetes,Hypertension,Stroke Other Pertinent Diagnosis COVID-19 (+), AMS, Dysphagia Current Diet Glucerna 1.2 at 65 ml/hr Labs/Tests Reviewed Pertinent Medications Zinc Vit C Height 5 ft 11 in Weight 90.2 kg [place] Body Weight (kg) 78.18 BMI 27.7 Subjective/Other Information FU for TF tolerance. Per RN, pt tolerating TF at goal. Percent of energy/protein needs met: 95%/100% Burn Absent Trauma Absent GI Symptoms None Current % PO Negligible Minimum of two criteria No physical signs of malnutrition #1 Nutrition Diagnosis Inadequate oral intake Diagnosis Progress(for reassessment Continues documentation) Is patient on ventilator? No Is Patient Ambulatory and/or Out of Bed No REE-([facility]-confined to bed) 1984.256 Calculation Used for Recommendations [facility] Additional Notes Pro needs 1-1.2g/k-106g/ day Fluid needs per MD Nutrition Intervention Change Diet Order: Continue TF Nutrition Support: Glucerna 1.2 at 65 mL/hr. Flush with 100 mL q4h. Kcal 1,872 Protein (gm) 94 Fluid (mL) 1,256 Goal #1 Meet at least 75% of estimated energy and protein needs via TF Goal #2 TF tolerance Anticipated Discharge Needs: TF Glucerna 1.2 at 65ml/hr. Water flush with 200ml q4h Follow-Up By: 02/07/20 Additional Comments F/U for TF tolerance
[2020-02-07] MEDS: ENOXAPARIN 40 MG/0.4 ML INJ SUB-Q SCH (22:40)
[2020-02-08] MEDS: INSULIN REGULAR, HUMAN 100 UNIT/ML 3ML VIAL SUB-Q SCH ×3 (00:04→15:28)
[2020-02-08] MEDS: hydrALAZINE 25 MG TAB PO SCH ×3 (05:37→22:43)
[2020-02-08] MEDS: amLODIPine 5 MG TAB PO SCH (10:26)
[2020-02-08] MEDS: ASPIRIN 81 MG TAB CHEW PO SCH (10:27)
[2020-02-08] MEDS: ASCORBIC ACID 500 MG TAB PO SCH (10:27)
[2020-02-08] MEDS: ZINC SULFATE 220 MG CAP PO SCH (10:27)
[2020-02-08] MEDS: DOCUSATE SODIUM 100 MG/10 ML ORAL LIQD PO SCH ×2 (10:27→22:43)
[2020-02-08] MEDS: INSULIN NPH/REGULAR 70/30 INJ SUB-Q SCH (10:27)
--- NOTE | 2020-02-08 15:05 | Progress Note ---
Assessment and Plan Assessment and plan: --Dysphagia Patient underwent PEG placement per GI -- Acute respiratory failure Acute respiratory failure secondary to COVID-19 pneumonia. Patient remains ill cachectic but able to breathe. With O2/nebulizers. Oxygenation has actually improved. Problem is debility and decreased p.o. intake. --Acute metabolic encephalopathy ; multifactorial Multifactorial secondary to COVID-19 pneumonia as well as hypoxemia and malnut rition. This with underlying dementia. Awaiting family decision about PEG tube placement. -- COVID-19 virus infection Patient not on dexamethasone or remdesivir at this time. No fever. --Elevated d-dimer Secondary to COVID-19. Empiric anticoagulants. Patient currently on Lovenox now. Specially since patient's a receive PEG tube. Can stop this more rapidly. --Pneumonia due to COVID-19 virus Current Visit: Yes Status: Acute Plan to address problem: Continues to improve. Patient's oxygenation is improving cognition has been following slow behind. --Hypertension Current Visit: Yes Status: Chronic Plan to address problem: Patient's blood pressure fairly well controlled with amlodipine. --Acute hypernatremia Current Visit: Yes Status: Resolved Plan to address problem: Hypernatremia has resolved current sodium 137. Patient will require feeding tube. This will improve outcome. Brief history; 79-year-old male with HTN and DM who is a resident of a [place] [facility] presented to the ED on 01/17 via EMS for evaluation of a change mental status. Per [facility] staff patient was not communicating well and having decreased oral intake. Upon arrival to the emergency department patient was found to be tachycardic, febrile to 102.2 and hypoxic with SPO2 of 91 on room air. Work-up was significant for hypernatremia, acute kidney injury (CR/BUN 2.2/55), hypochloremia, transaminitis and a chest x-ray showed mild bilateral pulmonary edema and CTh was unremarkable. Patient was admitted to hospitalist service as a Covid PUI, Sepsis, YIMI and infectious disease and nephrology were consulted. Patient failed swallow evaluation per speech therapy, recommended PEG placement, GI evaluated, patient had PEG tube placement today 01/31/2020. GI recommend to start tube feeding tomorrow and may discharge if stable. 01/17: elevated D-dimer therefore bilateral upper and lower extremity ultrasounds Dopplers were obtained to rule out DVT and a VQ scan was performed to rule out PE both of which were negative. Patient remained severely hypernatremic and his IV fluids were changed to D5 water. We will trend his BMP. He also has elevated Covid markers ferritin and CRP. 01/18: COVID-19 PCR resulted as positive. Patient remains hyponatremic therefore nephrology was consulted and he was started on FWF and his D5W was increased. 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 Dr. Petersen updated his daughter this morning (Ms. Burleson) and this afternoon after his COVID-19 PCR resulted I updated her. The phone got disconnected after 2 minutes of conversation and informing her of COVID-19 status and I tried calling back twice. Both times it was sent to [employer] and her mailbox is full therefore was not able to leave a message. Patient was also initiated on remdesivir therapy 01/19: MRI head and MRI brain still pending, continue remdesivir therapy, increased free water flush 300 mL every 4 hours and increase the D5W TO 100 mL/h 01/20: Zinc and vitamin C initiated, patient still remains hypernatremic 01/21: Patient remains hypernatremic, no acute events reported overnight 01/22: Patient remains hypernatremic, hyperchloremic though it is improving. Patient still remains with altered mental status and he has bilateral wrist restraints in place. Dr. Petersen updated patient's daughter over the phone today. No acute events reported overnight. Patient was hypokalemic which was repleted. 01/23: His hyperkalemia has resolved. No acute events reported overnight. Patient intermittently follows commands and is more verbal. Today he has bilateral mittens in place. 01/24: Patient has marked improvement in mentation today he is oriented to self and follows commands. Patient is hypokalemic today at 3.5 which was repleted and his hypernatremia and hyperchloremia are improving. Patient failed his swallow eval by speech therapy this morning. I updated daughter over the phone, Olya Pritchard, regarding ST evaluation and labs. I spoke to her about the possibility of a PEG being recommended by ST to which she agreed to as a last resort. 01/25: This morning patient is more alert with RN. Repeated speech evaluation was conducted and he failed. I updated the patient's daughter who would like to hold off a decision about PEG till Thursday and would like to see patient improves with speech therapy. This morning patient's hypernatremia and hyperchloremia has improved and his sodium is 148, chloride 111.4. 01/27-patient failed swallowing the valve again. Patient scheduled to determine about PEG tube feedings on Thursday. Seems will need a PEG. Family leaning toward this. 01/28;. Patient remains comfortable. Still has some cognitive impairment. Recent introduction to patient mental status appears about the same. Family to decide about PEG tube on Thursday. 01/29; I discussed with patient's daughter Elina Burleson and discussed the details of PEG placement, GI consult, possible procedure tomorrow She verbalized understanding and willing for PEG placement, GI consulted 01/30; patient received PEG placement today, GI recommend to start tube feeding tomorrow, and patient may be discharged if stable 01/31. Patient is s/p PEG placement yesterday. Monitor tube feedings today. Covid testing remains positive from 01/31/2020 02/02/2020. Awaiting for arrangements for hospital bed for patient to discharge home in a.m. 02/03/2020. Awaiting arrangements for hospital bed and tube feeding supplies to discharge home with home health. 02/04/2020. Awaiting arrangements for hospital bed and tube feeding supplies to discharge home with home health. 02/05/2020. Awaiting arrangements for hospital bed and tube feeding supplies to discharge home with home health. 02/06/2020. Case management spoke to patient's daughter Elina Burleson at [phone] who is in process of getting a rental bed for a bed from the [place] today. Patient will need hospital bed prior to discharge 02/07/2020. Bed reported to be available tomorrow as per daughter. Possible DC tomorrow. 02/08/2020. Awaiting feed and DME available. History Interval history: No overnight events. Still awaiting DME supplies. Hospitalist Physical - Physical exam Narrative exam: VITAL SIGNS: Reviewed. GENERAL: Awake HEAD: No signs of head trauma. EYES: Pupils are equal. EARS: Hearing grossly intact. MOUTH: Oropharynx is normal. NECK: No adenopathy, no JVD. CHEST: Chest with diminished breath sounds bilaterally. No wheezes, rales, or rhonchi. CARDIAC: Regular rate and rhythm. S1 and S2, without murmurs, gallops, or rubs. VASCULAR: No Edema. Peripheral pulses normal and equal in all extremities. ABDOMEN: Soft, non tender and non distended. No rebound or guarding, and no masses palpated. Bowel Sounds normal. NEUROLOGIC EXAM: Awake PSYCHIATRIC: Not assessed SKIN: No obvious lesions - Constitutional Vitals: Temp Pulse Resp BP Pulse Ox 98.0 F 103 H 20 146/95 93 02/08/20 04:43 02/08/20 10:26 02/08/20 04:43 02/08/20 10:26 02/08/20 04:43 HEART Score - HEART Score Troponin: Troponin T < 0.010 ng/mL (0.00-0.029) 01/17/20 17:34 Results - Labs CBC & Chem 7: 02/02/20 09:15 02/02/20 09:15 Labs: Laboratory Last Values WBC 14.9 K/mm3 (4.5-11.0) H 02/02/20 09:15 RBC 5.31 M/mm3 (3.65-5.03) H 02/02/20 09:15 Hgb 13.4 gm/dl (11.8-15.2) 02/02/20 09:15 Hct 41.3 % (35.5-45.6) 02/02/20 09:15 MCV 78 fl (84-94) L 02/02/20 09:15 MCH 25 pg (28-32) L 02/02/20 09:15 MCHC 33 % (32-34) 02/02/20 09:15 RDW 14.5 % (13.2-15.2) 02/02/20 09:15 Plt Count 183 K/mm3 (140-440) 02/02/20 09:15 Lymph % (Auto) 8.7 % (13.4-35.0) L 02/02/20 09:15 [place] % (Auto) 5.0 % (0.0-7.3) 02/02/20 09:15 Eos % (Auto) 0.9 % (0.0-4.3) 02/02/20 09:15 Baso % (Auto) 0.1 % (0.0-1.8) 02/02/20 09:15 Lymph # (Auto) 1.3 K/mm3 (1.2-5.4) 02/02/20 09:15 [place] # (Auto) 0.7 K/mm3 (0.0-0.8) 02/02/20 09:15 Eos # (Auto) 0.1 K/mm3 (0.0-0.4) 02/02/20 09:15 Baso # (Auto) 0.0 K/mm3 (0.0-0.1) 02/02/20 09:15 Add Manual Diff Complete 01/30/20 08:24 Total Counted 100 01/30/20 08:24 Seg Neutrophils % 85.3 % (40.0-70.0) H 02/02/20 09:15 Seg Neuts % (Manual) 92.0 % (40.0-70.0) H 01/30/20 08:24 Band Neutrophils % 0 % 01/30/20 08:24 Lymphocytes % (Manual) 6.0 % (13.4-35.0) L 01/30/20 08:24 Reactive Lymphs % (Man) 0 % 01/30/20 08:24 Monocytes % (Manual) 2.0 % (0.0-7.3) 01/30/20 08:24 Eosinophils % (Manual) 0 % (0.0-4.3) 01/30/20 08:24 Basophils % (Manual) 0 % (0.0-1.8) 01/30/20 08:24 Metamyelocytes % 0 % 01/30/20 08:24 Myelocytes % 0 % 01/30/20 08:24 Promyelocytes % 0 % 01/30/20 08:24 Blast Cells % 0 % 01/30/20 08:24 Nucleated RBC % Not Reportable 01/30/20 08:24 Seg Neutrophils # 12.7 K/mm3 (1.8-7.7) H 02/02/20 09:15 Seg Neutrophils # Man 14.3 K/mm3 (1.8-7.7) H 01/30/20 08:24 Band Neutrophils # 0.0 K/mm3 01/30/20 08:24 Lymphocytes # (Manual) 0.9 K/mm3 (1.2-5.4) L 01/30/20 08:24 Abs React Lymphs (Man) 0.0 K/mm3 01/30/20 08:24 Monocytes # (Manual) 0.3 K/mm3 (0.0-0.8) 01/30/20 08:24 Eosinophils # (Manual) 0.0 K/mm3 (0.0-0.4) 01/30/20 08:24 Basophils # (Manual) 0.0 K/mm3 (0.0-0.1) 01/30/20 08:24 Metamyelocytes # 0.0 K/mm3 01/30/20 08:24 Myelocytes # 0.0 K/mm3 01/30/20 08:24 Promyelocytes # 0.0 K/mm3 01/30/20 08:24 Blast Cells # 0.0 K/mm3 01/30/20 08:24 WBC Morphology Not Reportable 01/30/20 08:24 Hypersegmented Neuts Not Reportable 01/30/20 08:24 Hyposegmented Neuts Not Reportable 01/30/20 08:24 Hypogranular Neuts Not Reportable 01/30/20 08:24 Smudge Cells Not Reportable 01/30/20 08:24 Toxic Granulation Not Reportable 01/30/20 08:24 Toxic Vacuolation Not Reportable 01/30/20 08:24 Dohle Bodies Not Reportable 01/30/20 08:24 Pelger-Huet Anomaly Not Reportable 01/30/20 08:24 Janice Rods Not Reportable 01/30/20 08:24 Platelet Estimate Consistent w auto 01/30/20 08:24 Clumped Platelets Not Reportable 01/30/20 08:24 Plt Clumps, EDTA Not Reportable 01/30/20 08:24 Large Platelets Not Reportable 01/30/20 08:24 Giant Platelets Not Reportable 01/30/20 08:24 Platelet Satelliting Not Reportable 01/30/20 08:24 Plt Morphology Comment Not Reportable 01/30/20 08:24 RBC Morphology Not Reportable 01/30/20 08:24 Dimorphic RBCs Not Reportable 01/30/20 08:24 Polychromasia Few 01/30/20 08:24 Hypochromasia 1+ 01/30/20 08:24 Poikilocytosis Not Reportable 01/30/20 08:24 Anisocytosis Not Reportable 01/30/20 08:24 Microcytosis Not Reportable 01/30/20 08:24 Macrocytosis Not Reportable 01/30/20 08:24 Spherocytes Not Reportable 01/30/20 08:24 Pappenheimer Bodies Not Reportable 01/30/20 08:24 Sickle Cells Not Reportable 01/30/20 08:24 Target Cells Rare 01/30/20 08:24 Tear Drop Cells Not Reportable 01/30/20 08:24 Ovalocytes Not Reportable 01/30/20 08:24 Helmet Cells Not Reportable 01/30/20 08:24 Fu-[place] Bodies Not Reportable 01/30/20 08:24 [place] Rings Not Reportable 01/30/20 08:24 [place] Cells Rare 01/30/20 08:24 Bite Cells Not Reportable 01/30/20 08:24 Crenated Cell Not Reportable 01/30/20 08:24 Elliptocytes Few 01/30/20 08:24 Acanthocytes (Spur) Not Reportable 01/30/20 08:24 Rouleaux Not Reportable 01/30/20 08:24 Hemoglobin C Crystals Not Reportable 01/30/20 08:24 Schistocytes Not Reportable 01/30/20 08:24 Malaria parasites Not Reportable 01/30/20 08:24 [place] Bodies Not Reportable 01/30/20 08:24 Hem Pathologist Commnt No 01/30/20 08:24 PT 13.5 Sec. (12.2-14.9) 01/31/20 05:10 INR 1.04 (0.87-1.13) 01/31/20 05:10 APTT 31.0 Sec. (24.2-36.6) 01/17/20 17:34 D-Dimer 3001.60 ng/mlDDU (0-234) H 01/22/20 07:46 Sodium 142 mmol/L (137-145) 02/02/20 09:15 Potassium 3.9 mmol/L (3.6-5.0) 02/02/20 09:15 Chloride 109.5 mmol/L (98-107) H 02/02/20 09:15 Carbon Dioxide 25 mmol/L (22-30) 02/02/20 09:15 Anion Gap 11 mmol/L 02/02/20 09:15 BUN 14 mg/dL (9-20) 02/02/20 09:15 Creatinine 0.6 mg/dL (0.8-1.3) L 02/02/20 09:15 Estimated GFR > 60 ml/min 02/02/20 09:15 BUN/Creatinine Ratio 23 % 02/02/20 09:15 Glucose 131 mg/dL (75-100) H 02/02/20 09:15 POC Glucose 108 mg/dL (70-105) H 02/08/20 13:18 Hemoglobin A1c 6.7 % (4-6) H 01/18/20 16:04 Lactic Acid 1.80 mmol/L (0.7-2.0) 01/17/20 19:40 Calcium 9.0 mg/dL (8.4-10.2) 02/02/20 09:15 Magnesium 2.00 mg/dL (1.7-2.3) 01/26/20 05:14 Ferritin 3748.0 ng/mL (30.0-300.0) H 01/22/20 07:46 Total Bilirubin 0.40 mg/dL (0.1-1.2) 01/20/20 05:39 Direct Bilirubin < 0.2 mg/dL (0-0.2) 01/20/20 05:39 Indirect Bilirubin 0.2 mg/dL 01/20/20 05:39 AST 60 units/L (5-40) H 01/20/20 05:39 ALT 44 units/L (7-56) 01/20/20 05:39 Alkaline Phosphatase 64 units/L (35-129) 01/20/20 05:39 Ammonia 38.0 umol/L (25-60) 01/17/20 17:34 Lactate Dehydrogenase 368 units/L (91-180) H 01/22/20 07:46 Total Creatine Kinase 164 units/L (55-170) 01/17/20 17:34 Troponin T < 0.010 ng/mL (0.00-0.029) 01/17/20 17:34 C-Reactive Protein 2.90 mg/dL (0.00-1.30) H 01/22/20 07:46 Total Protein 7.0 g/dL (6.3-8.2) 01/20/20 05:39 Albumin 2.8 g/dL (3.9-5) L 01/20/20 05:39 Albumin/Globulin Ratio 0.7 % 01/20/20 05:39 Triglycerides 219 mg/dL (2-149) H 01/18/20 16:04 Cholesterol 180 mg/dL (50-199) 01/18/20 16:04 LDL Cholesterol Direct 91 mg/dL (50-130) 01/18/20 16:04 HDL Cholesterol 37 mg/dL (40-59) L 01/18/20 16:04 Cholesterol/HDL Ratio 4.86 % 01/18/20 16:04 Procalcitonin 0.15 ng/mL (<0.15) 01/17/20 21:39 Urine Color Yellow (Yellow) 01/17/20 19:30 Urine Turbidity Clear (Clear) 01/17/20 19:30 Urine pH 5.0 (5.0-7.0) 01/17/20 19:30 Ur Specific [place] 1.016 (1.003-1.030) 01/17/20 19:30 Urine Protein 100 mg/dl mg/dL (Negative) 01/17/20 19:30 Urine Glucose (UA) Neg mg/dL (Negative) 01/17/20 19:30 Urine Ketones Neg mg/dL (Negative) 01/17/20 19:30 Urine Blood Sm (Negative) 01/17/20 19:30 Urine Nitrite Neg (Negative) 01/17/20 19:30 Urine Bilirubin Neg (Negative) 01/17/20 19:30 Urine Urobilinogen < 2.0 mg/dL (<2.0) 01/17/20 19:30 Ur Leukocyte Esterase Neg (Negative) 01/17/20 19:30 Urine WBC (Auto) 2.0 /HPF (0.0-6.0) 01/17/20 19:30 Urine RBC (Auto) 6.0 /HPF (0.0-6.0) 01/17/20 19:30 U Epithel Cells (Auto) < 1.0 /HPF (0-13.0) 01/17/20 19:30 Urine Bacteria (Auto) 1+ /HPF (Negative) 01/17/20 19:30 Urine Mucus Few /HPF 01/17/20 19:30 Coronavirus (PCR) Positive (Negative) A 01/31/20 08:12 SARS-CoV-2 IgG Ab Reactive (NonReactive) A 01/19/20 17:52 Moses/IV: Voiding Method Incontinent IV Catheter Type [Left Forearm INT / Saline Lock ] IV Catheter Type [Right INT / Saline Lock Antecubital] Active Medications - Current Medications Current Medications: Generic Name Dose Route Start Last Admin Trade Name Freq PRN Reason Stop Dose Admin Acetaminophen 650 mg 01/17/20 22:03 02/06/20 21:56 Tylenol PO 650 mg Q4H PRN Administration Pain MILD(1-3)/Fever >100.5/FORD Amlodipine Besylate 5 mg 01/24/20 10:00 02/08/20 10:26 Amlodipine PO 5 mg QDAY LIBORIO Administration Lipase/Protease/Amylase 1 each 01/21/20 11:34 01/30/20 13:11 Pancreazace Urrutia 10,500 Unit FEEDTUBE 1 each PRN PRN Administration For Clogged Feeding Tube Ascorbic Acid 500 mg 01/21/20 10:00 02/08/20 10:27 Vitamin C PO 500 mg QDAY LIBORIO Administration Aspirin 81 mg 02/01/20 10:00 02/08/20 10:27 Baby Aspirin PO 81 mg QDAY LIBORIO Administration Atorvastatin Calcium 40 mg 01/19/20 22:00 02/07/20 22:41 Lipitor PO 40 mg QHS LIBORIO Administration Dextrose 50 ml 01/18/20 16:00 D50w (25gm) Syringe IV Q30MIN PRN Hypoglycemia Protocol Docusate Sodium 100 mg 01/20/20 10:00 02/08/20 10:27 Colace PO 100 mg BID LIBORIO Administration Enoxaparin Sodium 40 mg 02/01/20 22:00 02/07/20 22:40 Enoxaparin SUB-Q 40 mg QDAY@2200 LIBORIO Administration Protocol Hydralazine HCl 25 mg 02/06/20 14:00 02/08/20 05:37 Apresoline PO 25 mg Q8HR LIBORIO Administration Insulin Human Isoph/Insulin Regular 8 unit 01/27/20 08:45 02/08/20 10:27 Humulin 70/30 SUB-Q 8 unit QDDIAB LIBORIO Administration Insulin Human Regular 0 unit 01/18/20 16:00 02/08/20 05:38 Humulin R SUB-Q Not Given Q6HR LIBORIO Protocol Magnesium Hydroxide 30 ml 01/17/20 22:03 Milk Of Magnesia PO Q4H PRN Constipation Ondansetron HCl 4 mg 01/17/20 22:03 Zofran IV Q8H PRN Nausea And Vomiting Simple Syrup 15 ml 01/21/20 11:34 Simple Syrup FEEDTUBE PRN PRN Hypoglycemia Simple Syrup 30 ml 01/21/20 11:34 Simple Syrup FEEDTUBE PRN PRN Hypoglycemia Sodium Bicarbonate 325 mg 01/21/20 11:34 Sodium Bicarbonate FEEDTUBE PRN PRN For Clogged Feeding Tube Sodium Chloride 10 ml 01/18/20 10:00 02/08/20 10:27 Sodium Chloride Flush Syringe 10 Ml IV 10 ml BID LIBORIO Administration Sodium Chloride 10 ml 01/17/20 22:03 Sodium Chloride Flush Syringe 10 Ml IV PRN PRN LINE FLUSH Zinc Sulfate 220 mg 01/21/20 10:00 02/08/20 10:27 Zinc Sulfate PO 220 mg QDAY LIBORIO Administration Nutrition/Malnutrition Assess - Dietary Evaluation Nutrition/Malnutrition Findings: Nutrition Notes Start: 01/19/20 10:13 Freq: Status: Active Protocol: Document 02/07/20 13:12 AB (Rec: 02/07/20 13:21 AB [id number]) Co-Sign 02/07/20 13:12 MK Nutrition Notes Initial or Follow up Reassessment Current Diagnosis Diabetes,Hypertension,Stroke Other Pertinent Diagnosis COVID-19 (+), AMS, Dysphagia Current Diet Glucerna 1.2 at 65 ml/hr Labs/Tests BG 131 Pertinent Medications Humulin Zinc Vit C Height 5 ft 11 in Weight 83.9 kg [place] Body Weight (kg) 78.18 BMI 25.7 Weight change and time frame Wt change noted Weight Status Overweight Subjective/Other Information F/U for TF tolerance. Pt is tolerating TF at goal, per RN. Percent of energy/protein needs met: 95%/100% Burn Absent Trauma Absent GI Symptoms None Current % PO Negligible Minimum of two criteria No physical signs of malnutrition #1 Nutrition Diagnosis Inadequate oral intake Diagnosis Progress(for reassessment Continues documentation) Is patient on ventilator? No Is Patient Ambulatory and/or Out of Bed No REE-([facility]-confined to bed) 7488.833 Calculation Used for Recommendations [facility] Additional Notes Protein: 84-101 g (1-1.2 g/kg) Fluid: per MD Nutrition Intervention Change Diet Order: Continue TF Nutrition Support: Glucerna 1.2 at 65 mL/hr. Flush with 200 mL q4h. Kcal 1,872 Protein (gm) 94 Fluid (mL) 1,256 Goal #1 Meet at least 75% of estimated energy and protein needs via TF Goal #2 TF tolerance Anticipated Discharge Needs: TF Glucerna 1.2 at 65ml/hr. Water flush with 200ml q4h Follow-Up By: 02/10/20 Additional Comments F/U for TF tolerance
[2020-02-08] MEDS: ENOXAPARIN 40 MG/0.4 ML INJ SUB-Q SCH (22:43)
[2020-02-09] MEDS: INSULIN REGULAR, HUMAN 100 UNIT/ML 3ML VIAL SUB-Q SCH ×3 (04:26→14:13)
[2020-02-09] MEDS: hydrALAZINE 25 MG TAB PO SCH ×3 (06:04→23:34)
[2020-02-09] MEDS: INSULIN NPH/REGULAR 70/30 INJ SUB-Q SCH (08:28)
[2020-02-09] MEDS: ASCORBIC ACID 500 MG TAB PO SCH (11:10)
[2020-02-09] MEDS: ASPIRIN 81 MG TAB CHEW PO SCH (11:10)
[2020-02-09] MEDS: amLODIPine 5 MG TAB PO SCH (11:10)
[2020-02-09] MEDS: ZINC SULFATE 220 MG CAP PO SCH (11:11)
[2020-02-09] MEDS: DOCUSATE SODIUM 100 MG/10 ML ORAL LIQD PO SCH ×2 (11:12→23:26)
--- NOTE | 2020-02-09 12:32 | Progress Note ---
Assessment and Plan Assessment and plan: --Dysphagia Patient underwent PEG placement per GI -- Acute respiratory failure Acute respiratory failure secondary to COVID-19 pneumonia. Patient remains ill cachectic but able to breathe. With O2/nebulizers. Oxygenation has actually improved. Problem is debility and decreased p.o. intake. --Acute metabolic encephalopathy ; multifactorial Multifactorial secondary to COVID-19 pneumonia as well as hypoxemia and malnut rition. This with underlying dementia. Awaiting family decision about PEG tube placement. -- COVID-19 virus infection Patient not on dexamethasone or remdesivir at this time. No fever. --Elevated d-dimer Secondary to COVID-19. Empiric anticoagulants. Patient currently on Lovenox now. Specially since patient's a receive PEG tube. Can stop this more rapidly. --Pneumonia due to COVID-19 virus Current Visit: Yes Status: Acute Plan to address problem: Continues to improve. Patient's oxygenation is improving cognition has been following slow behind. --Hypertension Current Visit: Yes Status: Chronic Plan to address problem: Patient's blood pressure fairly well controlled with amlodipine. --Acute hypernatremia Current Visit: Yes Status: Resolved Plan to address problem: Hypernatremia has resolved current sodium 137. Patient will require feeding tube. This will improve outcome. Brief history; 79-year-old male with HTN and DM who is a resident of a group home presented to the ED on 01/17 via EMS for evaluation of a change mental status. Per group home staff patient was not communicating well and having decreased oral intake. Upon arrival to the emergency department patient was found to be tachycardic, febrile to 102.2 and hypoxic with SPO2 of 91 on room air. Work-up was significant for hypernatremia, acute kidney injury (CR/BUN 2.2/55), hypochloremia, transaminitis and a chest x-ray showed mild bilateral pulmonary edema and CTh was unremarkable. Patient was admitted to hospitalist service as a Covid PUI, Sepsis, YIMI and infectious disease and nephrology were consulted. Patient failed swallow evaluation per speech therapy, recommended PEG placement, GI evaluated, patient had PEG tube placement today 01/31/2020. GI recommend to start tube feeding tomorrow and may discharge if stable. 01/17: elevated D-dimer therefore bilateral upper and lower extremity ultrasounds Dopplers were obtained to rule out DVT and a VQ scan was performed to rule out PE both of which were negative. Patient remained severely hypernatremic and his IV fluids were changed to D5 water. We will trend his BMP. He also has elevated Covid markers ferritin and CRP. 01/18: COVID-19 PCR resulted as positive. Patient remains hyponatremic therefore nephrology was consulted and he was started on FWF and his D5W was increased. 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 Dr. Petersen updated his daughter this morning (Ms. Burleson) and this afternoon after his COVID-19 PCR resulted I updated her. The phone got disconnected after 2 minutes of conversation and informing her of COVID-19 status and I tried calling back twice. Both times it was sent to [facility] and her mailbox is full therefore was not able to leave a message. Patient was also initiated on remdesivir therapy 01/19: MRI head and MRI brain still pending, continue remdesivir therapy, increased free water flush 300 mL every 4 hours and increase the D5W TO 100 mL/h 01/20: Zinc and vitamin C initiated, patient still remains hypernatremic 01/21: Patient remains hypernatremic, no acute events reported overnight 01/22: Patient remains hypernatremic, hyperchloremic though it is improving. Patient still remains with altered mental status and he has bilateral wrist restraints in place. Dr. Petersen updated patient's daughter over the phone today. No acute events reported overnight. Patient was hypokalemic which was repleted. 01/23: His hyperkalemia has resolved. No acute events reported overnight. Patient intermittently follows commands and is more verbal. Today he has bilateral mittens in place. 01/24: Patient has marked improvement in mentation today he is oriented to self and follows commands. Patient is hypokalemic today at 3.5 which was repleted and his hypernatremia and hyperchloremia are improving. Patient failed his swallow eval by speech therapy this morning. I updated daughter over the phone, Olya Pritchard, regarding ST evaluation and labs. I spoke to her about the possibility of a PEG being recommended by ST to which she agreed to as a last resort. 01/25: This morning patient is more alert with RN. Repeated speech evaluation was conducted and he failed. I updated the patient's daughter who would like to hold off a decision about PEG till Thursday and would like to see patient improves with speech therapy. This morning patient's hypernatremia and hyperchloremia has improved and his sodium is 148, chloride 111.4. 01/27-patient failed swallowing the valve again. Patient scheduled to determine about PEG tube feedings on Thursday. Seems will need a PEG. Family leaning toward this. 01/28;. Patient remains comfortable. Still has some cognitive impairment. Recent introduction to patient mental status appears about the same. Family to decide about PEG tube on Thursday. 01/29; I discussed with patient's daughter Elina Burleson and discussed the details of PEG placement, GI consult, possible procedure tomorrow She verbalized understanding and willing for PEG placement, GI consulted 01/30; patient received PEG placement today, GI recommend to start tube feeding tomorrow, and patient may be discharged if stable 01/31. Patient is s/p PEG placement yesterday. Monitor tube feedings today. Covid testing remains positive from 01/31/2020 02/02/2020. Awaiting for arrangements for hospital bed for patient to discharge home in a.m. 02/03/2020. Awaiting arrangements for hospital bed and tube feeding supplies to discharge home with home health. 02/04/2020. Awaiting arrangements for hospital bed and tube feeding supplies to discharge home with home health. 02/05/2020. Awaiting arrangements for hospital bed and tube feeding supplies to discharge home with home health. 02/06/2020. Case management spoke to patient's daughter Elina Burleson at [phone] who is in process of getting a rental bed for a bed from the [facility] today. Patient will need hospital bed prior to discharge 02/07/2020. Bed reported to be available tomorrow as per daughter. Possible DC tomorrow. 02/08/2020. Awaiting feed and DME available. 02/09/2020. Beds have been supplied but still needs tube feeds to be set up History Interval history: No overnight events. Still awaiting DME supplies. Hospitalist Physical - Physical exam Narrative exam: VITAL SIGNS: Reviewed. GENERAL: Awake HEAD: No signs of head trauma. EYES: Pupils are equal. EARS: Hearing grossly intact. MOUTH: Oropharynx is normal. NECK: No adenopathy, no JVD. CHEST: Chest with diminished breath sounds bilaterally. No wheezes, rales, or rhonchi. CARDIAC: Regular rate and rhythm. S1 and S2, without murmurs, gallops, or rubs. VASCULAR: No Edema. Peripheral pulses normal and equal in all extremities. ABDOMEN: Soft, non tender and non distended. No rebound or guarding, and no masses palpated. Bowel Sounds normal. NEUROLOGIC EXAM: Awake PSYCHIATRIC: Not assessed SKIN: No obvious lesions - Constitutional Vitals: Temp Pulse Resp BP Pulse Ox 97.5 F L 111 H 20 123/84 94 02/09/20 05:36 02/09/20 11:10 02/09/20 05:36 02/09/20 11:10 02/09/20 05:36 HEART Score - HEART Score Troponin: Troponin T < 0.010 ng/mL (0.00-0.029) 01/17/20 17:34 Results - Labs CBC & Chem 7: 02/02/20 09:15 02/02/20 09:15 Labs: Laboratory Last Values WBC 14.9 K/mm3 (4.5-11.0) H 02/02/20 09:15 RBC 5.31 M/mm3 (3.65-5.03) H 02/02/20 09:15 Hgb 13.4 gm/dl (11.8-15.2) 02/02/20 09:15 Hct 41.3 % (35.5-45.6) 02/02/20 09:15 MCV 78 fl (84-94) L 02/02/20 09:15 MCH 25 pg (28-32) L 02/02/20 09:15 MCHC 33 % (32-34) 02/02/20 09:15 RDW 14.5 % (13.2-15.2) 02/02/20 09:15 Plt Count 183 K/mm3 (140-440) 02/02/20 09:15 Lymph % (Auto) 8.7 % (13.4-35.0) L 02/02/20 09:15 [place] % (Auto) 5.0 % (0.0-7.3) 02/02/20 09:15 Eos % (Auto) 0.9 % (0.0-4.3) 02/02/20 09:15 Baso % (Auto) 0.1 % (0.0-1.8) 02/02/20 09:15 Lymph # (Auto) 1.3 K/mm3 (1.2-5.4) 02/02/20 09:15 [place] # (Auto) 0.7 K/mm3 (0.0-0.8) 02/02/20 09:15 Eos # (Auto) 0.1 K/mm3 (0.0-0.4) 02/02/20 09:15 Baso # (Auto) 0.0 K/mm3 (0.0-0.1) 02/02/20 09:15 Add Manual Diff Complete 01/30/20 08:24 Total Counted 100 01/30/20 08:24 Seg Neutrophils % 85.3 % (40.0-70.0) H 02/02/20 09:15 Seg Neuts % (Manual) 92.0 % (40.0-70.0) H 01/30/20 08:24 Band Neutrophils % 0 % 01/30/20 08:24 Lymphocytes % (Manual) 6.0 % (13.4-35.0) L 01/30/20 08:24 Reactive Lymphs % (Man) 0 % 01/30/20 08:24 Monocytes % (Manual) 2.0 % (0.0-7.3) 01/30/20 08:24 Eosinophils % (Manual) 0 % (0.0-4.3) 01/30/20 08:24 Basophils % (Manual) 0 % (0.0-1.8) 01/30/20 08:24 Metamyelocytes % 0 % 01/30/20 08:24 Myelocytes % 0 % 01/30/20 08:24 Promyelocytes % 0 % 01/30/20 08:24 Blast Cells % 0 % 01/30/20 08:24 Nucleated RBC % Not Reportable 01/30/20 08:24 Seg Neutrophils # 12.7 K/mm3 (1.8-7.7) H 02/02/20 09:15 Seg Neutrophils # Man 14.3 K/mm3 (1.8-7.7) H 01/30/20 08:24 Band Neutrophils # 0.0 K/mm3 01/30/20 08:24 Lymphocytes # (Manual) 0.9 K/mm3 (1.2-5.4) L 01/30/20 08:24 Abs React Lymphs (Man) 0.0 K/mm3 01/30/20 08:24 Monocytes # (Manual) 0.3 K/mm3 (0.0-0.8) 01/30/20 08:24 Eosinophils # (Manual) 0.0 K/mm3 (0.0-0.4) 01/30/20 08:24 Basophils # (Manual) 0.0 K/mm3 (0.0-0.1) 01/30/20 08:24 Metamyelocytes # 0.0 K/mm3 01/30/20 08:24 Myelocytes # 0.0 K/mm3 01/30/20 08:24 Promyelocytes # 0.0 K/mm3 01/30/20 08:24 Blast Cells # 0.0 K/mm3 01/30/20 08:24 WBC Morphology Not Reportable 01/30/20 08:24 Hypersegmented Neuts Not Reportable 01/30/20 08:24 Hyposegmented Neuts Not Reportable 01/30/20 08:24 Hypogranular Neuts Not Reportable 01/30/20 08:24 Smudge Cells Not Reportable 01/30/20 08:24 Toxic Granulation Not Reportable 01/30/20 08:24 Toxic Vacuolation Not Reportable 01/30/20 08:24 Dohle Bodies Not Reportable 01/30/20 08:24 Pelger-Huet Anomaly Not Reportable 01/30/20 08:24 Janice Rods Not Reportable 01/30/20 08:24 Platelet Estimate Consistent w auto 01/30/20 08:24 Clumped Platelets Not Reportable 01/30/20 08:24 Plt Clumps, EDTA Not Reportable 01/30/20 08:24 Large Platelets Not Reportable 01/30/20 08:24 Giant Platelets Not Reportable 01/30/20 08:24 Platelet Satelliting Not Reportable 01/30/20 08:24 Plt Morphology Comment Not Reportable 01/30/20 08:24 RBC Morphology Not Reportable 01/30/20 08:24 Dimorphic RBCs Not Reportable 01/30/20 08:24 Polychromasia Few 01/30/20 08:24 Hypochromasia 1+ 01/30/20 08:24 Poikilocytosis Not Reportable 01/30/20 08:24 Anisocytosis Not Reportable 01/30/20 08:24 Microcytosis Not Reportable 01/30/20 08:24 Macrocytosis Not Reportable 01/30/20 08:24 Spherocytes Not Reportable 01/30/20 08:24 Pappenheimer Bodies Not Reportable 01/30/20 08:24 Sickle Cells Not Reportable 01/30/20 08:24 Target Cells Rare 01/30/20 08:24 Tear Drop Cells Not Reportable 01/30/20 08:24 Ovalocytes Not Reportable 01/30/20 08:24 Helmet Cells Not Reportable 01/30/20 08:24 [place] Bodies Not Reportable 01/30/20 08:24 Doyle Rings Not Reportable 01/30/20 08:24 [place] Cells Rare 01/30/20 08:24 Bite Cells Not Reportable 01/30/20 08:24 Crenated Cell Not Reportable 01/30/20 08:24 Elliptocytes Few 01/30/20 08:24 Acanthocytes (Spur) Not Reportable 01/30/20 08:24 Rouleaux Not Reportable 01/30/20 08:24 Hemoglobin C Crystals Not Reportable 01/30/20 08:24 Schistocytes Not Reportable 01/30/20 08:24 Malaria parasites Not Reportable 01/30/20 08:24 C[place]rick Bodies Not Reportable 01/30/20 08:24 Hem Pathologist Commnt No 01/30/20 08:24 PT 13.5 Sec. (12.2-14.9) 01/31/20 05:10 INR 1.04 (0.87-1.13) 01/31/20 05:10 APTT 31.0 Sec. (24.2-36.6) 01/17/20 17:34 D-Dimer 3001.60 ng/mlDDU (0-234) H 01/22/20 07:46 Sodium 142 mmol/L (137-145) 02/02/20 09:15 Potassium 3.9 mmol/L (3.6-5.0) 02/02/20 09:15 Chloride 109.5 mmol/L (98-107) H 02/02/20 09:15 Carbon Dioxide 25 mmol/L (22-30) 02/02/20 09:15 Anion Gap 11 mmol/L 02/02/20 09:15 BUN 14 mg/dL (9-20) 02/02/20 09:15 Creatinine 0.6 mg/dL (0.8-1.3) L 02/02/20 09:15 Estimated GFR > 60 ml/min 02/02/20 09:15 BUN/Creatinine Ratio 23 % 02/02/20 09:15 Glucose 131 mg/dL (75-100) H 02/02/20 09:15 POC Glucose 106 mg/dL (70-105) H 02/09/20 11:50 Hemoglobin A1c 6.7 % (4-6) H 01/18/20 16:04 Lactic Acid 1.80 mmol/L (0.7-2.0) 01/17/20 19:40 Calcium 9.0 mg/dL (8.4-10.2) 02/02/20 09:15 Magnesium 2.00 mg/dL (1.7-2.3) 01/26/20 05:14 Ferritin 3748.0 ng/mL (30.0-300.0) H 01/22/20 07:46 Total Bilirubin 0.40 mg/dL (0.1-1.2) 01/20/20 05:39 Direct Bilirubin < 0.2 mg/dL (0-0.2) 01/20/20 05:39 Indirect Bilirubin 0.2 mg/dL 01/20/20 05:39 AST 60 units/L (5-40) H 01/20/20 05:39 ALT 44 units/L (7-56) 01/20/20 05:39 Alkaline Phosphatase 64 units/L (35-129) 01/20/20 05:39 Ammonia 38.0 umol/L (25-60) 01/17/20 17:34 Lactate Dehydrogenase 368 units/L (91-180) H 01/22/20 07:46 Total Creatine Kinase 164 units/L (55-170) 01/17/20 17:34 Troponin T < 0.010 ng/mL (0.00-0.029) 01/17/20 17:34 C-Reactive Protein 2.90 mg/dL (0.00-1.30) H 01/22/20 07:46 Total Protein 7.0 g/dL (6.3-8.2) 01/20/20 05:39 Albumin 2.8 g/dL (3.9-5) L 01/20/20 05:39 Albumin/Globulin Ratio 0.7 % 01/20/20 05:39 Triglycerides 219 mg/dL (2-149) H 01/18/20 16:04 Cholesterol 180 mg/dL (50-199) 01/18/20 16:04 LDL Cholesterol Direct 91 mg/dL (50-130) 01/18/20 16:04 HDL Cholesterol 37 mg/dL (40-59) L 01/18/20 16:04 Cholesterol/HDL Ratio 4.86 % 01/18/20 16:04 Procalcitonin 0.15 ng/mL (<0.15) 01/17/20 21:39 Urine Color Yellow (Yellow) 01/17/20 19:30 Urine Turbidity Clear (Clear) 01/17/20 19:30 Urine pH 5.0 (5.0-7.0) 01/17/20 19:30 Ur Specific [place] 1.016 (1.003-1.030) 01/17/20 19:30 Urine Protein 100 mg/dl mg/dL (Negative) 01/17/20 19:30 Urine Glucose (UA) Neg mg/dL (Negative) 01/17/20 19:30 Urine Ketones Neg mg/dL (Negative) 01/17/20 19:30 Urine Blood Sm (Negative) 01/17/20 19:30 Urine Nitrite Neg (Negative) 01/17/20 19:30 Urine Bilirubin Neg (Negative) 01/17/20 19:30 Urine Urobilinogen < 2.0 mg/dL (<2.0) 01/17/20 19:30 Ur Leukocyte Esterase Neg (Negative) 01/17/20 19:30 Urine WBC (Auto) 2.0 /HPF (0.0-6.0) 01/17/20 19:30 Urine RBC (Auto) 6.0 /HPF (0.0-6.0) 01/17/20 19:30 U Epithel Cells (Auto) < 1.0 /HPF (0-13.0) 01/17/20 19:30 Urine Bacteria (Auto) 1+ /HPF (Negative) 01/17/20 19: Urine Mucus Few /HPF 01/17/20 19:30 Coronavirus (PCR) Positive (Negative) A 01/31/20 08:12 SARS-CoV-2 IgG Ab Reactive (NonReactive) A 01/19/20 17:52 Moses/IV: Voiding Method Condom Catheter IV Catheter Type [Left Forearm INT / Saline Lock ] IV Catheter Type [Right INT / Saline Lock Antecubital] Active Medications - Current Medications Current Medications: Generic Name Dose Route Start Last Admin Trade Name Freq PRN Reason Stop Dose Admin Acetaminophen 650 mg 01/17/20 22:03 02/06/20 21:56 Tylenol PO 650 mg Q4H PRN Administration Pain MILD(1-3)/Fever >100.5/FORD Amlodipine Besylate 5 mg 01/24/20 10:00 02/09/20 11:10 Amlodipine PO 5 mg QDAY LIBORIO Administration Lipase/Protease/Amylase 1 each 01/21/20 11:34 01/30/20 13:11 Pancreazace Urrutia 10,500 Unit FEEDTUBE 1 each PRN PRN Administration For Clogged Feeding Tube Ascorbic Acid 500 mg 01/21/20 10:00 02/09/20 11:10 Vitamin C PO 500 mg QDAY LIBORIO Administration Aspirin 81 mg 02/01/20 10:00 02/09/20 11:10 Baby Aspirin PO 81 mg QDAY LIBORIO Administration Atorvastatin Calcium 40 mg 01/19/20 22:00 02/08/20 22:43 Lipitor PO 40 mg QHS LIBORIO Administration Dextrose 50 ml 01/18/20 16:00 D50w (25gm) Syringe IV Q30MIN PRN Hypoglycemia Protocol Docusate Sodium 100 mg 01/20/20 10:00 02/09/20 11:12 Colace PO 100 mg BID LIBORIO Administration Enoxaparin Sodium 40 mg 02/01/20 22:00 02/08/20 22:43 Enoxaparin SUB-Q 40 mg QDAY@2200 LIBORIO Administration Protocol Hydralazine HCl 25 mg 02/06/20 14:00 02/09/20 06:04 Apresoline PO 25 mg Q8HR LIBORIO Administration Insulin Human Isoph/Insulin Regular 8 unit 01/27/20 08:45 02/09/20 08:28 Humulin 70/30 SUB-Q 8 unit QDDIAB LIBORIO Administration Insulin Human Regular 0 unit 01/18/20 16:00 02/09/20 06:03 Humulin R SUB-Q Not Given Q6HR [facility] Protocol Magnesium Hydroxide 30 ml 01/17/20 22:03 Milk Of Magnesia PO Q4H PRN Constipation Ondansetron HCl 4 mg 01/17/20 22:03 Zofran IV Q8H PRN Nausea And Vomiting Simple Syrup 15 ml 01/21/20 11:34 Simple Syrup FEEDTUBE PRN PRN Hypoglycemia Simple Syrup 30 ml 01/21/20 11:34 Simple Syrup FEEDTUBE PRN PRN Hypoglycemia Sodium Bicarbonate 325 mg 01/21/20 11:34 Sodium Bicarbonate FEEDTUBE PRN PRN For Clogged Feeding Tube Sodium Chloride 10 ml 01/18/20 10:00 02/08/20 22:44 Sodium Chloride Flush Syringe 10 Ml IV 10 ml BID LIBORIO Administration Sodium Chloride 10 ml 01/17/20 22:03 Sodium Chloride Flush Syringe 10 Ml IV PRN PRN LINE FLUSH Zinc Sulfate 220 mg 01/21/20 10:00 02/09/20 11:11 Zinc Sulfate PO 220 mg QDAY LIBORIO Administration Nutrition/Malnutrition Assess - Dietary Evaluation Nutrition/Malnutrition Findings: Nutrition Notes Start: 01/19/20 10:13 Freq: Status: Active Protocol: Document 02/07/20 13:12 AB (Rec: 02/07/20 13:21 AB [id number]) Co-Sign 02/07/20 13:12 MK Nutrition Notes Initial or Follow up Reassessment Current Diagnosis Diabetes,Hypertension,Stroke Other Pertinent Diagnosis COVID-19 (+), AMS, Dysphagia Current Diet Glucerna 1.2 at 65 ml/hr Labs/Tests BG 131 Pertinent Medications Humulin Zinc Vit C Height 5 ft 11 in Weight 83.9 kg [place] Body Weight (kg) 78.18 BMI 25.7 Weight change and time frame Wt change noted Weight Status Overweight Subjective/Other Information F/U for TF tolerance. Pt is tolerating TF at goal, per RN. Percent of energy/protein needs met: 95%/100% Burn Absent Trauma Absent GI Symptoms None Current % PO Negligible Minimum of two criteria No physical signs of malnutrition #1 Nutrition Diagnosis Inadequate oral intake Diagnosis Progress(for reassessment Continues documentation) Is patient on ventilator? No Is Patient Ambulatory and/or Out of Bed No REE-([facility]-confined to bed) 2421.280 Calculation Used for Recommendations [facility] Additional Notes Protein: 84-101 g (1-1.2 g/kg) Fluid: per MD Nutrition Intervention Change Diet Order: Continue TF Nutrition Support: Glucerna 1.2 at 65 mL/hr. Flush with 200 mL q4h. Kcal 1,872 Protein (gm) 94 Fluid (mL) 1,256 Goal #1 Meet at least 75% of estimated energy and protein needs via TF Goal #2 TF tolerance Anticipated Discharge Needs: TF Glucerna 1.2 at 65ml/hr. Water flush with 200ml q4h Follow-Up By: 02/10/20 Additional Comments F/U for TF tolerance
[2020-02-09] MEDS: ENOXAPARIN 40 MG/0.4 ML INJ SUB-Q SCH (23:26)
[2020-02-10] MEDS: INSULIN REGULAR, HUMAN 100 UNIT/ML 3ML VIAL SUB-Q SCH ×4 (00:44→14:29)
[2020-02-10] MEDS: ACETAMINOPHEN 325 MG TAB PO PRN (05:55)
[2020-02-10] MEDS: hydrALAZINE 25 MG TAB PO SCH ×2 (05:56→14:29)
[2020-02-10] MEDS: ASCORBIC ACID 500 MG TAB PO SCH (10:14)
[2020-02-10] MEDS: ASPIRIN 81 MG TAB CHEW PO SCH (10:14)
[2020-02-10] MEDS: DOCUSATE SODIUM 100 MG/10 ML ORAL LIQD PO SCH (10:14)
[2020-02-10] MEDS: ZINC SULFATE 220 MG CAP PO SCH (10:14)
[2020-02-10] MEDS: INSULIN NPH/REGULAR 70/30 INJ SUB-Q SCH (10:16)
[2020-02-10] MEDS: amLODIPine 5 MG TAB PO SCH (10:16)
--- NOTE | 2020-02-10 12:40 | Discharge Summary ---
Providers - Providers Date of Admission: 01/18/20 07:33 Date of discharge: 02/10/20 Attending physician: TEJ WARREN 01/17/20 22:11 Consult to Physician [CONS] Routine Comment: Consulting Provider: NIKOLAI STEWART Physician Instructions: Reason For Exam: Fever 01/19/20 07:34 Consult to Dietitian/Nutrition [CONS] Routine Physician Instructions: Reason For Exam: Reason for Consult: Write/Manage Tube Feeding Consult to Physician [CONS] Routine Comment: Consulting Provider: SUDHEER ROUSE Physician Instructions: Reason For Exam: hyperNatremia 01/19/20 07:35 Consult to Dietitian/Nutrition [CONS] Routine Physician Instructions: Reason For Exam: Reason for Consult: Write/Manage TPN/PPN 01/19/20 12:11 Consult to Physician [CONS] Routine Comment: Consulting Provider: ANDRE CORREA Physician Instructions: Reason For Exam: cva 01/19/20 15:21 Consult to Case Management [CONS] Routine Services Needed at Discharge: Reporting Developer Notified:: CM Additional Physician Instructions: PLEASE CALL FAMILY 01/19/20 15:38 Occupational Therapy Evaluate and Treat [CONS] Routine Comment: Reason For Exam: Neuro deficits Physical Therapy Evaluation and Treat [CONS] Routine Comment: Reason For Exam: Neuro deficits 01/21/20 07:09 Consult to Dietitian/Nutrition [CONS] Routine Physician Instructions: Assess nutrtn needs, initiate, modify, manage TF Reason For Exam: Reason for Consult: Write/Manage Tube Feeding Reason for Consult: Write/Manage Tube Feeding 01/24/20 17:52 Speech Therapy Evaluation and Treat [CONS] Routine Reason For Exam: eval 01/26/20 12:01 Speech Therapy Evaluation and Treat [CONS] Routine Reason For Exam: evaluate swallowing 01/30/20 19:47 Consult to Physician [CONS] Routine Comment: Consulting Provider: BENNY EDWARDS Physician Instructions: Reason For Exam: Dysphagia/failed swallow/PEG placement 02/01/20 13:20 Consult to Dietitian/Nutrition [CONS] Routine Physician Instructions: Assess nutrtn needs, initiate, modify, manage TF Reason For Exam: Reason for Consult: Write/Manage Tube Feeding Reason for Consult: Write/Manage Tube Feeding 02/01/20 13:21 Consult to Dietitian/Nutrition [CONS] Routine Physician Instructions: Assess nutrtn needs, initiate, modify, manage TF Reason For Exam: Reason for Consult: Write/Manage Tube Feeding Reason for Consult: Write/Manage Tube Feeding Primary care physician: GERALD DAVID Hospitalization Condition: Stable Hospital course: 79-year-old male with HTN and DM who is a resident of a retirement presented to the ED on 01/17 via EMS for evaluation of a change mental status. Per retirement staff patient was not communicating well and having decreased oral intake. Upon arrival to the emergency department patient was found to be tachycardic, febrile to 102.2 and hypoxic with SPO2 of 91 on room air. Work-up was significant for hypernatremia, acute kidney injury (CR/BUN 2.2/55), hypochloremia, transaminitis and a chest x-ray showed mild bilateral pulmonary edema and CTh was unremarkable. Patient was admitted to hospitalist service as a Covid PUI, Sepsis, YIMI and infectious disease and nephrology were consulted. Patient failed swallow evaluation per speech therapy, recommended PEG placement, GI evaluated, patient had PEG tube placement today 01/31/2020. GI recommend to start tube feeding tomorrow and may discharge if stable. 01/17: elevated D-dimer therefore bilateral upper and lower extremity ultrasounds Dopplers were obtained to rule out DVT and a VQ scan was performed to rule out PE both of which were negative. Patient remained severely hypernatremic and his IV fluids were changed to D5 water. We will trend his BMP. He also has elevated Covid markers ferritin and CRP. 01/18: COVID-19 PCR resulted as positive. Patient remains hyponatremic therefore nephrology was consulted and he was started on FWF and his D5W was increased. 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 Dr. Petersen updated his daughter this morning (Ms. Burleson) and this afternoon after his COVID-19 PCR resulted I updated her. The phone got disconnected after 2 minutes of conversation and informing her of COVID-19 status and I tried calling back twice. Both times it was sent to [employer] and her mailbox is full therefore was not able to leave a message. Patient was also initiated on remdesivir therapy 01/19: MRI head and MRI brain still pending, continue remdesivir therapy, increased free water flush 300 mL every 4 hours and increase the D5W TO 100 mL/h 01/20: Zinc and vitamin C initiated, patient still remains hypernatremic 01/21: Patient remains hypernatremic, no acute events reported overnight 01/22: Patient remains hypernatremic, hyperchloremic though it is improving. Patient still remains with altered mental status and he has bilateral wrist restraints in place. Dr. Petersen updated patient's daughter over the phone today. No acute events reported overnight. Patient was hypokalemic which was repleted. 01/23: His hyperkalemia has resolved. No acute events reported overnight. Patient intermittently follows commands and is more verbal. Today he has bilateral mittens in place. 01/24: Patient has marked improvement in mentation today he is oriented to self and follows commands. Patient is hypokalemic today at 3.5 which was repleted and his hypernatremia and hyperchloremia are improving. Patient failed his swallow eval by speech therapy this morning. I updated daughter over the phone, Olya Pritchard, regarding ST evaluation and labs. I spoke to her about the possibility of a PEG being recommended by ST to which she agreed to as a last resort. 01/25: This morning patient is more alert with RN. Repeated speech evaluation was conducted and he failed. I updated the patient's daughter who would like to hold off a decision about PEG till Thursday and would like to see patient improves with speech therapy. This morning patient's hypernatremia and hyperchloremia has improved and his sodium is 148, chloride 111.4. 01/27-patient failed swallowing the valve again. Patient scheduled to determine about PEG tube feedings on Thursday. Seems will need a PEG. Family leaning toward this. 01/28;. Patient remains comfortable. Still has some cognitive impairment. Recent introduction to patient mental status appears about the same. Family to decide about PEG tube on Thursday. 01/29; I discussed with patient's daughter Elina Burleson and discussed the details of PEG placement, GI consult, possible procedure tomorrow She verbalized understanding and willing for PEG placement, GI consulted 01/30; patient received PEG placement today, GI recommend to start tube feeding tomorrow, and patient may be discharged if stable 01/31. Patient is s/p PEG placement yesterday. Monitor tube feedings today. Covid testing remains positive from 01/31/2020 02/02/2020. Awaiting for arrangements for hospital bed for patient to discharge home in a.m. 02/03/2020. Awaiting arrangements for hospital bed and tube feeding supplies to discharge home with home health. 02/04/2020. Awaiting arrangements for hospital bed and tube feeding supplies to discharge home with home health. 02/05/2020. Awaiting arrangements for hospital bed and tube feeding supplies to discharge home with home health. 02/06/2020. Case management spoke to patient's daughter Elina Burleson at [phone] who is in process of getting a rental bed for a bed from the [facility] today. Patient will need hospital bed prior to discharge 02/07/2020. Bed reported to be available tomorrow as per daughter. Possible DC tomorrow. 02/08/2020. Awaiting feed and DME available. 02/09/2020. Beds have been supplied but still needs tube feeds to be set up 02/10/2020. Will be discharged once tube feed supplies have been arranged Disposition: [id number] HOME UNDER HOME HLTH - Discharge Diagnoses (1) COVID-19 virus infection Status: Acute (2) Dysphagia, oropharyngeal Status: Acute (3) Metabolic encephalopathy Status: Acute (4) Pneumonia due to COVID-19 virus Status: Acute (5) Hypertension Status: Chronic (6) Acute hypernatremia Status: Resolved (7) Acute kidney injury Status: Resolved (8) Transaminitis Status: Resolved Core Measure Documentation - Palliative Care Palliative Care/ Comfort Measures: Not Applicable - Core Measures Any of the following diagnoses?: none Exam - Physical Exam Narrative exam: VITAL SIGNS: Reviewed. GENERAL: Awake HEAD: No signs of head trauma. EYES: Pupils are equal. EARS: Hearing grossly intact. MOUTH: Oropharynx is normal. NECK: No adenopathy, no JVD. CHEST: Chest with diminished breath sounds bilaterally. No wheezes, rales, or rhonchi. CARDIAC: Regular rate and rhythm. S1 and S2, without murmurs, gallops, or rubs. VASCULAR: No Edema. Peripheral pulses normal and equal in all extremities. ABDOMEN: Soft, non tender and non distended. No rebound or guarding, and no masses palpated. Bowel Sounds normal. PEG in place NEUROLOGIC EXAM: Awake PSYCHIATRIC: Not assessed SKIN: No obvious lesions - Constitutional Vitals: Temp Pulse Resp BP Pulse Ox 99.9 F H 113 H 18 140/84 93 02/10/20 05:47 02/10/20 10:16 02/10/20 05:47 02/10/20 10:16 02/10/20 05:47 Plan Activity: no restrictions, advance as tolerated Diet: other (Tube feeding) Additional Instructions: Continue medications prescribed Follow up with: GERALD DAVID MD [Primary Care Provider] - 3-5 Days Prescriptions: AtorvaSTATin [Lipitor] 40 mg PO QHS #30 tablet hydrALAZINE [Apresoline TAB] 25 mg PO Q8HR #90 tablet Aspirin [Aspirin BABY CHEW TAB] 81 mg PO QDAY #30 tab.chew Docusate Sodium [Colace ORAL LIQ] 100 mg PO BID #60 oral.liqd Insulin Regular, Human [HumuLIN R] 0 unit SUB-Q Q6HR 30 Days vial Magnesium Hydroxide [Milk of Magnesia] 30 ml PO Q4H PRN 30 Days oral.liqd PRN Reason: Constipation Insulin NPH/Regular [NovoLIN 70/30] 8 unit SUB-Q QDDIAB 30 Days units Lipase/Protease/Amylase [Pancrekaseye Dr 10,500 Unit] 1 each FEEDTUBE PRN PRN 30 Days capsule PRN Reason: For Clogged Feeding Tube Simple Syrup 30 ml FEEDTUBE PRN PRN 30 Days oral.liqd PRN Reason: Hypoglycemia Simple Syrup 15 ml FEEDTUBE PRN PRN 30 Days oral.liqd PRN Reason: Hypoglycemia Sodium Bicarbonate 325 mg FEEDTUBE PRN PRN 30 Days tablet PRN Reason: For Clogged Feeding Tube Zinc Sulfate 220 mg PO QDAY 30 Days capsule
[2020-02-11 00:18] VITALS: BP 151/96
[2020-02-11] MEDS: hydrALAZINE 25 MG TAB PO SCH (01:00)
[2020-02-11] MEDS: INSULIN REGULAR, HUMAN 100 UNIT/ML 3ML VIAL SUB-Q SCH ×3 (01:37→02:07)
[2020-02-11] MEDS: DOCUSATE SODIUM 100 MG/10 ML ORAL LIQD PO SCH (01:38)
[2020-02-11] MEDS: ENOXAPARIN 40 MG/0.4 ML INJ SUB-Q SCH (01:38)
== END 2020-02-11 03:02 | disposition home health service (06) | DRG 871 ==
LOC: ED 16:38 → 3A 21:39 → OBSVTOIN 01-18 07:33
PROVIDERS: ADMIT Internal Medicine Geriatric Medicine; ATTEND Internal Medicine
PROC: XW033E5 Introduction of Remdesivir Anti-infective into Peripheral Vein, Percutaneous Approach, New Technology Group 5 (ICD-10-PCS; 2020-01-20)
PROC: 0DH63UZ Insertion of Feeding Device into Stomach, Percutaneous Approach (ICD-10-PCS; principal; 2020-01-31)
DX: A41.89 Other specified sepsis (principal); U07.1 COVID-19; G93.41 Metabolic encephalopathy; J96.01 Acute respiratory failure with hypoxia; J12.89 Other viral pneumonia; E87.0 Hyperosmolality and hypernatremia; E46 Unspecified protein-calorie malnutrition; N17.9 Acute kidney failure, unspecified; R13.12 Dysphagia, oropharyngeal phase; R65.20 Severe sepsis without septic shock; E11.9 Type 2 diabetes mellitus without complications; I10 Essential (primary) hypertension; E87.8 Other disorders of electrolyte and fluid balance, not elsewhere classified; E87.6 Hypokalemia; Z68.27 Body mass index [BMI] 27.0-27.9, adult
CPT/HCPCS: 36415; 70450; 70544; 70551; 71045; 74018; 78580; 80048; 80061; 80076; 81001; 82140; 82550; 82728; 82947; 82962; 83036; 83615; 83735; 84145; 84295; 84484; 85007; 85025; 85027; 85379; 85610; 85730; 86140; 87040; 90471; 93005; 93970; 96374; 96375; G0378; A9270-GY; A9540; J0690; J0692; J1650; J1815; J2543; J2704; J7030; J7042; J7070; J8540; U0003